=== PATIENT | female | born 1970 | race Two or more races ===

== ENCOUNTER 2021-07-17 11:33 | Emergency (ER) | payer OTHER, SELFPAY ==
--- NOTE | ~2021-07-17 | CT_ITS ---
EXAMINATION: CT ANGIOGRAM OF THE CHEST WITH AND WITHOUT CONTRAST (CT PULMONARY ANGIOGRAM FOR PE) CLINICAL INFORMATION: Reason for Exam cp, sob, r/o pe COMPARISON: Chest x-ray 04/16/2021 TECHNIQUE: Prior to contrast administration, noncontrast localization images were obtained. Subsequently, multidetector volumetric imaging was performed from the thoracic inlet to below the diaphragms following the administration of 80 mL Omnipaque 350 intravenous contrast. No contrast reaction reported Sagittal, coronal, and MIP oblique sagittal reformatted images were obtained on the CT workstation, uploaded to PACS, and reviewed. This CT examination was performed using dose optimization techniques as appropriate, variously including the following: *Automated exposure control *Adjustment of mA and/or kV according to patient size (this includes techniques or standardized protocols for targeted exams where dose is matched to indication/reason for exam; i.e. extremities or head) *Use of iterative reconstruction technique Total exam dose-length product 505 mGy-cm FINDINGS: QUALITY OF STUDY/CONTRAST BOLUS: Satisfactory. PULMONARY ARTERIES: No no evidence of filling defects to suggest central or segmental pulmonary emboli. THORACIC AORTA: No aneurysm or dissection. LUNG: Mild patchy airspace and groundglass opacities in the posterior aspect of bilateral lower lungs, slightly more prominent in the superior aspect of the left lower lobe, could represent atelectasis or inflammatory/infectious process. No dense consolidation. No lobar consolidation. No suspicious nodules seen. PLEURA: No pleural effusion or pneumothorax. MEDIASTINUM: Normal heart size. No pericardial effusion. No hilar or mediastinal lymphadenopathy. No evidence of septal bowing or right heart strain. CHEST WALL/AXILLA: No axillary or internal mammary lymphadenopathy. OSSEOUS STRUCTURES: No acute or suspicious osseous abnormality. UPPER ABDOMEN: Unremarkable. No reflux of contrast into the hepatic veins to suggest elevated right heart pressures. CT/CT angio chest PE protocol IMPRESSION: 1. No evidence of filling defects to suggest central or segmental pulmonary emboli. 2. Mild patchy airspace and ground glass opacities in the posterior aspect of bilateral lower lungs, could represent atelectasis or inflammatory/infectious process. No dense consolidation. VTE: negative
--- NOTE | ~2021-07-17 | US_ITS ---
EXAMINATION: US VENOUS ULTRASOUND WITH DOPPLER LOWER EXTREMITY, LEFT CLINICAL INFORMATION: Left lower extremity swelling. Assess for occult DVT. COMPARISON: None. TECHNIQUE: Ultrasound of the deep veins is performed from the hip to the calf with compression sonography and color and pulse Doppler assessment. Spectral analysis with color-flow imaging is performed. FINDINGS: There is normal venous compression and respiratory variation and augmented flow. The visualized common femoral vein, superficial femoral vein, profunda femoral vein, popliteal vein, and the trifurcation region shows no evidence of deep venous thrombosis. No popliteal fossa cyst. US/US venous duplex LE LT IMPRESSION: No DVT demonstrated in the left lower extremity.
--- NOTE | ~2021-07-17 | XR_ITS ---
EXAMINATION: XR CHEST CLINICAL INFORMATION: Chest pain COMPARISON: None TECHNIQUE: 2 views of the chest were obtained. FINDINGS: There is no pneumothorax, pleural reaction, airspace opacity, or effusion. The costophrenic sulci are clear. The heart is normal in size. The hilar and mediastinal contours are normal. The bony structures show mild dextrocurvature lower thoracic spine. XR/XR chest 2V IMPRESSION: Unremarkable examination.
[2021-07-17 11:46] VITALS: BP 107/70; PULSE 90; PULSE 95; RESP 13; TEMP 36.6; O2SAT 96; O2SAT 97; BMI 43.1
--- NOTE | 2021-07-17 11:53 | ECG_ITS ---
Test Reason : CHEST PAIN Blood Pressure : / mmHG Vent. Rate : 090 BPM Atrial Rate : 090 BPM P-R Int : 138 ms QRS Dur : 072 ms QT Int : 394 ms P-R-T Axes : 013 004 024 degrees QTc Int : 481 ms Normal sinus rhythm Prolonged QT Abnormal ECG No previous ECGs available Referred By: Brittaney Raman Electronically Signed By:AYLIN CRUZ
--- NOTE | 2021-07-17 12:05 | PC.NURSE ---
pt reports feeling very depressed. reported she has been inpatient for therapy two times in her life. Currently she denies wanting to meet with Crisis. 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
--- NOTE | 2021-07-17 12:06 | ED.CHESTPAIN ---
HPI - Chest Pain General Chief Complaint: Chest Pain Stated Complaint: chest pain Time Seen by Provider: 07/17/21 11:49 Source: patient Mode of arrival: ambulatory Limitations: no limitations History of Present Illness HPI narrative: 51-year-old female with a past medical history of asthma, prior DVT (unknown cause-not currently on anticoagulation) hypertension, diabetes, here with complaints of left-sided chest pain which patient noticed with waking at 06:30. Pain is worsened with touching, breathing, movement of the arm. Pain does radiate from the left-sided chest down the left arm. She tells me she has also had some left-sided calf pain and swelling for the last few weeks to about a month. No injury or trauma. No fevers or chills. She does occasionally have cough but denies any shortness of breath, nausea, vomiting, dizziness or abdominal pain. Related Data Previous Rx's Medication Instructions Recorded doxycycline monohydrate 100 mg 100 mg PO BID #20 cap 07/17/21 capsule oxycodone 5 mg tablet 5 mg PO Q8H PRN #8 tab 07/17/21 Allergies Allergy/AdvReac Type Severity Reaction Status Date / Time ibuprofen [From Motrin] Allergy Hives Verified 07/17/21 13:08 lisinopril Allergy Swelling Verified 07/17/21 13:08 peanut Allergy Swelling Verified 07/17/21 13:08 Penicillins Allergy Hives Verified 07/17/21 13:08 Review of Systems Review of Systems: Yes all other systems are reviewed and are negative Constitutional: Constitutional: Reports no additional constitutional complaints, Denies body ache(s), Denies chills, Denies fever(s), Denies headache(s) and Denies weakness Eyes: Eyes: Reports no additional eye complaints and Denies change in vision ENT: Reports system reviewed and no additional complaints, except as documented, Denies dizziness, Denies headache(s), Denies nasal congestion, Denies nasal discharge and Denies neck pain Cardiovascular: Cardiovascular: Reports no additional cardiovascular complaints, Reports chest pain, Reports leg edema and Denies dyspnea Respiratory: Respiratory: Reports no additional respiratory complaints, Denies cough and Denies dyspnea Gastrointestinal: Gastrointestinal: Reports no additional gastrointestinal complaints, Denies abdominal pain, Denies diarrhea, Denies nausea and Denies vomiting Genitourinary: Genitourinary: Reports no additional female genitourinary complaints and Denies urinary incontinence Musculoskeletal: Musculoskeletal: Reports no additional musculoskeletal complaints, Denies back pain, Denies arthralgias, Denies joint swelling, Denies neck pain, Denies numbness and Denies tingling Integumentary/Breasts: Skin/Breast: Reports system reviewed and no additional complaints, except as docu and Denies rash Neurologic: Reports system reviewed and no additional complaints, except as documented, Denies Abnormal speech present, Denies dizziness, Denies headache(s), Denies numbness, Denies tingling and Denies weakness FORMERLY [facility], 1928–1983 Past Medical History Attestation statement: The following information was validated with the patient. Source: old records reviewed and nursing notes reviewed Social History Social History Alcohol intake: never Patient Tobacco Use Status: Never used Tobacco Use of substances other than those prescribed or required for medical reasons: No Advance Directives: No Advance Directives Information Provided: No Physical Exam Vital Signs: Vital Signs: Last Vital Signs Temp 97.9 F 07/17/21 11:46 Pulse 88 07/17/21 12:09 Resp 18 07/17/21 12:09 BP 105/60 07/17/21 12:09 Pulse Ox 98 07/17/21 12:09 Body Mass Index 43.1 Const: General: cooperative, healthy appearing, comfortable and no acute distress Orientation/consciousness: patient oriented x3 Limitations: no limitations HENMT: Head: Yes normal to inspection Ears: hearing grossly normal bilaterally General nose exam: Normal external nose present Face and sinus: Yes normal facial exam Mouth: Normal oral and palatal mucosa present Throat: Yes posterior oropharynx normal Eyes: General: appearance normal, both eyes and all related structures Pupils: Equal, round and reactive pupils present Neck: Neck: Yes normal visual inspection Chest: Other: Left chest tender to palpate. Worsened with deep breathing, movement of left arm. Chest palpation & inspection: normal inspection of the chest Resp: Effort & Inspection: normal respiratory effort Auscultation: clear to auscultation bilaterally Cardio: Rate: regular rate Rhythm: regular rhythm Peripheral pulses: Peripheral pulses 2+ throughout GI: Inspection: Yes normal to inspection Palpation (GI): Soft to palpation and nontender Auscultation: normal bowel sounds Back/Spine/Pelvis: Thoracic/Lumbar Spine: thoracic and lumbar spine normal to inspection Skin: General skin exam: no rashes or lesions noted Neuro: General: patient oriented x3, no focal motor deficits and normal sensation to monofilament Cranial nerves: Yes Equal, round and reactive pupils present Cognition (Neuro): normal cognition Speech: No Abnormal speech present Gait exam (Neuro): Normal gait present Motor exam (neuro): 5/5 motor strength present throughout Extrem: Other: Tenderness to left calf. Scant edema noted around the left ankle. No redness or warmth. Distal pulses palpated General: Yes normal to inspection Course Course Course Narrative: 51-year-old female here with complaints of left-sided chest discomfort which is pleuritic in nature since waking with reports of left lower extremity swelling and pain to the calf for several weeks to 1 month. Will need labs, chest x-ray, EKG, venous ultrasound the left lower extremity to rule out DVT. 1545-reviewed labs all unremarkable. Ultrasound is negative. The D-dimer is mildly elevated with a history of blood clots and pleuritic chest pain will check CTA to rule out PE. 1730-CT shows no PE. There does appear to be patchy airspace and ground-glass opacities in the bilateral lower lungs. The patient denies any shortness of breath but does report a cough which he has had for several days. No fevers or chills. No hypoxia, tachypnea, or fever. No leukocytosis. Can be discharged home with course of antibiotics. Reviewed worrisome signs and symptoms with the patient including worsening shortness of breath, chest pain, fever which is not respond to Motrin Tylenol when to return to the emergency department. Comfortable discharge home. MDM - Chest Pain MDM Narrative Medical decision making narrative: PE, DVT, ACS Medical Records Data Attestation: I reviewed the patient's medical records. Lab Data Attestation: I reviewed the patient's lab results. Result diagrams: 07/17/21 12:23 07/17/21 13:15 Labs: Lab Results 07/17/21 07/17/21 07/17/21 Range/Units 12:23 12:23 12:23 WBC 10.4 (4.8-10.8) X10*3/uL RBC 4.82 (4.20-5.50) X10*6/uL Hgb 11.6 L (12.0-16.0) g/dl Hct 37.1 (37-47) % MCV 77.0 L (80-98) fL MCH 24.1 L (27.0-33.0) pg MCHC 31.3 (31.0-35.0) g/dl RDW 19.5 H (11.0-16.0) % Plt Count 288 (160-400) X10*3/uL MPV 9.9 (9.4-12.3) fL Immature Gran % (Auto) 0.5 H (0.0-0.4) % Neut % (Auto) 49.9 (45-73) % Lymph % (Auto) 37.8 (20-40) % [place] % (Auto) 7.2 (2-11) % Eos % (Auto) 4.1 H (0-4) % Baso % (Auto) 0.5 (0-2) % Lymph # (Auto) 4.0 (1.2-4.9) X10*3/uL [place] # (Auto) 0.8 (0.1-1.2) X10*3/uL Eos # (Auto) 0.4 (0.0-0.4) X10*3/uL Baso # (Auto) 0.1 (0.0-0.2) X10*3/uL Abs Immat Gran (auto) 0.05 H (0.00-0.03) X10*3/uL Absolute Neuts (auto) 5.2 (2.0-8.3) X10*3/uL Absolute Nucleated RBC 0.000 (0.0-0.012) X10*3/uL Nucleated RBC % (auto) 0.0 (0.0-0.2) /100WBC PT (9.9-13.0) SEC INR (0.9-1.1) D-Dimer Cancelled Sodium (135-145) mmol/L Potassium (3.3-5.1) mmol/L Chloride (96-108) mmol/L Carbon Dioxide (22-29) mmol/L Anion Gap (12-20) BUN (9-16) mg/dL Creatinine (0.5-1.4) mg/dL Estim Creat Clear Calc Estimated GFR POC Glucose (60-115) mg/dL Random Glucose (60-115) mg/dL Calcium (8.4-10.2) mg/dL Magnesium (1.6-2.6) mg/dL Total Bilirubin (0.0-1.0) mg/dL Direct Bilirubin (0.0-0.5) mg/dL AST (5-31) U/L ALT (0-31) U/L Alkaline Phosphatase (39-117) U/L Troponin I High Sens < 3.5 (<3.5-17.0) ng/L Total Protein (6.5-8.0) g/dL Albumin (3.5-5.0) g/dL COVID-19 (RAO) (Negative) COVID-19 Clin Com 07/17/21 07/17/21 07/17/21 Range/Units 12:23 13:04 13:15 WBC (4.8-10.8) X10*3/uL RBC (4.20-5.50) X10*6/uL Hgb (12.0-16.0) g/dl Hct (37-47) % MCV (80-98) fL MCH (27.0-33.0) pg MCHC (31.0-35.0) g/dl RDW (11.0-16.0) % Plt Count (160-400) X10*3/uL MPV (9.4-12.3) fL Immature Gran % (Auto) (0.0-0.4) % Neut % (Auto) (45-73) % Lymph % (Auto) (20-40) % [place] % (Auto) (2-11) % Eos % (Auto) (0-4) % Baso % (Auto) (0-2) % Lymph # (Auto) (1.2-4.9) X10*3/uL [place] # (Auto) (0.1-1.2) X10*3/uL Eos # (Auto) (0.0-0.4) X10*3/uL Baso # (Auto) (0.0-0.2) X10*3/uL Abs Immat Gran (auto) (0.00-0.03) X10*3/uL Absolute Neuts (auto) (2.0-8.3) X10*3/uL Absolute Nucleated RBC (0.0-0.012) X10*3/uL Nucleated RBC % (auto) (0.0-0.2) /100WBC PT 11.6 (9.9-13.0) SEC INR 1.0 (0.9-1.1) D-Dimer 271 Sodium 137 (135-145) mmol/L Potassium 4.6 (3.3-5.1) mmol/L Chloride 109 H (96-108) mmol/L Carbon Dioxide 18 L (22-29) mmol/L Anion Gap 15 (12-20) BUN 9 (9-16) mg/dL Creatinine 0.77 (0.5-1.4) mg/dL Estim Creat Clear Calc 100.6 Estimated GFR > 60 POC Glucose (60-115) mg/dL Random Glucose 110 (60-115) mg/dL Calcium 8.8 (8.4-10.2) mg/dL Magnesium 2.0 (1.6-2.6) mg/dL Total Bilirubin 0.4 (0.0-1.0) mg/dL Direct Bilirubin 0.2 (0.0-0.5) mg/dL AST 32 H (5-31) U/L ALT 33 H (0-31) U/L Alkaline Phosphatase 78 (39-117) U/L Troponin I High Sens (<3.5-17.0) ng/L Total Protein 6.5 (6.5-8.0) g/dL Albumin 3.5 (3.5-5.0) g/dL COVID-19 (RAO) Negative (Negative) COVID-19 Clin Com See Note 07/17/21 07/17/21 Range/Units 13:56 16:52 WBC (4.8-10.8) X10*3/uL RBC (4.20-5.50) X10*6/uL Hgb (12.0-16.0) g/dl Hct (37-47) % MCV (80-98) fL MCH (27.0-33.0) pg MCHC (31.0-35.0) g/dl RDW (11.0-16.0) % Plt Count (160-400) X10*3/uL MPV (9.4-12.3) fL Immature Gran % (Auto) (0.0-0.4) % Neut % (Auto) (45-73) % Lymph % (Auto) (20-40) % [place] % (Auto) (2-11) % Eos % (Auto) (0-4) % Baso % (Auto) (0-2) % Lymph # (Auto) (1.2-4.9) X10*3/uL [place] # (Auto) (0.1-1.2) X10*3/uL Eos # (Auto) (0.0-0.4) X10*3/uL Baso # (Auto) (0.0-0.2) X10*3/uL Abs Immat Gran (auto) (0.00-0.03) X10*3/uL Absolute Neuts (auto) (2.0-8.3) X10*3/uL Absolute Nucleated RBC (0.0-0.012) X10*3/uL Nucleated RBC % (auto) (0.0-0.2) /100WBC PT (9.9-13.0) SEC INR (0.9-1.1) D-Dimer Sodium (135-145) mmol/L Potassium (3.3-5.1) mmol/L Chloride (96-108) mmol/L Carbon Dioxide (22-29) mmol/L Anion Gap (12-20) BUN (9-16) mg/dL Creatinine (0.5-1.4) mg/dL Estim Creat Clear Calc Estimated GFR POC Glucose 100 112 (60-115) mg/dL Random Glucose (60-115) mg/dL Calcium (8.4-10.2) mg/dL Magnesium (1.6-2.6) mg/dL Total Bilirubin (0.0-1.0) mg/dL Direct Bilirubin (0.0-0.5) mg/dL AST (5-31) U/L ALT (0-31) U/L Alkaline Phosphatase (39-117) U/L Troponin I High Sens (<3.5-17.0) ng/L Total Protein (6.5-8.0) g/dL Albumin (3.5-5.0) g/dL COVID-19 (RAO) (Negative) COVID-19 Clin Com Imaging Data Chest x-ray: Attestation: I personally reviewed and interpreted this imaging study as follows: Radiologist's impression: EXAMINATION: XR CHEST CLINICAL INFORMATION: Chest pain COMPARISON: None TECHNIQUE: 2 views of the chest were obtained. FINDINGS: There is no pneumothorax, pleural reaction, airspace opacity, or effusion. The costophrenic sulci are clear. The heart is normal in size. The hilar and mediastinal contours are normal. The bony structures show mild dextrocurvature lower thoracic spine. XR/XR chest 2V IMPRESSION: Unremarkable examination. Venous US: Attestation: I personally reviewed and interpreted this imaging study as follows: Radiologist's impression: [address] [address] Ultrasound Report Signed Patient: Marylin Cheek MR#: [id number] : 1970 Acct:[id number] Age/Sex: 51 / F ADM Date: 07/17/21 Loc: HO.ED Attending Dr: Ordering Physician: Brittaney Raman NP Date of Service: 07/17/21 Procedure(s): US venous duplex LE LT Accession Number(s): [id number] cc: Brittaney Raman NP~ EXAMINATION:? US VENOUS ULTRASOUND WITH DOPPLER LOWER EXTREMITY, LEFT CLINICAL INFORMATION:? Left lower extremity swelling. Assess for occult DVT. COMPARISON:? None. TECHNIQUE: Ultrasound of the deep veins is performed from the hip to the calf with compression sonography and color and pulse Doppler assessment. Spectral analysis with color-flow imaging is performed. FINDINGS: There is normal venous compression and respiratory variation and augmented flow. The visualized common femoral vein, superficial femoral vein, profunda femoral vein, popliteal vein, and the trifurcation region shows no evidence of deep venous thrombosis. ? No popliteal fossa cyst. US/US venous duplex LE LT IMPRESSION: No DVT demonstrated in the left lower extremity. CT scan - chest: Attestation: I personally reviewed and interpreted this imaging study as follows: Radiologist's impression: [address] [address] [address] Scan Report Signed Patient: Marylin Cheek MR#: [id number] : 1970 Acct:[id number] Age/Sex: 51 / F ADM Date: 07/17/21 Loc: HO.ED Attending Dr: Ordering Physician: Brittaney Raman NP Date of Service: 07/17/21 Procedure(s): CT angio chest PE protocol Accession Number(s): [id number] cc: Brittaney Raman NP~ EXAMINATION: CT ANGIOGRAM OF THE CHEST WITH AND WITHOUT CONTRAST (CT PULMONARY ANGIOGRAM FOR PE) CLINICAL INFORMATION: Reason for Exam cp, sob, r/o pe COMPARISON: Chest x-ray 04/16/2021? TECHNIQUE: Prior to contrast administration, noncontrast localization images were obtained. ? Subsequently, multidetector volumetric imaging was performed from the thoracic inlet to below the diaphragms following the administration of 80 mL Omnipaque 350 intravenous contrast. No contrast reaction reported Sagittal, coronal, and MIP oblique sagittal reformatted images were obtained on the CT workstation, uploaded to PACS, and reviewed. This CT examination was performed using dose optimization techniques as appropriate, variously including the following: *Automated exposure control *Adjustment of mA and/or kV according to patient size (this includes techniques or standardized protocols for targeted exams where dose is matched to indication/reason for exam; i.e. extremities or head) *Use of iterative reconstruction technique Total exam dose-length product 505 mGy-cm FINDINGS: QUALITY OF STUDY/CONTRAST BOLUS: Satisfactory. PULMONARY ARTERIES: No no evidence of filling defects to suggest central or segmental pulmonary emboli.? THORACIC AORTA: No aneurysm or dissection. LUNG: Mild patchy airspace and groundglass opacities in the posterior aspect of bilateral lower lungs, slightly more prominent in the superior aspect of the left lower lobe, could represent atelectasis or inflammatory/infectious process. No dense consolidation. No lobar consolidation. No suspicious nodules seen. PLEURA: No pleural effusion or pneumothorax. MEDIASTINUM: Normal heart size.? No pericardial effusion.? No hilar or mediastinal lymphadenopathy.? No evidence of septal bowing or right heart strain. CHEST WALL/AXILLA: No axillary or internal mammary lymphadenopathy. OSSEOUS STRUCTURES: No acute or suspicious osseous abnormality.? UPPER ABDOMEN: Unremarkable.? No reflux of contrast into the hepatic veins to suggest elevated right heart pressures. CT/CT angio chest PE protocol IMPRESSION: ? ? 1. No evidence of filling defects to suggest central or segmental pulmonary emboli. ? 2. Mild patchy airspace and ground glass opacities in the posterior aspect of bilateral lower lungs, could represent atelectasis or inflammatory/infectious process. No dense consolidation. ? VTE: negative ECG Data ECG #1: Attestation: I personally reviewed and interpreted this ECG as follows: ECG interpretation date: 07/17/21 ECG interpretation time: 11:52 Interpretation: Normal sinus rhythm with a rate of 90, normal OR, normal QRS, QTC 481 Discharge Plan Discharge Clinical Impression: Atypical chest pain, Pneumonia Patient Disposition: Home, Self-Care Instructions: Community Acquired Pneumonia (ED), Chest Wall Pain (ED) Additional Instructions: Your CT scan shows no evidence of a blood clot Your ultrasound shows no evidence of blood clot Your EKG and heart levels are normal Prescriptions: New doxycycline monohydrate 100 mg capsule 100 mg PO BID Qty: 20 RF: 0 oxycodone 5 mg tablet 5 mg PO Q8H PRN (Reason: pain) Qty: 8 RF: 0 Referrals: Physician,Unknown [Primary Care Provider] - 2 days Interventions: ED Discharge Assessment Last Done: 07/17/21 17:34 Discharge Date/Time: 07/17/21 17:34
[2021-07-17 12:09] VITALS: BP 105/60; PULSE 88; RESP 18; O2SAT 98
[2021-07-17] MEDS: Acetaminophen 325 MG TABLET 650 MG PO (12:12)
--- NOTE | 2021-07-17 12:25 | PC.NURSE ---
PT l LOWER EXTREMITY WARM, SLIGHTLY MORE RED IN CONTRAST TO THE r LEG.
[2021-07-17 12:29] LABS: MANUAL DIFF FLAG NO
[2021-07-17 12:33] LABS: Basophils Absolute Auto 0.1 X10*3/uL (0.0-0.2); Basophils Percent Auto 0.5 % (0-2); Eosinophils Absolute Auto 0.4 X10*3/uL (0.0-0.4); Eosinophils Percent Auto 4.1 % (0-4); Hematocrit 37.1 % (37-47); Hemoglobin 11.6 g/dl (12.0-16.0); Imm Gran Abs Auto 0.05 X10*3/uL (0.00-0.03); Imm Gran Pct Auto 0.5 % (0.0-0.4); Lymphocytes Percent Auto 37.8 % (20-40); Mean Corpuscular HGB Conc 31.3 g/dl (31.0-35.0); Mean Corpuscular Hemoglobin 24.1 pg (27.0-33.0); Mean Platelet Volume 9.9 fL (9.4-12.3); Monocytes Absolute Auto 0.8 X10*3/uL (0.1-1.2); Monocytes Percent Auto 7.2 % (2-11); Neutrophils Absolute Auto 5.2 X10*3/uL (2.0-8.3); Neutrophils Percent Auto 49.9 % (45-73); Platelet Count 288 X10*3/uL (160-400); Red Blood Count 4.82 X10*6/uL (4.20-5.50); Red Cell Distribution Width 19.5 % (11.0-16.0); White Blood Count 10.4 X10*3/uL (4.8-10.8)
--- NOTE | 2021-07-17 12:50 | PC.NURSE ---
pt medicated with oxycodone prior to going to /s
[2021-07-17 12:54] LABS: COVID-19 Test Negative (Negative); IDNOW Serial# 9DD0AD1C
[2021-07-17 12:58] LABS: Troponin-I High Sensitivity < 3.5 ng/L (<3.5-17.0)
[2021-07-17 13:18] LABS: Prothrombin Time 11.6 SEC (9.9-13.0)
[2021-07-17 13:21] LABS: D Dimer 271 NG/ML
[2021-07-17] MEDS: oxyCODONE HCl Immed Release 5 MG TABLET PO (13:26)
--- NOTE | 2021-07-17 13:30 | PC.NURSE ---
pt medicated with oxycodone prior to going to /.
[2021-07-17 13:44] LABS: Alanine Aminotransferase 33 U/L (0-31); Albumin Level 3.5 g/dL (3.5-5.0); Alkaline Phosphatase 78 U/L (39-117); Anion Gap 15 (12-20); Aspartate Amino Transferase 32 U/L (5-31); Bilirubin Direct 0.2 mg/dL (0.0-0.5); Bilirubin Total 0.4 mg/dL (0.0-1.0); Blood Urea Nitrogen 9 mg/dL (9-16); Calcium 8.8 mg/dL (8.4-10.2); Carbon Dioxide 18 mmol/L (22-29); Chloride 109 mmol/L (96-108); Creatinine Clr Calc Pharmacy 100.6; Estimated Glomerular Filt Rate > 60; Glucose Random 110 mg/dL (60-115); Potassium 4.6 mmol/L (3.3-5.1); Sodium 137 mmol/L (135-145); Total Protein 6.5 g/dL (6.5-8.0)
[2021-07-17 14:00] LABS: Glucose, Whole Blood 100 mg/dL (60-115)
[2021-07-17] MEDS: iohexoL 350 MG/ML 100 ML INFUS..BTL IV (16:32)
[2021-07-17 16:57] LABS: Glucose, Whole Blood 112 mg/dL (60-115)
== END 2021-07-17 17:34 | disposition home or self-care (01) ==
PROVIDERS: Nurse Practitioner Family; Emergency Provider Emergency Medicine
DX: J18.9 Pneumonia, unspecified organism (principal); R07.89 Other chest pain; R60.0 Localized edema; Z20.822 Contact with and (suspected) exposure to COVID-19; Z79.899 Other long term (current) drug therapy
CPT/HCPCS: 36415; 71046; 71275; 80048; 80076; 82947; 83735; 84484; 85025; 85379; 85610; 87635; 93005; 93971; 99284; 99285; Q9967

== ENCOUNTER 2021-08-01 10:46 | Emergency (ER) | payer OTHER, SELFPAY ==
--- NOTE | ~2021-08-01 | XR_ITS ---
EXAMINATION: LEFT ANKLE AND FOOT X-RAY CLINICAL INFORMATION: Injury. Pain. COMPARISON: None TECHNIQUE: 3 views of the left ankle and 3 views of the left foot FINDINGS: Left foot: Bone alignment is normal. No fracture or dislocation is seen. Joint spaces are normal. There are calcaneal spurs. Soft tissues are normal. Left ankle: Bone alignment is normal. No fracture or dislocation is seen at the ankle mortise is normal. Soft tissues are normal. XR/XR ankle LT min 3V IMPRESSION: Calcaneal spurs otherwise unremarkable exam.
--- NOTE | ~2021-08-01 | XR_ITS ---
EXAMINATION: LEFT ANKLE AND FOOT X-RAY CLINICAL INFORMATION: Injury. Pain. COMPARISON: None TECHNIQUE: 3 views of the left ankle and 3 views of the left foot FINDINGS: Left foot: Bone alignment is normal. No fracture or dislocation is seen. Joint spaces are normal. There are calcaneal spurs. Soft tissues are normal. Left ankle: Bone alignment is normal. No fracture or dislocation is seen at the ankle mortise is normal. Soft tissues are normal. XR/XR foot LT min 3V IMPRESSION: Calcaneal spurs otherwise unremarkable exam.
[2021-08-01 12:12] VITALS: BP 122/76; PULSE 87; RESP 16; TEMP 36.6; O2SAT 97; BMI 43.3
[2021-08-01] MEDS: oxyCODONE HCl Immed Release 5 MG TABLET PO (13:04)
--- NOTE | 2021-08-01 13:06 | ED.LOWEXIN ---
HPI - Extremity Injury (Lower) General Chief Complaint: Extremity Injury, Lower Stated Complaint: ft injury Time Seen by Provider: 08/01/21 12:28 Source: patient Mode of arrival: ambulatory Limitations: no limitations History of Present Illness HPI Narrative: 51-year-old female presenting to the ED with complaints of left foot/ankle pain and swelling after she was bringing her mom up the steps with her wheelchair while assisting her brother and her mother's wheelchair landed on her left foot/ankle and since then she has been having pain/swelling and mild redness. Denies any other symptoms complaints or concerns or injuries. MD complaint: ankle injury and foot injury Onset (ago): day(s) (Two days ago) Type of Injury: blunt Place: home Severity: severe Severity scale (1-10): >10 Relieving factors: nothing Exacerbating factors: weight bearing, movement and palpation Context: direct blow Associated symptoms: swelling and able to partially bear weight Other symptoms: none Treatments prior to arrival: other ([id number] treatment no symptomatic) Related Data Previous Rx's Medication Instructions Recorded doxycycline monohydrate 100 mg 100 mg PO BID #20 cap 07/17/21 capsule oxycodone 5 mg tablet 5 mg PO Q8H PRN #8 tab 07/17/21 acetaminophen 500 mg tablet 1,000 mg PO QID PRN #14 tab 08/01/21 (Tylenol Extra Strength) cephalexin 500 mg capsule 500 mg PO Q6H 7 Days #28 cap 08/01/21 doxycycline monohydrate 100 mg 100 mg PO BID 7 Days #14 cap 08/01/21 capsule oxycodone 5 mg tablet 5 mg PO Q6H PRN #14 tab 08/01/21 Allergies Allergy/AdvReac Type Severity Reaction Status Date / Time ibuprofen [From Motrin] Allergy Hives Verified 07/17/21 13:08 lisinopril Allergy Swelling Verified 07/17/21 13:08 peanut Allergy Swelling Verified 07/17/21 13:08 Penicillins Allergy Hives Verified 07/17/21 13:08 raspberry Allergy Hives Verified 08/01/21 12:12 Review of Systems Review of Systems: Constitutional : No changes in activity, No lethargy, No recent prior head injury, No agitation, No increased fussiness ENT/Mouth : No Ear Pain, No Nasal discharge/drainage Eyes: No Eye Pain, No Swelling, No Redness, No Foreign Body, No Vision Changes Cardiovascular : No Chest Pain, No SOB Respiratory : No Cough Gastrointestinal : No Nausea, No Vomiting, No abdominal Pain Genitourinary : No Dysuria, No Urinary Frequency, No Urinary Incontinence, No Urgency, No Flank Pain Musculoskeletal : + joint pain, No neck stiffness, No back pain/injury Skin : No lacerations Neuro : No unsteady gait, No Paresthesias, No Loss of Consciousness, No altered mental status, No Headache Yes all other systems are reviewed and are negative [facility] Past Medical History Attestation statement: The following information was validated with the patient. Social History Social History Alcohol intake: never Patient Tobacco Use Status: Never used Tobacco Advance Directives: No Advance Directives Information Provided: No Physical Exam Vital Signs: Vital Signs: Last Vital Signs Temp 97.8 F 08/01/21 12:12 Pulse 87 08/01/21 12:12 Resp 16 08/01/21 12:12 BP 122/76 08/01/21 12:12 Pulse Ox 97 08/01/21 12:12 Body Mass Index 43.3 vital signs have been reviewed as normal and appeared to be correct. Blood pressure normal. Heart rate normal. Respiration rate normal. Temperature normal. Oxygen saturation normal. Appearance: Alert. Oriented X3. No acute distress. Head: Normal external exam. Normocephalic. Atraumatic. Eyes: PERRLA. EOMI. Conjunctiva and sclera normal. Eyelids normal. ENT: Pharynx normal. Uvula midline. Moist mucous membranes. Neck: Normal inspection. Neck supple. FROM. CVS: Normal heart rate and rhythm. Respiratory: No respiratory distress. Back: Full range of motion noted. No rashes/lesion/induration/fluctuance or signs of infection noted. Skin: Skin warm and dry. Normal skin color. Normal skin turgor. No rashes/lesions/lacerations noted. Extremities: Patient moderate tenderness palpation to left ankle although no obvious ligamentous injury noted. Patient has full range of motion of the left ankle. Patient with tenderness palpation to the proximal and mid aspect of the dorsal aspect of the left foot with soft tissue swelling and erythema noted. No foreign bodies noted. Otherwise all other extremities exhibit normal range of motion and nontender. Neuro: Oriented X 3. No motor deficit. No sensory deficit. Reflexes normal. Normal steady gait. No focal neuro deficits noted. Vascular: + 2 distal pedal pulses/+2 dorsalis pedis b/l. Normal cap refill. No cyanosis noted to upper extremity nails and lower extremity toes nails. Course Course Course Narrative: 51-year-old female presenting to the ED with complaints of left foot/ankle pain after she had blunt injury where her mother's wheelchair fell on top of her foot and since then she has been having pain to the left foot/ankle. On exam patient has soft tissue swelling and tenderness all patient and erythema to the left foot no ligamentous injury or obvious deformities noted. X-rays obtained and negative for any acute processes. Therefore will DC home with an Bandar wrap and symptomatic treatment instructions return if any new or worsening symptoms to follow up with primary care provider. Patient understands agrees with this plan. MDM - Extremity Injury (Lower) Medical Records Attestation: I reviewed the patient's medical records. Imaging Data X-ray of left foot/ankle: Attestation: I personally reviewed and interpreted this imaging study as follows: Radiologist's impression: FINDINGS: Left foot: Bone alignment is normal. No fracture or dislocation is seen. Joint spaces are normal. There are calcaneal spurs. Soft tissues are normal. Left ankle: Bone alignment is normal. No fracture or dislocation is seen at the ankle mortise is normal. Soft tissues are normal.? XR/XR ankle LT min 3V IMPRESSION: Calcaneal spurs otherwise unremarkable exam.? Discharge Plan Discharge Clinical Impression: Ankle sprain and strain, Foot sprain, Cellulitis Patient Disposition: Home, Self-Care Instructions: Ankle Sprain (ED), Cellulitis (ED), Foot Sprain (ED) Prescriptions: New acetaminophen [Tylenol Extra Strength] 500 mg tablet 1,000 mg PO QID PRN (Reason: fever or pain) Qty: 14 RF: 0 doxycycline monohydrate 100 mg capsule 100 mg PO BID 7 Days Qty: 14 RF: 0 cephalexin 500 mg capsule 500 mg PO Q6H 7 Days Qty: 28 RF: 0 oxycodone 5 mg tablet 5 mg PO Q6H PRN (Reason: pain) Qty: 14 RF: 0 No Action doxycycline monohydrate 100 mg capsule 100 mg PO BID Qty: 20 RF: 0 oxycodone 5 mg tablet 5 mg PO Q8H PRN (Reason: pain) Qty: 8 RF: 0 Referrals: Physician,Unknown [Primary Care Provider] - 2 days (your pcp) Print Language: Luxembourgish
== END 2021-08-01 13:41 | disposition home or self-care (01) ==
PROVIDERS: Emergency Provider Internal Medicine
DX: S93.402A Sprain of unspecified ligament of left ankle, initial encounter (principal); S93.602A Unspecified sprain of left foot, initial encounter; L03.116 Cellulitis of left lower limb; Y99.9 Unspecified external cause status; X50.1XXA Overexertion from prolonged static or awkward postures, initial encounter; Y93.9 Activity, unspecified; Y92.9 Unspecified place or not applicable
CPT/HCPCS: 73610; 73630; 99283

== ENCOUNTER 2022-04-12 07:40 | Outpatient (REF) | payer OTHER, SELFPAY ==
--- NOTE | ~2022-04-12 | XR_ITS ---
EXAMINATION: XR KNEE, LEFT CLINICAL INFORMATION: Primary osteoarthritis. COMPARISON: None TECHNIQUE: Three views of the left knee. FINDINGS: There is loss of tricompartment joint space, severe medial compartment. There is moderate periarticular spurring medial and patellofemoral compartments. There is mild superior joint effusion. No loose body seen. XR/XR knee LT 3V IMPRESSION: Moderate degenerative changes in the tricompartments without loose bodies, acute fracture or dislocation. The soft tissues are normal.
[2022-04-12 08:36] LABS: MANUAL DIFF FLAG NO
[2022-04-12 08:47] LABS: Basophils Absolute Auto 0.1 X10*3/uL (0.0-0.2); Basophils Percent Auto 0.7 % (0-2); Eosinophils Absolute Auto 0.3 X10*3/uL (0.0-0.4); Eosinophils Percent Auto 4.3 % (0-4); Hematocrit 39.4 % (37.0-47.0); Hemoglobin 12.3 g/dl (12.0-16.0); Imm Gran Abs Auto 0.02 X10*3/uL (0.00-0.03); Imm Gran Pct Auto 0.3 % (0.0-0.4); Lymphocytes Absolute Auto 2.8 X10*3/uL (1.2-4.9); Lymphocytes Percent Auto 37.6 % (20-40); Mean Corpuscular HGB Conc 31.2 g/dl (31.0-35.0); Mean Corpuscular Volume 76.8 fL (80.0-98.0); Mean Platelet Volume 9.4 fL (9.4-12.3); Monocytes Absolute Auto 0.5 X10*3/uL (0.1-1.2); Monocytes Percent Auto 6.8 % (2-11); Neutrophils Absolute Auto 3.7 x10*3/uL (2.0-8.3); Neutrophils Percent Auto 50.3 % (45-73); Platelet Count 303 X10*3/uL (160-400); Red Blood Count 5.13 X10*6/uL (4.20-5.50); Red Cell Distribution Width 20.5 % (11.0-16.0); White Blood Count 7.4 X10*3/uL (4.8-10.8)
[2022-04-12 09:04] LABS: Estimated Average Glucose 203 mg/dL; Hemoglobin A1c % 8.7 %
[2022-04-12 09:12] LABS: Alanine Aminotransferase 34 U/L (0-31); Albumin Level 4.1 g/dL (3.5-5.0); Alkaline Phosphatase 90 U/L (39-117); Anion Gap 13 (12-20); Aspartate Amino Transferase 26 U/L (5-31); Bilirubin Total 0.3 mg/dL (0.0-1.0); Blood Urea Nitrogen 13 mg/dL (9-16); Calcium 9.6 mg/dL (8.4-10.2); Carbon Dioxide 22 mmol/L (22-29); Chloride 105 mmol/L (96-108); Cholesterol 149 mg/dL; Estimated Glomerular Filt Rate > 60; Glucose Random 216 mg/dL (60-115); HDL Cholesterol 59 mg/dL; LDL Cholesterol Calculated 73 mg/dl; Potassium 4.5 mmol/L (3.3-5.1); Sodium 135 mmol/L (135-145); Total Protein 7.4 g/dL (6.5-8.0); Triglycerides 87 mg/dL
[2022-04-12 09:38] LABS: TSH reflex Free T4 2.97 uIU/mL (0.32-4.0); Vitamin D 25-OH Total 8.2 ng/mL (>30)
[2022-04-12 09:39] LABS: Folate 14.4 ng/mL (> or = 4.0); Vitamin B12 173 pg/mL (200-900)
== END 2022-04-12 07:41 | disposition home or self-care (01) ==
LOC: HO.LAB 07:40
PROVIDERS: PCP Nurse Practitioner Family; Visit Provider Nurse Practitioner Family
DX: Z13.29 Encounter for screening for other suspected endocrine disorder (principal); M17.12 Unilateral primary osteoarthritis, left knee; E66.9 Obesity, unspecified; E11.69 Type 2 diabetes mellitus with other specified complication; E78.5 Hyperlipidemia, unspecified; Z76.89 Persons encountering health services in other specified circumstances
CPT/HCPCS: 36415; 73562; 80053; 80061; 82306; 82607; 82746; 83036; 84443; 85025

== ENCOUNTER 2022-04-13 11:14 | Outpatient (REF) | payer OTHER, SELFPAY ==
[2022-04-13 13:00] LABS: Creatinine Urine 93.73 mg/dL; Microalbum/Creatinine Ratio Ur 8.5 ug/mg cr
== END 2022-04-13 11:15 | disposition home or self-care (01) ==
LOC: HO.LNP 11:14
PROVIDERS: Visit Provider Nurse Practitioner Family
DX: E11.69 Type 2 diabetes mellitus with other specified complication (principal); E66.9 Obesity, unspecified
CPT/HCPCS: 82043

== ENCOUNTER 2022-05-01 08:47 | Outpatient (REF) | payer OTHER, SELFPAY ==
[2022-05-01 10:27] LABS: Hematocrit 39.2 % (37.0-47.0); Immature Retic Fraction 27.1 % (3.0-15.9); Mean Corpuscular HGB Conc 30.6 g/dl (31.0-35.0); Mean Corpuscular Hemoglobin 23.7 pg (27.0-33.0); Mean Corpuscular Volume 77.3 fL (80.0-98.0); Mean Platelet Volume 9.6 fL (9.4-12.3); Platelet Count 337 X10*3/uL (160-400); Red Blood Count 5.07 X10*6/uL (4.20-5.50); Red Cell Distribution Width 18.8 % (11.0-16.0); Retic HGB Equivalent 25.5 pg (30.0-35.0); Reticulocyte Percent 1.7 % (0.5-1.8); Reticulocytes Absolute 0.085 X10*6/uL (0.026-0.095)
[2022-05-01 10:58] LABS: Iron 47 mcg/dL (30-160); Percent Iron Saturation 11 % (15-50); Total Iron Binding Capacity 423 mcg/dL (228-428); Unsaturated Iron Binding 376 ug/dL
[2022-05-01 11:20] LABS: Ferritin 10 ng/mL (10-250)
== END 2022-05-01 08:48 | disposition home or self-care (01) ==
LOC: HO.LAB 08:47
PROVIDERS: PCP Nurse Practitioner Family; Visit Provider Nurse Practitioner Family
DX: D64.9 Anemia, unspecified (principal)
CPT/HCPCS: 36415; 82728; 83540; 85027; 85045

== ENCOUNTER 2022-05-02 09:02 | Emergency (ER) | payer OTHER, SELFPAY ==
--- NOTE | ~2022-05-02 | XR_ITS ---
EXAMINATION: XR KNEE, LEFT CLINICAL INFORMATION: Left knee pain status post fall. COMPARISON: None TECHNIQUE: Four views of the left knee. FINDINGS: Moderate to severe tricompartmental degenerative joint changes are seen most pronounced in the medial femoral-tibial compartment. There is no acute fracture or dislocation. There is no joint effusion. The soft tissues are unremarkable. XR/XR knee LT 3V IMPRESSION: Moderate to severe tricompartmental degenerative joint changes most consistent with osteoarthritis. No acute abnormality.
--- NOTE | ~2022-05-02 | XR_ITS ---
EXAMINATION: XR ELBOW, LEFT CLINICAL INFORMATION: Left elbow pain status post fall. COMPARISON: None TECHNIQUE: AP, lateral, and oblique views of the left elbow. FINDINGS: The bones and soft tissues are normal. No fracture or joint effusion. Alignment is anatomic. Joint spaces are maintained. XR/XR elbow LT 2V IMPRESSION: Unremarkable left elbow.
--- NOTE | ~2022-05-02 | XR_ITS ---
EXAMINATION: XR SHOULDER, LEFT CLINICAL INFORMATION: Left shoulder pain status post fall. COMPARISON: None TECHNIQUE: Three views of the left shoulder. FINDINGS: The bones and soft tissues are normal. No fracture. Glenohumeral and acromioclavicular alignment is anatomic with normal joint space. No abnormal soft tissue calcifications. XR/XR shoulder LT min 2V IMPRESSION: Unremarkable left shoulder.
--- NOTE | ~2022-05-02 | XR_ITS ---
EXAMINATION: XR WRIST, LEFT CLINICAL INFORMATION: Left wrist pain status post fall. COMPARISON: None TECHNIQUE: PA, lateral, and oblique views of the left wrist. FINDINGS: Mild first carpal metacarpal degenerative joint changes are seen. There is no acute fracture or dislocation. The carpal bones are normally aligned. The distal radius and ulna are intact with the soft tissues are unremarkable. XR/XR wrist LT 2V IMPRESSION: Mild first carpal metacarpal degenerative joint changes most consistent with osteoarthritis. No acute abnormality.
[2022-05-02 09:32] VITALS: BP 133/82; PULSE 85; RESP 19; TEMP 36.1; O2SAT 98; BMI 44.9
--- NOTE | 2022-05-02 10:44 | ED_ITS ---
HPI - Fall General Chief Complaint: Fall Stated Complaint: fall l arm and leg inj at home Time Seen by Provider: 05/02/22 10:37 Source: patient Mode of arrival: wheelchair Limitations: no limitations History of Present Illness HPI Narrative: Patient presents emergency department for evaluation after a fall. She states yesterday afternoon she was walking with her walker went to sit down into the wheelchair, wheelchair moved back and she subsequently fell onto her left side. Denies head strike or loss of consciousness. She states last night she had difficulty sleeping due to pain in her left shoulder that radiated down her arm and pain in her left knee. She is concerned that she may have broken something. Used Tylenol yesterday with some relief. Denies head or neck pain. Denies numbness or tingling of the extremities. Denies weakness of the extremities. Denies bladder bowel dysfunction. Related Data Home Medications Medication Instructions Recorded Confirmed albuterol sulfate 90 mcg/actuation 0 mcg inhalation 04/10/22 04/10/22 aerosol inhaler alcohol swabs (Easy Touch Alcohol 1 pad topical TID 04/10/22 04/10/22 Prep Pads) blood sugar diagnostic (FreeStyle #10 ea 04/10/22 04/10/22 Lite Strips) carboxymethylcellulose sodium 0.5 0 drp ophthalmic (eye) 04/10/22 04/10/22 % eye drops clonidine HCl 0.1 mg tablet 0.1 mg PO TID 04/10/22 04/10/22 doxepin 50 mg capsule 50 mg PO BEDTIME 04/10/22 04/10/22 dulaglutide 1.5 mg/0.5 mL mg subcut 04/10/22 04/10/22 subcutaneous pen injector (Trulicity) duloxetine 20 mg capsule,delayed 20 mg PO BID 04/10/22 04/10/22 release empagliflozin 10 mg tablet 10 mg PO DAILY 04/10/22 04/10/22 (Jardiance) hydroxyzine pamoate 25 mg capsule 0 mg PO Q8H PRN 04/10/22 04/10/22 insulin degludec 200 unit/mL (3 unit subcut 04/10/22 04/10/22 mL) subcutaneous pen (Tresiba FlexTouch U-200 insulin) loratadine 10 mg tablet 10 mg PO DAILY 04/10/22 04/10/22 meloxicam 15 mg tablet 15 mg PO DAILY 04/10/22 04/10/22 metformin 1,000 mg tablet 1,000 mg PO BID 04/10/22 04/10/22 omeprazole 40 mg capsule,delayed 40 mg PO DAILY 04/10/22 04/10/22 release pen needle, diabetic 31 gauge x #1,200 ea 04/10/22 04/10/22/16 (Unifine Pentips) pravastatin 80 mg tablet 80 mg PO DAILY PRN 04/10/22 04/10/22 prazosin 5 mg capsule 0 mg PO 04/10/22 04/10/22 quetiapine 100 mg tablet 0 mg PO 04/10/22 04/10/22 sertraline 100 mg tablet 0 mg PO 04/10/22 04/10/22 topiramate 100 mg tablet 100 mg PO BID 04/10/22 04/10/22 ziprasidone HCl 80 mg capsule 0 mg PO DAILY PRN 04/10/22 04/10/22 Previous Rx's Medication Instructions Recorded acetaminophen 500 mg tablet 1,000 mg PO QID PRN fever or pain 08/01/21 (Tylenol Extra Strength) #14 tabs cholecalciferol (vitamin D3) 1,250 1,250 mcg PO QWEEK #12 caps 04/24/22 mcg (50,000 unit) capsule cyanocobalamin (vitamin B-12) 1,000 mcg PO DAILY #90 caps 04/24/22 1,000 mcg capsule Allergies Allergy/AdvReac Type Severity Reaction Status Date / Time insulin lispro Allergy Severe tongue Verified 04/10/22 09:09 swelling simvastatin Allergy Severe Difficulty Verified 04/10/22 09:09 Swallowing acetaminophen [From Fioricet] Allergy Intermediate lip, Verified 04/10/22 09:09 tongue, mouth swelling amlodipine Allergy Intermediate lip Verified 04/10/22 09:09 swelling butalbital Allergy Intermediate lip, Verified 04/10/22 09:09 tongue, mouth swelling caffeine [From Fioricet] Allergy Intermediate lip, Verified 04/10/22 09:09 tongue, mouth swelling clindamycin Allergy Intermediate Angioedema Verified 04/10/22 09:09 gabapentin Allergy Intermediate aggressive Verified 04/10/22 09:09 behavior losartan Allergy Intermediate Angioedema Verified 04/10/22 09:09 oxycodone [From Percocet] Allergy Mild Hives Verified 04/10/22 09:09 ibuprofen [From Motrin] Allergy Hives Verified 04/10/22 09:09 lisinopril Allergy Swelling Verified 04/10/22 09:09 peanut Allergy Swelling Verified 04/10/22 09:09 Penicillins Allergy Hives Verified 04/10/22 09:09 raspberry Allergy Hives Verified 04/10/22 09:09 Review of Systems Review of Systems: Constitutional: No weight loss, fever, chills, weakness or fatigue. Skin: No rash or itching. Cardiovascular: No chest pain, chest pressure or chest discomfort. No palpitations Respiratory: No shortness of breath, cough or sputum production. Gastrointestinal: No anorexia, nausea, vomiting or diarrhea. No abdominal pain. No bowel incontinence Genitourinary: No burning micturition. No urinary frequency or incontinence. Musculoskeletal: Positive arm pain. Positive knee pain. Psychiatric: No depression or anxiety. Yes all other systems are reviewed and are negative PMF[facility] Past Medical History Attestation statement: The following information was validated with the patient. Source: old records reviewed Medical History History of alcohol abuse History of kidney stones Surgical History History of hysterectomy History of tonsillectomy Family History Family History Father Hypertension Diabetes Mother Asthma Family/Other Substance use disorder Mental health disorder Social History Social History Housing: House Alcohol intake: former Patient Tobacco Use Status: Never used Tobacco e-Cigarette/Vaping Use: Never Used Second Hand Smoke Exposure: No Advance Directives: No Advance Directives Information Provided: No service: No Current occupational status: disabled Cognitive needs: Yes Hearing needs: No Vision needs: Yes Physical Exam Vital Signs: Vital Signs: Last Vital Signs Temp 97 F 05/02/22 09:32 Pulse 85 05/02/22 09:32 Resp 19 05/02/22 09:32 BP 133/82 05/02/22 09:32 Pulse Ox 98 05/02/22 09:32 O2 Del Method 05/02/22 09:32 BMI result Body Mass Index 44.9 Vital signs have been reviewed as normal and appeared to be correct. Blood pressure normal.? Heart rate normal.? Respiration rate normal. Temperature normal.? Oxygen saturation normal. Appearance: Alert.?Oriented to person, place and time. No acute d istress.?Normal affect. Head: Atraumatic normocephalic Eyes: Pupils equal, round and reactive to light.? ENT: Pharynx normal.? No hemotympanum? Neck: Normal inspection.? Neck supple.??No midline cervical spine tenderness, step-offs, deformities CVS: Heart sounds normal. Normal heart rate and rhythm.? Pulses normal.?? Respiratory: No respiratory distress.? Lung sounds clear to auscultation bilaterally?? Abdomen: Soft and non-tender. Skin: Skin warm and dry.? Normal skin color.? Extremities: No lower extremity edema.? Full AROM to left shoulder, elbow, wrist and left knee. Mild tenderness to palpation of the left trapezius muscle. Neuro: Moves all extremities spontaneously. Sensation intact bilaterally. No motor deficits Ambulates with slow steady gait and use of walker Course Course Course Narrative: Patient is a 51-year-old female with a past medical history of hyperlipidemia, osteoarthritis, CECILIA, diabetes with long-term insulin use, hypertension, bipolar disorder, fibromyalgia, diffuse myofascial pain syndrome, chronic back pain, anxiety, anemia. She presents emergency department after mechanical fall. X- rays obtained of the left shoulder, elbow, wrist, and knee are all unremarkable for any acute fracture dislocation. On physical exam there is no obvious defo rmities, tenderness to palpation, extremities are neurovascularly intact distally. Not consistent with cord compression. No head injury your or focal neurological deficits. Advised rest, ice, elevation the extremities, Tylenol as needed for pain. Advised following up with primary care provider as needed for pain. Discussed reasons to return back to emergency department. Patient was discharged home stable condition. MDM - Fall Medical Records Attestation: I reviewed the patient's medical records. Imaging Data XR elbow: Radiologist's impression: FINDINGS: The bones and soft tissues are normal. No fracture or joint effusion. Alignment is anatomic. Joint spaces are maintained.? XR/XR elbow LT 2V IMPRESSION: Unremarkable left elbow. XR knee: Radiologist's impression: FINDINGS: Moderate to severe tricompartmental degenerative joint changes are seen most pronounced in the medial femoral-tibial compartment. There is no acute fracture or dislocation. There is no joint effusion. The soft tissues are unremarkable.? XR/XR knee LT 3V IMPRESSION: Moderate to severe tricompartmental degenerative joint changes most consistent with osteoarthritis. No acute abnormality. XR shoulder: Radiologist's impression: FINDINGS: The bones and soft tissues are normal. No fracture. Glenohumeral and acromioclavicular alignment is anatomic with normal joint space. No abnormal soft tissue calcifications.? XR/XR shoulder LT min 2V IMPRESSION: Unremarkable left shoulder. XR Wrist: Radiologist's impression: FINDINGS: Mild first carpal metacarpal degenerative joint changes are seen. There is no acute fracture or dislocation. The carpal bones are normally aligned. The distal radius and ulna are intact with the soft tissues are unremarkable.? XR/XR wrist LT 2V IMPRESSION: Mild first carpal metacarpal degenerative joint changes most consistent with osteoarthritis. No acute abnormality. ? Discharge Plan Discharge Clinical Impression: Fall Patient Disposition: Home, Self-Care Instructions: R.I.C.E. Treatment (ED), Fall Prevention (ED) Additional Instructions: As we discussed the x-ray of your left shoulder, elbow, wrist, and knee did not show any fracture or dislocation. Be sure to rest, apply ice to these areas, elevate your arm and leg when possible. Tylenol may be used as needed for pain. Please contact your primary care provider to schedule follow-up visit as needed. You may return to the emergency department with any new or worsening symptoms or concerns. Prescriptions: No Action cholecalciferol (vitamin D3) 1,250 mcg (50,000 unit) capsule 1,250 mcg PO QWEEK Qty: 12 0RF cyanocobalamin (vitamin B-12) 1,000 mcg capsule 1,000 mcg PO DAILY Qty: 90 0RF acetaminophen [Tylenol Extra Strength] 500 mg tablet 1,000 mg PO QID PRN (Reason: fever or pain) Qty: 14 0RF duloxetine 20 mg capsule,delayed release(DR/EC) 20 mg PO BID hydroxyzine pamoate 25 mg capsule 0 mg PO Q8H PRN Jardiance 10 mg tablet 10 mg PO DAILY loratadine 10 mg tablet 10 mg PO DAILY metformin 1,000 mg tablet 1,000 mg PO BID pravastatin 80 mg tablet 80 mg PO DAILY PRN omeprazole 40 mg capsule,delayed release(DR/EC) 40 mg PO DAILY quetiapine 100 mg tablet 0 mg PO sertraline 100 mg tablet 0 mg PO topiramate 100 mg tablet 100 mg PO BID ziprasidone HCl 80 mg capsule 0 mg PO DAILY PRN doxepin 50 mg capsule 50 mg PO BEDTIME meloxicam 15 mg tablet 15 mg PO DAILY Trulicity 1.5 mg/0.5 mL pen injector subcut albuterol sulfate 90 mcg/actuation HFA aerosol inhaler 0 mcg inhalation alcohol swabs [Easy Touch Alcohol Prep Pads] Pads, Medicated 1 pad topical TID (DME) FreeStyle Lite Strips Strip See Rx Instructions Not Applicable BID Qty: 10 Rx Instructions: As directed clonidine HCl 0.1 mg tablet 0.1 mg PO TID prazosin 5 mg capsule 0 mg PO carboxymethylcellulose sodium 0.5 % drops 0 drp ophthalmic (eye) Tresiba FlexTouch U-200 200 unit/mL (3 mL) insulin pen subcut (DME) pen needle, diabetic [Unifine Pentips] 31 gauge x 5/16 needle See Rx Instructions .ROUTE .MEDSUPPLY Qty: 1200 Rx Instructions: As directed Interventions: ED Discharge Assessment Last Done: 05/02/22 11:01 Discharge Date/Time: 05/02/22 11:03
== END 2022-05-02 11:03 | disposition home or self-care (01) ==
PROVIDERS: Emergency Provider Emergency Medicine; PCP Nurse Practitioner Family
DX: Z04.3 Encounter for examination and observation following other accident (principal); M25.512 Pain in left shoulder; M79.602 Pain in left arm; M25.562 Pain in left knee; I10 Essential (primary) hypertension; E11.9 Type 2 diabetes mellitus without complications; Z79.4 Long term (current) use of insulin; Z91.81 History of falling
CPT/HCPCS: 73030; 73070; 73100; 73562; 99283

== ENCOUNTER 2022-05-03 06:24 | Outpatient (REF) | payer OTHER, SELFPAY ==
--- NOTE | ~2022-05-03 | XR_ITS ---
EXAMINATION: XR KNEE STANDING, BILATERAL XR KNEE, LEFT CLINICAL INFORMATION: Bilateral knee pain. COMPARISON: Left knee 05/02/2022. TECHNIQUE: AP bilateral knees standing. Left knee two views. FINDINGS: AP BILATERAL KNEES: There is severe loss of the medial compartment and moderate loss of the lateral compartment joint spaces of both knees. There is mild periarticular spurring of the medial and lateral compartments. No bony erosive changes. No visible acute fracture, dislocation or lytic process is seen. LEFT KNEE: There is moderate loss of the patellofemoral compartment with moderate periarticular superior spurring. No abnormal joint effusion is seen. No lytic process is seen. The soft tissues are normal. XR/XR knee LT 2V IMPRESSION: Tricompartment degenerative arthritic changes, severe in the medial compartment. There is moderate periarticular spurring without any loose bodies, acute fracture or lytic process. No major change from 05/02/2022. Moderate degenerative arthritic changes of the right knee on the AP view.
--- NOTE | ~2022-05-03 | XR_ITS ---
EXAMINATION: XR KNEE STANDING, BILATERAL XR KNEE, LEFT CLINICAL INFORMATION: Bilateral knee pain. COMPARISON: Left knee 05/02/2022. TECHNIQUE: AP bilateral knees standing. Left knee two views. FINDINGS: AP BILATERAL KNEES: There is severe loss of the medial compartment and moderate loss of the lateral compartment joint spaces of both knees. There is mild periarticular spurring of the medial and lateral compartments. No bony erosive changes. No visible acute fracture, dislocation or lytic process is seen. LEFT KNEE: There is moderate loss of the patellofemoral compartment with moderate periarticular superior spurring. No abnormal joint effusion is seen. No lytic process is seen. The soft tissues are normal. XR/XR knee standing BI IMPRESSION: Tricompartment degenerative arthritic changes, severe in the medial compartment. There is moderate periarticular spurring without any loose bodies, acute fracture or lytic process. No major change from 05/02/2022. Moderate degenerative arthritic changes of the right knee on the AP view.
== END 2022-05-03 06:25 | disposition home or self-care (01) ==
LOC: HO.HOSX 06:24
PROVIDERS: Visit Provider Orthopaedic Surgery
DX: M17.0 Bilateral primary osteoarthritis of knee (principal); E11.69 Type 2 diabetes mellitus with other specified complication; E66.9 Obesity, unspecified
CPT/HCPCS: 20610; 73560; 73565; 99202; J1100

== ENCOUNTER → 2022-05-08 09:04 | Outpatient (BNVA) | payer OTHER, SELFPAY | PROVIDERS: PCP Nurse Practitioner Family; Visit Provider Nurse Practitioner Family | DX: M47.816 Spondylosis without myelopathy or radiculopathy, lumbar region (principal); G89.29 Other chronic pain; M25.562 Pain in left knee; M53.3 Sacrococcygeal disorders, not elsewhere classified; M79.7 Fibromyalgia; E11.40 Type 2 diabetes mellitus with diabetic neuropathy, unspecified | CPT/HCPCS: 99202 ==

== ENCOUNTER → 2022-05-22 08:37 | Outpatient (BNVA) | payer OTHER, SELFPAY | PROVIDERS: PCP Nurse Practitioner Family; Visit Provider Physician Assistant Surgical | DX: E66.01 Morbid (severe) obesity due to excess calories (principal); Z68.41 Body mass index [BMI] 40.0-44.9, adult | CPT/HCPCS: 99202 ==

== ENCOUNTER 2022-05-24 07:26 | Outpatient (REF) | payer OTHER, SELFPAY ==
--- NOTE | ~2022-05-24 | XR_ITS ---
EXAMINATION: CHEST AND LUMBAR SPINE. CLINICAL INFORMATION: Moderate to severe obesity due to excess calories COMPARISON: None TECHNIQUE: 3 views lumbar spine 2 views chest. FINDINGS: CHEST: The lungs are well-expanded and clear of acute process. Heart size and pulmonary vascularity is normal. No gross bony abnormality seen. LUMBAR SPINE: There is normal lumbar lordosis. The vertebral heights and alignment is normal. There is moderate L3-4 and L4-L5 facet joint arthropathy. No lytic process seen. SI joints are symmetrical and normal. XR/XR chest 2V IMPRESSION: Unremarkable chest exam.. Degenerative disc changes L4-L5 disc level. Moderate left L4-L5 and L3-L4 facet joint arthropathy. No visible acute fracture or dislocation seen..
--- NOTE | ~2022-05-24 | XR_ITS ---
EXAMINATION: CHEST AND LUMBAR SPINE. CLINICAL INFORMATION: Moderate to severe obesity due to excess calories COMPARISON: None TECHNIQUE: 3 views lumbar spine 2 views chest. FINDINGS: CHEST: The lungs are well-expanded and clear of acute process. Heart size and pulmonary vascularity is normal. No gross bony abnormality seen. LUMBAR SPINE: There is normal lumbar lordosis. The vertebral heights and alignment is normal. There is moderate L3-4 and L4-L5 facet joint arthropathy. No lytic process seen. SI joints are symmetrical and normal. XR/XR lumbar spine 2-3V IMPRESSION: Unremarkable chest exam.. Degenerative disc changes L4-L5 disc level. Moderate left L4-L5 and L3-L4 facet joint arthropathy. No visible acute fracture or dislocation seen..
--- NOTE | 2022-05-24 07:40 | ECG_ITS ---
Test Reason : E66.1 MORBID OBESITY Blood Pressure : / mmHG Vent. Rate : 090 BPM Atrial Rate : 090 BPM P-R Int : 156 ms QRS Dur : 076 ms QT Int : 396 ms P-R-T Axes : 032 007 022 degrees QTc Int : 484 ms Normal sinus rhythm Prolonged QT Abnormal ECG When compared with ECG of 17-JUL-2021 11:52, No significant change was found Referred By: Horace Gaviria Electronically Signed By:Wade Mullins
[2022-05-24 09:33] LABS: Vitamin D 25-OH Total 25.4 ng/mL (>30)
[2022-05-24 09:34] LABS: Insulin 82 uU/mL (2-29)
[2022-05-24 09:54] LABS: Folate 9.1 ng/mL (> or = 4.0); Vitamin B12 183 pg/mL (200-900)
[2022-05-26 11:34] LABS: H Pylori Breath Test Negative (Negative)
[2022-05-28 22:25] LABS: Zinc 77 mcg/dL (60-130)
[2022-05-29 16:57] LABS: Vitamin B1 <6 nmol/L (8-30)
[2022-05-29 20:11] LABS: Vitamin A 53 mcg/dL (38-98)
== END 2022-05-24 07:27 | disposition home or self-care (01) ==
LOC: HO.XRAY 07:26
PROVIDERS: PCP Nurse Practitioner Family; Visit Provider Physician Assistant Surgical
DX: M47.816 Spondylosis without myelopathy or radiculopathy, lumbar region (principal); E66.01 Morbid (severe) obesity due to excess calories; R79.89 Other specified abnormal findings of blood chemistry; E53.8 Deficiency of other specified B group vitamins
CPT/HCPCS: 36415; 71046; 72100; 82306; 82607; 82746; 83013; 83525; 84425; 84590; 84630; 93005; 99211

== ENCOUNTER → 2022-06-06 08:40 | Outpatient (BNVA) | payer OTHER, SELFPAY | PROVIDERS: PCP Nurse Practitioner Family; Visit Provider Nurse Practitioner Family | DX: G89.29 Other chronic pain (principal); M25.562 Pain in left knee; M47.816 Spondylosis without myelopathy or radiculopathy, lumbar region; M53.3 Sacrococcygeal disorders, not elsewhere classified; M79.7 Fibromyalgia; E11.40 Type 2 diabetes mellitus with diabetic neuropathy, unspecified; M51.37 Other intervertebral disc degeneration, lumbosacral region | CPT/HCPCS: 99212 ==

== ENCOUNTER → 2022-06-11 09:18 | Outpatient (BNVA) | payer OTHER, SELFPAY | PROVIDERS: PCP Nurse Practitioner Family; Visit Provider Physician Assistant Surgical | DX: E66.01 Morbid (severe) obesity due to excess calories (principal); Z68.41 Body mass index [BMI] 40.0-44.9, adult | CPT/HCPCS: 99212 ==

== ENCOUNTER 2022-06-13 06:07 | Outpatient (REF) | payer OTHER, SELFPAY | END 2022-06-13 06:08 | disposition home or self-care (01) | LOC: HO.RADIR 06:07 | PROVIDERS: Visit Provider Internal Medicine | DX: M25.562 Pain in left knee (principal); G89.29 Other chronic pain; M17.12 Unilateral primary osteoarthritis, left knee | CPT/HCPCS: 64450; J2795 ==

== ENCOUNTER → 2022-06-18 14:14 | Outpatient (BNVA) | payer OTHER, SELFPAY | PROVIDERS: PCP Nurse Practitioner Family; Visit Provider Internal Medicine | DX: G89.29 Other chronic pain (principal); M25.562 Pain in left knee | CPT/HCPCS: Q3014 ==

== ENCOUNTER → 2022-06-20 10:25 | Outpatient (BNVA) | payer OTHER, SELFPAY | PROVIDERS: PCP Nurse Practitioner Family; Referring Provider Physician Assistant Surgical; Visit Provider Dietitian, Registered | DX: E66.01 Morbid (severe) obesity due to excess calories (principal) | CPT/HCPCS: 97802 ==

== ENCOUNTER → 2022-07-10 09:00 | Outpatient (BNVA) | payer OTHER, SELFPAY | PROVIDERS: PCP Nurse Practitioner Family; Referring Provider Physician Assistant Surgical; Visit Provider Counselor Mental Health | DX: F33.1 Major depressive disorder, recurrent, moderate (principal); F43.10 Post-traumatic stress disorder, unspecified; E66.01 Morbid (severe) obesity due to excess calories | CPT/HCPCS: 90791 ==

== ENCOUNTER 2022-07-11 08:20 | Outpatient (REF) | payer OTHER, SELFPAY ==
--- NOTE | ~2022-07-11 | US_ITS ---
EXAMINATION: US COMPLETE ABDOMEN WITH LIVER ELASTOGRAPHY CLINICAL INFORMATION: Morbid to severe obesity due to excess calories. COMPARISON: None. TECHNIQUE: Real-time imaging of the abdominal viscera. Noninvasive ultrasound liver fibrosis assessment is performed using Luiz ElastPQ point quantification shear wave elastography (2D-SWE) with a C5-2 MHz transducer. Multiple elastography samples are obtained. FINDINGS: PANCREAS: The visualized pancreatic head are normal in appearance. The body and tail of the pancreas are obscured from visualization by the overlying bowel gas. ABDOMINAL AORTA: The proximal, middle, and distal aortic segments are normal in caliber. INFERIOR VENA CAVA: Visualized portions are normal. LIVER: The liver demonstrates normal size, contour and increased echogenicity. No focal lesion or intrahepatic biliary duct dilatation. The right lobe measures 18.1 cm in length. The left lobe measures 12.0 cm in length. Portal flow is hepatopedal. Shear wave liver elastography median stiffness is 1.42 m/s (reference: normal median stiffness is 1.3 m/s or less). IQR/median stiffness to assess sampling precision is 0.13 (reference: good quality data set is IQR/median stiffness of 0.15 or less). GALLBLADDER: Normal. The gallbladder is physiologically distended without evidence of stones, sludge, polyps, wall thickening or pericholecystic fluid. COMMON BILE DUCT: Normal in caliber measuring 0.2 cm in diameter. RIGHT KIDNEY: Normal. No hydronephrosis. No renal calculi or focal parenchymal lesions. The kidney measures 10.7 cm in maximum dimension. LEFT KIDNEY: There is an anechoic cyst in the upper pole measuring 3.8 x 3.9 x 3.1 cm. No hydronephrosis. No renal calculi or focal parenchymal lesions. The kidney measures 11.7 cm in maximum dimension. SPLEEN: Normal. The spleen measures 10.9 cm in maximum dimension. FREE FLUID: None. US/US abdomen comp w elastography IMPRESSION: 1. Diffuse echogenic liver without focal lesion. 2. Upper pole left renal cyst. No echogenic renal calculi or hydronephrosis. The head of the pancreas unremarkable. The body and the tail of the pancreas are not seen well. 3. Liver elastography: Median liver stiffness 1.42 m/s. It corresponds to cACLD ( ruled out). REFERENCE: Society of Radiologists in Ultrasound Liver Stiffness Thresholds (2020): LIVER STIFFNESS THRESHOLDS: *Liver Stiffness equal or less than 1.3 m/s: High probability of being normal. *Liver Stiffness less than 1.7 m/s: In the absence of other known clinical signs, rules out compensated advanced chronic liver disease. *Liver Stiffness 1.7-2.1 m/s: Suggestive of compensated advanced chronic liver disease but need further test for confirmation. *Liver Stiffness over 2.1 m/s: Rules in compensated advanced chronic liver disease. *Liver Stiffness over 2.4 m/s: Suggestive of clinically significant portal hypertension. QUALITY OF DATA SET: *IQR/Median value equal or less than 0.15 implies a quality data set. *IQR/Median value over 0.15 implies a poor quality data set. SIGNIFICANT CHANGE FROM PRIOR EXAM: Significant change if liver stiffness measurement is 10% or greater from prior exam. OTHER CONSIDERATIONS: The stage of liver fibrosis may be overestimated in the setting of acute hepatitis, liver inflammation, elevated liver function tests, hepatic vascular congestion, obstructive cholestasis, non-fasting state, and infiltrative diseases such as amyloidosis and lymphoma. In some patients with NAFLD, the liver stiffness thresholds for compensated advanced chronic liver disease may be lower. In causes other than viral hepatitis and NAFLD, liver stiffness thresholds are not well established.
== END 2022-07-11 08:21 | disposition home or self-care (01) ==
LOC: HO.US 08:20
PROVIDERS: Visit Provider Physician Assistant Surgical
DX: Z01.818 Encounter for other preprocedural examination (principal); E66.01 Morbid (severe) obesity due to excess calories; K21.9 Gastro-esophageal reflux disease without esophagitis
CPT/HCPCS: 76705; 76981

== ENCOUNTER 2022-07-24 10:05 | Outpatient (REF) | payer OTHER, SELFPAY ==
--- NOTE | ~2022-07-24 | FL_ITS ---
EXAMINATION: XR FLUOROSCOPY UPPER GI WITH AIR CLINICAL INFORMATION: Morbid to severe obesity due to excess calories. COMPARISON: None TECHNIQUE: Routine upper GI air-contrast study was performed. FINDINGS: Following oral administration of thick barium and effervescent granules there is normal propagation of bolus from the oral cavity through the pharynx, esophagus into stomach without any evidence of obstruction, narrowing or stricture. The course, caliber and peristalsis of the stomach and the duodenum are normal. There is large amount of retained ball of food material seen in the stomach. Patient is fasting since 3:00PM the previous day. The mucosal pattern of the stomach and the duodenum is normal. There is mild gastroesophageal reflux without hiatal hernia. FLUOROSCOPY TIME: 2.9 minutes. DOSE AREA PRODUCT: 61.125 uGy-m2 (microgray-meter squared) FL/FL upper GI w air IMPRESSION: Large amount of retained food material in the stomach in spite of patient fasting since 3:00PM previous day. Findings suspicious for bezoar or gastroparesis. Recommend endoscopy. Mild gastroesophageal reflux.
== END 2022-07-24 10:06 | disposition home or self-care (01) ==
LOC: HO.XRAY 10:05
PROVIDERS: Visit Provider Physician Assistant Surgical
DX: E66.01 Morbid (severe) obesity due to excess calories (principal)
CPT/HCPCS: 74246

== ENCOUNTER → 2022-07-25 10:47 | Outpatient (BNVA) | payer OTHER, SELFPAY | PROVIDERS: PCP Nurse Practitioner Family; Visit Provider Physician Assistant Surgical | DX: E66.01 Morbid (severe) obesity due to excess calories (principal); Z68.41 Body mass index [BMI] 40.0-44.9, adult | CPT/HCPCS: 99212 ==

== ENCOUNTER → 2022-08-06 13:40 | Outpatient (BNVA) | payer OTHER, SELFPAY | PROVIDERS: PCP Nurse Practitioner Family; Referring Provider Physician Assistant Surgical; Visit Provider Dietitian, Registered | DX: E66.01 Morbid (severe) obesity due to excess calories (principal); Z68.39 Body mass index [BMI] 39.0-39.9, adult; E11.9 Type 2 diabetes mellitus without complications; Z71.3 Dietary counseling and surveillance | CPT/HCPCS: 97803 ==

== ENCOUNTER → 2022-08-08 11:55 | Day surgery (SDC) | payer OTHER, SELFPAY ==
[2022-08-03 09:57] VITALS: BMI 40.4
--- NOTE | 2022-08-04 00:05 | MHC.SHP ---
Pre-Procedural Eval Section A Date of Service: 08/04/22 The patient is an INPATIENT: No The History & Physical has been completed within 30 days and I have reviewed it.: Yes Section B Chief Complaint: gastroparesis Relevant Family History (Specify if Yes): No Relevant Social History: None Present Medications: None Medical History: No relevant PMH History of Previous Operations: No relevant previous surgery Allergies: Allergies Allergy/AdvReac Type Severity Reaction Status Date / Time insulin lispro Allergy Severe tongue Verified 07/25/22 11:00 swelling simvastatin Allergy Severe Difficulty Verified 07/25/22 11:00 Swallowing amlodipine Allergy Intermediate lip Verified 07/25/22 11:00 swelling butalbital Allergy Intermediate lip, Verified 07/25/22 11:00 tongue, mouth swelling clindamycin Allergy Intermediate Angioedema Verified 07/25/22 11:00 gabapentin Allergy Intermediate aggressive Verified 07/25/22 11:00 behavior losartan Allergy Intermediate Angioedema Verified 07/25/22 11:00 oxycodone [From Percocet] Allergy Mild Hives Verified 07/25/22 11:00 ibuprofen [From Motrin] Allergy Hives Verified 07/25/22 11:00 lisinopril Allergy Swelling Verified 07/25/22 11:00 Penicillins Allergy Hives Verified 07/25/22 11:00 raspberry Allergy Hives Verified 07/25/22 11:00 Review of Systems Sugical H&P ROS: Negative: Constitution, Cardiovascular, Respiratory, Neurological, Psychiatric, Hem-Onc, Allergic/Immunologic, Gastrointestinal, Genitourinary, Musculoskeletal, Integumentary, Endocrine and Eyes/Ears/Nose/Throat Exam Surgical H&P Exam: Normal: HEENT, Normal: Heart, Normal: Lungs, Normal: Extremities, Normal: Abdomen, Normal: Skin and Normal: Neurological Plan Diagnosis/Plan: Unchanged (EGD to assess for gastroparesis) I have reviewed the history and physical and performed a pertinent physical examination on my patient. No changes have occurred unless specified.
[2022-08-07 12:57] LABS: COVID-19 Test Negative (Negative); IDNOW Serial# 9DD0AD1C
--- NOTE | 2022-08-08 13:11 | PC.NURSE ---
per Dr. Gore patient to be rescheduled. RANJEET Mckenna spoke to patient in waiting room. pt verbally understood. pt states she is diabetic and POC was 69 this morning. RANJEET Mckenna brought patient protein shake while she waits for ride home.
== END ==
PROVIDERS: Physician Assistant Surgical; PCP Nurse Practitioner Family; Visit Provider Surgery
DX: K31.84 Gastroparesis (principal); Z53.09 Procedure and treatment not carried out because of other contraindication; E11.9 Type 2 diabetes mellitus without complications; Z20.822 Contact with and (suspected) exposure to COVID-19
CPT/HCPCS: 87635

== ENCOUNTER 2022-08-15 09:44 | Day surgery (SDC) | payer OTHER, SELFPAY ==
[2022-08-15 08:12] VITALS: BMI 40.4
[2022-08-15 10:09] VITALS: BP 143/92; PULSE 83; RESP 18; TEMP 36.1; O2SAT 97
[2022-08-15 12:10] VITALS: BP 132/85; PULSE 92; RESP 16; TEMP 36.1; O2SAT 96
--- NOTE | 2022-08-15 16:16 | MHC.SHP ---
Pre-Procedural Eval Section A Date of Service: 08/15/22 The patient is an INPATIENT: No Changes since office visit: Yes Patient answered all questions The History & Physical has been completed within 30 days and I have reviewed it.: No Section B Chief Complaint: chronic knee pain Relevant Family History (Specify if Yes): No Relevant Social History: None Present Medications: see Short Stay Collaborative assessment Medical History: No relevant PMH History of Previous Operations: No relevant previous surgery Allergies: Allergies Allergy/AdvReac Type Severity Reaction Status Date / Time insulin lispro Allergy Severe tongue Verified 07/25/22 11:00 swelling simvastatin Allergy Severe Difficulty Verified 07/25/22 11:00 Swallowing amlodipine Allergy Intermediate lip Verified 07/25/22 11:00 swelling butalbital Allergy Intermediate lip, Verified 07/25/22 11:00 tongue, mouth swelling clindamycin Allergy Intermediate Angioedema Verified 07/25/22 11:00 gabapentin Allergy Intermediate aggressive Verified 07/25/22 11:00 behavior losartan Allergy Intermediate Angioedema Verified 07/25/22 11:00 oxycodone [From Percocet] Allergy Mild Hives Verified 07/25/22 11:00 ibuprofen [From Motrin] Allergy Hives Verified 07/25/22 11:00 lisinopril Allergy Swelling Verified 07/25/22 11:00 Penicillins Allergy Hives Verified 07/25/22 11:00 raspberry Allergy Hives Verified 07/25/22 11:00 Review of Systems Sugical H&P ROS: Negative: Constitution, Cardiovascular and Respiratory Exam Surgical H&P Exam: Normal: HEENT, Normal: Heart and Normal: Lungs Plan Diagnosis/Plan: Unchanged I have reviewed the history and physical and performed a pertinent physical examination on my patient. No changes have occurred unless specified.
--- NOTE | 2022-08-15 16:17 | PM.OP ---
Brief Operative Note Date of Service: 08/15/22 Pre-op diagnosis: Chronic knee pain, left Post-op diagnosis: same Procedure: Left saphenous nerve temporary peripheral nerve stimulator placement Implants: Sprint temporary PNS system Surgeon: Avelino Rahman MD Anesthesia: local Was an Director Of Land used for this Procedure?: No Estimated blood loss (mL): 1 Pathology: none sent Condition: stable Disposition: same day
--- NOTE | 2022-08-15 16:18 | P.OP_ITS ---
Operative Note Operative Note Date of Service: 08/15/22 Narrative: Peripheral Nerve Stimulation Temporary Lead Placement, Ultrasound-Guided, Saphenous Nerve, Left ? After the risks, benefits and alternatives were discussed with the patient and informed consentwas obtained, patient was placed in the supine position and padded to foster comfort. Appropriate skin and bony landmarks were identified, and pertinent vascular structures were located. The skin overlying the needle entry site was prepped and draped in sterile fashion. Ultrasound was used to identify the femoral artery, the femoral vein and the saphenous nerve. After identifying and marking the intended target along the course of the Saphenous nerve, the skin around the planned entry point and the subcutaneous tissues were injected with local anesthetic. An introducer needle and stimulating probe were assembled, inserted and advanced along the intended course of the saphenous nerve, taking care to maintain the proper depth of insertion as the introducer was advanced under ultrasound guidance. The introducer needle was delivered to a location in proximity to the nerve taking care not to puncture the femoral artery or the vein. Multiple stimulation parameters were used to deliver stimulation to the saphenous nerve in concert with stimulating at multiple positions around the nerve. Nerve target acquisition was confirmed noting generation of sensory and mild motor effects (paresthesia, muscle tension, etc) in the medial knee, leg and ankle; corresponding to the distribution of the saphenous nerve. Various electrical parameter combinations were tested, and the lead location was adjusted (physical ly relocated under ultrasound guidance) until the patient indicated medial knee paresthesia and tension overlapping the distribution of the patient?s typical region of pain. The stimulating probe was removed from the introducer and a percutaneous lead was guided through the needle and delivered to a location in similar proximity to the nerve. Final location was verified with electrical stimulation and documented. The introducer needle was removed, and the exposed end of the percutaneous lead was attached to an external stimulator unit. Various electrical parameter combinations were again tested until the patient indicated paresthesia and muscle tension overlapping the distribution of the patient?s typical region of pain. After confirming that lead impedance was in the normal range, the external unit was detached, the needle was removed, and the lead was anchored at the skin. The lead was threaded into the connector block and electrical continuity and desired patient response was confirmed. The connector block was attached to the external stimulator unit. The site was covered with a sterile occlusive dressing. A final ultrasound image was taken to document final placement. The patient was observed for stability of vital signs and comfort.
== END 2022-08-15 12:15 | disposition home or self-care (01) ==
PROVIDERS: PCP Nurse Practitioner Family; Visit Provider Internal Medicine
PROC: (CPT 64555; principal; 2022-08-15 11:00)
DX: M25.562 Pain in left knee (principal); G89.29 Other chronic pain; G47.33 Obstructive sleep apnea (adult) (pediatric); Z88.0 Allergy status to penicillin; Z88.8 Allergy status to other drugs, medicaments and biological substances
CPT/HCPCS: 64555; C1778

== ENCOUNTER 2022-08-21 07:36 | Day surgery (SDC) | payer OTHER, SELFPAY ==
--- NOTE | 2022-08-18 17:15 | P.HPSUR_ITS ---
Pre-Procedural Eval Section A Date of Service: 08/18/22 The patient is an INPATIENT: No The History & Physical has been completed within 30 days and I have reviewed it.: Yes Section B Chief Complaint: Gastroparesis Relevant Family History (Specify if Yes): No Relevant Social History: None Present Medications: None Medical History: Significant History (Insulin dependent diabetes) History of Previous Operations: No relevant previous surgery Allergies: Allergies Allergy/AdvReac Type Severity Reaction Status Date / Time insulin lispro Allergy Severe tongue Verified 07/25/22 11:00 swelling simvastatin Allergy Severe Difficulty Verified 07/25/22 11:00 Swallowing amlodipine Allergy Intermediate lip Verified 07/25/22 11:00 swelling butalbital Allergy Intermediate lip, Verified 07/25/22 11:00 tongue, mouth swelling clindamycin Allergy Intermediate Angioedema Verified 07/25/22 11:00 gabapentin Allergy Intermediate aggressive Verified 07/25/22 11:00 behavior losartan Allergy Intermediate Angioedema Verified 07/25/22 11:00 oxycodone [From Percocet] Allergy Mild Hives Verified 07/25/22 11:00 ibuprofen [From Motrin] Allergy Hives Verified 07/25/22 11:00 lisinopril Allergy Swelling Verified 07/25/22 11:00 Penicillins Allergy Hives Verified 07/25/22 11:00 raspberry Allergy Hives Verified 07/25/22 11:00 Review of Systems Sugical H&P ROS: Negative: Constitution, Cardiovascular, Respiratory, Neurological, Psychiatric, Hem-Onc, Allergic/Immunologic, Gastrointestinal, Genitourinary, Musculoskeletal, Integumentary, Endocrine and Eyes/Ears/No se/Throat Exam Surgical H&P Exam: Normal: HEENT, Normal: Heart, Normal: Lungs, Normal: Extremities, Normal: Abdomen, Normal: Skin and Normal: Neurological Plan Diagnosis/Plan: Unchanged I have reviewed the history and physical and performed a pertinent physical examination on my patient. No changes have occurred unless specified.
[2022-08-21 07:32] VITALS: BP 140/90; PULSE 104; RESP 16; TEMP 35.8; O2SAT 95; BMI 38.7
--- NOTE | 2022-08-21 07:39 | HO.ANESPROP2 ---
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) CECILIA (obstructive sleep apnea) (Acute)- does not use CPAP machine Osteoarthritis of both knees (Acute) Osteoarthritis of left knee (Acute) Severe recurrent major depression without psychotic features (Acute) Hyperlipidemia (Acute) Screening for hypothyroidism (Acute) Low vitamin D level (Acute) Low vitamin B12 level (Acute) Osteoarthritis of right knee (Acute) Spondylosis of lumbar region without myelopathy or radiculopathy (Acute) Chronic pain of left knee (Acute) Sacroiliac joint pain (Acute) Diabetic neuropathy (Acute) Morbid obesity (Acute) Rash (Acute) Rhinitis (Acute) Disc disease, degenerative, lumbar or lumbosacral (Acute) Major depressive disorder, recurrent, moderate (Acute) Post traumatic stress disorder (Acute) Past Medical History Medical History (Updated 08/21/22 @ 08:30 by Linda Borja MD) Arthritis Diabetes Elevated cholesterol Encounter to establish care History of alcohol abuse History of kidney stones HTN (hypertension) PTSD (post-traumatic stress disorder) Sleep apnea Family History Family History Father Hypertension Diabetes Mother Asthma Family/Other Substance use disorder Mental health disorder Family history of problems with anesthesia: No Surgical History Surgical History History of hysterectomy History of tonsillectomy History of Problems with Anesthesia: No Social History Social History Housing: House Alcohol intake: former Patient Tobacco Use Status: Never used Tobacco e-Cigarette/Vaping Use: Never Used Second Hand Smoke Exposure: No Use of substances other than those prescribed or required for medical reasons: No Are you DNR?: No Advance Directives: No Advance Directives Information Provided: Yes service: No Current occupational status: disabled Cognitive needs: Yes Hearing needs: No Vision needs: Yes Meds Allergies Allergy/AdvReac Type Severity Reaction Status Date / Time insulin lispro Allergy Severe tongue Verified 07/25/22 11:00 swelling simvastatin Allergy Severe Difficulty Verified 07/25/22 11:00 Swallowing amlodipine Allergy Intermediate lip Verified 07/25/22 11:00 swelling butalbital Allergy Intermediate lip, Verified 07/25/22 11:00 tongue, mouth swelling clindamycin Allergy Intermediate Angioedema Verified 07/25/22 11:00 gabapentin Allergy Intermediate aggressive Verified 07/25/22 11:00 behavior losartan Allergy Intermediate Angioedema Verified 07/25/22 11:00 oxycodone [From Percocet] Allergy Mild Hives Verified 07/25/22 11:00 ibuprofen [From Motrin] Allergy Hives Verified 07/25/22 11:00 lisinopril Allergy Swelling Verified 07/25/22 11:00 Penicillins Allergy Hives Verified 07/25/22 11:00 raspberry Allergy Hives Verified 07/25/22 11:00 Active Medications: Current Medications Lactated Ringer's (Lr) 1,000 mls @ 80 mls/hr IVCONT .[id number] KRISTIE Home Medications Medication Instructions Recorded Confirmed Last Taken Type blood sugar diagnostic (FreeStyle #10 ea 04/10/22 07/25/22 Unknown History Lite Strips) doxepin 50 mg capsule 50 mg PO BEDTIME 04/10/22 07/25/22 Unknown History duloxetine 20 mg capsule,delayed 20 mg PO BID 04/10/22 07/25/22 08/15/22 History release empagliflozin 10 mg tablet 10 mg PO DAILY 04/10/22 07/25/22 08/15/22 History (Jardiance) insulin degludec 200 unit/mL (3 20 unit subcut 04/10/22 07/25/22 08/15/22 History mL) subcutaneous pen (Tresiba FlexTouch U-200 insulin) loratadine 10 mg tablet 10 mg PO DAILY 04/10/22 07/25/22 08/15/22 History topiramate 100 mg tablet 100 mg PO BID 04/10/22 07/25/22 08/15/22 History dulaglutide 1.5 mg/0.5 mL 3 mg subcut 06/05/22 07/25/22 Unknown History subcutaneous pen injector (Trulicity) albuterol sulfate 90 mcg/actuation 2 inh inhalation Q6-8H PRN Weight 06/06/22 07/25/22 08/15/22 History aerosol inhaler Gain carboxymethylcellulose sodium 0.5 1 drp ophthalmic (eye) BID-QID PRN 06/06/22 07/25/22 08/15/22 History % eye drops Dry Eyes hydroxyzine pamoate 25 mg capsule 25 mg PO Q8H PRN Anxiety 06/06/22 07/25/22 08/15/22 History quetiapine 100 mg tablet 100 mg PO BEDTIME 06/06/22 07/25/22 Unknown History sertraline 100 mg tablet 50 mg PO DAILY 06/06/22 07/25/22 Unknown History prazosin 5 mg capsule 20 mg PO BEDTIME 07/13/22 07/25/22 Unknown History Exam Exam Date and Time: August 21, 2022 0739 Height,Weight and Vital Signs: Height 5 ft 2 in Weight 96.162 kg Last Vital Signs Temp 96.5 F L 08/21/22 07:32 Pulse 104 H 08/21/22 07:32 Resp 16 08/21/22 07:32 BP 140/90 H 08/21/22 07:32 Pulse Ox 95 08/21/22 07:32 O2 Del Method 08/21/22 07:32 Pertinent Lab Results Pertinent Lab Results: Lab Results 08/21/22 Range/Units 07:40 POC Glucose 150 H (60-115) mg/dL Airway Mallampati Class: II TM Dist: >3cm Neck ROM: Full Loose/Missing/Broken Teeth: Yes (Some extractions) Heart: RRR Lungs: CTAB Assessment and Plan Assessment Anesthesia Assessment: Anesthesia Plan Discussed and Chart Reviewed Final Anesthetic Review Family History of Problems with Anesthesia: No History of Problems with Anesthesia: No NPO: Yes ASA Class: III Final Preanesthetic Review: No Changes in Pt Med Stat, Meds/Allgs Chart Reviewed, Consent Obtained/Reviewed and Anes Risks/Benef Reviewed Patient Risk: Intermediate Procedure Risk: Low Assessment/Block/Sedation in SS: Assess/Block/Sedation-SS Anesthetic Plan Anesthetic Plan: MAC: Disposition: Standard PACU
[2022-08-21 07:44] LABS: Glucose, Whole Blood 150 mg/dL (60-115)
[2022-08-21] MEDS: Lactated Ringers 1,000 ML 80 ML IVCONT (07:50)
--- NOTE | 2022-08-21 07:55 | P.BOP_ITS ---
Brief Operative Note Date of Service: 08/21/22 Pre-op diagnosis: Gastroparesis Post-op diagnosis: same Procedure: PROCEDURE DATE: 08/21/2022 PREOPERATIVE DIAGNOSIS: Gastroparesis POSTOPERATIVE DIAGNOSIS: ?Same as above. 1) small hiatal hernia, 2) distal gastritis PROCEDURE: [id number]-[id number] with biopsies Surgeon: ?Kip Horner M.D.. Ph.D. Medical Record Administrator: None ? Anesthesia: IV sedation Estimated blood loss: ?Minimal FINDINGS AND PROCEDURE: ? OPERATIVE INDICATIONS: ?The patient is a 52 year old female known to me who is interested in bariatric surgery. Preoperative UGI was suggestive of ga stroparesis.. Based on this information I recommended an upper endoscopy to evaluate the patient's symptoms. Risks and complications of the surgery were discussed with the patient in advance particularly the possibility of perforation or bleeding that may require surgical intervention. The patient understood the risks and was in agreement with the plan. ? PROCEDURE: After informed consent was obtained by the patient, the patient was ?transferred to the Operating Room and was placed in the supine position.? After successful induction of IV sedation, a mouth block was inserted and the patient was placed in the left lateral decubitus position. An upper endoscopy was performed next, the oropharynx and esophagus appeared within the normal limits. There was a small hiatal hernia. The z-line was smooth. Two biopsies were obtained from the distal esohagus 2-3 cm proximal to the GE junction and two additional biopsies from the GE junction. The stomach was entered and it appeared to be of normal size. There was mild gastritis at distal antrum. There was no stricture or ulcer. Biopsies were obtained from the proximal sleeve as well as the distal antrum. No significant bleeding was noted from any of the biopsy sites. The scope was then advanced into the duodenum which appeared to be normal as well. At that point the duodenum ?and the sleeve were decompressed and the scope was withdrawn from the patient's mouth. The patient extubated and was transferred in stable condition to the Recovery Room for further care. I was present and performed all steps of the procedure. There were no residents to assist with this case. Kip Horner M.D., Ph.D. Surgeon: Omar Horner MD Anesthesia: MAC Was an Medical Record Administrator used for this Procedure?: No Estimated blood loss (mL): 0 IV fluids (mL): 400 Urine output (mL): 0 (No [place] to record) Pathology: other (1) GE junction x2, 2) distal esophagus x2, 3) proximal stomach x1, 4) antrum x1) Condition: stable Disposition: PACU
[2022-08-21 08:24] VITALS: BP 116/82; PULSE 95; RESP 16; TEMP 36.6; O2SAT 98
[2022-08-21 08:39] VITALS: BP 136/90; PULSE 90; RESP 16; TEMP 36.6; O2SAT 98
== END 2022-08-21 09:05 | disposition home or self-care (01) ==
PROVIDERS: PCP Nurse Practitioner Family; Visit Provider Surgery
PROC: 0DJ08ZZ Inspection of Upper Intestinal Tract, Via Natural or Artificial Opening Endoscopic (ICD-10-PCS; CPT 43235; principal; 2022-08-21 07:30)
DX: K31.84 Gastroparesis (principal); K29.60 Other gastritis without bleeding; K44.9 Diaphragmatic hernia without obstruction or gangrene; I10 Essential (primary) hypertension; E11.9 Type 2 diabetes mellitus without complications; Z79.4 Long term (current) use of insulin; E66.01 Morbid (severe) obesity due to excess calories; G47.33 Obstructive sleep apnea (adult) (pediatric); J45.909 Unspecified asthma, uncomplicated; Z79.899 Other long term (current) drug therapy; Z88.0 Allergy status to penicillin; Z88.8 Allergy status to other drugs, medicaments and biological substances; Z87.442 Personal history of urinary calculi
CPT/HCPCS: 43239; 82947; 88305; 88342

== ENCOUNTER → 2022-08-23 11:45 | Outpatient (BNVA) | payer OTHER, SELFPAY | PROVIDERS: PCP Nurse Practitioner Family; Visit Provider Counselor Mental Health | DX: F33.1 Major depressive disorder, recurrent, moderate (principal); F43.10 Post-traumatic stress disorder, unspecified; E66.01 Morbid (severe) obesity due to excess calories | CPT/HCPCS: 90834 ==

== ENCOUNTER → 2022-08-24 09:48 | Outpatient (BNVA) | payer OTHER, SELFPAY | PROVIDERS: PCP Nurse Practitioner Family; Visit Provider Internal Medicine | DX: M25.562 Pain in left knee (principal); G89.29 Other chronic pain | CPT/HCPCS: 99212 ==

== ENCOUNTER → 2022-08-29 09:17 | Outpatient (BNVA) | payer OTHER, SELFPAY | PROVIDERS: PCP Nurse Practitioner Family; Visit Provider Physician Assistant Surgical | DX: E66.9 Obesity, unspecified (principal); Z68.39 Body mass index [BMI] 39.0-39.9, adult | CPT/HCPCS: 99212 ==

== ENCOUNTER → 2022-09-04 13:15 | Outpatient (BNVA) | payer OTHER, SELFPAY | PROVIDERS: PCP Nurse Practitioner Family; Visit Provider Counselor Mental Health | DX: F33.1 Major depressive disorder, recurrent, moderate (principal); F43.10 Post-traumatic stress disorder, unspecified; E66.01 Morbid (severe) obesity due to excess calories | CPT/HCPCS: 90834 ==

== ENCOUNTER → 2022-09-05 11:21 | Outpatient (BNVA) | payer OTHER, SELFPAY | PROVIDERS: Visit Provider Counselor Mental Health | DX: F33.1 Major depressive disorder, recurrent, moderate (principal); F43.10 Post-traumatic stress disorder, unspecified; E66.01 Morbid (severe) obesity due to excess calories | CPT/HCPCS: H0046 ==

== ENCOUNTER → 2022-09-19 08:18 | Outpatient (BNVA) | payer OTHER, SELFPAY | PROVIDERS: PCP Nurse Practitioner Family; Visit Provider Physician Assistant Surgical | DX: E66.9 Obesity, unspecified (principal); Z68.38 Body mass index [BMI] 38.0-38.9, adult | CPT/HCPCS: 99212 ==

== ENCOUNTER → 2022-09-20 15:00 | Outpatient (BNVA) | payer OTHER, SELFPAY | PROVIDERS: PCP Nurse Practitioner Family; Visit Provider Counselor Mental Health | DX: F33.1 Major depressive disorder, recurrent, moderate (principal); F43.10 Post-traumatic stress disorder, unspecified; E66.01 Morbid (severe) obesity due to excess calories | CPT/HCPCS: 90834 ==

== ENCOUNTER → 2022-10-01 09:00 | Outpatient (BNVA) | payer OTHER, SELFPAY | PROVIDERS: PCP Nurse Practitioner Family; Visit Provider Counselor Mental Health | DX: F33.1 Major depressive disorder, recurrent, moderate (principal); F43.10 Post-traumatic stress disorder, unspecified; E66.01 Morbid (severe) obesity due to excess calories | CPT/HCPCS: 90832 ==

== ENCOUNTER → 2022-10-08 08:30 | Outpatient (BNVA) | payer OTHER, SELFPAY | PROVIDERS: PCP Nurse Practitioner Family; Visit Provider Counselor Mental Health | DX: F33.1 Major depressive disorder, recurrent, moderate (principal); F43.10 Post-traumatic stress disorder, unspecified; E66.01 Morbid (severe) obesity due to excess calories | CPT/HCPCS: 90834 ==

== ENCOUNTER → 2022-10-15 08:18 | Outpatient (BNVA) | payer OTHER, SELFPAY | PROVIDERS: PCP Nurse Practitioner Family; Visit Provider Nurse Practitioner Family | DX: Z45.49 Encounter for adjustment and management of other implanted nervous system device (principal); M17.12 Unilateral primary osteoarthritis, left knee; G89.29 Other chronic pain | CPT/HCPCS: 99212 ==

== ENCOUNTER → 2022-10-30 14:00 | Outpatient (BNVA) | payer OTHER, SELFPAY | PROVIDERS: PCP Nurse Practitioner Family; Visit Provider Counselor Mental Health | DX: F33.1 Major depressive disorder, recurrent, moderate (principal); F43.10 Post-traumatic stress disorder, unspecified; E66.01 Morbid (severe) obesity due to excess calories | CPT/HCPCS: 90834 ==

== ENCOUNTER → 2022-11-05 09:27 | Outpatient (BNVA) | payer OTHER, SELFPAY | PROVIDERS: PCP Nurse Practitioner Family; Visit Provider Orthopaedic Surgery | DX: M17.11 Unilateral primary osteoarthritis, right knee (principal); M17.12 Unilateral primary osteoarthritis, left knee; M79.7 Fibromyalgia; E11.69 Type 2 diabetes mellitus with other specified complication; E66.9 Obesity, unspecified; Z68.39 Body mass index [BMI] 39.0-39.9, adult | CPT/HCPCS: 20610; 99212; J1100 ==

== ENCOUNTER → 2022-11-22 14:30 | Outpatient (BNVA) | payer OTHER, SELFPAY | PROVIDERS: PCP Nurse Practitioner Family; Visit Provider Counselor Mental Health | DX: F33.1 Major depressive disorder, recurrent, moderate (principal); F43.10 Post-traumatic stress disorder, unspecified; E66.01 Morbid (severe) obesity due to excess calories | CPT/HCPCS: 90834 ==

== ENCOUNTER → 2022-12-13 10:45 | Outpatient (BNVA) | payer OTHER, SELFPAY | PROVIDERS: PCP Nurse Practitioner Family; Visit Provider Counselor Mental Health | DX: F33.1 Major depressive disorder, recurrent, moderate (principal); F43.10 Post-traumatic stress disorder, unspecified; E66.01 Morbid (severe) obesity due to excess calories | CPT/HCPCS: 90834 ==

== ENCOUNTER 2022-12-15 07:31 | Outpatient (REF) | payer OTHER, SELFPAY ==
[2022-12-15 07:42] LABS: MANUAL DIFF FLAG NO
[2022-12-15 08:08] LABS: Basophils Absolute Auto 0.1 X10*3/uL (0.0-0.2); Basophils Percent Auto 0.5 % (0-2); Eosinophils Absolute Auto 0.2 X10*3/uL (0.0-0.4); Hemoglobin 13.4 g/dl (12.0-16.0); Imm Gran Abs Auto 0.04 X10*3/uL (0.00-0.03); Imm Gran Pct Auto 0.3 % (0.0-0.4); Lymphocytes Absolute Auto 4.2 X10*3/uL (1.2-4.9); Lymphocytes Percent Auto 35.7 % (20-40); Mean Corpuscular HGB Conc 32.7 g/dl (31.0-35.0); Mean Corpuscular Hemoglobin 26.3 pg (27.0-33.0); Mean Corpuscular Volume 80.6 fL (80.0-98.0); Monocytes Absolute Auto 0.9 X10*3/uL (0.1-1.2); Neutrophils Absolute Auto 6.2 x10*3/uL (2.0-8.3); Neutrophils Percent Auto 53.5 % (45-73); Platelet Count 353 X10*3/uL (160-400); Red Blood Count 5.09 X10*6/uL (4.20-5.50); Red Cell Distribution Width 17.2 % (11.0-16.0); White Blood Count 11.7 X10*3/uL (4.8-10.8)
[2022-12-15 08:49] LABS: Estimated Average Glucose 183 mg/dL
[2022-12-15 09:03] LABS: Alanine Aminotransferase 14 U/L (0-31); Albumin Level 4.1 g/dL (3.5-5.0); Alkaline Phosphatase 124 U/L (39-117); Anion Gap 15 (12-20); Aspartate Amino Transferase 18 U/L (5-31); Bilirubin Total 0.2 mg/dL (0.0-1.0); Blood Urea Nitrogen 12 mg/dL (9-16); Calcium 8.9 mg/dL (8.4-10.2); Carbon Dioxide 20 mmol/L (22-29); Chloride 109 mmol/L (96-108); Cholesterol 182 mg/dL; Estimated Glomerular Filt Rate > 60; Glucose Random 189 mg/dL (60-115); HDL Cholesterol 50 mg/dL; LDL Cholesterol Calculated 95 mg/dl; Potassium 4.1 mmol/L (3.3-5.1); Sodium 140 mmol/L (135-145); Total Protein 7.3 g/dL (6.5-8.0); Triglycerides 189 mg/dL
[2022-12-15 09:19] LABS: Vitamin D 25-OH Total 20.3 ng/mL (>30)
[2022-12-15 09:31] LABS: Folate 19.7 ng/mL (> or = 4.0); Vitamin B12 811 pg/mL (200-900)
== END 2022-12-15 07:32 | disposition home or self-care (01) ==
LOC: HO.LAB 07:31
PROVIDERS: PCP Nurse Practitioner Family; Visit Provider Nurse Practitioner Family
DX: R79.89 Other specified abnormal findings of blood chemistry (principal); E53.8 Deficiency of other specified B group vitamins; E66.9 Obesity, unspecified; E78.5 Hyperlipidemia, unspecified; E11.69 Type 2 diabetes mellitus with other specified complication
CPT/HCPCS: 36415; 80053; 80061; 82306; 82607; 82746; 83036; 85025; 85027

== ENCOUNTER → 2023-01-17 08:10 | Outpatient (BNVA) | payer OTHER, SELFPAY | PROVIDERS: PCP Nurse Practitioner Family; Visit Provider Nurse Practitioner Family | DX: G89.29 Other chronic pain (principal); M25.531 Pain in right wrist; M25.532 Pain in left wrist; M51.37 Other intervertebral disc degeneration, lumbosacral region; M47.816 Spondylosis without myelopathy or radiculopathy, lumbar region; M54.16 Radiculopathy, lumbar region; N62 Hypertrophy of breast; E66.01 Morbid (severe) obesity due to excess calories; Z68.41 Body mass index [BMI] 40.0-44.9, adult | CPT/HCPCS: 99212 ==

== ENCOUNTER → 2023-01-24 09:09 | Outpatient (BNVA) | payer OTHER, SELFPAY | PROVIDERS: PCP Nurse Practitioner Family; Visit Provider Student in an Organized Health Care Education/Training Program | DX: M79.7 Fibromyalgia (principal) | CPT/HCPCS: 99202 ==

== ENCOUNTER 2023-02-14 07:19 | Outpatient (REF) | payer OTHER, SELFPAY ==
--- NOTE | ~2023-02-14 | MR_ITS ---
MR LUMBAR SPINE WITHOUT CONTRAST CLINICAL INFORMATION: Spondylosis/radiculopathy. COMPARISON: Lumbar spine radiographs 05/24/2022. TECHNIQUE: MRI of the lumbar spine was obtained using routine sequences without contrast. 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 There are 5 nonrib-bearing lumbar-type vertebral bodies. There is grade 1 degenerative anterolisthesis of L4 on L5. Lumbar alignment is otherwise maintained. There is no bone marrow edema. There are no acute fractures. There is moderate to severe disc volume loss at L4-L5. Remaining disc volumes are preserved. There is disc desiccation at L5-S1. Conus terminates at the L1 level. Dependent subcutaneous edema. Simple left renal cysts for which no further imaging follow-up is warranted. L1-L2: Slight annular disc bulge. Mild bilateral facet arthropathy and ligamentum flavum thickening. No central canal stenosis and no foraminal stenosis. L2-L3: Small annular disc bulge and moderate bilateral facet arthropathy and ligamentum flavum thickening. No central canal stenosis and no foraminal stenosis. L3-L4: Diffuse annular disc bulge and moderate bilateral facet arthropathy and ligamentum flavum thickening. Findings in concert result in mild narrowing of the central canal. No foraminal stenosis. L4-L5: Grade 1 degenerative anterolisthesis. A right paracentral disc osteophyte protrusion compresses the traversing right L5 nerve root within the right subarticular zone. Mild central canal stenosis. Far left lateral disc osteophyte protrusion results in mild left-sided foraminal encroachment without contacting the exiting left L4 nerve root. L5-S1: A far left lateral disc osteophyte protrusion likely mildly contacts the extraforaminal left L5 nerve root. There is no central canal stenosis. Severe left and moderate right facet arthropathy. MR/MR lumbar spine wo con IMPRESSION: * At L4-L5, there is grade 1 degenerative anterolisthesis in the setting of advanced bilateral facet arthropathy. A right paracentral disc osteophyte protrusion at L4-L5 compresses the traversing right L5 nerve root within the right subarticular zone. Far left lateral disc osteophyte protrusion at L4-L5 results in mild left-sided foraminal encroachment without contacting the exiting left L4 nerve root. * At L5-S1, a far left lateral disc osteophyte protrusion likely mildly contacts the extraforaminal left L5 nerve root. Severe left and moderate right facet arthropathy at this level.
== END 2023-02-14 07:20 | disposition home or self-care (01) ==
LOC: HO.MRI 07:19
PROVIDERS: PCP Nurse Practitioner Family; Visit Provider Nurse Practitioner Family
DX: M47.816 Spondylosis without myelopathy or radiculopathy, lumbar region (principal); M51.37 Other intervertebral disc degeneration, lumbosacral region; M54.16 Radiculopathy, lumbar region; E66.01 Morbid (severe) obesity due to excess calories; Z68.41 Body mass index [BMI] 40.0-44.9, adult
CPT/HCPCS: 72148

== ENCOUNTER → 2023-02-19 09:48 | Outpatient (BNVA) | payer OTHER, SELFPAY | PROVIDERS: PCP Nurse Practitioner Family; Visit Provider Orthopaedic Surgery | DX: R20.0 Anesthesia of skin (principal); R20.2 Paresthesia of skin; M54.16 Radiculopathy, lumbar region; M79.7 Fibromyalgia; E11.69 Type 2 diabetes mellitus with other specified complication; E66.9 Obesity, unspecified; G47.33 Obstructive sleep apnea (adult) (pediatric); Z68.41 Body mass index [BMI] 40.0-44.9, adult | CPT/HCPCS: 99202 ==

== ENCOUNTER → 2023-02-26 09:04 | Outpatient (BNVA) | payer OTHER, SELFPAY | PROVIDERS: PCP Nurse Practitioner Family; Visit Provider Nurse Practitioner Family | DX: M51.37 Other intervertebral disc degeneration, lumbosacral region (principal); M47.816 Spondylosis without myelopathy or radiculopathy, lumbar region; M54.16 Radiculopathy, lumbar region; L28.2 Other prurigo; E66.01 Morbid (severe) obesity due to excess calories; Z68.41 Body mass index [BMI] 40.0-44.9, adult | CPT/HCPCS: 99212 ==

== ENCOUNTER 2023-03-04 09:58 | Emergency (ER) | payer OTHER, SELFPAY ==
[2023-03-04] VITALS (7 sets, daily range): BP systolic 164–197; BP diastolic 93–122; PULSE 82–103; RESP 14–20; TEMP 36.7–36.9; O2SAT 97–98; BMI 42.4
--- NOTE | ~2023-03-04 | XR_ITS ---
EXAMINATION: XR CHEST CLINICAL INFORMATION: Left chest wall pain COMPARISON: None available. TECHNIQUE: 2 views of the chest were obtained. FINDINGS: The lungs are well-expanded and clear. The heart size and pulmonary vascularity is normal. No gross bony abnormality seen. XR/XR chest 2V IMPRESSION: Unremarkable chest exam.
--- NOTE | ~2023-03-04 | CT_ITS ---
EXAMINATION: CT HEAD WITHOUT CONTRAST CLINICAL INFORMATION: Dizziness. Left-sided pain and numbness. COMPARISON: None. TECHNIQUE: Contiguous axial imaging was performed from the skullbase to vertex without intravenous administration of contrast. This CT examination was performed using dose optimization techniques as appropriate, variously including the following: *Automated exposure control *Adjustment of mA and/or kV according to patient size (this includes techniques or standardized protocols for targeted exams where dose is matched to indication/reason for exam; i.e. extremities or head) *Use of iterative reconstruction technique DLP: 568 mGy-cm. FINDINGS: There is no evidence of acute intracranial hemorrhage or territorial infarction. No abnormal mass effect or midline shift is seen. Weir to white matter differentiation is well preserved. No extra-axial fluid collections are identified. The ventricles are normal in size. There is no abnormal attenuation within the brain parenchyma. The osseous structures and soft tissues are normal. The mastoid air cells and visualized portions of the paranasal sinuses are well aerated. CT/CT head/brain wo IV con IMPRESSION: No acute intracranial pathology.
--- NOTE | 2023-03-04 14:33 | ED_ITS ---
HPI - General Adult General Chief complaint: Ear Problems <RANJEET Hurtado Last Filed: 03/04/23 16:40> Stated complaint: L ear pain/jaw pain/neck pain <RANJEET Hurtado Last Filed: 03/04/23 16:40> Time Seen by Provider: 03/04/23 14:27 <RANJEET Hurtado Last Filed: 03/04/23 16:40> Source: patient <RANJEET Hurtado Last Filed: 03/04/23 16:40> Mode of arrival: ambulatory <RANJEET Hurtado Last Filed: 03/04/23 16:40> Limitations: no limitations <RANJEET Hurtado Last Filed: 03/04/23 16:40> History of Present Illness HPI narrative: 52-year-old female with a PMHx of lumbar radiculopathy, type 2 diabetes, asthma, fibromyalgia, bipolar disorder, CECILIA, and HTN presents to the ED with left-sided ear/jaw pain radiating to left neck/arm with assoc numbness and tingling to her fingers. Also reports left-sided chest/back skin burning sensation that's worsening x 3 days, and room spinning dizziness and lightheadedness with position changes, resolved at rest. Reports her symptoms started as intermittent left-sided ear pain approximately 2 weeks prior, has not notice any correlation with food, and that a cold shower makes her skin feel better. Reports that she had chickenpox as a kid it had already received her Shingles vaccine. Denies recent URI, ear infection, dental procedure, trauma or laceration to the area, fever, chills, nausea, vomiting, chest pain, SOB, change in urinary/bowel habits. <RANJEET Hurtado Last Filed: 03/04/23 16:40> Onset (ago): day(s) <RANJEET Hurtado Last Filed: 03/04/23 16:40> Location: face <RANJEET Hurtado Last Filed: 03/04/23 16:40> Radiation: back and neck <RANJEET Hurtado Last Filed: 03/04/23 16:40> Quality: burning <RANJEET Hurtado Last Filed: 03/04/23 16:40> Pain Consistency: constant <RANJEET Hurtado - Last Filed: 03/04/23 16:40> Associated symptoms: denies other symptoms <RANJEET Hurtado - Last Filed: 03/04/23 16:40> Related Data Home medications: Home Medications Medication Instructions Recorded Confirmed blood sugar diagnostic (Skip #10 ea 04/10/22 12/20/22 Lite Strips) topiramate 100 mg tablet 100 mg PO BID 04/10/22 02/26/23 albuterol sulfate 90 mcg/actuation 2 inh inhalation Q6-8H PRN Weight 06/06/22 02/26/23 aerosol inhaler Gain carboxymethylcellulose sodium 0.5 1 drp ophthalmic (eye) BID-QID PRN 06/06/22 02/26/23 % eye drops Dry Eyes levomefolate calcium 15 mg tablet 15 mg PO DAILY 09/05/22 02/26/23 (L-Methylfolate) chlorhexidine gluconate 4 % topical BID 10/15/22 02/26/23 topical liquid (Antiseptic Skin Cleanser (chlorhexidine)) desvenlafaxine succinate 100 mg 100 mg PO DAILY PRN 10/15/22 02/26/23 tablet,extended release 24 hr duloxetine 20 mg capsule,delayed 20 mg PO BID 10/15/22 02/26/23 release quetiapine 150 mg tablet,extended 150 mg PO BEDTIME 01/17/23 02/26/23 release 24 hr dulaglutide 3 mg/0.5 mL mg subcut 01/24/23 02/26/23 subcutaneous pen injector (Trulicity) lancets 28 gauge (Skip #100 ea 01/24/23 Lancets) clotrimazole-betamethasone 1 appl topical 02/19/23 02/26/23 %-0.05 % topical cream quetiapine 50 mg tablet,extended 50 mg PO BEDTIME 02/19/23 02/26/23 release 24 hr prazosin 5 mg capsule 5 mg PO BEDTIME 03/01/23 Previous Rx's Medication Instructions Recorded acetaminophen 500 mg tablet 1,000 mg PO QID PRN fever or pain 08/01/21 (Tylenol Extra Strength) #14 tabs nystatin 100,000 unit/gram topical 1 appl topical BID PRN rash #15 12/27/22 cream grams pen needle, diabetic 31 gauge x #100 ea 11/27/22 5/16 (Unifine Pentips) thiamine HCl (vitamin B1) 100 mg 100 mg PO DAILY #90 tabs 11/29/22 tablet insulin degludec 200 unit/mL (3 14 unit (0.07 mL) subcut DAILY #9 12/20/22 mL) subcutaneous pen (Tresiba mL FlexTouch U-200 insulin) omeprazole 40 mg capsule,delayed 40 mg PO DAILY #90 caps 01/17/23 release fluticasone propionate 50 1 spray intranasal DAILY #48 mL 01/29/23 mcg/actuation nasal spray,suspension meloxicam 15 mg tablet 15 mg PO DAILY #30 tabs 01/30/23 baclofen 10 mg tablet 10 mg PO BEDTIME PRN for muscle 02/11/23 spasm #90 tabs alcohol swabs (Easy Touch Alcohol 1 pad topical TID #200 ea 02/19/23 Prep Pads) cholecalciferol (vitamin D3) 25 25 mcg PO DAILY #90 tabs 02/19/23 mcg (1,000 unit) tablet pravastatin 80 mg tablet 80 mg PO DAILY #90 tabs 02/19/23 hydroxyzine HCl 10 mg tablet 10 mg PO TID PRN itching 30 days 02/26/23 #90 tabs desvenlafaxine succinate 25 mg 25 mg PO DAILY #1 tab 03/01/23 tablet,extended release 24 hr zolpidem 5 mg tablet 5 mg PO BEDTIME PRN sleep #1 tab 03/01/23 <RANJEET Hurtado - Last Filed: 03/04/23 16:40> Allergies/adverse reactions: Allergies Allergy/AdvReac Type Severity Reaction Status Date / Time insulin lispro Allergy Severe tongue Verified 02/26/23 09:11 swelling simvastatin Allergy Severe Difficulty Verified 02/26/23 09:11 Swallowing amlodipine Allergy Intermediate lip Verified 02/26/23 09:11 swelling butalbital Allergy Intermediate lip, Verified 02/26/23 09:11 tongue, mouth swelling clindamycin Allergy Intermediate Angioedema Verified 02/26/23 09:11 gabapentin Allergy Intermediate aggressive Verified 02/26/23 09:11 behavior losartan Allergy Intermediate Angioedema Verified 02/26/23 09:11 oxycodone [From Percocet] Allergy Mild Hives Verified 02/26/23 09:11 ibuprofen [From Motrin] Allergy Hives Verified 02/26/23 09:11 lisinopril Allergy Swelling Verified 02/26/23 09:11 Penicillins Allergy Hives Verified 02/26/23 09:11 raspberry Allergy Hives Verified 02/26/23 09:11 <RANJEET Hurtado - Last Filed: 03/04/23 16:40> Review of Systems Review of Systems: Constitutional: No Fever, No Chills, No Night Sweats, No Fatigue, No Malaise ENT/Mouth: No Hearing loss, + Ear Pain, No Nasal Congestion, No Sinus Pain, No Hoarseness, No sore throat, No Rhinorrhea, No Swallowing Difficulty Eyes: No Eye Pain, No Swelling, No Redness, No Foreign Body, No Discharge, No Vision Changes Cardiovascular: + Chest Wall Pain, No SOB, No Dyspnea on Exertion, No Orthopnea, No Edema, No Palpitations Respiratory: No Cough, No Sputum, No Wheezing, No Dyspnea Gastrointestinal: No Nausea, No Vomiting, No Diarrhea, No Constipation, No Abdominal pain, No Hematochezia, No Melena Musculoskeletal: + joint pain, No Myalgias, No Joint Swelling Skin: No Skin Lesions, No rash Neuro: No Weakness, + Numbness, + Paresthesias, No Loss of Consciousness, No Dizziness, No Headache <RANJEET Hurtado Last Filed: 03/04/23 16:40> Yes all other systems are reviewed and are negative <RANJEET Hurtado Last Filed: 03/04/23 16:40> Constitutional: Constitutional: Reports as per HPI <RANJEET Hurtado Last Filed: 03/04/23 16:40> Neurologic: Denies Abnormal speech present and Denies Sensory deficit (Neuro) <RANJEET Hurtado Last Filed: 03/04/23 16:40> [facility] Past Medical History Attestation statement: The following information was validated with the patient. <RANJEET Hrutado Last Filed: 03/04/23 16:40> Medical History: Medical History Arthritis Diabetes Elevated cholesterol Encounter to establish care History of alcohol abuse History of kidney stones HTN (hypertension) PTSD (post-traumatic stress disorder) Sleep apnea <RANJEET Hurtado - Last Filed: 03/04/23 16:40> Surgical History: Surgical History History of hysterectomy History of tonsillectomy <RANJEET Hurtado - Last Filed: 03/04/23 16:40> Family History Family History: Family History Father Hypertension Diabetes Mother Asthma Family/Other Substance use disorder Mental health disorder Other Family history of osteoarthritis <RANJEET Hurtado - Last Filed: 03/04/23 16:40> Social History Social History: Social History Household Members: Family Housing: House Alcohol intake: never Patient Tobacco Use Status: Never used Tobacco Smoked in Last 30 Days: No e-Cigarette/Vaping Use: Never Used Second Hand Smoke Exposure: No Use of substances other than those prescribed or required for medical reasons: No Advance Directives: No Advance Directives Information Provided: Yes service: No Current occupational status: disabled 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 Cognitive needs: Yes (cane ) Hearing needs: No Vision needs: Yes (glasses ) <RANJEET Hurtado - Last Filed: 03/04/23 16:40> Physical Exam ED Vital Signs: Vital Signs - 24 hr 03/04/23 10:13 03/04/23 14:04 03/04/23 16:17 Temperature 98.1 F 98.4 F Pulse Rate 84 83 82 Respiratory Rate 14 20 19 Blood Pressure 197/107 H 174/103 H 168/97 H Pulse Oximetry 97 98 97 Oxygen Delivery Method Room Air Room Air Room Air 03/04/23 19:03 Temperature 98.1 F Pulse Rate 86 Respiratory Rate 18 Blood Pressure 177/93 H Pulse Oximetry 97 Oxygen Delivery Method Room Air BMI result Body Mass Index 42.4 <RANJEET Hurtado - Last Filed: 03/04/23 16:40> Vital Signs - 24 hr 03/04/23 10:13 03/04/23 14:04 03/04/23 16:17 Temperature 98.1 F 98.4 F Pulse Rate 84 83 82 Respiratory Rate 14 20 19 Blood Pressure 197/107 H 174/103 H 168/97 H Pulse Oximetry 97 98 97 Oxygen Delivery Method Room Air Room Air Room Air 03/04/23 19:03 Temperature 98.1 F Pulse Rate 86 Respiratory Rate 18 Blood Pressure 177/93 H Pulse Oximetry 97 Oxygen Delivery Method Room Air BMI result Body Mass Index 42.4 <Rolando Hernandez - Last Filed: 03/04/23 19:11> Const General: cooperative, healthy appearing and no acute distress <RANJEET Hurtado - Last Filed: 03/04/23 16:40> Nutritional Appearance: well nourished <RANJEET Hurtado - Last Filed: 03/04/23 16:40> Orientation/consciousness: patient oriented x3 <RANJEET Hurtado - Last Filed: 03/04/23 16:40> Limitations: no limitations <RANJEET Hurtado - Last Filed: 03/04/23 16:40> HENMT Other: + left-sided paraspinal cervical tenderness to palpation without def ormity/swelling underlying erythema/ecchymosis/induration/fluctuance/crepitus. No mastoid tenderness. <RANJEET Hurtado - Last Filed: 03/04/23 16:40> Head: Yes normal to inspection and Yes atraumatic <RANJEET Hurtado - Last Filed: 03/04/23 16:40> Ears: hearing grossly normal bilaterally, external ears normal, TM's normal bilaterally and mastoids normal <RANJEET Hurtado - Last Filed: 03/04/23 16:40> General nose exam: Normal external nose present <RAJNEET Hurtado - Last Filed: 03/04/23 16:40> Face and sinus: Yes normal facial exam, Yes sinuses nontender and Yes face symmetric <RANJEET Hurtado - Last Filed: 03/04/23 16:40> Mouth: Normal oral and palatal mucosa present <RANJEET Hurtado - Last Filed: 03/04/23 16:40> Throat: Yes posterior oropharynx normal, Yes uvula midline, No peritonsillar mass and Yes tonsils absent <RANJEET Hurtado - Last Filed: 03/04/23 16:40> Eyes General: appearance normal, both eyes and all related structures <Jeannie Lewis [facility] Last Filed: 03/04/23 16:40> Pupils: Equal, round and reactive pupils present <Jeannie Lewis [facility] Last Filed: 03/04/23 16:40> EOM: EOMs intact bilaterally <Jeannie Lewis [facility] Last Filed: 03/04/23 16:40> Neck Neck: Yes normal visual inspection, Yes full ROM, Yes no meningeal signs, Yes kinsey pple, No anterior neck swelling and No torticollis <Jeannie Lewis [facility] Last Filed: 03/04/23 16:40> Chest Other: Left anterior and posterior upper chest wall tender to palpation without underlying erythema/ecchymosis/induration/fluctuance <Jeannie Lewis [facility] Last Filed: 03/04/23 16:40> Chest palpation & inspection: normal inspection of the chest, no crepitus, no masses and tenderness <Jeannie Lewis [facility] Last Filed: 03/04/23 16:40> Resp Effort & Inspection: normal respiratory effort, able to speak in complete sentences and no respiratory distress <Jeannie Lewis [facility] Last Filed: 03/04/23 16:40> Auscultation: clear to auscultation bilaterally and no wheezes <Jeannie Lewis [facility] Last Filed: 03/04/23 16:40> Cardio Rate: regular rate <Jeannie Lewis [facility] Last Filed: 03/04/23 16:40> Rhythm: regular rhythm <Jeannie Lewis [facility] Last Filed: 03/04/23 16:40> Heart sounds: S1 normal heart sound present and S2 normal heart sound present <Jeannie Lewis [facility] Last Filed: 03/04/23 16:40> GI Inspection: Yes normal to inspection <Jeannie Lewis [facility] Last Filed: 03/04/23 16:40> Palpation (GI): Soft to palpation, nontender, no guarding and not rigid <Jeannie Lewis [facility] Last Filed: 03/04/23 16:40> Back/Spine/Pelvis Other: No midline cervical/thoracic/lumbar spinous tenderness/step-off or deformit <Jeannie Lewis PA - Last Filed: 03/04/23 16:40> Cervical Spine: normal cervical lordosis <Jeannie Lewis PA - Last Filed: 03/04/23 16:40> Thoracic/Lumbar Spine: thoracic and lumbar spine normal to inspection <Jeannie Lewis PA - Last Filed: 03/04/23 16:40> Skin General skin exam: no rashes or lesions noted <Jeannie Lewis PA - Last Filed: 03/04/23 16:40> Rashes: no rashes <Jeannie Lewis PA - Last Filed: 03/04/23 16:40> Wounds: no wounds <Jeannie Lewis PA - Last Filed: 03/04/23 16:40> Neuro General: patient oriented x3, gait normal, tone normal, moves all extremities, no meningeal signs, no focal motor deficits and CN's II-XI intact bilaterally <Jeannie Lewis PA - Last Filed: 03/04/23 16:40> Cranial nerves: Yes CN's II-XII intact bilaterally and Yes Equal, round and reactive pupils present <Jeannie Lewis PA - Last Filed: 03/04/23 16:40> Cognition (Neuro): normal cognition <Jeannie Lewis PA - Last Filed: 03/04/23 16:40> Speech: No Abnormal speech present <Jeannie Lewis PA - Last Filed: 03/04/23 16:40> Gait exam (Neuro): Normal gait present <Jeannie Lewis PA - Last Filed: 03/04/23 16:40> Motor exam (neuro): 5/5 motor strength present throughout <Jeannie Lewis PA - Last Filed: 03/04/23 16:40> Sensory Exam: No Sensory deficit (Neuro) <Jeannie Lewis PA - Last Filed: 03/04/23 16:40> Extrem General: Yes normal to inspection, Yes full ROM and Yes capillary refill normal <Jeannie Lewis PA - Last Filed: 03/04/23 16:40> Course Course Course Narrative: -1623--BP improved without intervention. Mild leukocytosis of 11.9. Labs otherwise reassuring -troponin negative CT head/brain wo IV con IMPRESSION: No acute intracranial pathology. -1630--ED care transferred to RANJEET Cha pending ESR/CRP, CXR, orthostatics and re- evaluation <RANJEET Hurtado - Last Filed: 03/04/23 16:40> Reevaluation(s) Reevaluation #1: Patient requesting discharge, chest x-ray does not show any significant abnormality. <Rolando Hernandez - Last Filed: 03/04/23 19:11> Time: 19:10 <Rolando Hernandez - Last Filed: 03/04/23 19:11> Medications Administered Discontinued Medications Generic Name Dose Route Start Last Admin Trade Name Freq PRN Reason Stop Dose Admin Cyclobenzaprine HCl 10 mg 03/04/23 15:12 03/04/23 15:36 Cyclobenzaprine Hcl 10 Mg Tablet PO 03/04/23 15:13 10 mg ONCE ONE Administration <RANJEET Hurtado - Last Filed: 03/04/23 16:40> Medications Administered Discontinued Medications Generic Name Dose Route Start Last Admin Trade Name Freq PRN Reason Stop Dose Admin Cyclobenzaprine HCl 10 mg 03/04/23 15:12 03/04/23 15:36 Cyclobenzaprine Hcl 10 Mg Tablet PO 03/04/23 15:13 10 mg ONCE ONE Administration <Rolando Hernandez - Last Filed: 03/04/23 19:11> Medical Decision Making Medical Decision Making MDM Narrative: 52-year-old female with a PMHx of lumbar radiculopathy, type 2 diabetes, asthma, fibromyalgia, bipolar disorder, CECILIA, and HTN presents to the ED with left-sided ear/jaw pain radiating to left neck/arm with assoc numbness and tingling to her fingers. Also reports left-sided chest/back skin burning sensation that's worsening x 3 days, and room spinning dizziness and lightheadedness with position changes. On physical exam, HTNsive likely from pain, bilateral TMs/mastoids WNL, face without reproducible tenderness, no torticollis or trismus. Left-sided paraspinal cervical and left trapezius muscle tenderness to palpation. Tenderness to light skin touch to left anterior and posterior chest wall without rash, crepitus, or flail chest. No focal neuro deficits. Concern for early shingles vs ?trigeminal neuralgia vs giant cell arteritis vs polymyalgia vs fibromyalgia flare. Low suspicion for mastoiditis, parotitis, intraoral infection, ACS, PE, intra-abdominal etiology. Low suspicion for CVA Plan: EKG, labs, head CT, CXR, PO cyclobenzaprine, re-evaluate Please refer to course for remaining clinical decision making, interpretation of labs/imaging results, and discussions with consultants and/or family members. <RANJEET Hurtado - Last Filed: 03/04/23 16:40> Differential Diagnosis Differential Diagnoses: The differential diagnosis associated with the presentation includes <RANJEET Hurtado - Last Filed: 03/04/23 16:40> As above <RANJEET Hurtado - Last Filed: 03/04/23 16:40> Admission/Observation Consideration of admission/observation: Escalation of care including admission/observation considered <RANJEET Hurtado - Last Filed: 03/04/23 16:40> Lab Data MDM Lab Attestation statement: I reviewed the patient's lab results. <RANJEET Hurtado - Last Filed: 03/04/23 16:40> Result Diagrams: 03/04/23 15:57 03/04/23 15:57 <RANJEET Hurtado - Last Filed: 03/04/23 16:40> Labs: Lab Results 03/04/23 03/04/23 03/04/23 Range/Units 15:57 15:57 15:57 WBC 11.9 H (4.8-10.8) X10*3/uL RBC 5.04 (4.20-5.50) X10*6/uL Hgb 13.7 (12.0-16.0) g/dl Hct 42.4 (37.0-47.0) % MCV 84.1 (80.0-98.0) fL MCH 27.2 (27.0-33.0) pg MCHC 32.3 (31.0-35.0) g/dl RDW 17.4 H (11.0-16.0) % Plt Count 302 (160-400) X10*3/uL MPV 9.8 (9.4-12.3) fL Immature Gran % (Auto) 0.3 (0.0-0.4) % Neut % (Auto) 59.9 (45-73) % Lymph % (Auto) 32.5 (20-40) % [place] % (Auto) 5.8 (2-11) % Eos % (Auto) 1.1 (0-4) % Baso % (Auto) 0.4 (0-2) % Lymph # (Auto) 3.9 (1.2-4.9) X10*3/uL [place] # (Auto) 0.7 (0.1-1.2) X10*3/uL Eos # (Auto) 0.1 (0.0-0.4) X10*3/uL Baso # (Auto) 0.1 (0.0-0.2) X10*3/uL Abs Immat Gran (auto) 0.04 H (0.00-0.03) X10*3/uL Absolute Neuts (auto) 7.1 (2.0-8.3) x10*3/uL Absolute Nucleated RBC 0.000 (0.0-0.012) X10*3/uL Nucleated RBC % (auto) 0.0 (0.0-0.2) /100WBC ESR 7 (0-20) MM/HR Sodium 139 (135-145) mmol/L Potassium 4.1 (3.3-5.1) mmol/L Chloride 112 H (96-108) mmol/L Carbon Dioxide 21 L (22-29) mmol/L Anion Gap 10 L (12-20) BUN 13 (9-16) mg/dL Creatinine 0.77 (0.5-1.4) mg/dL Estim Creat Clear Calc 98.4 Estimated GFR > 60 Random Glucose 108 (60-115) mg/dL Calcium 9.1 (8.4-10.2) mg/dL Magnesium 2.0 (1.6-2.6) mg/dL Total Bilirubin 0.4 (0.0-1.0) mg/dL Direct Bilirubin 0.1 (0.0-0.5) mg/dL AST 12 (5-31) U/L ALT 16 (0-31) U/L Alkaline Phosphatase 90 (39-117) U/L Troponin I High Sens (<3.5-17.0) ng/L C-Reactive Protein 0.29 (< or = 0.50) mg/dL Total Protein 7.1 (6.5-8.0) g/dL Albumin 4.1 (3.5-5.0) g/dL 03/04/23 Range/Units 15:57 WBC (4.8-10.8) X10*3/uL RBC (4.20-5.50) X10*6/uL Hgb (12.0-16.0) g/dl Hct (37.0-47.0) % MCV (80.0-98.0) fL MCH (27.0-33.0) pg MCHC (31.0-35.0) g/dl RDW (11.0-16.0) % Plt Count (160-400) X10*3/uL MPV (9.4-12.3) fL Immature Gran % (Auto) (0.0-0.4) % Neut % (Auto) (45-73) % Lymph % (Auto) (20-40) % [place] % (Auto) (2-11) % Eos % (Auto) (0-4) % Baso % (Auto) (0-2) % Lymph # (Auto) (1.2-4.9) X10*3/uL [place] # (Auto) (0.1-1.2) X10*3/uL Eos # (Auto) (0.0-0.4) X10*3/uL Baso # (Auto) (0.0-0.2) X10*3/uL Abs Immat Gran (auto) (0.00-0.03) X10*3/uL Absolute Neuts (auto) (2.0-8.3) x10*3/uL Absolute Nucleated RBC (0.0-0.012) X10*3/uL Nucleated RBC % (auto) (0.0-0.2) /100WBC ESR (0-20) MM/HR Sodium (135-145) mmol/L Potassium (3.3-5.1) mmol/L Chloride (96-108) mmol/L Carbon Dioxide (22-29) mmol/L Anion Gap (12-20) BUN (9-16) mg/dL Creatinine (0.5-1.4) mg/dL Estim Creat Clear Calc Estimated GFR Random Glucose (60-115) mg/dL Calcium (8.4-10.2) mg/dL Magnesium (1.6-2.6) mg/dL Total Bilirubin (0.0-1.0) mg/dL Direct Bilirubin (0.0-0.5) mg/dL AST (5-31) U/L ALT (0-31) U/L Alkaline Phosphatase (39-117) U/L Troponin I High Sens 3.0 (<3.5-17.0) ng/L C-Reactive Protein (< or = 0.50) mg/dL Total Protein (6.5-8.0) g/dL Albumin (3.5-5.0) g/dL <RANJEET Hurtado - Last Filed: 03/04/23 16:40> Lab Results 03/04/23 03/04/23 03/04/23 Range/Units 15:57 15:57 15:57 WBC 11.9 H (4.8-10.8) X10*3/uL RBC 5.04 (4.20-5.50) X10*6/uL Hgb 13.7 (12.0-16.0) g/dl Hct 42.4 (37.0-47.0) % MCV 84.1 (80.0-98.0) fL MCH 27.2 (27.0-33.0) pg MCHC 32.3 (31.0-35.0) g/dl RDW 17.4 H (11.0-16.0) % Plt Count 302 (160-400) X10*3/uL MPV 9.8 (9.4-12.3) fL Immature Gran % (Auto) 0.3 (0.0-0.4) % Neut % (Auto) 59.9 (45-73) % Lymph % (Auto) 32.5 (20-40) % [place] % (Auto) 5.8 (2-11) % Eos % (Auto) 1.1 (0-4) % Baso % (Auto) 0.4 (0-2) % Lymph # (Auto) 3.9 (1.2-4.9) X10*3/uL [place] # (Auto) 0.7 (0.1-1.2) X10*3/uL Eos # (Auto) 0.1 (0.0-0.4) X10*3/uL Baso # (Auto) 0.1 (0.0-0.2) X10*3/uL Abs Immat Gran (auto) 0.04 H (0.00-0.03) X10*3/uL Absolute Neuts (auto) 7.1 (2.0-8.3) x10*3/uL Absolute Nucleated RBC 0.000 (0.0-0.012) X10*3/uL Nucleated RBC % (auto) 0.0 (0.0-0.2) /100WBC ESR 7 (0-20) MM/HR Sodium 139 (135-145) mmol/L Potassium 4.1 (3.3-5.1) mmol/L Chloride 112 H (96-108) mmol/L Carbon Dioxide 21 L (22-29) mmol/L Anion Gap 10 L (12-20) BUN 13 (9-16) mg/dL Creatinine 0.77 (0.5-1.4) mg/dL Estim Creat Clear Calc 98.4 Estimated GFR > 60 Random Glucose 108 (60-115) mg/dL Calcium 9.1 (8.4-10.2) mg/dL Magnesium 2.0 (1.6-2.6) mg/dL Total Bilirubin 0.4 (0.0-1.0) mg/dL Direct Bilirubin 0.1 (0.0-0.5) mg/dL AST 12 (5-31) U/L ALT 16 (0-31) U/L Alkaline Phosphatase 90 (39-117) U/L Troponin I High Sens (<3.5-17.0) ng/L C-Reactive Protein 0.29 (< or = 0.50) mg/dL Total Protein 7.1 (6.5-8.0) g/dL Albumin 4.1 (3.5-5.0) g/dL 03/04/23 Range/Units 15:57 WBC (4.8-10.8) X10*3/uL RBC (4.20-5.50) X10*6/uL Hgb (12.0-16.0) g/dl Hct (37.0-47.0) % MCV (80.0-98.0) fL MCH (27.0-33.0) pg MCHC (31.0-35.0) g/dl RDW (11.0-16.0) % Plt Count (160-400) X10*3/uL MPV (9.4-12.3) fL Immature Gran % (Auto) (0.0-0.4) % Neut % (Auto) (45-73) % Lymph % (Auto) (20-40) % [place] % (Auto) (2-11) % Eos % (Auto) (0-4) % Baso % (Auto) (0-2) % Lymph # (Auto) (1.2-4.9) X10*3/uL [place] # (Auto) (0.1-1.2) X10*3/uL Eos # (Auto) (0.0-0.4) X10*3/uL Baso # (Auto) (0.0-0.2) X10*3/uL Abs Immat Gran (auto) (0.00-0.03) X10*3/uL Absolute Neuts (auto) (2.0-8.3) x10*3/uL Absolute Nucleated RBC (0.0-0.012) X10*3/uL Nucleated RBC % (auto) (0.0-0.2) /100WBC ESR (0-20) MM/HR Sodium (135-145) mmol/L Potassium (3.3-5.1) mmol/L Chloride (96-108) mmol/L Carbon Dioxide (22-29) mmol/L Anion Gap (12-20) BUN (9-16) mg/dL Creatinine (0.5-1.4) mg/dL Estim Creat Clear Calc Estimated GFR Random Glucose (60-115) mg/dL Calcium (8.4-10.2) mg/dL Magnesium (1.6-2.6) mg/dL Total Bilirubin (0.0-1.0) mg/dL Direct Bilirubin (0.0-0.5) mg/dL AST (5-31) U/L ALT (0-31) U/L Alkaline Phosphatase (39-117) U/L Troponin I High Sens 3.0 (<3.5-17.0) ng/L C-Reactive Protein (< or = 0.50) mg/dL Total Protein (6.5-8.0) g/dL Albumin (3.5-5.0) g/dL <Rolando Hernandez - Last Filed: 03/04/23 19:11> Radiology Impression Discussion of test interpretation with radiology: I have reviewed the radiologist's reading. <RANJEET Hurtado - Last Filed: 03/04/23 16:40> External Record Review External record reviewed: Inpatient record, Office record, Outpatient record, Prior outpatient labs, Prior outpatient radiology, Primary care record and Outside ED record <RANJEET Hurtado - Last Filed: 03/04/23 16:40> Discharge Plan Discharge Clinical Impression: Skin pain, Chest wall pain, Ear pain <RANJEET Hurtado - Last Filed: 03/04/23 16:40> Patient Disposition: Home, Self-Care <RANJEET Hurtado - Last Filed: 03/04/23 16:40> Instructions: Chest Wall Pain (ED) <RANJEET Hurtado - Last Filed: 03/04/23 16:40> Additional Instructions: Your blood work and imaging studies are reassuring You need to have close follow-up with her doctor. Consider following up Neurology If symptoms persist or worsen return to the ED <RANJEET Hurtado - Last Filed: 03/04/23 16:40> Prescriptions: No Action nystatin 100,000 unit/gram cream 1 appl topical BID PRN (Reason: rash) Qty: 15 0RF (DME) pen needle, diabetic [Unifine Pentips] 31 gauge x 5/16 needle See Rx Instructions .ROUTE .COMPLEX Qty: 100 2RF Dose Instruction: USE TO INJECT TWICE A DAY Rx Instructions: USE TO INJECT TWICE A DAY thiamine HCl (vitamin B1) 100 mg tablet 100 mg PO DAILY Qty: 90 0RF omeprazole 40 mg capsule,delayed release(DR/EC) 40 mg PO DAILY Qty: 90 0RF fluticasone propionate 50 mcg/actuation spray,suspension 1 spray intranasal DAILY Qty: 48 0RF meloxicam 15 mg tablet 15 mg PO DAILY Qty: 30 1RF baclofen 10 mg tablet 10 mg PO BEDTIME PRN (Reason: for muscle spasm) Qty: 90 1RF alcohol swabs [Easy Touch Alcohol Prep Pads] Pads, Medicated 1 pad topical TID Qty: 200 3RF cholecalciferol (vitamin D3) 25 mcg (1,000 unit) tablet 25 mcg PO DAILY Qty: 90 0RF pravastatin 80 mg tablet 80 mg PO DAILY Qty: 90 1RF prazosin 5 mg capsule 5 mg PO BEDTIME desvenlafaxine succinate 25 mg tablet extended release 24 hr 25 mg PO DAILY Qty: 1 0RF zolpidem 5 mg tablet 5 mg PO BEDTIME PRN (Reason: sleep) Qty: 1 0RF acetaminophen [Tylenol Extra Strength] 500 mg tablet 1,000 mg PO QID PRN (Reason: fever or pain) Qty: 14 0RF topiramate 100 mg tablet 100 mg PO BID (DME) FreeStyle Lite Strips Strip See Rx Instructions Not Applicable BID Qty: 10 Rx Instructions: As directed albuterol sulfate 90 mcg/actuation HFA aerosol inhaler 2 inh inhalation Q6-8H PRN (Reason: Weight Gain) carboxymethylcellulose sodium 0.5 % drops 1 drp ophthalmic (eye) BID-QID PRN (Reason: Dry Eyes) levomefolate calcium [L-Methylfolate] 15 mg tablet 15 mg PO DAILY insulin degludec [Tresiba FlexTouch U-200] 200 unit/mL (3 mL) insulin pen 14 unit subcut DAILY Qty: 9 1RF chlorhexidine gluconate [Antiseptic Skin Clnsr(chlorhe)] 4 % liquid topical BID desvenlafaxine succinate 100 mg tablet extended release 24 hr 100 mg PO DAILY PRN duloxetine 20 mg capsule,delayed release(DR/EC) 20 mg PO BID Trulicity 3 mg/0.5 mL pen injector subcut (DME) lancets [FreeStyle Lancets] 28 gauge misc See Rx Instructions .ROUTE BID Qty: 100 Rx Instructions: As directed quetiapine 150 mg tablet extended release 24 hr 150 mg PO BEDTIME quetiapine 50 mg tablet extended release 24 hr 50 mg PO BEDTIME clotrimazole-betamethasone 1-0.05 % cream topical hydroxyzine HCl 10 mg tablet 10 mg PO TID PRN (Reason: itching) 30 Days Qty: 90 0RF <RANJEET Hurtado - Last Filed: 03/04/23 16:40>
--- NOTE | 2023-03-04 14:58 | ECG_ITS ---
Test Reason : LEFT SIDED PAIN Blood Pressure : / mmHG Vent. Rate : 080 BPM Atrial Rate : 080 BPM P-R Int : 144 ms QRS Dur : 072 ms QT Int : 384 ms P-R-T Axes : 006 001 023 degrees QTc Int : 442 ms Normal sinus rhythm Normal ECG When compared with ECG of 24-MAY-2022 07:47, No significant change was found Referred By: Jeannie Lewis Electronically Signed By:LELAND CALDWELL
--- NOTE | 2023-03-04 15:28 | PC.NURSE ---
Patient presents with ear pain which radiates down her left side of body. Patient is alert and oriented and moves all extremities evenly and with purpose. Strength is equal bilaterally.
[2023-03-04] MEDS: Cyclobenzaprine HCl 10 MG TABLET PO (15:36)
[2023-03-04 16:02] LABS: MANUAL DIFF FLAG NO
[2023-03-04 16:03] LABS: Basophils Absolute Auto 0.1 X10*3/uL (0.0-0.2); Basophils Percent Auto 0.4 % (0-2); Eosinophils Absolute Auto 0.1 X10*3/uL (0.0-0.4); Eosinophils Percent Auto 1.1 % (0-4); Hematocrit 42.4 % (37.0-47.0); Hemoglobin 13.7 g/dl (12.0-16.0); Imm Gran Abs Auto 0.04 X10*3/uL (0.00-0.03); Imm Gran Pct Auto 0.3 % (0.0-0.4); Lymphocytes Absolute Auto 3.9 X10*3/uL (1.2-4.9); Lymphocytes Percent Auto 32.5 % (20-40); Mean Corpuscular HGB Conc 32.3 g/dl (31.0-35.0); Mean Corpuscular Hemoglobin 27.2 pg (27.0-33.0); Mean Corpuscular Volume 84.1 fL (80.0-98.0); Mean Platelet Volume 9.8 fL (9.4-12.3); Monocytes Absolute Auto 0.7 X10*3/uL (0.1-1.2); Monocytes Percent Auto 5.8 % (2-11); Neutrophils Absolute Auto 7.1 x10*3/uL (2.0-8.3); Neutrophils Percent Auto 59.9 % (45-73); Platelet Count 302 X10*3/uL (160-400); Red Blood Count 5.04 X10*6/uL (4.20-5.50); Red Cell Distribution Width 17.4 % (11.0-16.0); White Blood Count 11.9 X10*3/uL (4.8-10.8)
[2023-03-04 16:17] LABS: Alanine Aminotransferase 16 U/L (0-31); Albumin Level 4.1 g/dL (3.5-5.0); Alkaline Phosphatase 90 U/L (39-117); Anion Gap 10 (12-20); Aspartate Amino Transferase 12 U/L (5-31); Bilirubin Direct 0.1 mg/dL (0.0-0.5); Bilirubin Total 0.4 mg/dL (0.0-1.0); Blood Urea Nitrogen 13 mg/dL (9-16); C Reactive Protein 0.29 mg/dL (< or = 0.50); Calcium 9.1 mg/dL (8.4-10.2); Carbon Dioxide 21 mmol/L (22-29); Chloride 112 mmol/L (96-108); Creatinine Clr Calc Pharmacy 98.4; Estimated Glomerular Filt Rate > 60; Glucose Random 108 mg/dL (60-115); Potassium 4.1 mmol/L (3.3-5.1); Sodium 139 mmol/L (135-145); Total Protein 7.1 g/dL (6.5-8.0)
[2023-03-04 16:41] LABS: Erythrocyte Sedimentation Rate 7 MM/HR (0-20)
== END 2023-03-04 19:24 | disposition home or self-care (01) ==
PROVIDERS: Physician Assistant; Emergency Provider Emergency Medicine; PCP Nurse Practitioner Family
DX: R07.89 Other chest pain (principal); H92.02 Otalgia, left ear; R20.2 Paresthesia of skin; E11.9 Type 2 diabetes mellitus without complications; I10 Essential (primary) hypertension; E78.5 Hyperlipidemia, unspecified; M54.16 Radiculopathy, lumbar region; Z79.85 Long-term (current) use of injectable non-insulin antidiabetic drugs; Z79.899 Other long term (current) drug therapy
CPT/HCPCS: 36415; 70450; 71046; 80048; 80076; 83735; 84484; 85025; 85652; 86140; 93005; 99284

== ENCOUNTER → 2023-03-07 09:08 | Outpatient (BNVA) | payer OTHER, SELFPAY | PROVIDERS: PCP Nurse Practitioner Family; Visit Provider Physician Assistant | DX: M17.12 Unilateral primary osteoarthritis, left knee (principal); E11.69 Type 2 diabetes mellitus with other specified complication; E66.9 Obesity, unspecified | CPT/HCPCS: 20610; 99212; J1020 ==

== ENCOUNTER 2023-03-20 05:57 | Outpatient (REF) | payer OTHER, SELFPAY ==
--- NOTE | ~2023-03-20 | FL_ITS ---
EXAMINATION: XR FLUOROSCOPY WITH IMAGES CLINICAL INFORMATION: M47.816 - Spondylosis without myelopathy or radiculopathy, lumbar region COMPARISON: MR lumbar spine 02/14/2023 TECHNIQUE: Fluoroscopy Supervised By: Dr. Avelino Rahman. Fluoroscopy Time: 0.2 minutes. Cumulative Dose: 8.66 mGy. DAP: 1.12 Gycm2. Images: 3. FINDINGS: There are spinal needles overlying the bilateral outer L3, L4, and L5 neural foramen. There is contrast seen in the respective nerve sheaths. Some early transforaminal epidural extension is suggested. No visible vascular communication. There are degenerative disc changes again seen L4-L5 with disc narrowing. FL/FL guidance in treatment room IMPRESSION: Fluoroscopy for pain management procedures.
== END 2023-03-20 05:58 | disposition home or self-care (01) ==
LOC: CF 05:57
PROVIDERS: Visit Provider Internal Medicine
DX: M47.816 Spondylosis without myelopathy or radiculopathy, lumbar region (principal)
CPT/HCPCS: 64493; 64494

== ENCOUNTER 2023-03-20 06:08 | Outpatient (REF) | payer OTHER, SELFPAY ==
--- NOTE | 2023-03-20 06:49 | ECG_ITS ---
Test Reason : ck qtc Blood Pressure : / mmHG Vent. Rate : 103 BPM Atrial Rate : 103 BPM P-R Int : 144 ms QRS Dur : 080 ms QT Int : 362 ms P-R-T Axes : 037 007 067 degrees QTc Int : 474 ms Sinus tachycardia Otherwise normal ECG When compared with ECG of 04-MAR-2023 15:35, No significant change was found Referred By: Rubens Esposito Electronically Signed By:VAN MIKE MD
[2023-03-20 06:54] LABS: MANUAL DIFF FLAG NO
[2023-03-20 07:15] LABS: Basophils Percent Auto 0.4 % (0-2); Eosinophils Absolute Auto 0.1 X10*3/uL (0.0-0.4); Eosinophils Percent Auto 1.3 % (0-4); Hematocrit 42.3 % (37.0-47.0); Hemoglobin 13.6 g/dl (12.0-16.0); Imm Gran Abs Auto 0.03 X10*3/uL (0.00-0.03); Imm Gran Pct Auto 0.3 % (0.0-0.4); Lymphocytes Absolute Auto 3.4 X10*3/uL (1.2-4.9); Lymphocytes Percent Auto 33.4 % (20-40); Mean Corpuscular HGB Conc 32.2 g/dl (31.0-35.0); Mean Corpuscular Hemoglobin 26.6 pg (27.0-33.0); Mean Corpuscular Volume 82.8 fL (80.0-98.0); Mean Platelet Volume 9.7 fL (9.4-12.3); Monocytes Absolute Auto 0.7 X10*3/uL (0.1-1.2); Monocytes Percent Auto 7.3 % (2-11); Neutrophils Absolute Auto 5.8 x10*3/uL (2.0-8.3); Neutrophils Percent Auto 57.3 % (45-73); Platelet Count 307 X10*3/uL (160-400); Red Blood Count 5.11 X10*6/uL (4.20-5.50); Red Cell Distribution Width 17.2 % (11.0-16.0); White Blood Count 10.1 X10*3/uL (4.8-10.8)
[2023-03-20 07:40] LABS: Creatinine Urine 83.66 mg/dL; Microalbum/Creatinine Ratio Ur 11.9 ug/mg cr
[2023-03-20 07:46] LABS: Alanine Aminotransferase 19 U/L (0-31); Alkaline Phosphatase 97 U/L (39-117); Anion Gap 12 (12-20); Aspartate Amino Transferase 13 U/L (5-31); Bilirubin Total 0.4 mg/dL (0.0-1.0); Blood Urea Nitrogen 12 mg/dL (9-16); Calcium 9.2 mg/dL (8.4-10.2); Carbon Dioxide 21 mmol/L (22-29); Chloride 109 mmol/L (96-108); Cholesterol 175 mg/dL; Estimated Glomerular Filt Rate > 60; Glucose Random 200 mg/dL (60-115); HDL Cholesterol 44 mg/dL; LDL Cholesterol Calculated 102 mg/dl; Potassium 4.1 mmol/L (3.3-5.1); Sodium 138 mmol/L (135-145); Triglycerides 145 mg/dL
[2023-03-20 07:49] LABS: Estimated Average Glucose 192 mg/dL; Hemoglobin A1c % 8.3 %
[2023-03-20 07:57] LABS: Syphilis Screen Nonreactive (Nonreactive)
[2023-03-20 08:10] LABS: Free T4 (Free Thyroxine) 0.87 ng/dL (0.71-1.85); Thyroid Stimulating Hormone 1.79 uIU/mL (0.32-4.0); Vitamin B12 624 pg/mL (200-900); Vitamin D 25-OH Total 26.1 ng/mL (>30)
[2023-03-20 08:14] LABS: Folate 15.4 ng/mL (> or = 4.0); TSH reflex Free T4 1.78 uIU/mL (0.32-4.0); Vitamin B12 589 pg/mL (200-900)
[2023-03-20 08:20] LABS: Erythrocyte Sedimentation Rate 9 MM/HR (0-20)
[2023-03-22 02:04] LABS: Lyme Abs Screen <0.90 index
[2023-03-26 06:48] LABS: Vitamin B1 28 nmol/L (8-30)
[2023-03-27 10:28] LABS: Anti Nuclear Antibody Pattern Nuclear, Nucleolar; Anti Nuclear Antibody Screen POSITIVE (NEGATIVE)
== END 2023-03-20 06:09 | disposition home or self-care (01) ==
LOC: HO.LAB 06:08
PROVIDERS: Absent Provider Nurse Practitioner Family; PCP Nurse Practitioner Family; Visit Provider Psychiatry & Neurology Child & Adolescent Psychiatry
DX: R79.89 Other specified abnormal findings of blood chemistry (principal); E78.5 Hyperlipidemia, unspecified; E11.69 Type 2 diabetes mellitus with other specified complication; E66.9 Obesity, unspecified; E53.8 Deficiency of other specified B group vitamins; F33.1 Major depressive disorder, recurrent, moderate
CPT/HCPCS: 36415; 80053; 80061; 82043; 82306; 82607; 82746; 83036; 84425; 84439; 84443; 85025; 85652; 86038; 86039; 86617; 86618; 86780; 93005

== ENCOUNTER → 2023-03-22 11:30 | Outpatient (BNVA) | payer OTHER, SELFPAY | PROVIDERS: PCP Nurse Practitioner Family; Visit Provider Nurse Practitioner Family | DX: M79.7 Fibromyalgia (principal); M17.0 Bilateral primary osteoarthritis of knee; M51.37 Other intervertebral disc degeneration, lumbosacral region; M47.816 Spondylosis without myelopathy or radiculopathy, lumbar region; M54.50 Low back pain, unspecified; G89.29 Other chronic pain; E11.69 Type 2 diabetes mellitus with other specified complication; E66.01 Morbid (severe) obesity due to excess calories; Z68.41 Body mass index [BMI] 40.0-44.9, adult | CPT/HCPCS: Q3014 ==

== ENCOUNTER 2023-04-10 10:57 | Outpatient (REF) | payer OTHER, SELFPAY ==
--- NOTE | 2023-04-10 10:15 | EMG_ITS ---
Please see scanned EMG / Nerve Conduction Report. MTDD
== END 2023-04-10 10:58 | disposition home or self-care (01) ==
LOC: HO.NEURO 10:57
PROVIDERS: PCP Nurse Practitioner Family; Visit Provider Orthopaedic Surgery
DX: R20.0 Anesthesia of skin (principal); R20.2 Paresthesia of skin
CPT/HCPCS: 95885; 95913

== ENCOUNTER 2023-05-08 06:06 | Outpatient (REF) | payer OTHER, SELFPAY ==
--- NOTE | ~2023-05-08 | FL_ITS ---
EXAMINATION: XR FLUOROSCOPY WITH IMAGES CLINICAL INFORMATION: Other intervertebral disc degeneration, lumbosacral region. COMPARISON: None available. TECHNIQUE: Fluoroscopy Supervised By: Dr. Rahman. Fluoroscopy Time: 0.2 minutes. Cumulative Dose: 10.2 mGy. DAP: 1.52 Gycm2. Images: 3. FINDINGS: Images demonstrate needle placement and contrast injection adjacent to the bilateral lateral L3, L4 and L5 vertebrae FL/FL guidance in treatment room IMPRESSION: Fluoroscopy guidance for pain management.
== END 2023-05-08 06:07 | disposition home or self-care (01) ==
LOC: CF 06:06
PROVIDERS: Visit Provider Internal Medicine
DX: M51.37 Other intervertebral disc degeneration, lumbosacral region (principal); M47.816 Spondylosis without myelopathy or radiculopathy, lumbar region
CPT/HCPCS: 64493; 64494

== ENCOUNTER → 2023-05-10 08:46 | Outpatient (BNVA) | payer OTHER, SELFPAY | PROVIDERS: PCP Nurse Practitioner Family; Visit Provider Nurse Practitioner Family | DX: M51.37 Other intervertebral disc degeneration, lumbosacral region (principal); M47.816 Spondylosis without myelopathy or radiculopathy, lumbar region; G89.29 Other chronic pain; M54.50 Low back pain, unspecified; E66.01 Morbid (severe) obesity due to excess calories; Z68.41 Body mass index [BMI] 40.0-44.9, adult | CPT/HCPCS: Q3014 ==

== ENCOUNTER 2023-06-06 08:13 | Outpatient (AMB) | payer OTHER, SELFPAY ==
--- NOTE | 2023-06-06 08:18 | MHC.OFFVIS ---
Intake Vital Signs 06/06/23 08:19 Height 5 ft 2 in Weight 232 lb BMI 42.4 Intake Visit Reasons: OV- left knee pain, last inj 03/07/23 Intake Note: Marylin is a 52 year old female who presents today for a follow up of her left knee pain, Last injection done 03/07/23. Patient reports that this last injection was helpful and she would like to repeat. Patient has recently been seen with pain mgmt for ongoing back pain. Allergies insulin lispro Allergy (Severe, Verified 06/06/23 08:19) tongue swelling meloxicam Allergy (Severe, Verified 06/06/23 08:19) Anaphylaxis simvastatin Allergy (Severe, Verified 06/06/23 08:19) Difficulty Swallowing amlodipine Allergy (Intermediate, Verified 06/06/23 08:19) lip swelling butalbital Allergy (Intermediate, Verified 06/06/23 08:19) lip, tongue, mouth swelling clindamycin Allergy (Intermediate, Verified 06/06/23 08:19) Angioedema gabapentin Allergy (Intermediate, Verified 06/06/23 08:19) aggressive behavior losartan Allergy (Intermediate, Verified 06/06/23 08:19) Angioedema oxycodone [From Percocet] Allergy (Mild, Verified 06/06/23 08:19) Hives ibuprofen [From Motrin] Allergy (Verified 06/06/23 08:19) Hives lisinopril Allergy (Verified 06/06/23 08:19) Swelling Penicillins Allergy (Verified 06/06/23 08:19) Hives raspberry Allergy (Verified 06/06/23 08:19) Hives HPI OV- left knee pain, last inj 03/07/23 HPI Details Marylin is a 52 year old Diabetic woman with bilateral knee OA, presenting with complaints of left knee pain. She is S/P left knee injection on 03/07/23. She says this most recent injection was helpful an she would like a repeat today. She has a hx of multiple steroid injections, and says these usually give her ~6 weeks of relief. She is following with Pain Management for LBP. She continues to have knee pain with activity. She says she has tried gel injections several [facility], but cannot remember how effective this was. She reports a new allergy to Motrin, saying she developed hives when she was taking it. [facility] Medical History Arthritis Diabetes Elevated cholesterol Encounter to establish care History of alcohol abuse History of kidney stones HTN (hypertension) PTSD (post-traumatic stress disorder) Sleep apnea Surgical History History of hysterectomy History of tonsillectomy Family History Father Hypertension Diabetes Mother Asthma Family/Other Substance use disorder Mental health disorder Other Family history of osteoarthritis Social History Household Members: Family Housing: House Alcohol intake: never Patient Tobacco Use Status: Never used Tobacco e-Cigarette/Vaping Use: Never Used Second Hand Smoke Exposure: No service: No Current occupational status: disabled 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 Cognitive needs: Yes (cane ) Hearing needs: No Vision needs: Yes (glasses ) Review of Systems Const All systems reviewed & are unremarkable except as noted in HPI and below Physical Exam Vital Signs: BMI result Body Mass Index 42.4 Const General: no acute distress, alert and awake Orientation/consciousness: patient oriented x3 HEENT Head: Yes normocephalic and Yes atraumatic Eyes EOM: EOMs intact bilaterally Resp Effort & Inspection: normal respiratory effort and able to speak in complete sentences Cardio Jugular venous distension: no JVD Skin General skin exam: turgor normal Rashes: no rashes Neuro General: patient oriented x3 Extrem Other: Left Knee: TTP medial compartment Psych Appearance: grossly normal Affect: normal affect Attitude: cooperative Office Procedures Joint Injection/Drain Joint Injection/Drain Details: Injected 1 mL of Decadron and 3 mL 1% lidocaine and 3 mL of 0.25% Marcaine. Site was prepped using aseptic technique. Patient tolerated the procedure well. Primary Site: left knee Approach Used: anterolateral Coding 44081 - Large joint Procedure code (CPT) selection complete Results Reviewed Results Reviewed: 06/06/23 08:19 BUPivacaine MPF 0.25 % [Sensorcaine-MPF 0.25% 10 ML] 10 ml .ROUTE .STK-MED ONE Lidocaine HCl 2 % MPF [Xylocaine 2 % MPF] 5 ml .ROUTE .STK-MED ONE dexAMETHasone sod phosphate [Decadron] 4 mg .ROUTE .STK-MED ONE I personally reviewed relevant radiographs. Tricompartment degenerative arthritic changes of the left knee, severe in the medial compartment. ? Moderate degenerative arthritic changes of the right knee on the AP view. Assessment & Plan Assessment & Plan (1) Osteoarthritis of left knee: Code(s): M17.12 - Unilateral primary osteoarthritis, left knee Plan: This is a 52 year old woman with left knee OA. She has pain with daily activity, with a hx of relief from steroid injections. Her most recent was on 03/07/23, and she says typically gives her ~4-6 weeks of relief. I injected her left knee today, which she tolerated well. She can follow up prn. We may consider viscosupplementation in the future. (2) Diabetes mellitus type 2 in obese: Code(s): E11.69 - Type 2 diabetes mellitus with other specified complication; E66.9 - Obesity, unspecified Plan: I discussed the hyperglycemic effects of steroid injections. Plan Scribed for Darrel Schmitt MD by Saul Corbett, medical parasitologist, on 06/06/23 at 8:50 AM, EST. Coding Level of Care Code Est Pt Level 4 (35653) Diagnoses Osteoarthritis of left knee M17.12 Diabetes mellitus type 2 in obese E11.69; E66.9 CPT Codes Coding - 23325 Large joint: 16157 - Large joint ([id number])
[2023-06-06 08:19] VITALS: BMI 42.4
== END 2023-06-06 08:55 | disposition home or self-care (01) ==
PROVIDERS: Visit Provider Orthopaedic Surgery
DX: M17.12 Unilateral primary osteoarthritis, left knee (principal); E11.69 Type 2 diabetes mellitus with other specified complication; E66.9 Obesity, unspecified
CPT/HCPCS: 20610; 99214

== ENCOUNTER → 2023-06-06 08:13 | Outpatient (BNVA) | payer OTHER, SELFPAY | PROVIDERS: Visit Provider Orthopaedic Surgery | DX: M17.12 Unilateral primary osteoarthritis, left knee (principal); E11.69 Type 2 diabetes mellitus with other specified complication; E66.9 Obesity, unspecified; Z68.41 Body mass index [BMI] 40.0-44.9, adult | CPT/HCPCS: 20610; 99212; J1100 ==

== ENCOUNTER 2023-06-18 08:25 | Outpatient (AMB) | payer OTHER, SELFPAY ==
[2023-06-18 08:29] VITALS: BP 138/82; PULSE 89; O2SAT 97; BMI 41.7
--- NOTE | 2023-06-18 08:29 | A.OFFPC_ITS ---
Vital Signs 06/18/23 08:29 Height 5 ft 2 in Weight 228 lb BMI 41.7 BP 138/82 Blood Pressure Location Lt brachial Position Sitting Pulse 89 Pulse Source Pulse Oximeter Temp Source Skin Pulse Oximetry (%) 97 Oxygen Delivery Method Room Air Intake Visit Reasons: Annual Exam Intake Note: Patient is here today for a physical. Service Girl Required: No Allergies insulin lispro Allergy (Severe, Verified 06/18/23 08:42) tongue swelling meloxicam Allergy (Severe, Verified 06/18/23 08:42) Anaphylaxis simvastatin Allergy (Severe, Verified 06/18/23 08:42) Difficulty Swallowing amlodipine Allergy (Intermediate, Verified 06/18/23 08:42) lip swelling butalbital Allergy (Intermediate, Verified 06/18/23 08:42) lip, tongue, mouth swelling clindamycin Allergy (Intermediate, Verified 06/18/23 08:42) Angioedema gabapentin Allergy (Intermediate, Verified 06/18/23 08:42) aggressive behavior losartan Allergy (Intermediate, Verified 06/18/23 08:42) Angioedema oxycodone [From Percocet] Allergy (Mild, Verified 06/18/23 08:42) Hives ibuprofen [From Motrin] Allergy (Verified 06/18/23 08:42) Hives lisinopril Allergy (Verified 06/18/23 08:42) Swelling Penicillins Allergy (Verified 06/18/23 08:42) Hives raspberry Allergy (Verified 06/18/23 08:42) Hives Medication List - Last Reconciled 06/18/23 by OSCAR Forde acetaminophen (Tylenol Extra Strength) 1,000 mg (2 x 500 mg) PO QID PRN albuterol sulfate 90 mcg/actuation 2 inhalations inhalation Q6-8H PRN alcohol swabs (Easy Touch Alcohol Prep Pads) 1 pad topical TID baclofen 10 mg PO BEDTIME PRN blood sugar diagnostic (FreeStyle Lite Strips) As directed carboxymethylcellulose sodium 0.5% 1 drp ophthalmic (eye) BID-QID PRN chlorhexidine gluconate 4% (Antiseptic Skin Cleanser (chlorhexidine)) topical BID cholecalciferol (vitamin D3) 25 mcg PO DAILY clotrimazole 1% appl topical clotrimazole-betamethasone 1-0.05 % appl topical desvenlafaxine succinate ER 25 mg PO DAILY desvenlafaxine succinate ER 100 mg PO DAILY PRN dulaglutide (Trulicity) mg subcut empagliflozin (Jardiance) 25 mg PO DAILY epinephrine (EpiPen 2-Kosta) 0.3 mg (0.3 mL) IM Q4H PRN flash glucose scanning reader ([employer] Griffin 14 Day [place]) As directed flash glucose sensor (FreeStyle Griffin 14 Day Sensor kit) As directed fluticasone propionate 50 mcg/actuation 1 spray intranasal DAILY hydroxyzine HCl 10 mg PO TID PRN 30 days insulin degludec (Tresiba FlexTouch U-200 insulin) 14 units (0.07 mL) subcut DAILY lancets ([employer] Lancets) As directed levomefolate calcium (L-Methylfolate) 15 mg PO DAILY loratadine 10 mg PO DAILY metformin ER 500 mg PO BID miscellaneous medical supply 1 ea miscellaneous BEDTIME nystatin 1 appl topical BID PRN omeprazole 40 mg PO DAILY pen needle, diabetic (Unifine Pentips) USE TO INJECT TWICE A DAY pravastatin 80 mg PO DAILY prazosin 5 mg PO BEDTIME prednisone 10 mg PO DAILY thiamine HCl (vitamin B1) 100 mg PO DAILY topiramate 100 mg PO BID zolpidem 5 mg PO BEDTIME PRN Tobacco use date assessed: 06/18/23 Dental Screening Dental Screen Date: 06/18/23 Did you have a dental visit in the last 12 months?: Yes Did you have a dental problem in the last 6 months where you did not have access to dental care?: No HPI Annual Exam HPI Details Patient is a 52-year-old female who presents today for physical exam. Medical history significant for hyperlipidemia, severe recurrent major depression without psychotic features, osteoarthritis of both knees - followed by [facility], CECILIA - cannot tolerate CPAP, hypertension, hyperlipidemia, bipolar disorder, fibromyalgia, diffuse myofascial pain syndrome, chronic low back pain - followed by [facility], anxiety, asthma, headaches, diabetes type 2, and glaucoma - eye exam 04/2023. Mental health conditions are followed by Psychiatry and therapist at [facility]. Patient denies shortness of breath or chest pain. Patient reports intermittent rash on body which is stable with loratadine daily and hydroxyzine p.r.n., patient has referral for an paper machine back tender. Patient reports history of total hysterectomy, she only has her ovaries, does not receives Pap smears anymore per patient. Patient reports history of normal colonoscopy in 2019 at [facility] and repeat in 10 years, will request records. Today we discussed patient's need for mammogram and tetanus vaccine. Patient reports history of pneumonia vaccine. ? [facility] Medical History Arthritis Diabetes Elevated cholesterol Encounter to establish care History of alcohol abuse History of kidney stones HTN (hypertension) PTSD (post-traumatic stress disorder) Sleep apnea Surgical History History of hysterectomy History of tonsillectomy Family History Father Hypertension Diabetes Mother Asthma Family/Other Substance use disorder Mental health disorder Other Family history of osteoarthritis Social History Household Members: Family Housing: House Alcohol intake: never Patient Tobacco Use Status: Never used Tobacco e-Cigarette/Vaping Use: Never Used Second Hand Smoke Exposure: No service: No Current occupational status: disabled 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 1. Little interest or pleasure in doing things: nearly every day 2. Feeling down, depressed, or hopeless: nearly every day 3. Trouble falling or staying asleep, or sleeping too much: nearly every day 4. Feeling tired or having little energy: nearly every day 5. Poor appetite or overeating: nearly every day 6. Feeling bad about yourself - or that you are a failure or have let yourself or your family down: nearly every day 7. Trouble concentrating on things, such as reading the newspaper or watching television: nearly every day 8. Moving or speaking so slowly that other people could have noticed. Or the opposite - being so fidgety or restless that you have been moving around a lot more than usual: nearly every day 9. Thoughts that you would be better off or of hurting yourself in some way: several days Total score: 25 Depression Screening Interpretation: Positive Depression Screening Follow-up: In treatment 95764 - PHQ-9 Billing: Yes Source: Developed by Drs. Jeff Soria, Montana Williamson and colleagues, with an educational marysol from [employer]. Thrive Questionnaire Date Thrive assessed: 12/20/22 AUDIT C Alcohol Use Questionnaire (AUDIT-C) 1. How often do you have a drink containing alcohol?: Never 2. How many drinks containing alcohol do you have on a typical day when you are drinking?: 1 or 2 (0) 3. How often do you have six or more drinks on one occasion?: Never Total Score: 0 Score Reviewed/Action Taken: No DARIEL-7 AMB Questionnaire DARIEL-7 Date DARIEL - 7 assessed: 12/20/22 Feeling nervous, anxious, or on edge: 3 = Nearly every day Not being able to stop or control worryin = Nearly every day Worrying too much about different things: 3 = Nearly every day Trouble relaxin = Nearly every day Being so restless that it is hard to sit still: 3 = Nearly every day Becoming easily annoyed or irritable: 3 = Nearly every day Feeling afraid as if something awful might happen: 3 = Nearly every day Total DARIEL-7 score (0-4 normal; 5-9 mild; 10-14 moderate; 15-21 severe): 21 Source: Developed by Drs. Jeff Soira, Montana Williamson and colleagues, with an educational marysol from [employer]. DARIEL-7 Assessment Billing DARIEL-7 Assessment Tool: DARIEL-7 Assessment 22419 Review of Systems Const Denies body aches, Denies chills, Denies fever(s) and Denies headache(s) Eyes Denies blurry vision and Denies change in vision ENT Denies dizziness, Denies otalgia, Denies headache(s), Denies nasal discharge, Denies sinus pain and Denies sore throat Card Denies chest pain, Denies edema, Denies lightheadedness and Denies dyspnea Resp Denies chest congestion, Denies cough and Denies dyspnea GI Denies abdominal pain, Denies constipation, Denies diarrhea, Denies nausea and Denies vomiting Denies dysuria Musc Reports back pain, Denies myalgias, Reports arthralgias and Denies joint swelling Skin/Breast Reports as per HPI, Denies lesions and Denies rash Neuro Denies dizziness and Denies headache(s) Physical exam (Primary Care) Vital Signs: Last Vital Signs Pulse 89 06/18/23 08:29 BP 138/82 06/18/23 08:29 Pulse Ox 97 06/18/23 08:29 Oxygen Delivery Method Room Air 06/18/23 08:29 BMI result Body Mass Index 41.7 Tobacco/Smoking Status: Tobacco use Status Tobacco use date assessed 06/18/23 06/18/23 08:39 Patient Tobacco Use Status Never used Tobacco 06/18/23 08:30 e-Cigarette/Vaping Use Never Used 06/18/23 08:30 PHQ-9: PHQ-9 Score PHQ-9: Total score 25 06/18/23 08:45 Depression Screening Interpretation: Positive Depression Screening Follow-up: In treatment Thrive Assessment: Date of Thrive Assessment Date Thrive assessed 12/20/22 06/18/23 08:30 Const Other: Patient ambulates with a cane General: cooperative and no acute distress Orientation/consciousness: patient oriented x3 HENMT Head: Yes normocephalic and Yes atraumatic Ears: TM's normal bilaterally Face and sinus: Yes sinuses nontender Mouth: oropharynx normal and moist mucous membranes Throat: Yes posterior oropharynx normal Eyes General: appearance normal, both eyes and all related structures Pupils: Equal, round and reactive pupils present EOM: EOMs intact bilaterally Neck Neck: Yes normal visual inspection, Yes full ROM and Yes no lymphadenopathy Thyroid: Thyroid normal Resp Effort & Inspection: normal respiratory effort and able to speak in complete sentences Auscultation: clear to auscultation bilaterally, no crackles, no rales, no rhonchi and no wheezes Cardio Rate: regular rate Rhythm: regular rhythm Heart sounds: S1 normal heart sound present, S2 normal heart sound present and no murmurs GI Palpation (GI): Soft to palpation, not firm, nontender, no guarding, not rigid and no hepatosplenomegaly Auscultation: normal bowel sounds Skin General skin exam: no rashes or lesions noted Neuro General: patient oriented x3 Cranial nerves: Yes Equal, round and reactive pupils present Gait exam (Neuro): Normal gait present Extrem General: Yes full ROM and No edema Results AMB Hemoglobin A1c AMB Hemoglobin A1c 6.9 % Last Edit by Azra Paulino, RMA on 06/18/23 08:42 Immunizations Boostrix Tdap Performing Provider: OSCAR Forde Administered by: MARGARITO Hurley on 06/18/23 08:56 Dose Route Admin Location Lot Number Expiration Date NDC Front Counter Clerk 0.5 mL IM Left Deltoid [id number] 08/28/25 05114-758-07 [employer] VIS Given Date VIS Provided VIS Publication Date 06/18/23 Single Vaccine 21 Eligibility Eligibility Date Funding Source Not VFC Eligible 06/18/23 Private Results Reviewed Results Reviewed: Laboratory Last Values Hgb A1c (Clinic) 6.9 % (4.0-6.0) H 06/18/23 08:40 Assessment and Plan Assessment & Plan (1) Morbid obesity: Code(s): E66.01 - Morbid (severe) obesity due to excess calories Plan: Healthy food choices and exercise as tolerated (2) Severe recurrent major depression without psychotic features: Code(s): F33.2 - Major depressive disorder, recurrent severe without psychotic features Plan: Continue to follow-up with psychiatry and therapist at [facility] Continue current treatment as prescribed by Psychiatry (3) CECILIA (obstructive sleep apnea): Code(s): G47.33 - Obstructive sleep apnea (adult) (pediatric) Plan: Patient cannot tolerate CPAP, she returned the machine (4) Hypertension: Code(s): I10 - Essential (primary) hypertension Plan: Goal BP equal or less than 140/90 Low-sodium diet Patient is not on medication for hypertension (5) Hyperlipidemia LDL goal <100: Code(s): E78.5 - Hyperlipidemia, unspecified Plan: Pravastatin 80 mg daily Low-cholesterol diet (6) Bipolar disorder: Code(s): F31.9 - Bipolar disorder, unspecified Plan: Continue to follow-up with psychiatry and therapist at [facility] Continue current treatment-prescribed by Psychiatry (7) Fibromyalgia syndrome: Code(s): M79.7 - Fibromyalgia Plan: On desvenlafaxine - prescribed by Psychiatry (8) Chronic low back pain: Code(s): M54.50 - Low back pain, unspecified; G89.29 - Other chronic pain Plan: Continue to follow-up with [facility] Continue Tylenol 1000 mg 4 times a day as needed (9) Anxiety: Code(s): F41.9 - Anxiety disorder, unspecified Plan: Continue to follow-up with therapist and Psychiatry Continue current treatment (10) Asthma: Code(s): J45.909 - Unspecified asthma, uncomplicated Plan: Stable Continue albuterol inhaler as needed (11) Diabetes mellitus type 2 in obese: Code(s): E11.69 - Type 2 diabetes mellitus with other specified complication; E66.9 - Obesity, unspecified Plan: A1c 6.9 today Continue to follow-up with [facility] endocrinology Low-carbohydrate diet Continue TrArtemio cormiersiba to 14 units daily, metformin, Jardiance Diabetic eye exam 04/2023 per patient (12) Adult general medical exam: Code(s): Z00.00 - Encounter for general adult medical examination without abnormal findings (13) Screening for breast cancer: Code(s): Z12.39 - Encounter for other screening for malignant neoplasm of breast Plan Follow-up in 3 months or sooner as needed Orders: Orders Comprehensive Jarrell. Panel Fast Today E11.69 - Type 2 diabetes mellitus with other specified complication, E66.9 - Obesity, unspecified Hemoglobin A1c Today E11.69 - Type 2 diabetes mellitus with other specified complication, E66.9 - Obesity, unspecified Lipid Panel Today E78.5 - Hyperlipidemia, unspecified MM tomosynthesis screening BI Today Z12.31 - Encounter for screening mammogram for malignant neoplasm of breast TDaP Immunization Today Z23 - Encounter for immunization AMB Hemoglobin A1c Today E11.69 - Type 2 diabetes mellitus with other specified complication, E66.9 - Obesity, unspecified Medications: Discontinued prednisone Take 2 tablets 3 days then, Take 1 tablet 3 days and stop Discontinued Reason: Patient no longer taking 10 mg PO DAILY 9 tabs 0RF L28.2 - Other prurigo Coding Level of Care Code Est Pt Prev Care 40-64y(51189) Diagnoses Morbid obesity E66.01 Severe recurrent major depression without psychotic features F33.2 CECILIA (obstructive sleep apnea) G47.33 Hypertension I10 Hyperlipidemia LDL goal <100 E78.5 Bipolar disorder F31.9 Fibromyalgia syndrome M79.7 Chronic low back pain M54.50; G89.29 Anxiety F41.9 Asthma J45.909 Diabetes mellitus type 2 in obese E11.69; E66.9 Adult general medical exam Z00.00 Screening for breast cancer Z12.39 Additional Codes DARIEL-7 Assessment Billing - DARIEL-7 Assessment Tool: DARIEL-7 Assessment 65116 ([id number])
== END 2023-06-18 09:08 | disposition home or self-care (01) ==
PROVIDERS: PCP Nurse Practitioner Family; Visit Provider Nurse Practitioner Family
DX: E11.69 Type 2 diabetes mellitus with other specified complication (principal); E66.9 Obesity, unspecified; Z23 Encounter for immunization; Z68.41 Body mass index [BMI] 40.0-44.9, adult
CPT/HCPCS: 83036; 90471; 90715; 99396

== ENCOUNTER 2023-07-09 15:50 | Outpatient (REF) | payer OTHER, SELFPAY ==
[2023-07-10 12:08] LABS: Appearance Urine Clear; Color Urine Yellow; Glucose Urine UA >=1000 mg/dL (Negative); Leukocyte Esterase Urine Negative (Negative); Nitrite Urine Negative (Negative); PH 5.5 (5.0-9.0); Specific Gravity - Urine >= 1.030 (1.005-1.025); UMIC TRIGGER UACC YES; Urine Blood Negative (Negative); Urine Ketones Negative (Negative); Urine Protein Negative (Neg-Trace)
[2023-07-10 12:24] LABS: Bacteria Urine None Seen (None Seen); Hyaline Casts Urine 0-2 /LPF (0-2); RBC Urine 0-2 /HPF (0-2); UACC Culture Trigger YES
== END 2023-07-09 15:51 | disposition home or self-care (01) ==
LOC: HO.LNP 15:50
PROVIDERS: Visit Provider Nurse Practitioner Family
DX: R39.9 Unspecified symptoms and signs involving the genitourinary system (principal)
CPT/HCPCS: 81001; 87086

== ENCOUNTER 2023-07-12 13:11 | Emergency (ER) | payer OTHER, SELFPAY ==
[2023-07-12 13:54] VITALS: BP 188/97; PULSE 85; RESP 16; TEMP 35.8; O2SAT 100; BMI 42.1
--- NOTE | 2023-07-12 14:01 | ED.GENADULT ---
HPI - General Adult General Chief complaint: General Medical Stated complaint: ? Shingles Time Seen by Provider: 07/12/23 18:39 Source: patient Mode of arrival: ambulatory Limitations: no limitations History of Present Illness HPI narrative: 52 yo female with hx of DM, HTN here with c/o left low back and groin pain without trauma and no numbness weakness anesthesia or incontinence - she has body aches and malaise just feels run down. she then noted eruption of red raised bump without known insect bites or exposure that are starting to come up in the area and her skin is very sensitive and hyperesthetic. MD complaint: back pain and rash Onset (ago): week(s) (1) Location: back Radiation: other (back to groin) Severity: moderate Quality: burning and dull Pain Consistency: constant Relieving factors: none Exacerbating factors: movement and other (touching area) Associated symptoms: other (feels run down) Treatments prior to arrival: other (tylenol) Related Data Home Medications Medication Instructions Recorded Confirmed blood sugar diagnostic (Skip #10 ea 04/10/22 06/18/23 Lite Strips) topiramate 100 mg tablet 100 mg PO BID 04/10/22 06/18/23 albuterol sulfate 90 mcg/actuation 2 inh inhalation Q6-8H PRN Weight 06/06/22 06/18/23 aerosol inhaler Gain carboxymethylcellulose sodium 0.5 1 drp ophthalmic (eye) BID-QID PRN 06/06/22 06/18/23 % eye drops Dry Eyes levomefolate calcium 15 mg tablet 15 mg PO DAILY 09/05/22 06/18/23 (L-Methylfolate) chlorhexidine gluconate 4 % topical BID 10/15/22 06/18/23 topical liquid (Antiseptic Skin Cleanser (chlorhexidine)) desvenlafaxine succinate 100 mg 100 mg PO DAILY PRN 10/15/22 06/18/23 tablet,extended release 24 hr lancets 28 gauge (Skip #100 ea 01/24/23 06/18/23 Lancets) clotrimazole-betamethasone 1 appl topical 02/19/23 06/18/23 %-0.05 % topical cream prazosin 5 mg capsule 5 mg PO BEDTIME 03/01/23 06/18/23 clotrimazole 1 % topical cream appl topical 03/22/23 06/18/23 dulaglutide 4.5 mg/0.5 mL mg subcut 03/22/23 06/18/23 subcutaneous pen injector (Trulicity) empagliflozin 25 mg tablet 25 mg PO DAILY 03/22/23 06/18/23 (Jardiance) loratadine 10 mg tablet 10 mg PO DAILY 05/10/23 06/18/23 metformin 500 mg tablet,extended 500 mg PO BID 05/10/23 06/18/23 release 24 hr Previous Rx's Medication Instructions Recorded acetaminophen 500 mg tablet 1,000 mg PO QID PRN fever or pain 08/01/21 (Tylenol Extra Strength) #14 tabs nystatin 100,000 unit/gram topical 1 appl topical BID PRN rash #15 11/13/22 cream grams thiamine HCl (vitamin B1) 100 mg 100 mg PO DAILY #90 tabs 11/29/22 tablet insulin degludec 200 unit/mL (3 14 unit (0.07 mL) subcut DAILY #9 12/20/22 mL) subcutaneous pen (Tresiba mL FlexTouch U-200 insulin) alcohol swabs (Easy Touch Alcohol 1 pad topical TID #200 ea 02/19/23 Prep Pads) pravastatin 80 mg tablet 80 mg PO DAILY #90 tabs 02/19/23 desvenlafaxine succinate 25 mg 25 mg PO DAILY #1 tab 03/01/23 tablet,extended release 24 hr zolpidem 5 mg tablet 5 mg PO BEDTIME PRN sleep #1 tab 03/01/23 flash glucose scanning reader #1 ea 04/11/23 (FreeStyle Griffin 14 Day Papillion) flash glucose sensor (FreeStyle #1 ea 04/11/23 Griffin 14 Day Sensor kit) pen needle, diabetic 31 gauge x #100 ea 04/13/23 5/16 (Unifine Pentips) fluticasone propionate 50 1 spray intranasal DAILY #48 mL 04/29/23 mcg/actuation nasal spray,suspension epinephrine 0.3 mg/0.3 mL 0.3 mg (0.3 mL) IM Q4H PRN 05/08/23 injection, auto-injector (EpiPen anaphylaxis #2 ea 2-Kosta) cholecalciferol (vitamin D3) 25 25 mcg PO DAILY #90 tabs 05/10/23 mcg (1,000 unit) tablet hydroxyzine HCl 10 mg tablet 10 mg PO TID PRN itching 30 days 05/24/23 #90 tabs miscellaneous medical supply 1 ea miscellaneous BEDTIME #100 ea 05/29/23 baclofen 10 mg tablet 10 mg PO BEDTIME PRN for muscle 05/31/23 spasm #90 tabs omeprazole 40 mg capsule,delayed 40 mg PO DAILY #90 caps 07/06/23 release benzonatate 100 mg capsule 100 mg PO BID PRN cough #14 caps 07/09/23 hydrocodone 5 mg-acetaminophen 325 1 tab PO Q6H PRN pain #10 tabs 07/12/23 mg tablet valacyclovir 1 gram tablet 1,000 mg PO TID #20 tabs 07/12/23 (Valtrex) Allergies Allergy/AdvReac Type Severity Reaction Status Date / Time insulin lispro Allergy Severe tongue Verified 06/18/23 08:42 swelling meloxicam Allergy Severe Anaphylaxis Verified 06/18/23 08:42 simvastatin Allergy Severe Difficulty Verified 06/18/23 08:42 Swallowing amlodipine Allergy Intermediate lip Verified 06/18/23 08:42 swelling butalbital Allergy Intermediate lip, Verified 06/18/23 08:42 tongue, mouth swelling clindamycin Allergy Intermediate Angioedema Verified 06/18/23 08:42 gabapentin Allergy Intermediate aggressive Verified 06/18/23 08:42 behavior losartan Allergy Intermediate Angioedema Verified 06/18/23 08:42 oxycodone [From Percocet] Allergy Mild Hives Verified 06/18/23 08:42 ibuprofen [From Motrin] Allergy Hives Verified 06/18/23 08:42 lisinopril Allergy Swelling Verified 06/18/23 08:42 Penicillins Allergy Hives Verified 06/18/23 08:42 raspberry Allergy Hives Verified 06/18/23 08:42 Review of Systems Review of Systems: Constitutional : No Weight loss, No Fever, No Chills, ENT/Mouth : No Hearing loss, No Ear Pain, No Nasal Congestion, No Sinus Pain, No Hoarseness, No sore throat, No Rhinorrhea, No Swallowing Difficulty Cardiovascular : No Chest Pain, No SOB Respiratory : No Cough, No Dyspnea Gastrointestinal : No Nausea, No Vomiting, No Diarrhea, No abdominal Pain, No Hematochezia, No Melena Genitourinary : No Dysuria, No Urinary Frequency, No Hematuria, No Urinary Incontinence, Musculoskeletal : positive back pain Skin : No Skin Lesions, pos rash Neuro : No Weakness, No Numbness, No Paresthesias, no loss of bowel or bladder incontinence, no saddle anesthesia PMFSH Past Medical History Attestation statement: The following information was validated with the patient. Medical History Arthritis Diabetes Elevated cholesterol Encounter to establish care History of alcohol abuse History of kidney stones HTN (hypertension) PTSD (post-traumatic stress disorder) Sleep apnea Surgical History History of hysterectomy History of tonsillectomy Family History Family History Father Hypertension Diabetes Mother Asthma Family/Other Substance use disorder Mental health disorder Other Family history of osteoarthritis Social History Social History Household Members: Family Housing: House Alcohol intake: never Patient Tobacco Use Status: Never used Tobacco e-Cigarette/Vaping Use: Never Used Second Hand Smoke Exposure: No Advance Directives: No Advance Directives Information Provided: No service: No Current occupational status: disabled 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 Oriented X3. No acute distress. Eyes: Pupils equal, round and reactive to light. ENT: Pharynx normal. Neck: Normal inspection. Neck supple. CVS: Normal heart rate and rhythm. Pulses normal. Respiratory: No respiratory distress. Breath sounds normal. Abdomen: Soft and nontender. Back: no rash seen skin is sensitive on lower back near SI area R side, R groin no mass seen no rash seen but skin is hyperesthetic has some flat red sensitive areas on upper thigh. no blisters seen at this time no cellulitis or mass felt in R groin. skin is very sensitive. Skin: Skin warm and dry. Normal skin color. Normal skin turgor. Extremities: No lower extremity edema. No calf ttp Neuro: Oriented X 3. No motor deficit. No sensory deficit. Course Course Course Narrative: This is a rapid medical exam: Additional HPI, ROS, PE not included below will be deferred to primary provider. Patient is a 52-year-old female with history of DM, arthritis, elevated cholesterol, HTN, PTSD, sleep apnea presenting to the emergency department with complaint of left-sided body pain extending from head to toe states is worst in area of lower back radiating down left leg. Reports that several days after her symptoms began she developed a rash and is unsure if she has shingles. Denies fevers. Patient has scattered erythematous macules which do not appear consistent with zoster. Plan: basic labs Medical Decision Making Medical Decision Making [facility] Narrative: 52 yo female with hx of DM, HTN here with c/o left low back and groin pain without trauma here with c/o back pain, rash and hypereshetic skin at this time will obtain basic labs but suspect possible MSK pain or shingles. this is not cellulitis, petechia or vasculitis. she is not toxic, no CE symptoms. given symptoms will start on valtrex and pain medications. Differential Diagnosis Differential Diagnoses: The differential diagnosis associated with the presentation includes back pain, nonspecific rash, shingles Admission/Observation Consideration of admission/observation: Escalation of care including admission/observation considered not toxic, no signs of cellulitis, not toxic, NV intact, no CE symptoms - stable for outpatient management Lab Data [facility] Lab Attestation statement: I reviewed the patient's lab results. 07/12/23 15:57 07/12/23 15:57 Labs: Lab Results 07/12/23 07/12/23 Range/Units 15:57 15:57 WBC 10.3 (4.8-10.8) X10*3/uL RBC 5.50 (4.20-5.50) X10*6/uL Hgb 15.4 (12.0-16.0) g/dl Hct 46.3 (37.0-47.0) % MCV 84.2 (80.0-98.0) fL MCH 28.0 (27.0-33.0) pg MCHC 33.3 (31.0-35.0) g/dl RDW 16.4 H (11.0-16.0) % Plt Count 328 (160-400) X10*3/uL MPV 9.7 (9.4-12.3) fL Immature Gran % (Auto) 0.3 (0.0-0.4) % Neut % (Auto) 51.4 (45-73) % Lymph % (Auto) 39.3 (20-40) % Meriwether % (Auto) 7.5 (2-11) % Eos % (Auto) 1.0 (0-4) % Baso % (Auto) 0.5 (0-2) % Lymph # (Auto) 4.1 (1.2-4.9) X10*3/uL Meriwether # (Auto) 0.8 (0.1-1.2) X10*3/uL Eos # (Auto) 0.1 (0.0-0.4) X10*3/uL Baso # (Auto) 0.1 (0.0-0.2) X10*3/uL Abs Immat Gran (auto) 0.03 (0.00-0.03) X10*3/uL Absolute Neuts (auto) 5.3 (2.0-8.3) x10*3/uL Absolute Nucleated RBC 0.000 (0.0-0.012) X10*3/uL Nucleated RBC % (auto) 0.0 (0.0-0.2) /100WBC Sodium 140 (135-145) mmol/L Potassium 4.2 (3.3-5.1) mmol/L Chloride 111 H (96-108) mmol/L Carbon Dioxide 20 L (22-29) mmol/L Anion Gap 13 (12-20) BUN 12 (9-16) mg/dL Creatinine 0.77 (0.5-1.4) mg/dL Estim Creat Clear Calc 97.9 Estimated GFR > 60 Random Glucose 105 (60-115) mg/dL Calcium 9.9 D (8.4-10.2) mg/dL Total Bilirubin 0.3 (0.0-1.0) mg/dL AST 21 (5-31) U/L ALT 23 (0-31) U/L Alkaline Phosphatase 97 (39-117) U/L Total Protein 8.3 H (6.5-8.0) g/dL Albumin 4.5 (3.5-5.0) g/dL External Record Review External record reviewed: Inpatient record Tests considered The following testing was considered but not selected: xray of back but no trauma doubt fracture Prescription Management I considered prescription management with: Pain Medication and Antiviral Discharge Plan Discharge Clinical Impression: Rash Patient Disposition: Home, Self-Care Instructions: Acute Rash (ED) Additional Instructions: your labs are normal. your pain and eruption of rash is very nonspecific but it is concerning that you are showing early signs of the shingles virus. at this time we will start you on valtrex and pain medications. return for worsening pain, fevers, no signs or concerns. Prescriptions: New valacyclovir [Valtrex] 1 gram tablet 1,000 mg PO TID Qty: 20 0RF hydrocodone-acetaminophen 5-325 mg tablet 1 tab PO Q6H PRN (Reason: pain) Qty: 10 0RF Rx Instructions: partial fill okay; Partial Fill upon patient request. No Action nystatin 100,000 unit/gram cream 1 appl topical BID PRN (Reason: rash) Qty: 15 0RF thiamine HCl (vitamin B1) 100 mg tablet 100 mg PO DAILY Qty: 90 0RF alcohol swabs [Easy Touch Alcohol Prep Pads] Pads, Medicated 1 pad topical TID Qty: 200 3RF pravastatin 80 mg tablet 80 mg PO DAILY Qty: 90 1RF prazosin 5 mg capsule 5 mg PO BEDTIME desvenlafaxine succinate 25 mg tablet extended release 24 hr 25 mg PO DAILY Qty: 1 0RF zolpidem 5 mg tablet 5 mg PO BEDTIME PRN (Reason: sleep) Qty: 1 0RF (DME) FreeStyle Griffin 14 Day Papillion Misc See Rx Instructions .Route Qty: 1 0RF Rx Instructions: As directed (DME) FreeStyle Griffin 14 Day Sensor Kit See Rx Instructions .Route Qty: 1 5RF Rx Instructions: As directed (DME) pen needle, diabetic [Unifine Pentips] 31 gauge x 5/16 needle See Rx Instructions .ROUTE .COMPLEX Qty: 100 2RF Dose Instruction: USE TO INJECT TWICE A DAY Rx Instructions: USE TO INJECT TWICE A DAY fluticasone propionate 50 mcg/actuation spray,suspension 1 spray intranasal DAILY Qty: 48 0RF epinephrine [EpiPen 2-Kosta] 0.3 mg/0.3 mL auto-injector 0.3 mg IM Q4H PRN (Reason: anaphylaxis) Qty: 2 0RF cholecalciferol (vitamin D3) 25 mcg (1,000 unit) tablet 25 mcg PO DAILY Qty: 90 0RF hydroxyzine HCl 10 mg tablet 10 mg PO TID PRN (Reason: itching) 30 Days Qty: 90 3RF miscellaneous medical supply Misc 1 ea miscellaneous BEDTIME Qty: 100 3RF Rx Instructions: adult pull-ups 3XL baclofen 10 mg tablet 10 mg PO BEDTIME PRN (Reason: for muscle spasm) Qty: 90 1RF omeprazole 40 mg capsule,delayed release(DR/EC) 40 mg PO DAILY Qty: 90 0RF benzonatate 100 mg capsule 100 mg PO BID PRN (Reason: cough) Qty: 14 0RF acetaminophen [Tylenol Extra Strength] 500 mg tablet 1,000 mg PO QID PRN (Reason: fever or pain) Qty: 14 0RF topiramate 100 mg tablet 100 mg PO BID (DME) FreeStyle Lite Strips Strip See Rx Instructions Not Applicable BID Qty: 10 Rx Instructions: As directed albuterol sulfate 90 mcg/actuation HFA aerosol inhaler 2 inh inhalation Q6-8H PRN (Reason: Weight Gain) carboxymethylcellulose sodium 0.5 % drops 1 drp ophthalmic (eye) BID-QID PRN (Reason: Dry Eyes) levomefolate calcium [L-Methylfolate] 15 mg tablet 15 mg PO DAILY insulin degludec [Tresiba FlexTouch U-200] 200 unit/mL (3 mL) insulin pen 14 unit subcut DAILY Qty: 9 1RF chlorhexidine gluconate [Antiseptic Skin Clnsr(chlorhe)] 4 % liquid topical BID desvenlafaxine succinate 100 mg tablet extended release 24 hr 100 mg PO DAILY PRN (DME) lancets [FreeStyle Lancets] 28 gauge misc See Rx Instructions .ROUTE BID Qty: 100 Rx Instructions: As directed Trulicity 4.5 mg/0.5 mL pen injector subcut Jardiance 25 mg tablet 25 mg PO DAILY clotrimazole 1 % cream topical clotrimazole-betamethasone 1-0.05 % cream topical loratadine 10 mg tablet 10 mg PO DAILY metformin 500 mg tablet extended release 24 hr 500 mg PO BID
[2023-07-12 16:00] LABS: MANUAL DIFF FLAG NO
[2023-07-12 16:04] LABS: Basophils Absolute Auto 0.1 X10*3/uL (0.0-0.2); Basophils Percent Auto 0.5 % (0-2); Eosinophils Absolute Auto 0.1 X10*3/uL (0.0-0.4); Hematocrit 46.3 % (37.0-47.0); Hemoglobin 15.4 g/dl (12.0-16.0); Imm Gran Abs Auto 0.03 X10*3/uL (0.00-0.03); Imm Gran Pct Auto 0.3 % (0.0-0.4); Lymphocytes Absolute Auto 4.1 X10*3/uL (1.2-4.9); Lymphocytes Percent Auto 39.3 % (20-40); Mean Corpuscular HGB Conc 33.3 g/dl (31.0-35.0); Mean Corpuscular Volume 84.2 fL (80.0-98.0); Mean Platelet Volume 9.7 fL (9.4-12.3); Monocytes Absolute Auto 0.8 X10*3/uL (0.1-1.2); Monocytes Percent Auto 7.5 % (2-11); Neutrophils Absolute Auto 5.3 x10*3/uL (2.0-8.3); Neutrophils Percent Auto 51.4 % (45-73); Platelet Count 328 X10*3/uL (160-400); Red Cell Distribution Width 16.4 % (11.0-16.0); White Blood Count 10.3 X10*3/uL (4.8-10.8)
[2023-07-12 16:19] LABS: Alanine Aminotransferase 23 U/L (0-31); Albumin Level 4.5 g/dL (3.5-5.0); Alkaline Phosphatase 97 U/L (39-117); Anion Gap 13 (12-20); Aspartate Amino Transferase 21 U/L (5-31); Bilirubin Total 0.3 mg/dL (0.0-1.0); Blood Urea Nitrogen 12 mg/dL (9-16); Calcium 9.9 mg/dL (8.4-10.2); Carbon Dioxide 20 mmol/L (22-29); Chloride 111 mmol/L (96-108); Creatinine Clr Calc Pharmacy 97.9; Estimated Glomerular Filt Rate > 60; Glucose Random 105 mg/dL (60-115); Potassium 4.2 mmol/L (3.3-5.1); Sodium 140 mmol/L (135-145); Total Protein 8.3 g/dL (6.5-8.0)
[2023-07-12 19:22] VITALS: BP 156/105; PULSE 84; RESP 17; TEMP 36.8; O2SAT 96
[2023-07-12] MEDS: valACYclovir HCL 1,000 MG TABLET 1000 MG PO (19:36)
== END 2023-07-12 19:38 | disposition home or self-care (01) ==
PROVIDERS: Registered Nurse Emergency; Emergency Provider Emergency Medicine; PCP Nurse Practitioner Family
DX: R21 Rash and other nonspecific skin eruption (principal); M54.50 Low back pain, unspecified; M79.10 Myalgia, unspecified site; I10 Essential (primary) hypertension; R10.30 Lower abdominal pain, unspecified; Z79.899 Other long term (current) drug therapy
CPT/HCPCS: 36415; 80053; 85025; 99283

== ENCOUNTER 2023-07-16 09:32 | Outpatient (AMB) | payer OTHER, SELFPAY ==
[2023-07-16 09:37] VITALS: BP 136/70; PULSE 95; TEMP 36.3; O2SAT 97; BMI 41.9
--- NOTE | 2023-07-16 09:37 | MHC.OFFVIS ---
Intake Vital Signs 07/16/23 09:37 Height 5 ft 2 in Weight 229 lb 4.492 oz BMI 41.9 BP 136/70 Blood Pressure Location Rt brachial Position Sitting Pulse 95 Pulse Source Pulse Oximeter Temp 97.4 F Temp Source Skin Pulse Oximetry (%) 97 Intake Visit Reasons: Myalgia Intake Note: Pt seen today for follow up. 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 Accompanied by: Self / Same As Patient Allergies insulin lispro Allergy (Severe, Verified 07/16/23 09:40) tongue swelling meloxicam Allergy (Severe, Verified 07/16/23 09:40) Anaphylaxis simvastatin Allergy (Severe, Verified 07/16/23 09:40) Difficulty Swallowing amlodipine Allergy (Intermediate, Verified 07/16/23 09:40) lip swelling butalbital Allergy (Intermediate, Verified 07/16/23 09:40) lip, tongue, mouth swelling clindamycin Allergy (Intermediate, Verified 07/16/23 09:40) Angioedema gabapentin Allergy (Intermediate, Verified 07/16/23 09:40) aggressive behavior losartan Allergy (Intermediate, Verified 07/16/23 09:40) Angioedema oxycodone [From Percocet] Allergy (Mild, Verified 07/16/23 09:40) Hives ibuprofen [From Motrin] Allergy (Verified 07/16/23 09:40) Hives lisinopril Allergy (Verified 07/16/23 09:40) Swelling Penicillins Allergy (Verified 07/16/23 09:40) Hives raspberry Allergy (Verified 07/16/23 09:40) Hives Medication List - Last Reconciled 07/16/23 by Ishaan Pa MD acetaminophen (Tylenol Extra Strength) 1,000 mg (2 x 500 mg) PO QID PRN albuterol sulfate 90 mcg/actuation 2 inhalations inhalation Q6-8H PRN alcohol swabs (Easy Touch Alcohol Prep Pads) 1 pad topical TID baclofen 10 mg PO BEDTIME PRN benzonatate 100 mg PO BID PRN blood sugar diagnostic (FreeStyle Lite Strips) As directed carboxymethylcellulose sodium 0.5% 1 drp ophthalmic (eye) BID-QID PRN chlorhexidine gluconate 4% (Antiseptic Skin Cleanser (chlorhexidine)) topical BID cholecalciferol (vitamin D3) 25 mcg PO DAILY clotrimazole 1% appl topical clotrimazole-betamethasone 1-0.05 % appl topical desvenlafaxine succinate ER 25 mg PO DAILY desvenlafaxine succinate ER 100 mg PO DAILY PRN dulaglutide (Trulicity) mg subcut empagliflozin (Jardiance) 25 mg PO DAILY epinephrine (EpiPen 2-Kosta) 0.3 mg (0.3 mL) IM Q4H PRN flash glucose scanning reader (FreeStyle Griffin 14 Day [place]) As directed flash glucose sensor (FreeStyle Griffin 14 Day Sensor kit) As directed fluticasone propionate 50 mcg/actuation 1 spray intranasal DAILY hydrocodone-acetaminophen 5-325 mg 1 tab PO Q6H PRN hydroxyzine HCl 10 mg PO TID PRN 30 days insulin degludec (Tresiba FlexTouch U-200 insulin) 14 units (0.07 mL) subcut DAILY lancets (FreeStyle Lancets) As directed levomefolate calcium (L-Methylfolate) 15 mg PO DAILY loratadine 10 mg PO DAILY metformin ER 500 mg PO BID miscellaneous medical supply 1 ea miscellaneous BEDTIME nystatin 1 appl topical BID PRN omeprazole 40 mg PO DAILY pen needle, diabetic (Unifine Pentips) USE TO INJECT TWICE A DAY pravastatin 80 mg PO DAILY prazosin 5 mg PO BEDTIME thiamine HCl (vitamin B1) 100 mg PO DAILY topiramate 100 mg PO BID valacyclovir (Valtrex) 1,000 mg PO TID zolpidem 5 mg PO BEDTIME PRN HPI HPI Comments History of Present Illness Details 53-year-old female with fibromyalgia returns for follow-up. Recent labs ordered by PCP showed a positive NIGEL and patient is here to discuss it. Patient states that she has been exercising for about half an hour every other day, for 30 minutes each, she exercises by watching [employer] videos. Exercises include light exercises and lifting light weights. She continues to feel the same. Her pain has not improved. She states that she has been getting rashes on her legs and arms. She does not have any pictures. The seem to have resolved. Mentions that since her 20s her fingers become very cold, she has to wear gloves. They turn color to pale but not to blue or purple. Initial history: This is a 52-year-old morbidly obese female with a past medical history of anxiety, depression, PTSD, severe OA of the knee, degenerative disc disease of the spine who presents for evaluation of diffuse pain. Patient was told she has fibromyalgia for many years. She was on gabapentin before, prescribed for back pain which did not help much, she was also on Lyrica which also did not provide significant relief. Patient is following up with Pain Management and per patient they are planning to do a spinal cord stimulator. She was also evaluated by Orthopedics for knee replacement and her patient Dr. Schmitt wants to postpone surgery given patient's young age. Patient also follows up with bariatric surgery and she had lost a significant amount of weight. She has history of sleep apnea but she could not tolerate multiple CPAP machines. She has difficulty falling and staying asleep. She sees a psycho therapist weekly [facility] Medical History Arthritis Diabetes Elevated cholesterol Encounter to establish care History of alcohol abuse History of kidney stones HTN (hypertension) PTSD (post-traumatic stress disorder) Sleep apnea Surgical History History of hysterectomy History of tonsillectomy Family History Father Hypertension Diabetes Mother Asthma Family/Other Substance use disorder Mental health disorder Other Family history of osteoarthritis Social History Household Members: Family Housing: House Alcohol intake: never Patient Tobacco Use Status: Never used Tobacco e-Cigarette/Vaping Use: Never Used Second Hand Smoke Exposure: No service: No Current occupational status: disabled 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 Cognitive needs: Yes (cane ) Hearing needs: No Vision needs: Yes (glasses ) Female Reproductive History Menstrual Total pregnancies: 3 Full term: 1 Ab spontaneous: 2 Review of Systems Const Reports fatigue and Reports weakness ENT Reports dry mouth and Reports epistaxis Resp Reports wheezing GI Reports heartburn Reports nocturia Musc Reports back pain, Reports arthralgias and Reports stiffness Skin/Breast Reports pruritus, Reports rash and Reports unusual bruising Neuro Reports weakness Endo Reports fatigue and Reports polydipsia Aller/Immun Reports wheezing Physical Exam Vital Signs: Last Vital Signs Temp 97.4 F 07/16/23 09:37 Pulse 95 07/16/23 09:37 BP 136/70 07/16/23 09:37 Pulse Ox 97 07/16/23 09:37 BMI result Body Mass Index 41.9 Const General: cooperative and healthy appearing Nutritional Appearance: obese morbidly obese Orientation/consciousness: patient oriented x3 Limitations: ambulation with cane HEENT Head: Yes normocephalic and Yes atraumatic Resp Effort & Inspection: normal respiratory effort and able to speak in complete sentences Auscultation: clear to auscultation bilaterally Cardio Rate: regular rate Rhythm: regular rhythm GI Inspection: No distended Palpation (GI): Soft to palpation and nontender Skin General skin exam: no rashes or lesions noted Neuro General: patient oriented x3 Extrem Other: Diffuse fibromyalgia tender points Normal nailfold capillaroscopy Assessment & Plan Assessment & Plan (1) NIGEL positive: Code(s): R76.8 - Other specified abnormal immunological findings in serum Plan: Recent labs showed a positive NIGEL 1-80 nucleolar. Patient mentions that she has an aunt with SLE. States that since her 20s her hands are very cold in the colder winter months. Do not change to blue or purple. Symptoms not classic for Raynaud's. Today I do not see any signs suggestive of an autoimmune rheumatic disease. Will re-evaluate patient in 6 months (2) Fibromyalgia syndrome: Code(s): M79.7 - Fibromyalgia Plan: We had discussed measures to manage fibromyalgia last visit. Patient has been exercising for 30 minutes every other day. Continues to have diffuse pain. Advised patient to seek referral to a altitude chamber technician lasts sleep doctor to evaluate her CECILIA Plan I spent 27 minutes reviewing patient's chart, evaluating patient counseling patient and documenting in the chart Coding Level of Care Code Est Pt Level 4 (68233) Diagnoses NIGEL positive R76.8 Fibromyalgia syndrome M79.7
== END 2023-07-16 10:13 | disposition home or self-care (01) ==
PROVIDERS: PCP Nurse Practitioner Family; Visit Provider Student in an Organized Health Care Education/Training Program
DX: R76.8 Other specified abnormal immunological findings in serum (principal); M79.7 Fibromyalgia
CPT/HCPCS: 99214

== ENCOUNTER → 2023-07-16 09:32 | Outpatient (BNVA) | payer OTHER, SELFPAY | PROVIDERS: PCP Nurse Practitioner Family; Visit Provider Student in an Organized Health Care Education/Training Program | DX: R76.8 Other specified abnormal immunological findings in serum (principal); M79.7 Fibromyalgia | CPT/HCPCS: 99212 ==

== ENCOUNTER 2023-07-17 08:36 | Outpatient (REF) | payer OTHER, SELFPAY | END 2023-07-17 08:37 | disposition home or self-care (01) | LOC: HO.LAB 08:36 | PROVIDERS: PCP Nurse Practitioner Family; Visit Provider Urology | DX: N39.0 Urinary tract infection, site not specified (principal); N39.41 Urge incontinence; N32.81 Overactive bladder; E66.01 Morbid (severe) obesity due to excess calories; Z68.41 Body mass index [BMI] 40.0-44.9, adult | CPT/HCPCS: 51798; 81003; 87086; 99202 ==

== ENCOUNTER 2023-07-17 08:36 | Outpatient (AMB) | payer OTHER, SELFPAY ==
--- NOTE | 2023-07-17 04:47 | A.OFFVIS_ITS ---
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 Accompanied by: Self / Same As Patient Allergies insulin lispro Allergy (Severe, Verified 07/16/23 09:40) tongue swelling meloxicam Allergy (Severe, Verified 07/16/23 09:40) Anaphylaxis simvastatin Allergy (Severe, Verified 07/16/23 09:40) Difficulty Swallowing amlodipine Allergy (Intermediate, Verified 07/16/23 09:40) lip swelling butalbital Allergy (Intermediate, Verified 07/16/23 09:40) lip, tongue, mouth swelling clindamycin Allergy (Intermediate, Verified 07/16/23 09:40) Angioedema gabapentin Allergy (Intermediate, Verified 07/16/23 09:40) aggressive behavior losartan Allergy (Intermediate, Verified 07/16/23 09:40) Angioedema oxycodone [From Percocet] Allergy (Mild, Verified 07/16/23 09:40) Hives ibuprofen [From Motrin] Allergy (Verified 07/16/23 09:40) Hives lisinopril Allergy (Verified 07/16/23 09:40) Swelling Penicillins Allergy (Verified 07/16/23 09:40) Hives raspberry Allergy (Verified 07/16/23 09:40) Hives HPI HPI Comments History of Present Illness Details Marylin is a 53-year-old female who presents today to the office to establish as a new patient for an evaluation of urge incontinence. 07/17/2023? Marylin presents today for an evaluation of urge incontinence. She has a CoMorbidity diabetes, Obesity. She complains of urinary frequency with urge incontinence which has been ongoing in day and the night time. She denies any recent urinary tract infections at this time. I reviewed the urine culture results from 07/10/2023 revealed 50,000 to 100,000 cfu/ml mixed bacterial prudence characteristic of urogenital contamination. In review of the lab results revealed HbA1c is 6.1. Discussed avoid dietary bladder irritants Evaluation today--UA-- Leukocytes: negative; blood: negative. Bladder scan PVR 0 mL. Plan: Renal US was ordered, and discussed follow-up with urodynamics. [facility] Medical History Arthritis Diabetes Elevated cholesterol Encounter to establish care History of alcohol abuse History of kidney stones HTN (hypertension) PTSD (post-traumatic stress disorder) Sleep apnea Surgical History History of hysterectomy History of tonsillectomy Family History Father Hypertension Diabetes Mother Asthma Family/Other Substance use disorder Mental health disorder Other Family history of osteoarthritis Social History Household Members: Family Housing: House Alcohol intake: never Patient Tobacco Use Status: Never used Tobacco e-Cigarette/Vaping Use: Never Used Second Hand Smoke Exposure: No service: No Current occupational status: disabled 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 Cognitive needs: Yes (cane ) Hearing needs: No Vision needs: Yes (glasses ) Review of Systems Const All systems reviewed & are unremarkable except as noted in HPI and below Reports no additional complaints Eyes Reports no additional complaints ENT Reports no additional complaints Card Denies dyspnea Resp Denies cough and Denies dyspnea GI Reports no additional complaints Reports no additional complaints Musc Reports no additional complaints Skin/Breast Denies rash and Denies unusual bruising Neuro Reports no additional complaints Psych Reports no additional complaints Endo Reports no additional complaints Prateek/Lymph Reports no additional complaints Aller/Immun Reports no additional complaints Physical Exam Const General: cooperative, healthy appearing and no acute distress Nutritional Appearance: overweight Orientation/consciousness: patient oriented x3 HEENT Head: Yes normal to inspection, Yes normocephalic and Yes atraumatic Eyes Conjunctivae: conjunctivae normal Neck Neck: Yes normal visual inspection and Yes trachea midline Chest Chest palpation & inspection: normal inspection of the chest Resp Effort & Inspection: normal respiratory effort Cardio Rate: regular rate GI Inspection: Yes normal to inspection Skin General skin exam: no rashes or lesions noted Neuro General: patient oriented x3 Extrem General: No edema Psych Appearance: grossly normal Office Procedures Post Void Residual Post Residual Void Post Void Residual (PVR): 0 82008-[id number] Void Residual by ultrasound Results AMB Urinalysis, Automated UA Leukoctes 0 Elise/uL Last Edit by MARGARITO Perez on 07/17/23 09:05 UA Nitrite Negative Last Edit by Ced Gaston Corina on 07/17/23 09:05 UA Urobilinogen 0.2 mg/dL Last Edit by Ced Gaston [facility] on 07/17/23 09:0 5 UA Protein 0 mg/dL Last Edit by Ced Gaston [facility] on 07/17/23 09:05 UA pH 6.5 Last Edit by Ced Gaston [facility] on 07/17/23 09:05 UA Blood 0 Adair/uL Last Edit by Ced Gaston Corina on 07/17/23 09:05 UA Specific Swengel 1.015 Last Edit by Ced Gaston [facility] on 07/17/23 09: 05 UA Ketone Negative Last Edit by Ced Gaston [facility] on 07/17/23 09:05 UA Bilirubin 0 mg/dL Last Edit by Ced Gaston [facility] on 07/17/23 09:05 UA Glucose 1000 mg/dL Last Edit by Ced Gaston [facility] on 07/17/23 09:05 3+ Ced Gaston 07/17/23 09:05 Results Reviewed Results Reviewed: Laboratory Last Values Urine pH (Auto) 6.5 07/17/23 09:04 Specific Swengel (Auto) 1.015 07/17/23 09:04 Urine Protein (Auto) 0 mg/dL 07/17/23 09:04 Glucose (UA)(Auto) 1000 mg/dL 07/17/23 09:04 Urine Ketones (Auto) Negative 07/17/23 09:04 Urine Blood (Auto) 0 Adair/uL 07/17/23 09:04 Urine Nitrite (Auto) Negative 07/17/23 09:04 Urine Bilirubin (Auto) 0 mg/dL 07/17/23 09:04 Urine Urobilinogen (Auto) 0.2 mg/dL 07/17/23 09:04 Leukocyte Esterase (Auto) 0 Elise/uL 07/17/23 09:04 Ordered:? Urine Culture? Procedure?Result?Verified?Site ? Urine Culture? Final?07/11/23-1235 ? Report Result?50,000 to 100,000 cfu/ml ? Mixed bacterial prudence characteristic of ? urogenital contamination Assessment & Plan Assessment & Plan (1) Urge incontinence: Code(s): N39.41 - Urge incontinence (2) OAB (overactive bladder): Code(s): N32.81 - Overactive bladder (3) Morbid obesity with BMI of 40.0-44.9, adult: Code(s): E66.01 - Morbid (severe) obesity due to excess calories; Z68.41 - Body mass index [BMI] 40.0-44.9, adult Plan Renal US was ordered, and discussed follow-up with urodynamics. Orders: Orders US retroperitoneal comp Today N39.41 - Urge incontinence, R35.0 - Frequency of micturition Urine Culture Today N39.0 - Urinary tract infection, site not specified AMB Urinalysis Automated Today Z13.9 - Encounter for screening, unspecified AMB Post Void Residual by ultrasound Today N39.8 - Other specified disorders of urinary system Patient Instructions: The patient had an opportunity to ask questions regarding treatment plan. All questions were answered. Imaging, Laboratory studies and physical exam results were discussed and reviewed in detail. No major barriers to understanding were identified. The patient expressed understanding and agreement with the above treatment plan.? ? ? The patient is aware they should contact our office by phone for worsening of their current condition or the appearance of new symptoms. Compliance is encouraged with any medications and followup testing that is ordered.? ? ? It is a privilege to be allowed the opportunity to participate in the urologic care of your patient. If you have any questions or concerns regarding treatment for the above conditions please do not hesitate to contact me. The office telephone contact is [phone].? ? ? This note is constructed in part using voice recognition software. While every effort has been made to ensure accuracy field administrative assistant errors may have been included.? ? ? Yours sincerely,? ? ? Brice Wagner MD? Coding Level of Care Code New Pt Level 4 (35885) Diagnoses Urge incontinence N39.41 OAB (overactive bladder) N32.81 Morbid obesity with BMI of 40.0-44.9, adult E66.01; Z68.41 CPT Codes Post Residual Void - PVR CPT Code: 99793-Pfjw Void Residual by ultrasound ([id number])
== END 2023-07-17 09:43 | disposition home or self-care (01) ==
PROVIDERS: PCP Nurse Practitioner Family; Visit Provider Urology
DX: N39.41 Urge incontinence (principal); N32.81 Overactive bladder; E66.01 Morbid (severe) obesity due to excess calories; Z68.41 Body mass index [BMI] 40.0-44.9, adult; Z13.9 Encounter for screening, unspecified
CPT/HCPCS: 99204

== ENCOUNTER 2023-07-29 07:07 | Outpatient (REF) | payer OTHER, SELFPAY ==
[2023-07-29 07:23] LABS: MANUAL DIFF FLAG NO
[2023-07-29 08:05] LABS: Basophils Absolute Auto 0.1 X10*3/uL (0.0-0.2); Basophils Percent Auto 0.5 % (0-2); Eosinophils Absolute Auto 0.1 X10*3/uL (0.0-0.4); Eosinophils Percent Auto 0.8 % (0-4); Hematocrit 43.3 % (37.0-47.0); Hemoglobin 14.3 g/dl (12.0-16.0); Imm Gran Abs Auto 0.03 X10*3/uL (0.00-0.03); Imm Gran Pct Auto 0.3 % (0.0-0.4); Lymphocytes Absolute Auto 4.1 X10*3/uL (1.2-4.9); Lymphocytes Percent Auto 36.8 % (20-40); Mean Corpuscular Hemoglobin 27.5 pg (27.0-33.0); Mean Corpuscular Volume 83.3 fL (80.0-98.0); Mean Platelet Volume 10.4 fL (9.4-12.3); Monocytes Absolute Auto 0.6 X10*3/uL (0.1-1.2); Monocytes Percent Auto 5.7 % (2-11); Neutrophils Absolute Auto 6.2 x10*3/uL (2.0-8.3); Neutrophils Percent Auto 55.9 % (45-73); Platelet Count 344 X10*3/uL (160-400); Red Cell Distribution Width 15.9 % (11.0-16.0)
[2023-07-29 08:46] LABS: Alanine Aminotransferase 12 U/L (0-31); Albumin Level 4.3 g/dL (3.5-5.0); Alkaline Phosphatase 91 U/L (39-117); Anion Gap 14 (12-20); Aspartate Amino Transferase 10 U/L (5-31); Bilirubin Total 0.3 mg/dL (0.0-1.0); Blood Urea Nitrogen 15 mg/dL (9-16); Calcium 9.3 mg/dL (8.4-10.2); Carbon Dioxide 19 mmol/L (22-29); Chloride 110 mmol/L (96-108); Estimated Glomerular Filt Rate > 60; Glucose Random 143 mg/dL (60-115); Potassium 3.6 mmol/L (3.3-5.1); Sodium 139 mmol/L (135-145); Total Protein 7.7 g/dL (6.5-8.0)
[2023-07-29 09:05] LABS: Free T4 (Free Thyroxine) 0.83 ng/dL (0.71-1.85); Thyroid Stimulating Hormone 2.89 uIU/mL (0.32-4.0)
== END 2023-07-29 07:08 | disposition home or self-care (01) ==
LOC: HO.LAB 07:07
PROVIDERS: PCP Nurse Practitioner Family; Visit Provider Psychiatry & Neurology Child & Adolescent Psychiatry
DX: F33.1 Major depressive disorder, recurrent, moderate (principal)
CPT/HCPCS: 36415; 80053; 84439; 84443; 85025

== ENCOUNTER 2023-07-30 10:37 | Outpatient (REF) | payer OTHER, SELFPAY | END 2023-07-30 10:38 | disposition home or self-care (01) | LOC: HO.MAMMO 10:37 | PROVIDERS: PCP Nurse Practitioner Family; Visit Provider Nurse Practitioner Family | DX: Z12.31 Encounter for screening mammogram for malignant neoplasm of breast (principal) | CPT/HCPCS: 77063; 77067 ==

== ENCOUNTER → 2023-07-30 10:45 | Outpatient (BNV) | payer OTHER, SELFPAY | PROVIDERS: PCP Nurse Practitioner Family; Visit Provider Radiology Diagnostic Radiology | DX: Z12.31 Encounter for screening mammogram for malignant neoplasm of breast (principal) | CPT/HCPCS: 77063; 77067 ==

== ENCOUNTER 2023-07-31 08:58 | Day surgery (SDC) | payer OTHER, SELFPAY ==
--- NOTE | 2023-07-30 09:13 | P.CONAN_ITS ---
HPI - Anesthesia Eval Consult details Narrative: 53yo F for L3-L4-DR L5 Medial Branch Radiofrequency AB s/p EGD 08/2022 with MAC *Multiple Med Allergies* PMFSH Active Problems Active Problems: All Active Problems (Updated 07/17/23 @ 16:12 by Brice Wagner MD) OAB (overactive bladder) (Acute) Urinary frequency (Acute) NIGEL positive (Acute) Cough (Acute) Screening for breast cancer (Acute) Adult general medical exam (Acute) Urge incontinence (Acute) Anaphylaxis (Acute) Bilateral hand numbness (Acute) Macromastia (Acute) Lumbar radiculopathy (Acute) Lumbar spondylosis (Acute) Morbid obesity with BMI of 40.0-44.9, adult (Acute) Chronic pain of both wrists (Acute) Carpal tunnel syndrome on both sides (Acute) Pruritic rash (Acute) Skin lesion (Acute) Obesity (BMI 30-39.9) (Acute) Glaucoma (Acute) Diabetes mellitus type 2 in obese (Acute) Headache (Acute) Asthma (Acute) Anemia (Acute) Anxiety (Acute) Chronic low back pain (Acute) Diffuse myofascial pain syndrome (Acute) Fibromyalgia syndrome (Acute) Bipolar disorder (Acute) Hyperlipidemia LDL goal <100 (Acute) 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) CECILIA (obstructive sleep apnea) (Acute) Osteoarthritis of both knees (Acute) Osteoarthritis of left knee (Acute) Severe recurrent major depression without psychotic features (Acute) Hyperlipidemia (Acute) Screening for hypothyroidism (Acute) Low vitamin D level (Acute) Low vitamin B12 level (Acute) Osteoarthritis of right knee (Acute) Spondylosis of lumbar region without myelopathy or radiculopathy (Acute) Chronic pain of left knee (Acute) Sacroiliac joint pain (Acute) Diabetic neuropathy (Acute) Morbid obesity (Acute) Rash (Acute) Rhinitis (Acute) Disc disease, degenerative, lumbar or lumbosacral (Acute) Major depressive disorder, recurrent, moderate (Acute) Post traumatic stress disorder (Acute) Past Medical History Medical History (Updated 07/31/23 @ 09:35 by Deisy Pepe RN) Migraine GERD (gastroesophageal reflux disease) Fibromyalgia Bipolar disorder PTSD (post-traumatic stress disorder) Arthritis Elevated cholesterol Diabetes Sleep apnea HTN (hypertension) Encounter to establish care History of kidney stones History of alcohol abuse Family History Family History Father Hypertension Diabetes Mother Asthma Family/Other Substance use disorder Mental health disorder Other Family history of osteoarthritis Family history of problems with anesthesia: No Surgical History Surgical History History of tonsillectomy History of hysterectomy History of Problems with Anesthesia: No Social History Social History Household Members: Family Housing: House Alcohol intake: never Patient Tobacco Use Status: Never used Tobacco e-Cigarette/Vaping Use: Never Used Second Hand Smoke Exposure: No Use of substances other than those prescribed or required for medical reasons: No Are you DNR?: No Advance Directives: No Advance Directives Information Provided: Yes service: No Current occupational status: disabled 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 Cognitive needs: Yes (cane ) Hearing needs: No Vision needs: Yes (glasses ) Meds Allergies Allergy/AdvReac Type Severity Reaction Status Date / Time insulin lispro Allergy Severe tongue Verified 07/31/23 09:35 swelling meloxicam Allergy Severe Anaphylaxis Verified 07/31/23 09:35 simvastatin Allergy Severe Difficulty Verified 07/31/23 09:35 Swallowing amlodipine Allergy Intermediate lip Verified 07/31/23 09:35 swelling butalbital Allergy Intermediate lip, Verified 07/31/23 09:35 tongue, mouth swelling clindamycin Allergy Intermediate Angioedema Verified 07/31/23 09:35 gabapentin Allergy Intermediate aggressive Verified 07/31/23 09:35 behavior losartan Allergy Intermediate Angioedema Verified 07/31/23 09:35 oxycodone [From Percocet] Allergy Mild Hives Verified 07/31/23 09:35 ibuprofen [From Motrin] Allergy Hives Verified 07/31/23 09:35 lisinopril Allergy Swelling Verified 07/31/23 09:35 Penicillins Allergy Hives Verified 07/31/23 09:35 raspberry Allergy Hives Verified 07/31/23 09:35 Home Medications Medication Instructions Recorded Confirmed Last Taken Type albuterol sulfate 90 mcg/actuation 2 inh inhalation Q6-8H PRN Weight 06/06/22 07/16/23 08/15/22 History aerosol inhaler Gain carboxymethylcellulose sodium 0.5 1 drp ophthalmic (eye) BID-QID PRN 07/20/22 08/29/23 09/28/22 History % eye drops Dry Eyes levomefolate calcium 15 mg tablet 15 mg PO DAILY 09/05/22 07/16/23 Unknown History (L-Methylfolate) desvenlafaxine succinate 100 mg 100 mg PO DAILY 10/15/22 07/16/23 Unknown History tablet,extended release 24 hr (Pristiq) lancets 28 gauge (FreeStyle #100 ea 01/24/23 07/16/23 Unknown History Lancets) clotrimazole-betamethasone 1 appl topical 02/19/23 07/16/23 Unknown History %-0.05 % topical cream clotrimazole 1 % topical cream appl topical 03/22/23 07/16/23 Unknown History dulaglutide 4.5 mg/0.5 mL mg subcut 03/22/23 07/16/23 Unknown History subcutaneous pen injector (Trulicity) empagliflozin 25 mg tablet 25 mg PO DAILY 03/22/23 07/16/23 Unknown History (Jardiance) loratadine 10 mg tablet 10 mg PO DAILY 05/10/23 07/16/23 Unknown History metformin 500 mg tablet,extended 500 mg PO BID 05/10/23 07/16/23 Unknown History release 24 hr insulin degludec 100 unit/mL (3 14 unit subcut DAILY 07/31/23 Unknown History mL) subcutaneous pen (Tresiba FlexTouch U-100 insulin) Exam Exam Date and Time: July 30, 2023 0913 Pertinent Lab Results Pertinent Lab Results: Laboratory Tests 07/29/23 07:19 WBC 11.0 H Hgb 14.3 Hct 43.3 Plt Count 344 Sodium 139 Potassium 3.6 Chloride 110 H Carbon Dioxide 19 L BUN 15 Creatinine 0.73 Narrative Narrative: EKG 03/2023 Vent. Rate : 103 BPM Atrial Rate : 103 BPM P-R Int : 144 ms QRS Dur : 080 ms QT Int : 362 ms P-R-T Axes : 037 007 067 degrees QTc Int : 474 ms Sinus tachycardia Otherwise normal ECG When compared with ECG of 04-MAR-2023 15:35, No significant change was found Assessment and Plan Assessment Anesthesia Assessment: Chart Reviewed Final Anesthetic Review Family History of Problems with Anesthesia: No History of Problems with Anesthesia: No
[2023-07-31] VITALS (7 sets, daily range): BP systolic 134–151; BP diastolic 86–101; PULSE 70–93; RESP 16–20; TEMP 36.4; O2SAT 94–98; BMI 42.1
--- NOTE | ~2023-07-31 | FL_ITS ---
EXAMINATION: XR FLUOROSCOPY WITH IMAGES CLINICAL INFORMATION: MBB COMPARISON: None available. TECHNIQUE: Fluoroscopy Supervised By: Dr. Avelino Rahman. Fluoroscopy Time: 0.8 minutes. Cumulative Dose: 23.2 mGy. DAP: 2.79 Gycm2. Images: 6. FINDINGS: Images demonstrate needle placement adjacent to the bilateral lateral L3, L4 and L5 vertebrae. FL/FL guidance in OR IMPRESSION: Fluoroscopic guidance for pain management procedure.
--- NOTE | 2023-07-31 09:59 | P.CONAN_ITS ---
[facility] Active Problems Active Problems: All Active Problems (Updated 07/31/23 @ 09:35 by Deisy Pepe RN) OAB (overactive bladder) (Acute) Urinary frequency (Acute) NIGEL positive (Acute) Cough (Acute) Screening for breast cancer (Acute) Adult general medical exam (Acute) Urge incontinence (Acute) Anaphylaxis (Acute) Bilateral hand numbness (Acute) Macromastia (Acute) Lumbar radiculopathy (Acute) Lumbar spondylosis (Acute) Morbid obesity with BMI of 40.0-44.9, adult (Acute) Chronic pain of both wrists (Acute) Carpal tunnel syndrome on both sides (Acute) Pruritic rash (Acute) Skin lesion (Acute) Obesity (BMI 30-39.9) (Acute) Post traumatic stress disorder (Acute) Major depressive disorder, recurrent, moderate (Acute) Disc disease, degenerative, lumbar or lumbosacral (Acute) Rhinitis (Acute) Rash (Acute) Morbid obesity (Acute) Diabetic neuropathy (Acute) Sacroiliac joint pain (Acute) Chronic pain of left knee (Acute) Spondylosis of lumbar region without myelopathy or radiculopathy (Acute) Osteoarthritis of right knee (Acute) Low vitamin B12 level (Acute) Low vitamin D level (Acute) Screening for hypothyroidism (Acute) Hyperlipidemia (Acute) Severe recurrent major depression without psychotic features (Acute) Osteoarthritis of left knee (Acute) Osteoarthritis of both knees (Acute) CECILIA (obstructive sleep apnea) (Acute) 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) Hypertension (Acute) Hyperlipidemia LDL goal <100 (Acute) Bipolar disorder (Acute) Fibromyalgia syndrome (Acute) Diffuse myofascial pain syndrome (Acute) Chronic low back pain (Acute) Anxiety (Acute) Anemia (Acute) Asthma (Acute) Headache (Acute) Diabetes mellitus type 2 in obese (Acute) Glaucoma (Acute) Past Medical History Medical History (Updated 07/31/23 @ 09:35 by Deisy Pepe RN) Migraine GERD (gastroesophageal reflux disease) Fibromyalgia Bipolar disorder PTSD (post-traumatic stress disorder) Arthritis Elevated cholesterol Diabetes Sleep apnea HTN (hypertension) Encounter to establish care History of kidney stones History of alcohol abuse Family History Family History Father Hypertension Diabetes Mother Asthma Family/Other Substance use disorder Mental health disorder Other Family history of osteoarthritis Family history of problems with anesthesia: No Surgical History Surgical History History of tonsillectomy History of hysterectomy History of Problems with Anesthesia: No Social History Social History Household Members: Family Housing: House Alcohol intake: never Patient Tobacco Use Status: Never used Tobacco e-Cigarette/Vaping Use: Never Used Second Hand Smoke Exposure: No Use of substances other than those prescribed or required for medical reasons: No Are you DNR?: No Advance Directives: No Advance Directives Information Provided: Yes service: No Current occupational status: disabled 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 Cognitive needs: Yes (cane ) Hearing needs: No Vision needs: Yes (glasses ) Meds Allergies Allergy/AdvReac Type Severity Reaction Status Date / Time insulin lispro Allergy Severe tongue Verified 07/31/23 09:35 swelling meloxicam Allergy Severe Anaphylaxis Verified 07/31/23 09:35 simvastatin Allergy Severe Difficulty Verified 07/31/23 09:35 Swallowing amlodipine Allergy Intermediate lip Verified 07/31/23 09:35 swelling butalbital Allergy Intermediate lip, Verified 07/31/23 09:35 tongue, mouth swelling clindamycin Allergy Intermediate Angioedema Verified 07/31/23 09:35 gabapentin Allergy Intermediate aggressive Verified 07/31/23 09:35 behavior losartan Allergy Intermediate Angioedema Verified 07/31/23 09:35 oxycodone [From Percocet] Allergy Mild Hives Verified 07/31/23 09:35 ibuprofen [From Motrin] Allergy Hives Verified 07/31/23 09:35 lisinopril Allergy Swelling Verified 07/31/23 09:35 Penicillins Allergy Hives Verified 07/31/23 09:35 raspberry Allergy Hives Verified 07/31/23 09:35 Active Medications: Current Medications Albuterol Sulfate (Albuterol Sulfate (0.083%) 2.5 Mg/3 Ml Vial.Neb) 2.5 mg INHALE ONCE PRN PRN Reason: Shortness of Breath/Wheezing Fentanyl (Fentanyl Citrate/Pf 100 Mcg/2 Ml Vial) 50 mcg IVPUSH Q5M PRN; Protocol PRN Reason: Pain, Severe (Pain Scale 7-10) Lactated Ringer's (Lr) 1,000 mls @ 100 mls/hr IVCONT .Q10H KRISTIE Promethazine HCl 12.5 mg/ (Sodium Chloride) 50.5 mls @ 202 mls/hr IV ONCE PRN PRN Reason: Nausea and Vomiting Home Medications Medication Instructions Recorded Confirmed Last Taken Type albuterol sulfate 90 mcg/actuation 2 inh inhalation Q6-8H PRN Weight 06/06/22 07/16/23 08/15/22 History aerosol inhaler Gain carboxymethylcellulose sodium 0.5 1 drp ophthalmic (eye) BID-QID PRN 06/06/22 07/16/23 08/15/22 History % eye drops Dry Eyes levomefolate calcium 15 mg tablet 15 mg PO DAILY 09/05/22 07/16/23 Unknown History (L-Methylfolate) desvenlafaxine succinate 100 mg 100 mg PO DAILY 10/15/22 07/16/23 Unknown History tablet,extended release 24 hr (Pristiq) lancets 28 gauge (FreeStyle #100 ea 01/24/23 07/16/23 Unknown History Lancets) clotrimazole-betamethasone 1 appl topical 02/19/23 07/16/23 Unknown History %-0.05 % topical cream clotrimazole 1 % topical cream appl topical 03/22/23 07/16/23 Unknown History dulaglutide 4.5 mg/0.5 mL mg subcut 03/22/23 07/16/23 Unknown History subcutaneous pen injector (Trulicity) empagliflozin 25 mg tablet 25 mg PO DAILY 03/22/23 07/16/23 Unknown History (Jardiance) loratadine 10 mg tablet 10 mg PO DAILY 05/10/23 07/16/23 Unknown History metformin 500 mg tablet,extended 500 mg PO BID 05/10/23 07/16/23 Unknown History release 24 hr insulin degludec 100 unit/mL (3 14 unit subcut DAILY 07/31/23 Unknown History mL) subcutaneous pen (Tresiba FlexTouch U-100 insulin) Exam Exam Date and Time: July 31, 2023 0959 Height,Weight and Vital Signs: Height 5 ft 2 in Weight 104.326 kg Airway Mallampati Class: II TM Dist: >3cm Neck ROM: Full Heart: rrr Lungs: cta Assessment and Plan Assessment Anesthesia Assessment: Anesthesia Plan Discussed and Chart Reviewed Final Anesthetic Review Family History of Problems with Anesthesia: No History of Problems with Anesthesia: No NPO: Yes ASA Class: III Final Preanesthetic Review: No Changes in Pt Med Stat, Meds/Allgs Chart Reviewed and Consent Obtained/Reviewed Patient Risk: Intermediate Procedure Risk: Intermediate Anesthetic Plan Anesthetic Plan: MAC: Disposition: Standard PACU
[2023-07-31 10:01] LABS: Glucose, Whole Blood 110 mg/dL (60-115)
[2023-07-31] MEDS: Lactated Ringers 1,000 ML 100 ML IVCONT (10:15)
--- NOTE | 2023-07-31 10:57 | MHC.SHP ---
Pre-Procedural Eval Section A Date of Service: 07/31/23 The patient is an INPATIENT: No Changes since office visit: Yes Patient answered all questions The History & Physical has been completed within 30 days and I have reviewed it.: No Section B Chief Complaint: Spondylosis without myelopathy or radiculopathy, l Relevant Family History (Specify if Yes): No Relevant Social History: Other (specify) Present Medications: see Short Stay Collaborative assessment Medical History: No relevant PMH History of Previous Operations: No relevant previous surgery Allergies: Allergies Allergy/AdvReac Type Severity Reaction Status Date / Time insulin lispro Allergy Severe tongue Verified 07/31/23 09:35 swelling meloxicam Allergy Severe Anaphylaxis Verified 07/31/23 09:35 simvastatin Allergy Severe Difficulty Verified 07/31/23 09:35 Swallowing amlodipine Allergy Intermediate lip Verified 07/31/23 09:35 swelling butalbital Allergy Intermediate lip, Verified 07/31/23 09:35 tongue, mouth swelling clindamycin Allergy Intermediate Angioedema Verified 07/31/23 09:35 gabapentin Allergy Intermediate aggressive Verified 07/31/23 09:35 behavior losartan Allergy Intermediate Angioedema Verified 07/31/23 09:35 oxycodone [From Percocet] Allergy Mild Hives Verified 07/31/23 09:35 ibuprofen [From Motrin] Allergy Hives Verified 07/31/23 09:35 lisinopril Allergy Swelling Verified 07/31/23 09:35 Penicillins Allergy Hives Verified 07/31/23 09:35 raspberry Allergy Hives Verified 07/31/23 09:35 Review of Systems Sugical H&P ROS: Negative: Constitution, Cardiovascular and Respiratory Exam Surgical H&P Exam: Normal: HEENT, Normal: Heart and Normal: Lungs Plan Diagnosis/Plan: Unchanged I have reviewed the history and physical and performed a pertinent physical examination on my patient. No changes have occurred unless specified. Proceed with BILATERAL lumbar medial branch RFA, L3, L4, L5 DRMilo Patient in agreement. Time Spent With Patient Time: Total time managing care of this patient today ____ minutes.
[2023-07-31] MEDS: fentaNYL citrate/PF 100 MCG/2 ML VIAL 50 MCG IVPUSH ×2 (12:11→12:27)
[2023-07-31] MEDS: oxyCODONE HCl Immed Release 5 MG TABLET 10 MG PO (12:18)
--- NOTE | 2023-08-07 07:42 | PM.OP ---
Brief Operative Note Date of Service: 07/31/23 Pre-op diagnosis: Lumbar spondylosis Post-op diagnosis: same Procedure: Radiofrequency lesioning medial branch nerves, Bilateral L3, L4 medial branches and L5 dorsal ramus (L4/5 and L5/S1) (2 levels, 3 nerves) Implants: None Surgeon: Avelino Rahman MD Anesthesia: MAC Was an Ornamenter Hand used for this Procedure?: No Estimated blood loss (mL): 1 Pathology: none sent Condition: stable Disposition: PACU
--- NOTE | 2023-08-07 07:43 | P.OP_ITS ---
Operative Note Operative Note Date of Service: 07/31/23 Narrative: Radiofrequency lesioning medial branch nerves, Bilateral L3, L4 medial branches and L5 dorsal ramus (L4/5 and L5/S1) (2 levels, 3 nerves) After obtaining written consent, pre-procedure blood pressure and heart rate were stable and recorded in the nursing record. Standard monitors were applied. The patient was placed in the prone position and sedated by the track machine operator repairer. The lumbar area was prepped with chloraprep and draped in sterile fashion. The skin over the target for each medial branch nerve was anesthetized with 0.5% lidocaine. An 18 gauge radiofrequency cannula was advanced to each target site u nder fluoroscopic guidance. No paresthesias were elicited with needle placement and aspiration was negative for heme and CSF. Impedences were verified under 600 ohms. Motor testing (2 Hz) confirmed needle placement at each site within the appropriate voltage thresholds. Each site was injected with 0.5 ml 2% preservative-free lidocaine. Radiofrequency lesioning was performed for 90 seconds at 80 deg Celcius. The needle was removed, skin cleansed and a sterile bandage was applied. The patient tolerated the procedure well and no complications were encountered. Following the procedure the patient's vital signs were stable. The patient was discharged home in good condition with post- procedural instructions. Time Out: Immediately prior to the procedure, the following was verbally confirmed that there is a signed consent form and that the correct patient, planned procedure, site and side are consistent with documentation and that necessary equipment and/or blood products are available prior to the start of the case. Complications: none EBL: <5 cc
== END 2023-07-31 13:06 | disposition home or self-care (01) ==
PROVIDERS: PCP Nurse Practitioner Family; Visit Provider Internal Medicine
PROC: (CPT 64635; principal; 2023-07-31 10:50)
DX: M47.816 Spondylosis without myelopathy or radiculopathy, lumbar region (principal); M51.37 Other intervertebral disc degeneration, lumbosacral region; M54.50 Low back pain, unspecified; G89.29 Other chronic pain; M79.7 Fibromyalgia; M17.10 Unilateral primary osteoarthritis, unspecified knee; G47.33 Obstructive sleep apnea (adult) (pediatric); F43.10 Post-traumatic stress disorder, unspecified; F31.9 Bipolar disorder, unspecified; I10 Essential (primary) hypertension; E78.00 Pure hypercholesterolemia, unspecified; E11.9 Type 2 diabetes mellitus without complications; E66.01 Morbid (severe) obesity due to excess calories; Z68.41 Body mass index [BMI] 40.0-44.9, adult; Z88.0 Allergy status to penicillin; Z88.1 Allergy status to other antibiotic agents; Z88.8 Allergy status to other drugs, medicaments and biological substances
CPT/HCPCS: 64635; 64636; 82947; J2250; J2405; J2795; J3010

== ENCOUNTER → 2023-07-31 08:58 | Outpatient (BNV) | payer OTHER, SELFPAY | PROVIDERS: PCP Nurse Practitioner Family; Visit Provider Internal Medicine | DX: M47.816 Spondylosis without myelopathy or radiculopathy, lumbar region (principal) | CPT/HCPCS: 64493; 64494 ==

== ENCOUNTER 2023-08-13 10:10 | Outpatient (REF) | payer OTHER, SELFPAY ==
--- NOTE | ~2023-08-13 | US_ITS ---
EXAMINATION: US RETROPERITONEAL COMPLETE (RENAL) CLINICAL INFORMATION: Frequency of micturition. COMPARISON: US abdomen complete with liver elastography 07/11/2022. TECHNIQUE: Real-time imaging of the kidneys and bladder. FINDINGS: RIGHT KIDNEY: 10.6 x 3.8 x 4.8 cm (SAG x AP x TRV). The kidney is normal in size, contour, and echogenicity. Renal cortical thickness is normal. No calculi or focal parenchymal lesions. No hydronephrosis. LEFT KIDNEY: 11.8 x 5.1 x 6.0 cm (SAG x AP x TRV). The kidney is normal in size, contour, and echogenicity. Renal cortical thickness is normal. No renal calculi or hydronephrosis. 4.1 cm simple cyst in the upper pole. 2.1 cm simple cyst in the upper pole. No follow-up imaging is recommended. BLADDER: Partially distended. Right ureteral jet is demonstrated; left is not. Prevoid bladder volume is 107.9 mL. Postvoid bladder volume was not obtained. US/US retroperitoneal comp IMPRESSION: Unremarkable examination.
== END 2023-08-13 10:11 | disposition home or self-care (01) ==
LOC: HO.US 10:10
PROVIDERS: Visit Provider Urology
DX: R35.0 Frequency of micturition (principal); N39.41 Urge incontinence
CPT/HCPCS: 76770

== ENCOUNTER 2023-09-02 08:21 | Outpatient (AMB) | payer OTHER, SELFPAY ==
--- NOTE | 2023-09-02 08:27 | MHC.OFFVIS ---
Intake Intake Visit Reasons: OV - Left Knee OA - Last Injection 06/06/23 Intake Note: Marylin is a 53 year old female who presents today for a follow up of her left knee OA. Last Injected on 06/06/23. Patient reports that this injection only helped for a short period of time. She would like to discuss viscosupplementation. She has concerns of a deformity of the medial aspect of the knee. She feels like her bone is popping out. Allergies insulin lispro Allergy (Severe, Verified 09/02/23 08:33) tongue swelling meloxicam Allergy (Severe, Verified 09/02/23 08:33) Anaphylaxis simvastatin Allergy (Severe, Verified 09/02/23 08:33) Difficulty Swallowing amlodipine Allergy (Intermediate, Verified 09/02/23 08:33) lip swelling butalbital Allergy (Intermediate, Verified 09/02/23 08:33) lip, tongue, mouth swelling clindamycin Allergy (Intermediate, Verified 09/02/23 08:33) Angioedema gabapentin Allergy (Intermediate, Verified 09/02/23 08:33) aggressive behavior losartan Allergy (Intermediate, Verified 09/02/23 08:33) Angioedema oxycodone [From Percocet] Allergy (Mild, Verified 09/02/23 08:33) Hives ibuprofen [From Motrin] Allergy (Verified 09/02/23 08:33) Hives lisinopril Allergy (Verified 09/02/23 08:33) Swelling Penicillins Allergy (Verified 09/02/23 08:33) Hives raspberry Allergy (Verified 09/02/23 08:33) Hives HPI OV - Left Knee OA - Last Injection 06/06/23 HPI Details Marylin is a 53 year old Diabetic woman with bilateral knee OA, presenting with complaints of left knee pain. She is S/P left knee injection on 06/06/23, with no relief this time. She has a hx of short-term relief from steroid injections, typically lasting ~4-6 weeks. She continues to have pain with daily activity and she says her knee feels faulty . She says her pain has been present for several years, accompanied by swelling. She would like to discuss alternative treatments. She says she is only able to walk long distances over the last two years, and is limited in her shopping capabilities. She says she has tried gel injections several years ago at the arthritis center, but cannot remember how effective this was. She reports a new allergy to Motrin, saying she developed hives when she was taking it. She follows with Pain Management for LBP, and underwent a radiofrequency lesioning on 08/07/23. She recently had all toenails on her left foot removed as they were causing her pain. She says this is related to her Diabetes. She denies any symptoms of infection. [facility] [place] Medical History (Updated 07/31/23 @ 09:35 by Deisy Pepe RN) Migraine GERD (gastroesophageal reflux disease) Fibromyalgia Bipolar disorder PTSD (post-traumatic stress disorder) Arthritis Elevated cholesterol Diabetes Sleep apnea HTN (hypertension) Encounter to establish care History of kidney stones History of alcohol abuse Surgical History History of tonsillectomy History of hysterectomy Family History Father Hypertension Diabetes Mother Asthma Family/Other Substance use disorder Mental health disorder Other Family history of osteoarthritis Social History Household Members: Family Housing: House Alcohol intake: never Patient Tobacco Use Status: Never used Tobacco e-Cigarette/Vaping Use: Never Used Second Hand Smoke Exposure: No service: No Current occupational status: disabled 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 Cognitive needs: Yes (cane ) Hearing needs: No Vision needs: Yes (glasses ) Review of Systems Const All systems reviewed & are unremarkable except as noted in HPI and below Physical Exam Const General: no acute distress, alert and awake Orientation/consciousness: patient oriented x3 HEENT Head: Yes normocephalic and Yes atraumatic Eyes EOM: EOMs intact bilaterally Resp Effort & Inspection: normal respiratory effort and able to speak in complete sentences Cardio Jugular venous distension: no JVD Skin General skin exam: turgor normal Rashes: no rashes Neuro General: patient oriented x3 Extrem Other: Left Knee: TTP medial compartment MILD EFFUSION + GAIT ANTALGIA 5-125 DEG MOTION Psych Appearance: grossly normal Affect: normal affect Attitude: cooperative Office Procedures Joint Injection/Drain Joint Injection/Drain Details: Injected 1 mL of Decadron and 3 mL 1% lidocaine and 3 mL of 0.25% Marcaine. Site was prepped using aseptic technique. Patient tolerated the procedure well. Primary Site: left knee Approach Used: anterolateral Coding - Large joint Procedure code (CPT) selection complete Results Reviewed Results Reviewed: 09/02/23 08:26 BUPivacaine MPF 0.25 % [Sensorcaine-MPF 0.25% 10 ML] 10 ml .ROUTE .STK-MED ONE Lidocaine HCl 2 % MPF [Xylocaine 2 % MPF] 5 ml .ROUTE .STK-MED ONE dexAMETHasone sod phosphate [Decadron] 4 mg .ROUTE .STK-MED ONE I personally reviewed relevant radiographs. Tricompartment degenerative arthritic changes of the left knee, severe in the medial compartment. ? Moderate degenerative arthritic changes of the right knee on the AP view. Assessment & Plan Assessment & Plan (1) Osteoarthritis of left knee: Code(s): M17.12 - Unilateral primary osteoarthritis, left knee Plan: This is a 53 year old woman with left knee OA. She has pain with daily activity, along with intermittent effusion, with a hx of short-term relief from steroid injections. Her most recent was on 06/06/23, which was not effective, and she feels frustrated by several years of pain limiting her ADLs. I discussed alternative treatment options, including viscosupplementation and surgery. I am hesitant to recommend surgery given her age and other comorbidities, and recommend weight management and we continue with injections. I injected her left knee today, which she tolerated well, and recommend she remain active as tolerated. She will contact the clinic for viscosupplementation if this is not effective. (2) Diabetes mellitus type 2 in obese: Code(s): E11.69 - Type 2 diabetes mellitus with other specified complication; E66.9 - Obesity, unspecified Plan: Well-controlled, most recent HgA1C was 6.9% on 06/18/23. I discussed the hyperglycemic effects of steroid injections. Plan Scribed for Darrel Schmitt MD by Saul Corbett, medical insurance claims processor, on 09/02/23 at 8:50 AM, EST. Coding Level of Care Code Est Pt Level 4 (95561) Diagnoses Osteoarthritis of left knee M17.12 Diabetes mellitus type 2 in obese E11.69; E66.9 CPT Codes Coding - Large joint: 81291 - Large joint ([id number])
== END 2023-09-02 08:52 | disposition home or self-care (01) ==
PROVIDERS: PCP Nurse Practitioner Family; Visit Provider Orthopaedic Surgery
DX: M17.12 Unilateral primary osteoarthritis, left knee (principal); E11.69 Type 2 diabetes mellitus with other specified complication
CPT/HCPCS: 20610; 99214

== ENCOUNTER → 2023-09-02 08:21 | Outpatient (BNVA) | payer OTHER, SELFPAY | PROVIDERS: PCP Nurse Practitioner Family; Visit Provider Orthopaedic Surgery | DX: M17.12 Unilateral primary osteoarthritis, left knee (principal); E11.69 Type 2 diabetes mellitus with other specified complication; E66.9 Obesity, unspecified | CPT/HCPCS: 20610; 99212; J1100 ==

== ENCOUNTER 2023-09-10 09:03 | Outpatient (AMB) | payer OTHER, SELFPAY ==
--- NOTE | 2023-09-10 09:12 | A.OFFVIS_ITS ---
Intake Vital Signs 09/10/23 09:15 Height 5 ft 2 in Weight 230 lb BMI 42.1 BP 143/87 H Blood Pressure Location Rt brachial Position Sitting Pulse 91 Pulse Source Pulse Oximeter Pulse Oximetry (%) 97 Oxygen Delivery Method Room Air Intake Visit Reasons: s/p R & L L3-L4-L5 MB RFA 07/31 & 08/07 Intake Note: Pain today 02/25 Central Office Repairer Supervisor Required: No Accompanied by: Self / Same As Patient Allergies insulin lispro Allergy (Severe, Verified 09/10/23 09:16) tongue swelling meloxicam Allergy (Severe, Verified 09/10/23 09:16) Anaphylaxis simvastatin Allergy (Severe, Verified 09/10/23 09:16) Difficulty Swallowing amlodipine Allergy (Intermediate, Verified 09/10/23 09:16) lip swelling butalbital Allergy (Intermediate, Verified 09/10/23 09:16) lip, tongue, mouth swelling clindamycin Allergy (Intermediate, Verified 09/10/23 09:16) Angioedema gabapentin Allergy (Intermediate, Verified 09/10/23 09:16) aggressive behavior losartan Allergy (Intermediate, Verified 09/10/23 09:16) Angioedema oxycodone [From Percocet] Allergy (Mild, Verified 09/10/23 09:16) Hives ibuprofen [From Motrin] Allergy (Verified 09/10/23 09:16) Hives lisinopril Allergy (Verified 09/10/23 09:16) Swelling Penicillins Allergy (Verified 09/10/23 09:16) Hives raspberry Allergy (Verified 09/10/23 09:16) Hives HPI HPI Comments History of Present Illness Details Patient presents today to assess response Bilateral L3-L4-L5 Medial Branch RFA on 08/07/[address] Rahman. Patient reports 75 % ongoing pain relief since procedure with improved functio naila, sleep, range of motion and mobility. Patient reports ongoing left knee pain. She recently had follow up with Dr. Schmitt on 09/02/23 and had left knee cortisone injection with moderate relief. We discussed repeating Sprint PNS vs Curonix PNS permanent implant vs Genicular RFA for her chronic left knee pain. These procedures were discussed in greater detail with patient today and informational brochures were provided. Patient reports left knee pain limits her walking capacity and ADLs. Denies any fever, shortness of breaths, cough, bladder or bowel incontinence or saddle anesthesia. Past Procedures: 08/07/23: Bilateral L3-L4-L5 Medial Bran ch RFA -75% ongoing pain relief 05/08/23: Repeat Diagnostic Bilateral L3 -L4 DR L5 MBB-98% pain relief for 2 days 03/20/23: Diagnostic Bilateral L3-L4 DR L5 MBB-75% pain relief for 2 says 08/15/22: Left saphenous nerve Sprint PN S ? 95% relief for 6 months PRIOR: Patient presents today for follow up low back pain and discuss recent lumbar spine MRI results. Patient reports her back pain has been worsening with radiation to her left leg posteriorly and laterally. She continues to have significant bilateral knee pain and has been trying to loose weight and get better control of her diabetes. Her last A1C was 8.0 in 11/2022. Lumbar spine MRI is noted below and showed grade 1 degenerative anterolisthesis in the setting of advanced bilateral facet arthropathy at L4-L5. A right paracentral disc osteophyte protrusion at L4-L5 compresses the traversing right L5 nerve root within the right subarticular zone. Far left lateral disc osteophyte protrusion at L4-L5 results in mild left-sided foraminal encroachment without contacting the exiting left L4 nerve root. At L5-S1, a far left lateral disc osteophyte protrusion likely mildly contacts the extraforaminal left L5 nerve root. Severe left and moderate right facet arthropathy at this level. Patient is interested to undergo diagnostic lumbar medial branch blocks for potential peripheral nerve stimulation with SPRINT device. She is due to recheck A1C level at her PCP office and will notify our office prior to scheduling therapeutic injections for her left radicular pain. Patient reports she has been under significant stress which exacerbates her fibromyalgia and causes mood changes due to skin rash breakouts all over her body. She has pending dermatology appointment to see if her skin rash is related to allergies. She was seen by rheumatology who suggested CBT therapy for fibromyalgia and has pending EMG studies for her hand pain per Hand Specialist. Patient reports reqular follow up with her mental therapist and psychiatrist for recent and ongoing nightmares at night due to allergy and skin rash issues. PRIOR: This is a 52-year-old morbidly obese female with a past medical history of anxiety, depression, PTSD, severe OA of the knee, degenerative disc disease of the spine who presents for evaluation of diffuse pain. Patient was told she has fibromyalgia for many years. She was on gabapentin before, prescribed for back pain which did not help much, she was also on Lyrica which also did not provide significant relief. Patient is following up with Pain Management and per patient they are planning to do a spinal cord stimulator. She was also evaluated by Orthopedics for knee replacement and her patient Dr. Schmitt wants to postpone surgery given patient's young age. Patient also follows up with bariatric surgery and she had lost a significant amount of weight. She has history of sleep apnea but she could not tolerate multiple CPAP machines. She has difficulty falling and staying asleep. She sees a psycho therapist weekly [facility] Medical History (Updated 07/31/23 @ 09:35 by Deisy Pepe RN) Migraine GERD (gastroesophageal reflux disease) Fibromyalgia Bipolar disorder PTSD (post-traumatic stress disorder) Arthritis Elevated cholesterol Diabetes Sleep apnea HTN (hypertension) Encounter to establish care History of kidney stones History of alcohol abuse Surgical History History of tonsillectomy History of hysterectomy Family History Father Hypertension Diabetes Mother Asthma Family/Other Substance use disorder Mental health disorder Other Family history of osteoarthritis Social History Household Members: Family Housing: House Alcohol intake: never Patient Tobacco Use Status: Never used Tobacco e-Cigarette/Vaping Use: Never Used Second Hand Smoke Exposure: No service: No Current occupational status: disabled 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 Alert and oriented. Mood and affect appropriate. Follows and participates in conversation appropriately. Respiratory effort is unlabored. Able to transition from sit to stand unassisted. Ambulates with bilaterally normal heel strike and toe off. Results Reviewed Results Reviewed: MR LUMBAR SPINE WITHOUT CONTRAST 02/14/23 FINDINGS: Hypoplastic ribs at the lowermost thoracic type segment. There are 5 nonrib-bearing lumbar-type vertebral bodies. There is grade 1 degenerative anterolisthesis of L4 on L5. Lumbar alignment is otherwise maintained. There is no bone marrow edema. There are no acute fractures. There is moderate to severe disc volume loss at L4-L5. Remaining disc volumes are preserved. There is disc desiccation at L5-S1. Conus terminates at the L1 level. Dependent subcutaneous edema. Simple left renal cysts for which no further imaging follow-up is warranted. L1-L2: Slight annular disc bulge. Mild bilateral facet arthropathy and ligamentum flavum thickening. No central canal stenosis and no foraminal stenosis. L2-L3: Small annular disc bulge and moderate bilateral facet arthropathy and ligamentum flavum thickening. No central canal stenosis and no foraminal stenosis. L3-L4: Diffuse annular disc bulge and moderate bilateral facet arthropathy and ligamentum flavum thickening. Findings in concert result in mild narrowing of the central canal. No foraminal stenosis. L4-L5: Grade 1 degenerative anterolisthesis. A right paracentral disc osteophyte protrusion compresses the traversing right L5 nerve root within the right subarticular zone. Mild central canal stenosis. Far left lateral disc osteophyte protrusion results in mild left-sided foraminal encroachment without contacting the exiting left L4 nerve root. L5-S1: A far left lateral disc osteophyte protrusion likely mildly contacts the extraforaminal left L5 nerve root. There is no central canal stenosis. Severe left and moderate right facet arthropathy. IMPRESSION: * At L4-L5, there is grade 1 degenerative anterolisthesis in the setting of advanced bilateral facet arthropathy. A right paracentral disc osteophyte protrusion at L4-L5 compresses the traversing right L5 nerve root within the right subarticular zone. Far left lateral disc osteophyte protrusion at L4-L5 results in mild left-sided foraminal encroachment without contacting the exiting left L4 nerve root. * At L5-S1, a far left lateral disc osteophyte protrusion likely mildly contacts the extraforaminal left L5 nerve root. Severe left and moderate right facet arthropathy at this level. Assessment & Plan Assessment & Plan (1) Lumbar spondylosis: Code(s): M47.816 - Spondylosis without myelopathy or radiculopathy, lumbar region (2) Chronic pain of left knee: Code(s): M25.562 - Pain in left knee; G89.29 - Other chronic pain (3) Osteoarthritis of left knee: Code(s): M17.12 - Unilateral primary osteoarthritis, left knee Plan Patient is status post Bilateral L3-L4-L5 Medial Branch RFA on 08/07/23 with good results and improved functioning, sleep, range of motion and mobility. For chronic left knee pain, with temporary results from Sprint PNS trial for 6 month moderate pain relief. She recently had follow up with Dr. Schmitt on 09/02/23 and had left knee cortisone injection with moderate relief. We discussed repeating Sprint PNS vs Curonix PNS permanent implant vs Genicular RFA for her chronic left knee pain. These procedures were discussed in greater detail with patient today and informational brochures were provided. All questions were answered and patient agreed with the plan. Follow up as needed. Coding Level of Care Code Est Pt Level 3 (22373) Diagnoses Lumbar spondylosis M47.816 Chronic pain of left knee M25.562; G89.29 Osteoarthritis of left knee M17.12
[2023-09-10 09:15] VITALS: BP 143/87; PULSE 91; O2SAT 97; BMI 42.1
== END 2023-09-10 09:26 | disposition home or self-care (01) ==
PROVIDERS: PCP Nurse Practitioner Family; Visit Provider Nurse Practitioner Family
DX: M47.816 Spondylosis without myelopathy or radiculopathy, lumbar region (principal); M25.562 Pain in left knee; G89.29 Other chronic pain; M17.12 Unilateral primary osteoarthritis, left knee
CPT/HCPCS: 99213

== ENCOUNTER → 2023-09-10 09:03 | Outpatient (BNVA) | payer OTHER, SELFPAY | PROVIDERS: PCP Nurse Practitioner Family; Visit Provider Nurse Practitioner Family | DX: M47.816 Spondylosis without myelopathy or radiculopathy, lumbar region (principal); M25.562 Pain in left knee; M17.12 Unilateral primary osteoarthritis, left knee; G89.29 Other chronic pain | CPT/HCPCS: 99212 ==

== ENCOUNTER 2023-11-19 07:52 | Outpatient (REF) | payer OTHER, SELFPAY ==
[2023-11-19 08:58] LABS: Appearance Urine Clear; Color Urine Yellow; Glucose Urine UA >=1000 mg/dL (Negative); Leukocyte Esterase Urine Negative (Negative); Nitrite Urine Negative (Negative); PH 6.5 (5.0-9.0); Specific Gravity - Urine >= 1.030 (1.005-1.025); UMIC TRIGGER UA YES; Urine Blood Negative (Negative); Urine Ketones Negative (Negative); Urine Protein Negative (Neg-Trace)
[2023-11-19 09:07] LABS: Bacteria Urine None Seen (None Seen); Hyaline Casts Urine 0-2 /LPF (0-2); RBC Urine 0-2 /HPF (0-2); WBC Urine 0-5 /HPF (0-5)
== END 2023-11-19 07:53 | disposition home or self-care (01) ==
LOC: HO.LAB 07:52
PROVIDERS: PCP Nurse Practitioner Family; Visit Provider Urology
DX: N32.81 Overactive bladder (principal)
CPT/HCPCS: 81001; 87086

== ENCOUNTER 2023-12-09 08:37 | Outpatient (AMB) | payer OTHER, SELFPAY ==
--- NOTE | 2023-12-09 08:44 | A.OFFVIS_ITS ---
Intake Intake Visit Reasons: Left Knee Durolane Intake Note: Marylin is a 53 year old female who presents today for a left knee durolane injection Allergies insulin lispro Allergy (Severe, Verified 09/10/23 09:16) tongue swelling meloxicam Allergy (Severe, Verified 09/10/23 09:16) Anaphylaxis simvastatin Allergy (Severe, Verified 09/10/23 09:16) Difficulty Swallowing amlodipine Allergy (Intermediate, Verified 09/10/23 09:16) lip swelling butalbital Allergy (Intermediate, Verified 09/10/23 09:16) lip, tongue, mouth swelling clindamycin Allergy (Intermediate, Verified 09/10/23 09:16) Angioedema gabapentin Allergy (Intermediate, Verified 09/10/23 09:16) aggressive behavior losartan Allergy (Intermediate, Verified 09/10/23 09:16) Angioedema oxycodone [From Percocet] Allergy (Mild, Verified 09/10/23 09:16) Hives ibuprofen [From Motrin] Allergy (Verified 09/10/23 09:16) Hives lisinopril Allergy (Verified 09/10/23 09:16) Swelling Penicillins Allergy (Verified 09/10/23 09:16) Hives raspberry Allergy (Verified 09/10/23 09:16) Hives HPI Left Knee Durolane HPI Details Marylin is a 53 year old Diabetic woman with bilateral knee OA, presenting for a left knee Durolane injection. She is S/P left knee injection on 06/06/23, with no relief this time. She has a hx of short-term relief from steroid injections, typically lasting ~4- 6 weeks. She denies any changes in her symptoms or medical history. [facility] Medical History (Updated 07/31/23 @ 09:35 by Deisy Pepe RN) Migraine GERD (gastroesophageal reflux disease) Fibromyalgia Bipolar disorder PTSD (post-traumatic stress disorder) Arthritis Elevated cholesterol Diabetes Sleep apnea HTN (hypertension) Encounter to establish care History of kidney stones History of alcohol abuse Surgical History History of tonsillectomy History of hysterectomy Family History Father Hypertension Diabetes Mother Asthma Family/Other Substance use disorder Mental health disorder Other Family history of osteoarthritis Social History Household Members: Family Housing: House Alcohol intake: never Patient Tobacco Use Status: Never used Tobacco e-Cigarette/Vaping Use: Never Used Second Hand Smoke Exposure: No service: No Current occupational status: disabled 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 Cognitive needs: Yes (cane ) Hearing needs: No Vision needs: Yes (glasses ) Review of Systems Const All systems reviewed & are unremarkable except as noted in HPI and below Physical Exam Const General: no acute distress, alert and awake Orientation/consciousness: patient oriented x3 HEENT Head: Yes normocephalic and Yes atraumatic Eyes EOM: EOMs intact bilaterally Resp Effort & Inspection: normal respiratory effort and able to speak in complete sentences Cardio Jugular venous distension: no JVD Skin General skin exam: turgor normal Rashes: no rashes Neuro General: patient oriented x3 Extrem Other: skin c/d/i Psych Appearance: grossly normal Affect: normal affect Attitude: cooperative Office Procedures Joint Injection/Drain Joint Injection/Drain Details: Injected Durolane. Site was prepped using aseptic technique. Patient tolerated the procedure well. Primary Site: left knee Approach Used: anterolateral Coding - Large joint Procedure code (CPT) selection complete Assessment & Plan Assessment & Plan (1) Osteoarthritis of left knee: Code(s): M17.12 - Unilateral primary osteoarthritis, left knee Plan: Left knee Durolane injection. Plan Prepared for Darrel Schmitt MD by Saul Corbett, medical collections representative, on 12/09/23 at 8:46 AM, EST. Coding Level of Care Code Est Pt Level 2 (03785) Diagnoses Osteoarthritis of left knee M17.12 CPT Codes Coding - Large joint: 53820 - Large joint ([id number])
== END 2023-12-09 09:35 | disposition home or self-care (01) ==
PROVIDERS: PCP Nurse Practitioner Family; Visit Provider Orthopaedic Surgery
DX: M17.12 Unilateral primary osteoarthritis, left knee (principal)
CPT/HCPCS: 20610

== ENCOUNTER → 2023-12-09 08:37 | Outpatient (BNVA) | payer OTHER, SELFPAY | PROVIDERS: PCP Nurse Practitioner Family; Visit Provider Orthopaedic Surgery | DX: M17.12 Unilateral primary osteoarthritis, left knee (principal) | CPT/HCPCS: 20610; J7318 ==

== ENCOUNTER 2024-01-28 08:13 | Outpatient (AMB) | payer OTHER, SELFPAY ==
--- NOTE | 2024-01-28 08:50 | A.OFFPC_ITS ---
Vital Signs 01/28/24 08:52 Height 5 ft 2 in Weight 230 lb 6 oz BMI 42.1 BP 132/80 Blood Pressure Location Lt brachial Position Sitting Pulse 88 Pulse Source Pulse Oximeter Pulse Oximetry (%) 96 Oxygen Delivery Method Room Air Intake Visit Reasons: CONNOR/Med review Intake Note: Patient is here to follow up on medication review and CONNOR. Requesting for sleep study Shaping Machine Tender Required: No Phonograph Needle Tip Maker: Not Required per policy Accompanied by: Self / Same As Patient Allergies insulin lispro Allergy (Severe, Verified 01/28/24 13:13) tongue swelling meloxicam Allergy (Severe, Verified 01/28/24 13:13) Anaphylaxis simvastatin Allergy (Severe, Verified 01/28/24 13:13) Difficulty Swallowing amlodipine Allergy (Intermediate, Verified 01/28/24 13:13) lip swelling butalbital Allergy (Intermediate, Verified 01/28/24 13:13) lip, tongue, mouth swelling clindamycin Allergy (Intermediate, Verified 01/28/24 13:13) Angioedema gabapentin Allergy (Intermediate, Verified 01/28/24 13:13) aggressive behavior losartan Allergy (Intermediate, Verified 01/28/24 13:13) Angioedema oxycodone [From Percocet] Allergy (Mild, Verified 01/28/24 13:13) Hives ibuprofen [From Motrin] Allergy (Verified 01/28/24 13:13) Hives lisinopril Allergy (Verified 01/28/24 13:13) Swelling Penicillins Allergy (Verified 01/28/24 13:13) Hives raspberry Allergy (Verified 01/28/24 13:13) Hives Tobacco use date assessed: 01/28/24 Dental Screening Dental Screen Date: 01/28/24 Did you have a dental visit in the last 12 months?: No Did you have a dental problem in the last 6 months where you did not have access to dental care?: No Was dental information given to patient?: Patient has dentist HPI CONNOR/Med review HPI Details 53-year-old female presents to the offic e to discuss her medical condition. I am assuming her care as her current primary care provider has left the practice. Patient has multiple medical problems. She has insulin-requiring diabetes. All care for this comes from [facility] endocrinology. She has active bipolar illness and it sees a psychiatrist and therapist. They are prescribing for her baclofen, zolpidem, Pristiq 125 mg a day and hydroxyzine. Symptoms are currently under reasonable control. Patient is able to do her activities of daily living. Patient has foot related illness for which she sees a cardiac cath technician who prescribes the clotrimazole. Recently she had met the psychiatrist with complaints of nightmares. Patient is had obstructive sleep apnea in the past and did not tolerate the CPAP. She would like to get a sleep study now. The last sleep study was done more than 3 years ago. [facility] Medical History (Updated 01/28/24 @ 13:20 by Clive Solorio MD) Migraine GERD (gastroesophageal reflux disease) Fibromyalgia Bipolar disorder PTSD (post-traumatic stress disorder) Arthritis Elevated cholesterol Diabetes Sleep apnea HTN (hypertension) Encounter to establish care History of kidney stones History of alcohol abuse Surgical History History of tonsillectomy History of hysterectomy Family History Father Hypertension Diabetes Mother Asthma Family/Other Substance use disorder Mental health disorder Other Family history of osteoarthritis Social History Household Members: Family Housing: House Alcohol intake: never Patient Tobacco Use Status: Never used Tobacco e-Cigarette/Vaping Use: Never Used Second Hand Smoke Exposure: No service: No Current occupational status: disabled 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 1. Little interest or pleasure in doing things: nearly every day 2. Feeling down, depressed, or hopeless: nearly every day (in treatment with psy) 3. Trouble falling or staying asleep, or sleeping too much: nearly every day 4. Feeling tired or having little energy: nearly every day 5. Poor appetite or overeating: nearly every day 6. Feeling bad about yourself - or that you are a failure or have let yourself or your family down: nearly every day 7. Trouble concentrating on things, such as reading the newspaper or watching television: nearly every day 8. Moving or speaking so slowly that other people could have noticed. Or the opposite - being so fidgety or restless that you have been moving around a lot more than usual: several days 9. Thoughts that you would be better off or of hurting yourself in some way: nearly every day (of hurting self not others) Total score: 25 Depression Screening Interpretation: Positive Depression Screening Follow-up: Existing condition and In treatment Depression Screening Done: Yes Source: Developed by Drs. Jeff Soria, Bindu Nielsen, [place] Farmer and colleagues, with an educational marysol from [employer]. Thrive Questionnaire Date Thrive assessed: 01/28/24 I am a: Patient What is your living situation today?: I have a steady place to live Within the past 12 months, did the food you bought not last and you didn't have the money to get more?: Never true Within the past 12 months, did you worry whether your food would run out before you got money to buy more?: Never true Do you have trouble paying for medicines?: No Do you have trouble getting transportation to medical appointments?: No Do you have trouble paying your heating and electricity bill?: No Do you have trouble taking care of your child, family member or friend?: No Do you have trouble with day-to-day activities such as bathing, preparing meals, shopping, managing finances, etc.?: No Are you currently unemployed and looking for a job?: No Are you interested in more education?: No Currently or been in a relationship where the following occur: no concerns reported THRIVE Score: 0 AUDIT C Alcohol Use Questionnaire (AUDIT-C) 1. How often do you have a drink containing alcohol?: Never Total Score: 0 DARIEL-7 AMB Questionnaire DARIEL-7 Date DARIEL - 7 assessed: 01/28/24 Feeling nervous, anxious, or on edge: 3 = Nearly every day Not being able to stop or control worryin = Nearly every day Worrying too much about different things: 3 = Nearly every day Trouble relaxin = Nearly every day Being so restless that it is hard to sit still: 1 = Several days Becoming easily annoyed or irritable: 3 = Nearly every day Feeling afraid as if something awful might happen: 3 = Nearly every day Total DARIEL-7 score (0-4 normal; 5-9 mild; 10-14 moderate; 15-21 severe): 19 Source: Developed by Drs. Jeff Soria, Bindu Nielsen, [place] Farmer and colleagues, with an educational marysol from [employer]. Physical exam (Primary Care) Vital Signs: Last Vital Signs Pulse 88 01/28/24 08:52 BP 132/80 01/28/24 08:52 Pulse Ox 96 01/28/24 08:52 Oxygen Delivery Method Room Air 01/28/24 08:52 BMI result Body Mass Index 42.1 BMI Assessment/Plan discussion: High (Patient was advised and counseled on diet and exercise.) BMI High, discussed plan: lifestyle, weight reduction, dietary and physical activity Tobacco/Smoking Status: Tobacco use Status Tobacco use date assessed 01/28/24 01/28/24 08:55 Patient Tobacco Use Status Never used Tobacco 01/28/24 08:55 e-Cigarette/Vaping Use Never Used 01/28/24 08:55 PHQ-9: PHQ-9 Score PHQ-9: Total score 25 01/28/24 09:03 Depression Screening Interpretation: Positive Depression Screening Follow-up: Existing condition and In treatment Thrive Assessment: Date of Thrive Assessment Date Thrive assessed 01/28/24 01/28/24 08:55 Currently or been in a relationship where the following occur: no concerns reported Const General: cooperative and healthy appearing Nutritional Appearance: well nourished Orientation/consciousness: patient oriented x3 Limitations: no limitations HENMT Head: Yes normal to inspection Eyes General: appearance normal, both eyes and all related structures Neck Neck: Yes normal visual inspection Chest Chest palpation & inspection: normal palpation of entire chest wall Resp Effort & Inspection: normal respiratory effort Neuro General: patient oriented x3 Results AMB Hemoglobin A1c AMB Hemoglobin A1c 7.2 % Last Edit by MARGARITO Aviles on 01/28/24 09:22 Results Reviewed Results Reviewed: Laboratory Last Values Hgb A1c (Clinic) 7.2 % (4.0-6.0) H 01/28/24 09:07 Assessment and Plan Assessment & Plan (1) Morbid obesity with BMI of 40.0-44.9, adult: Code(s): E66.01 - Morbid (severe) obesity due to excess calories; Z68.41 - Body mass index [BMI] 40.0-44.9, adult Plan: Counseling on the importance of diet and exercise done (2) CECILIA (obstructive sleep apnea): Code(s): G47.33 - Obstructive sleep apnea (adult) (pediatric) Plan: Sleep study ordered. (3) Major depressive disorder, recurrent, moderate: Code(s): F33.1 - Major depressive disorder, recurrent, moderate (4) Diabetic neuropathy: Code(s): E11.40 - Type 2 diabetes mellitus with diabetic neuropathy, unspecified Plan: Diabetic care is from [facility] endocrinology. Continue current medications and management. Orders: Orders AMB Hemoglobin A1c Today E11.69 - Type 2 diabetes mellitus with other specified complication, E66.9 - Obesity, unspecified Lipid Panel Today E11.40 - Type 2 diabetes mellitus with diabetic neuropathy, unspecified, E66.01 - Morbid (severe) obesity due to excess calories, Z68.41 - Body mass index [BMI] 40.0-44.9, adult Lipid Panel 06/18/23 E78.5 - Hyperlipidemia, unspecified Basic Metabolic Panel Today E11.40 - Type 2 diabetes mellitus with diabetic neuropathy, unspecified, E66.01 - Morbid (severe) obesity due to excess calories, Z68.41 - Body mass index [BMI] 40.0-44.9, adult Complete Blood Count no Diff Today E11.40 - Type 2 diabetes mellitus with diabetic neuropathy, unspecified, E66.01 - Morbid (severe) obesity due to excess calories, Z68.41 - Body mass index [BMI] 40.0-44.9, adult Liver Panel Today E11.40 - Type 2 diabetes mellitus with diabetic neuropathy, unspecified, E66.01 - Morbid (severe) obesity due to excess calories, Z68.41 - Body mass index [BMI] 40.0-44.9, adult Thyroid Stimulating Hormone Today E11.40 - Type 2 diabetes mellitus with diabetic neuropathy, unspecified, E66.01 - Morbid (severe) obesity due to excess calories, Z68.41 - Body mass index [BMI] 40.0-44.9, adult Referrals Sleep Medicine Referral G47.33 - Obstructive sleep apnea (adult) (pediatric) Medications: New albuterol sulfate 90 mcg/actuation 2 inhalations inhalation Q6-8H PRN 6.7 grams 1RF Weight Gain loratadine 10 mg PO DAILY 90 tabs 0RF Refilled fluticasone propionate 50 mcg/actuation 1 spray intranasal DAILY 48 mL 0RF J31.0 - Chronic rhinitis omeprazole 40 mg PO DAILY 90 caps 1RF hydroxyzine HCl 10 mg PO TID 30 days PRN 90 tabs 3RF itching F41.9 - Anxiety disorder, unspecified, L28.2 - Other prurigo Discontinued acetaminophen (Tylenol Extra Strength) Discontinued Reason: Doctor's Order 1,000 mg (2 x 500 mg) PO QID PRN 14 tabs 0RF fever or pain valacyclovir (Valtrex) Discontinued Reason: Doctor's Order 1,000 mg PO TID 20 tabs 0RF benzonatate Discontinued Reason: Doctor's Order 100 mg PO BID PRN 14 caps 0RF cough R05.9 - Cough, unspecified ondansetron Discontinued Reason: Doctor's Order 4 mg PO Q8H 20 tabs 0RF alcohol swabs (Alcohol Wipes) Discontinued Reason: Doctor's Order 3 pad topical BID 200 ea 1RF E11.69 - Type 2 diabetes mellitus with other specified complication, E66.9 - Obesity, unspecified Coding Level of Care Code Est Pt Level 4 (28594) Diagnoses Morbid obesity with BMI of 40.0-44.9, adult E66.01; Z68.41 CECILIA (obstructive sleep apnea) G47.33 Major depressive disorder, recurrent, moderate F33.1 Diabetic neuropathy E11.40
[2024-01-28 08:52] VITALS: BP 132/80; PULSE 88; O2SAT 96; BMI 42.1
== END 2024-01-28 09:51 | disposition home or self-care (01) ==
PROVIDERS: PCP Nurse Practitioner Family; Visit Provider Internal Medicine
DX: E11.40 Type 2 diabetes mellitus with diabetic neuropathy, unspecified (principal); E66.01 Morbid (severe) obesity due to excess calories; Z68.41 Body mass index [BMI] 40.0-44.9, adult; F33.1 Major depressive disorder, recurrent, moderate; E11.69 Type 2 diabetes mellitus with other specified complication; G47.33 Obstructive sleep apnea (adult) (pediatric); E66.9 Obesity, unspecified
CPT/HCPCS: 83036; 99214

== ENCOUNTER 2024-02-06 08:44 | Outpatient (AMB) | payer OTHER, SELFPAY ==
--- NOTE | 2024-02-06 08:53 | A.OFFVIS_ITS ---
Intake Vital Signs 3 02/06/24 09:00 Height 5 ft 2 in Weight 230 lb 8 oz BMI 42.2 BP 146/94 H Blood Pressure Location Lt brachial Position Sitting Pulse 72 Pulse Source Pulse Oximeter Pulse Oximetry (%) 96 Oxygen Delivery Method Room Air Intake Visit Reasons: Neck Pain Intake Note: Pain today 08/27 Procurement Intern Required: No Accompanied by: Self / Same As Patient Allergies insulin lispro Allergy (Severe, Verified 02/06/24 09:01) tongue swelling meloxicam Allergy (Severe, Verified 02/06/24 09:01) Anaphylaxis simvastatin Allergy (Severe, Verified 02/06/24 09:01) Difficulty Swallowing amlodipine Allergy (Intermediate, Verified 02/06/24 09:01) lip swelling butalbital Allergy (Intermediate, Verified 02/06/24 09:01) lip, tongue, mouth swelling clindamycin Allergy (Intermediate, Verified 02/06/24 09:01) Angioedema losartan Allergy (Intermediate, Verified 02/06/24 09:01) Angioedema oxycodone [From Percocet] Allergy (Mild, Verified 02/06/24 09:01) Hives ibuprofen [From Motrin] Allergy (Verified 02/06/24 09:01) Hives lisinopril Allergy (Verified 02/06/24 09:01) Swelling Penicillins Allergy (Verified 02/06/24 09:01) Hives raspberry Allergy (Verified 02/06/24 09:01) Hives HPI HPI Comments 2 History of Present Illness0 Details Patient presents today for follow and new problem: neck pain, bilateral elbow, wrist and finger joint pain. Denies any recent trauma, injury or falls. She reports chronic history of arthritis, fibromyalgia, and carpal tunnel syndrome. Patient reports she completed EMG reports per Hand Specialist last March 2023, but had no follow up for this. She reports her bilateral hand pain, especially left wrist, has been increasing with any activity. She is right hand dominant and works a lot doing [employer]. Patient reports neck pain with most movements, especially while she is working and looking down. Reports increased headaches with neck pain. Denies previous PT, OT or chiropractic therapy for neck and CTS symptoms. She was recently restarted on gabapentin and is tolerating this well without any adverse effects. Patient reports baclofen has been working partially. Patient tries to participate in regular home exercise program and doing gentle neck stretching exercises with continued symptoms. Denies any fever, shortness of breaths, cough, visual changes,dizziness, bladder or bowel incontinence or saddle anesthesia. Patient reports she continues to receive at least 75% ongoing pain relief for her low back. She ambulates with cane, carrying it in left hand. Oswestry Neck Pain Disability Score- 39 Pain Score-10 Past Procedures: 12/09/23: Left knee Durolane injection-Olive Schmitt-good relief 09/02/23: Left knee steroid injection-Dr Milo Schmitt, good short term relief, 4-6 weeks 08/07/23: Bilateral L3-L4-L5 Medial Bran ch RFA -75% ongoing pain relief 05/08/23: Repeat Diagnostic Bilateral L3 -L4 DR L5 MBB-98% pain relief for 2 days 03/20/23: Diagnostic Bilateral L3-L4 DR L5 MBB-75% pain relief for 2 says 06/06/23: Left knee steroid injection-Dr Milo Schmitt, short term relief 03/07/24: Left knee steroid injection-Dr Milo Schmitt, short term relief 08/15/22: Left saphenous nerve Sprint PN S ? 95% relief for 6 months PRIOR: Patient presents today for follow up low back pain and discuss recent lumbar spine MRI results. Patient reports her back pain has been worsening with radiation to her left leg posteriorly and laterally. She continues to have significant bilateral knee pain and has been trying to loose weight and get better control of her diabetes. Her last A1C was 8.0 in 11/2022. Lumbar spine MRI is noted below and showed grade 1 degenerative anterolisthesis in the setting of advanced bilateral facet arthropathy at L4-L5. A right paracentral disc osteophyte protrusion at L4-L5 compresses the traversing right L5 nerve root within the right subarticular zone. Far left lateral disc osteophyte protrusion at L4-L5 results in mild left-sided foraminal encroachment without contacting the exiting left L4 nerve root. At L5-S1, a far left lateral disc osteophyte protrusion likely mildly contacts the extraforaminal left L5 nerve root. Severe left and moderate right facet arthropathy at this level. Patient is interested to undergo diagnostic lumbar medial branch blocks for potential peripheral nerve stimulation with SPRINT device. She is due to recheck A1C level at her PCP office and will notify our office prior to scheduling therapeutic injections for her left radicular pain. Patient reports she has been under significant stress which exacerbates her fibromyalgia and causes mood changes due to skin rash breakouts all over her body. She has pending dermatology appointment to see if her skin rash is related to allergies. She was seen by rheumatology who suggested CBT therapy for fibromyalgia and has pending EMG studies for her hand pain per Hand Specialist. Patient reports reqular follow up with her mental therapist and psychiatrist for recent and ongoing nightmares at night due to allergy and skin rash issues. PRIOR: This is a 52-year-old morbidly obese female with a past medical history of anxiety, depression, PTSD, severe OA of the knee, degenerative disc disease of the spine who presents for evaluation of diffuse pain. Patient was told she has fibromyalgia for many years. She was on gabapentin before, prescribed for back pain which did not help much, she was also on Lyrica which also did not provide significant relief. Patient is following up with Pain Management and per patient they are planning to do a spinal cord stimulator. She was also evaluated by Orthopedics for knee replacement and her patient Dr. Schmitt wants to postpone surgery given patient's young age. Patient also follows up with bariatric surgery and she had lost a significant amount of weight. She has history of sleep apnea but she could not tolerate multiple CPAP machines. She has difficulty falling and staying asleep. She sees a psycho therapist weekly [facility] Medical History Migraine GERD (gastroesophageal reflux disease) Fibromyalgia Bipolar disorder PTSD (post-traumatic stress disorder) Arthritis Elevated cholesterol Diabetes Sleep apnea HTN (hypertension) Encounter to establish care History of kidney stones History of alcohol abuse Surgical History History of tonsillectomy History of hysterectomy Family History Father Hypertension Diabetes Mother Asthma Family/Other Substance use disorder Mental health disorder Other Family history of osteoarthritis Social History Household Members: Family Housing: House Alcohol intake: never Patient Tobacco Use Status: Never used Tobacco e-Cigarette/Vaping Use: Never Used Second Hand Smoke Exposure: No service: No Current occupational status: disabled 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 Alert and oriented. Mood and affect appropriate. Follows and participates in conversation appropriately. Respiratory effort is unlabored. Able to transition from sit to stand unassisted. Ambulates with bilaterally normal heel strike and toe off. Neck Neck: Yes no lymphadenopathy, Yes supple, No anterior neck swelling, No torticollis, Yes no JVD and Yes prominent dorsocervical fat pad Back/Spine/Pelvis Cervical Spine: loss of normal cervical lordosis, cervical muscular tenderness, pain with cervical ROM, No Cervical spine scars present, cervical spasm, No Cervical spine tenderness and No step off deformity Thoracic/Lumbar Spine: thoracic and lumbar spine normal to inspection, Lasegue's sign negative, straight leg raise negative bilaterally, pain with thoraco-lumbar ROM (mild), thoraco-lumbar ROM limited, No thoracic spinal tenderness and No lumbar spinal tenderness Extrem Other: Bilateral hand-tenderness dorsal aspects of right wrist, Tinels and Phalens test positive bilaterally, worse on the right. No swelling, no redness, no color changes, pain increases with wrist flexion bilaterally, R>L. General: Yes capillary refill normal, Yes no clubbing, cyanosis or edema and Yes no calf tenderness Results Reviewed Results Reviewed: Assessment & Plan Assessment & Plan (1) Cervical spondylosis: Code(s): M47.812 - Spondylosis without myelopathy or radiculopathy, cervical region (2) Bilateral hand numbness: Code(s): R20.0 - Anesthesia of skin (3) Chronic pain of both wrists: Code(s): M25.531 - Pain in right wrist; M25.532 - Pain in left wrist; G89.29 - Other chronic pain (4) Carpal tunnel syndrome on both sides: Code(s): G56.03 - Carpal tunnel syndrome, bilateral upper limbs (5) Muscle spasms of neck: Code(s): M62.838 - Other muscle spasm Plan Cervical spine imaging to assess degree of degenerative changes, any subluxation, listhesis, compression fractures or pars defects. Recommend formal Physical therapy for neck pain and bilateral hand pain with CTS symptoms. Script provided. Encouraged rest during Arts and Crafts work and activity modifications for neck and hand pain, good posture, adequate hydration and weight optimization. Continue gabapentin and baclofen. Patient reports good tolerance and no side effects with both medications. Follow up with Dr. Segura re: bilateral wrist pain, worse on the right for potential surgical treatments for right CTS with positive EMG study on 03/2023. All questions and concerns have been answered and patient agreed with the plan. Follow up after PT and sooner as needed. Orders: Orders 2 XR cervical spine 3V Today M47.812 - Spondylosis without myelopathy or radiculopathy, cervical region, M62.838 - Other muscle spasm, R20.0 - Anesthesia of skin PT Evaluation and Treatment Today G56.03 - Carpal tunnel syndrome, bilateral upper limbs, M47.812 - Spondylosis without myelopathy or radiculopathy, cervical region, M62.838 - Other muscle spasm Coding Level of Care Code Est Pt Level 4 (07177) Diagnoses Cervical spondylosis M47.812 Bilateral hand numbness R20.0 Chronic pain of both wrists M25.531; M25.532; G89.29 Carpal tunnel syndrome on both sides G56.03 Muscle spasms of neck M62.838
[2024-02-06 09:00] VITALS: BP 146/94; PULSE 72; O2SAT 96; BMI 42.2
== END 2024-02-06 09:26 | disposition home or self-care (01) ==
PROVIDERS: PCP Internal Medicine; Visit Provider Nurse Practitioner Family
DX: M47.812 Spondylosis without myelopathy or radiculopathy, cervical region (principal); R20.0 Anesthesia of skin; M25.531 Pain in right wrist; M25.532 Pain in left wrist; G89.29 Other chronic pain; G56.03 Carpal tunnel syndrome, bilateral upper limbs; M62.838 Other muscle spasm
CPT/HCPCS: 99214

== ENCOUNTER → 2024-02-06 08:44 | Outpatient (BNVA) | payer OTHER, SELFPAY | PROVIDERS: Visit Provider Nurse Practitioner Family | DX: M47.812 Spondylosis without myelopathy or radiculopathy, cervical region (principal); M25.531 Pain in right wrist; M25.532 Pain in left wrist; M62.838 Other muscle spasm; R20.0 Anesthesia of skin; G89.29 Other chronic pain; G56.03 Carpal tunnel syndrome, bilateral upper limbs | CPT/HCPCS: 99212 ==

== ENCOUNTER 2024-02-11 07:33 | Outpatient (REF) | payer OTHER, SELFPAY ==
--- NOTE | ~2024-02-11 | XR_ITS ---
EXAMINATION: XR CERVICAL SPINE CLINICAL INFORMATION: Spondylosis without myelopathy or radiculopathy. Chronic neck pain into both shoulders. COMPARISON: None available. TECHNIQUE: Three views of the cervical spine were obtained. FINDINGS: Slight reversal of the normal cervical lordosis. Advanced degenerative changes with loss of disc space height at C5-C6. Moderate degenerative changes and loss of disc height at C6-C7 and C4-C5. XR/XR cervical spine 3V IMPRESSION: Multilevel degenerative disc disease, most notable at C5-C6.
[2024-02-11 08:19] LABS: Hematocrit 42.7 % (37.0-47.0); Hemoglobin 13.7 g/dl (12.0-16.0); Mean Corpuscular HGB Conc 32.1 g/dl (31.0-35.0); Mean Corpuscular Hemoglobin 26.7 pg (27.0-33.0); Mean Corpuscular Volume 83.1 fL (80.0-98.0); Mean Platelet Volume 10.1 fL (9.4-12.3); Platelet Count 341 X10*3/uL (160-400); Red Blood Count 5.14 X10*6/uL (4.20-5.50); Red Cell Distribution Width 17.2 % (11.0-16.0); White Blood Count 11.8 X10*3/uL (4.8-10.8)
[2024-02-11 08:55] LABS: Alanine Aminotransferase 15 U/L (0-31); Albumin Level 4.2 g/dL (3.5-5.0); Alkaline Phosphatase 91 U/L (39-117); Anion Gap 12 (12-20); Aspartate Amino Transferase 13 U/L (5-31); Bilirubin Direct 0.1 mg/dL (0.0-0.5); Bilirubin Total 0.3 mg/dL (0.0-1.0); Blood Urea Nitrogen 18 mg/dL (9-16); Calcium 9.3 mg/dL (8.4-10.2); Carbon Dioxide 22 mmol/L (22-29); Chloride 109 mmol/L (96-108); Cholesterol 161 mg/dL (<200); Estimated Glomerular Filt Rate > 60; Glucose Random 110 mg/dL (60-115); HDL Cholesterol 48 mg/dL (>40); LDL Cholesterol Calculated 89 mg/dL (<100); Potassium 3.8 mmol/L (3.3-5.1); Sodium 139 mmol/L (135-145); Triglycerides 123 mg/dL (<150)
[2024-02-11 09:12] LABS: Thyroid Stimulating Hormone 1.65 uIU/mL (0.32-4.0)
== END 2024-02-11 07:34 | disposition home or self-care (01) ==
LOC: HO.XRAY 07:33
PROVIDERS: Absent Provider Nurse Practitioner Family; PCP Internal Medicine; Visit Provider Internal Medicine
DX: E66.01 Morbid (severe) obesity due to excess calories (principal); Z68.41 Body mass index [BMI] 40.0-44.9, adult; E11.40 Type 2 diabetes mellitus with diabetic neuropathy, unspecified; M47.812 Spondylosis without myelopathy or radiculopathy, cervical region; R20.0 Anesthesia of skin; M62.838 Other muscle spasm; E78.5 Hyperlipidemia, unspecified
CPT/HCPCS: 36415; 72040; 80048; 80061; 80076; 84443; 85027

== ENCOUNTER 2024-02-17 08:18 | Outpatient (AMB) | payer OTHER, SELFPAY ==
--- NOTE | 2024-02-17 08:31 | A.OFFVIS_ITS ---
Intake Vital Signs 02/17/24 08:32 Height 5 ft 2 in Weight 230 lb BMI 42.1 Intake Visit Reasons: EP, L knee PRP discussion Intake Note: Marylin is a 53 year old female who presents today for a follow up of her left knee OA. She last had a Durolane injection done on 12/09/23, this injection was not helpful. She would like to discuss possibility of PRP injection. Allergies insulin lispro Allergy (Severe, Verified 02/17/24 08:33) tongue swelling meloxicam Allergy (Severe, Verified 02/17/24 08:33) Anaphylaxis simvastatin Allergy (Severe, Verified 02/17/24 08:33) Difficulty Swallowing amlodipine Allergy (Intermediate, Verified 02/17/24 08:33) lip swelling butalbital Allergy (Intermediate, Verified 02/17/24 08:33) lip, tongue, mouth swelling clindamycin Allergy (Intermediate, Verified 02/17/24 08:33) Angioedema losartan Allergy (Intermediate, Verified 02/17/24 08:33) Angioedema oxycodone [From Percocet] Allergy (Mild, Verified 02/17/24 08:33) Hives ibuprofen [From Motrin] Allergy (Verified 02/17/24 08:33) Hives lisinopril Allergy (Verified 02/17/24 08:33) Swelling Penicillins Allergy (Verified 02/17/24 08:33) Hives raspberry Allergy (Verified 02/17/24 08:33) Hives HPI EP, L knee PRP discussion HPI Details This is a 53-year-old woman with left knee osteoarthritis. She has had steroid injections and viscosupplementation without benefit. She used a cane. She feels that she is really unable to ambulate comfortably and the quality of her life is diminished. She does not work due to disability for mental health reasons. She is considering PRP versus arthroplasty. [facility] Medical History Migraine GERD (gastroesophageal reflux disease) Fibromyalgia Bipolar disorder PTSD (post-traumatic stress disorder) Arthritis Elevated cholesterol Diabetes Sleep apnea HTN (hypertension) Encounter to establish care History of kidney stones History of alcohol abuse Surgical History History of tonsillectomy History of hysterectomy Family History Father Hypertension Diabetes Mother Asthma Family/Other Substance use disorder Mental health disorder Other Family history of osteoarthritis Social History Household Members: Family Housing: House Alcohol intake: never Patient Tobacco Use Status: Never used Tobacco e-Cigarette/Vaping Use: Never Used Second Hand Smoke Exposure: No service: No Current occupational status: disabled 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 She is relatively young but with significant comorbidities. We had a long discussion regarding arthroplasty versus PRP. I do think PRP is likely to help her but also was clear that it is not curative and that her arthritis is severe. If she were 61 I would be more inclined to encourage arthroplasty but she understands at her age the downside of surgical intervention. She will get back to me regarding PRP. Coding Level of Care Code Est Pt Level 4 (75963) Diagnoses Osteoarthritis of left knee M17.12
[2024-02-17 08:32] VITALS: BMI 42.1
== END 2024-02-17 09:09 | disposition home or self-care (01) ==
PROVIDERS: Visit Provider Orthopaedic Surgery
DX: M17.12 Unilateral primary osteoarthritis, left knee (principal)
CPT/HCPCS: 99214

== ENCOUNTER → 2024-02-17 08:18 | Outpatient (BNVA) | payer OTHER, SELFPAY | PROVIDERS: Visit Provider Orthopaedic Surgery | DX: M17.12 Unilateral primary osteoarthritis, left knee (principal) | CPT/HCPCS: 99212 ==

== ENCOUNTER 2024-02-25 07:48 | Outpatient (AMB) | payer OTHER, SELFPAY ==
--- NOTE | 2024-02-25 08:06 | A.OFFVIS_ITS ---
Intake Vital Signs 02/25/24 08:14 Height 5 ft 2 in Weight 234 lb 8 oz BMI 42.9 BP 130/80 Blood Pressure Location Lt brachial Position Sitting Pulse 88 Pulse Source Pulse Oximeter Pulse Oximetry (%) 98 Oxygen Delivery Method Room Air Intake Visit Reasons: [id number] Intake Note: Patient presents for CECILIA. Having trouble sleeping at night and snores. Wakes up gasping for air and having very bad nightmares Allergies insulin lispro Allergy (Severe, Verified 02/25/24 08:14) tongue swelling meloxicam Allergy (Severe, Verified 02/25/24 08:14) Anaphylaxis simvastatin Allergy (Severe, Verified 02/25/24 08:14) Difficulty Swallowing amlodipine Allergy (Intermediate, Verified 02/25/24 08:14) lip swelling butalbital Allergy (Intermediate, Verified 02/25/24 08:14) lip, tongue, mouth swelling clindamycin Allergy (Intermediate, Verified 02/25/24 08:14) Angioedema losartan Allergy (Intermediate, Verified 02/25/24 08:14) Angioedema oxycodone [From Percocet] Allergy (Mild, Verified 02/25/24 08:14) Hives ibuprofen [From Motrin] Allergy (Verified 02/25/24 08:14) Hives lisinopril Allergy (Verified 02/25/24 08:14) Swelling Penicillins Allergy (Verified 02/25/24 08:14) Hives raspberry Allergy (Verified 02/25/24 08:14) Hives Medication List - Last Reconciled 02/25/24 by OSCAR Cooper [Adult Protective Underwear As directed] albuterol sulfate 90 mcg/actuation 2 inhalations inhalation Q6-8H PRN baclofen 10 mg PO BEDTIME PRN 90 days carboxymethylcellulose sodium 0.5% 1 drp ophthalmic (eye) BID-QID PRN clotrimazole 1% appl topical clotrimazole-betamethasone 1-0.05 % appl topical desvenlafaxine succinate ER 25 mg PO DAILY desvenlafaxine succinate ER (Pristiq) 100 mg PO DAILY dulaglutide (Trulicity) mg subcut empagliflozin (Jardiance) 25 mg PO DAILY epinephrine (EpiPen 2-Kosta) 0.3 mg (0.3 mL) IM Q4H PRN flash glucose scanning reader (FreeStyle Griffin 14 Day [place]) As directed flash glucose sensor (FreeStyle Griffin 14 Day Sensor kit) As directed fluticasone propionate 50 mcg/actuation 1 spray intranasal DAILY FreeStyle Lite Strips (blood sugar diagnostic) USE TO CHECK BLOOD SUGAR TWICE A DAY NS gabapentin 100 mg PO TID hydroxyzine HCl 10 mg PO TID PRN 30 days insulin degludec (Tresiba FlexTouch U-100 insulin) 14 units subcut DAILY lancets (FreeStyle Lancets) As directed levomefolate calcium (L-Methylfolate) 15 mg PO DAILY loratadine 10 mg PO DAILY metformin ER 500 mg PO BID omeprazole 40 mg PO DAILY pen needle, diabetic (Unifine Pentips) USE TO INJECT TWICE A DAY pravastatin 80 mg PO DAILY zolpidem 5 mg PO BEDTIME PRN HPI HPI Comments History of Present Illness Details 53-yr-old female presents for new in-per son patient visit for sleep consultation. PMH significant for: Arthritis, depression, diabetes, GERD, hypertension, hyperlipidemia, sleep difficulties. Pt reports she has had sleep difficulties for many years. She has had sleep studies in the past, has sleep apnea. Has never tolerated in the past- states anything near her face makes her claustrophobic. However she was able to acclimate to be wearing a face mask during the pandemic. Pt endorses: Difficulty falling asleep, difficulty staying asleep, frequent arousals: 4-6 times per night, snoring, excessive daytime sleepiness, daytime naps will be GERD Vivid dreams, Sleep talking. Nightmares- wakes up feeling like she is still in a dream until she fully wakes up Restless leg s/s- BLE restlessness, cramping, and creepy crawling sensation. h/o anemia but no recent ferritin. If really angry will drop something. Morning headaches. She has a daily headache, becomes severe 3 times per week. Moderate to severe bilateral pressure from back to front, a/w photophobia, phonophobia, nausea, not right in space dizziness when she removes her glasses during a headache, cognitive difficulties, activity intolerance. Usually occurs during the day. Using Tylenol prn. Has tried topiramate for mood- tolerated but did not help headaches. Pertinent patient denied Will's include known witnessed apneas, sleep walking, acting out her dreams, sleep paralysis, drop attacks. Sleep hygiene questionnaire: What is your usual sleep routine? Takes her meds at 7pm, turns her cell phone and TV off, Usual bedtime is at 8pm; Usual wakeup time is after 1-2 hrs, then again in 1-2 hr cycles, until gets around 5-6am. Do you take naps? tries not to- but if odes sleeps 2 hrs Is your sleep environment cool, dark, and quiet? yes Do you exercise? none Do you take caffeine or other stimulants? coffee in am, coke- last time around 2pm- trying to reduce this Do you use electronics in bed? none What is your work schedule? none Hypersomnolence questionnaire: Do you easily fall asleep when inactive? yes right eye Have you ever had episodes of sudden weakness associated with strong emotions? If very angry [facility] Medical History (Updated 02/25/24 @ 22:09 by OSCAR Cooper) Migraine GERD (gastroesophageal reflux disease) Fibromyalgia Bipolar disorder PTSD (post-traumatic stress disorder) Arthritis Elevated cholesterol Diabetes Sleep apnea HTN (hypertension) Encounter to establish care History of kidney stones History of alcohol abuse Surgical History History of tonsillectomy History of hysterectomy Family History Father Hypertension Diabetes Mother Asthma Family/Other Substance use disorder Mental health disorder Other Family history of osteoarthritis Social History Household Members: Family Housing: House Alcohol intake: never Patient Tobacco Use Status: Never used Tobacco e-Cigarette/Vaping Use: Never Used Second Hand Smoke Exposure: No service: No Current occupational status: disabled 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 Cognitive needs: Yes (cane ) Hearing needs: No Vision needs: Yes (glasses ) Questionnaire [place] Sleepiness Scale Questions Sitting and reading: high chance of dozing Watching TV: high chance of dozing Sitting inactive in a theater, movie etc.: high chance of dozing As a passenger in a car for an hour without break: high chance of dozing Lying down in the afternoon when circumstances permit: high chance of dozing Sitting and talking to someone: moderate chance of dozing Sitting quietly after lunch without alcohol: high chance of dozing In a car, while stopped for a few minutes in the traffic: would never doze (Non applicable) ESS < 10: normal, ESS > 12: pathologic: 20 Review of Systems Const All systems reviewed & are unremarkable except as noted in HPI and below Physical Exam Vital Signs: Last Vital Signs Pulse 88 02/25/24 08:14 BP 130/80 02/25/24 08:14 Pulse Ox 98 02/25/24 08:14 Oxygen Delivery Method Room Air 02/25/24 08:14 BMI result Body Mass Index 42.9 Const General: no acute distress Orientation/consciousness: patient oriented x3 HEENT Other: Mallampati stage IV Resp Effort & Inspection: able to speak in complete sentences Neuro General: patient oriented x3 Psych Mental Status: mental status grossly normal Speech and movement: Clear speech present Attitude: cooperative Assessment & Plan Assessment & Plan (1) Sleep apnea: Code(s): G47.30 - Sleep apnea, unspecified (2) Excessive daytime sleepiness: Code(s): G47.19 - Other hypersomnia (3) Snoring: Code(s): R06.83 - Snoring (4) Migraine without aura: Code(s): G43.009 - Migraine without aura, not intractable, without status migrainosus Plan Patient is advised to undergo in-lab sleep study to assess status of sleep apnea. Patient is interested in treating her sleep apnea again. Will check labs for common etiologies of restless legs syndrome symptoms. Upon review of above, consider retraining Pap therapy, evaluate for inspire therapy. If patient does resume PAP therapy, she will need extended time to adjust to Pap therapy. Information shared on CBT I and sleep hygiene resources. For migraine without aura: Trial Nurtec 75 mg ODT q.d. p.r.n.. Start riboflavin 400 mg q.a.m. and magnesium 400 mg q.h.s. Patient will review previous medication trials with her psychiatrist. Acute migraine treatment contraindications: Triptans due to uncontrolled hypertension. Migraine prevention treatment contraindications: Beta-blockers due to insulin- dependent diabetes. Patient seen in collaboration with Dr. Lina Chambers. Orders: Orders Vitamin B12 and Folate Today D64.9 - Anemia, unspecified, E11.9 - Type 2 diabetes mellitus without complications, R53.83 - Other fatigue RT PSG in-lab sleep study Today G47.19 - Other hypersomnia, G47.30 - Sleep apnea, unspecified, R06.83 - Snoring, Z68.41 - Body mass index [BMI] 40.0-44.9, adult Erythrocyte Sedimentation Rate Today D64.9 - Anemia, unspecified, E11.9 - Type 2 diabetes mellitus without complications, R53.83 - Other fatigue TSH reflex Free T4 Today D64.9 - Anemia, unspecified, E11.9 - Type 2 diabetes mellitus without complications, R53.83 - Other fatigue IRON PROFILE Today D64.9 - Anemia, unspecified, E11.9 - Type 2 diabetes mellitus without complications, R53.83 - Other fatigue Ferritin Today D64.9 - Anemia, unspecified, E11.9 - Type 2 diabetes mellitus without complications, R53.83 - Other fatigue Methylmalonic Acid Today D64.9 - Anemia, unspecified, E11.9 - Type 2 diabetes mellitus without complications, R53.83 - Other fatigue Homocysteine Today D64.9 - Anemia, unspecified, E11.9 - Type 2 diabetes mellitus without complications, R53.83 - Other fatigue Medications: New rimegepant (Nurtec ODT) 75 mg PO ONCE 30 days PRN 16 tabs 3RF migraine headache MDD 1 tab Coding Level of Care Code New Pt Level 4 (03795) Diagnoses Sleep apnea G47.30 Excessive daytime sleepiness G47.19 Snoring R06.83 Migraine without aura G43.009
[2024-02-25 08:14] VITALS: BP 130/80; PULSE 88; O2SAT 98; BMI 42.9
== END 2024-02-25 09:13 | disposition home or self-care (01) ==
PROVIDERS: Visit Provider Nurse Practitioner Family
DX: G47.30 Sleep apnea, unspecified (principal); G47.19 Other hypersomnia; R06.83 Snoring; G43.009 Migraine without aura, not intractable, without status migrainosus
CPT/HCPCS: 99204

== ENCOUNTER → 2024-02-25 07:48 | Outpatient (BNVA) | payer OTHER, SELFPAY | PROVIDERS: Visit Provider Nurse Practitioner Family | DX: G47.30 Sleep apnea, unspecified (principal); G47.19 Other hypersomnia; G43.009 Migraine without aura, not intractable, without status migrainosus; R06.83 Snoring | CPT/HCPCS: 36415; 80061; 82607; 82728; 82746; 83540; 83921; 84443; 85652; 99202 ==

== ENCOUNTER 2024-02-25 09:20 | Outpatient (REF) | payer OTHER, SELFPAY ==
[2024-02-25 13:00] LABS: Cholesterol 171 mg/dL (<200); HDL Cholesterol 50 mg/dL (>40); Iron 44 mcg/dL (30-160); LDL Cholesterol Calculated 92 mg/dL (<100); Percent Iron Saturation 13 % (15-50); Total Iron Binding Capacity 334 mcg/dL (228-428); Triglycerides 147 mg/dL (<150); Unsaturated Iron Binding 290 ug/dL
[2024-02-25 13:26] LABS: Erythrocyte Sedimentation Rate 10 MM/HR (0-20)
[2024-02-25 13:32] LABS: Folate 16.1 ng/mL (> or = 4.0); Vitamin B12 305 pg/mL (200-900)
[2024-02-25 20:11] LABS: Ferritin 10 ng/mL (10-250); TSH reflex Free T4 1.44 uIU/mL (0.32-4.0)
[2024-02-29 05:53] LABS: Methylmalonic Acid 168 nmol/L (87-318)
== END 2024-02-25 09:21 | disposition home or self-care (01) ==
LOC: HO.HKASLDS 09:20
PROVIDERS: Internal Medicine; Visit Provider Nurse Practitioner Family
DX: Z13.89 Encounter for screening for other disorder (principal)
CPT/HCPCS: 36415; 80061; 82607; 82728; 82746; 83540; 83921; 84443; 85652

== ENCOUNTER 2024-03-10 08:46 | Outpatient (AMB) | payer OTHER, SELFPAY ==
[2024-03-10 08:54] VITALS: BMI 42.8
--- NOTE | 2024-03-10 08:54 | A.OFFVIS_ITS ---
Vital Signs 03/10/24 08:54 Height 5 ft 2 in Weight 234 lb BMI 42.8 Handedness Right Intake Visit Reasons: O/V-RT hand CTS-EMG done Intake Note: Marylin is a 53 year old right hand dominant female who presents today for an EMG follow up of bilateral hands. EMG done 04/10/23, shows mild to moderate CTS of the right hand and normal study of the left. Patient reports she has been experiencing pain in both elbows and tingling and numbness on her bilateral wrist which radiates to her finger since the EMG. She describes the right elbow being worse than the left. She expresses it is becoming harder to use her hands. Allergies insulin lispro Allergy (Severe, Verified 03/10/24 09:02) tongue swelling meloxicam Allergy (Severe, Verified 03/10/24 09:02) Anaphylaxis simvastatin Allergy (Severe, Verified 03/10/24 09:02) Difficulty Swallowing amlodipine Allergy (Intermediate, Verified 03/10/24 09:02) lip swelling butalbital Allergy (Intermediate, Verified 03/10/24 09:02) lip, tongue, mouth swelling clindamycin Allergy (Intermediate, Verified 03/10/24 09:02) Angioedema losartan Allergy (Intermediate, Verified 03/10/24 09:02) Angioedema oxycodone [From Percocet] Allergy (Mild, Verified 03/10/24 09:02) Hives ibuprofen [From Motrin] Allergy (Verified 03/10/24 09:02) Hives lisinopril Allergy (Verified 03/10/24 09:02) Swelling Penicillins Allergy (Verified 03/10/24 09:02) Hives raspberry Allergy (Verified 03/10/24 09:02) Hives HPI HPI O/V-RT hand CTS-EMG done: Details: Marylin is a 53 year old right hand dominant woman who presents for a NCS review of her bilateral hand numbness. She complains of numbness in her right index, middle, and ring fingers. Symptoms intermittent, but daily, worse at night. She says at night both her hands feel like they are burning and she is unable to apply pressure either to or with her hands without pain. This is worse in her right hand. She says her right hand numbness is worsening, particularly with activities. She says she is often dropping objects without realizing . She complains of pain in her bilateral elbows & forearms. She says she does a large amount of craft projects, including art and woodworking. She says this has been difficult for her as her numbness is worsening. She sees Pain Management for lumbar radiculopathy, and Rheumatology for Fibromyalgia. She has CECILIA and Diabetes, with her most recent Hemoglobin A1c being 7.2% on 01/28/24. She is unemployed and is on disability due to mental health concerns. She has PTSD, depression, Bipolar disorder, and anxiety. 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 [facility] Medical History Migraine GERD (gastroesophageal reflux disease) Fibromyalgia Bipolar disorder PTSD (post-traumatic stress disorder) Arthritis Elevated cholesterol Diabetes Sleep apnea HTN (hypertension) Encounter to establish care History of kidney stones History of alcohol abuse Surgical History History of tonsillectomy History of hysterectomy Family History Father Hypertension Diabetes Mother Asthma Family/Other Substance use disorder Mental health disorder Other Family history of osteoarthritis Social History Household Members: Family Housing: House Alcohol intake: never Patient Tobacco Use Status: Never used Tobacco e-Cigarette/Vaping Use: Never Used Second Hand Smoke Exposure: No service: No Current occupational status: disabled 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 Cognitive needs: Yes (cane ) Hearing needs: No Vision needs: Yes (glasses ) Review of Systems Const All systems reviewed & are unremarkable except as noted in HPI and below Physical Exam Vital Signs: BMI result Body Mass Index 42.8 Const General: no acute distress and alert Orientation/consciousness: patient oriented x3 Neuro General: patient oriented x3 Extrem Other: Evaluation of Bilateral Upper Extremity: The patient is alert, oriented, and in no acute distress Neuro: Normal sensation tot he tips of all digits bilaterally No thenar or intrinsic wasting Good APB muscle belly firing and good finger cross Vascular: Cap refill brisk ROM: She can make a fist and extend all her digits Mild tenderness over the basal joints bilaterally Nerve Conduction Study: Impression: Mild-moderate right carpal tunnel syndrome Normal left side Normal EMG of the right C5-T1 innervated muscles Dr. Yanez 04/10/23 Psych Appearance: grossly normal Affect: normal affect Attitude: cooperative Assessment & Plan Assessment & Plan (1) Carpal tunnel syndrome of right wrist: Code(s): G56.01 - Carpal tunnel syndrome, right upper limb Category: Medical (2) Diabetes mellitus type 2 in obese: Code(s): E11.69 - Type 2 diabetes mellitus with other specified complication; E66.9 - Obesity, unspecified Category: Medical (3) Fibromyalgia syndrome: Code(s): M79.7 - Fibromyalgia Category: Medical (4) Bilateral hand pain: Code(s): M79.641 - Pain in right hand; M79.642 - Pain in left hand Category: Medical Plan Assessment & Plan: 1. Right carpal tunnel syndrome, mild-moderate Symptoms intermittent, but daily, worse at night and with activity Normal sensation to the thumb I educated her about this condition I discussed operative and non-operative treatment options The patient would like to proceed with surgery The risks and benefits of operative treatment were discussed with the patient and the patient wishes to proceed with surgery. These risks include, but are not limited to risk of damage to blood vessels, nerves, tendons, infection, recurrence, incomplete relief of preoperative symptoms, persistent pain, possible need for further surgery and the risks associated with regional blocks and anesthesia. The plan is to take the patient to the operating room sometime in the next few weeks for the following procedures: 1. Right carpal tunnel release, under local All of the preoperative paperwork including the consent was reviewed today. All the patient's questions were answered. The patient understands that they will be contacted by our operating room scheduler soon to schedule this procedure She denies blood thinners, heart, lung, kidney issues She is a Diabetic, her most recent HgA1c was 7.2% on 01/28/24. She has Fibromyalgia Did explain that the carpal tunnel release will not help with the other pains that she is having. 2. Left hand numbness Normal on NCS from 04/10/23 Symptoms intermittent & occasional, worse with activitiy 3. Bilateral basal joint pain Symptoms worse with activity I discussed activity modification, she should limit any heavy or repetitive pinching or gripping activities, particularly with her arts & crafts activities 4. Vesicular rash on the right middle & small fingers Resolved Scribed for Bonnie Segura MD by Saul Corbett, medical advisor, on 03/10/24 at 9:25 AM, EST.
== END 2024-03-10 09:33 | disposition home or self-care (01) ==
PROVIDERS: Visit Provider Orthopaedic Surgery
DX: G56.01 Carpal tunnel syndrome, right upper limb (principal); E11.69 Type 2 diabetes mellitus with other specified complication; E66.9 Obesity, unspecified; M79.7 Fibromyalgia; M79.641 Pain in right hand; M79.642 Pain in left hand
CPT/HCPCS: 99214

== ENCOUNTER → 2024-03-10 08:46 | Outpatient (BNVA) | payer OTHER, SELFPAY | PROVIDERS: Visit Provider Orthopaedic Surgery | DX: G56.01 Carpal tunnel syndrome, right upper limb (principal); M79.7 Fibromyalgia; M79.641 Pain in right hand; E11.69 Type 2 diabetes mellitus with other specified complication | CPT/HCPCS: 99212 ==

== ENCOUNTER → 2024-03-15 20:30 | Outpatient (REF) | payer OTHER, SELFPAY | LOC: HO.SL 20:30 | PROVIDERS: PCP Internal Medicine; Visit Provider Nurse Practitioner Family | DX: G47.30 Sleep apnea, unspecified (principal); G47.19 Other hypersomnia; R06.83 Snoring | CPT/HCPCS: 95810 ==

== ENCOUNTER → 2024-03-15 21:31 | Outpatient (BNV) | payer OTHER, SELFPAY | PROVIDERS: PCP Internal Medicine; Visit Provider Psychiatry & Neurology Neurology | DX: G47.33 Obstructive sleep apnea (adult) (pediatric) (principal) | CPT/HCPCS: 95810 ==

== ENCOUNTER 2024-05-07 08:27 | Outpatient (AMB) | payer OTHER, SELFPAY ==
--- NOTE | 2024-05-07 08:43 | A.OFFPC_ITS ---
Vital Signs 05/07/24 08:45 Height 5 ft 2 in Weight 234 lb BMI 42.8 BP 132/68 Blood Pressure Location Lt brachial Position Sitting Pulse 95 Pulse Source Pulse Oximeter Pulse Oximetry (%) 99 Oxygen Delivery Method Room Air Intake Visit Reasons: 3mth f/u Intake Note: Patient is here to follow up on DM, HLD, HTN, Bipolar disorder. Computing Services Director Required: No Media Professional: Not Required per policy Accompanied by: Self / Same As Patient Allergies insulin lispro Allergy (Severe, Verified 05/07/24 08:45) tongue swelling meloxicam Allergy (Severe, Verified 05/07/24 08:45) Anaphylaxis simvastatin Allergy (Severe, Verified 05/07/24 08:45) Difficulty Swallowing amlodipine Allergy (Intermediate, Verified 05/07/24 08:45) lip swelling butalbital Allergy (Intermediate, Verified 05/07/24 08:45) lip, tongue, mouth swelling clindamycin Allergy (Intermediate, Verified 05/07/24 08:45) Angioedema losartan Allergy (Intermediate, Verified 05/07/24 08:45) Angioedema oxycodone [From Percocet] Allergy (Mild, Verified 05/07/24 08:45) Hives ibuprofen [From Motrin] Allergy (Verified 05/07/24 08:45) Hives lisinopril Allergy (Verified 05/07/24 08:45) Swelling Penicillins Allergy (Verified 05/07/24 08:45) Hives raspberry Allergy (Verified 05/07/24 08:45) Hives Tobacco use date assessed: 05/07/24 Dental Screening Dental Screen Date: 01/28/24 HPI 3mth f/u HPI Details 53-year-old female presents to the offic e to discuss her chronic medical conditions. Patient feels extremely tired. Symptoms present throughout the day. She tends to nap later in the afternoon. Blood sugars continue to be high in greater than 200. Recently saw the upholstery mechanic who has increased her Trulicity dosage. Metformin dosage was also increased. Patient reports bruising at the site of her insulin injections. She mostly takes the injection and her arm. Also reporting symptoms of congestion and persistent nasal discharge. Increased symptoms of sneezing recently. [facility] Medical History (Updated 05/07/24 @ 09:38 by Clive Solorio MD) Allergic rhinitis Migraine GERD (gastroesophageal reflux disease) Fibromyalgia Bipolar disorder PTSD (post-traumatic stress disorder) Arthritis Elevated cholesterol Diabetes Sleep apnea HTN (hypertension) Encounter to establish care History of kidney stones History of alcohol abuse Surgical History History of tonsillectomy History of hysterectomy Family History Father Hypertension Diabetes Mother Asthma Family/Other Substance use disorder Mental health disorder Other Family history of osteoarthritis Social History Household Members: Family Housing: House Alcohol intake: never Patient Tobacco Use Status: Never used Tobacco e-Cigarette/Vaping Use: Never Used Second Hand Smoke Exposure: No service: No Current occupational status: disabled 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 Jeff Soria, Bindu Nielsen, [place] Farmer and colleagues, with an educational marysol from [employer]. Physical exam (Primary Care) Vital Signs: Last Vital Signs Pulse 95 05/07/24 08:45 BP 132/68 05/07/24 08:45 Pulse Ox 99 05/07/24 08:45 Oxygen Delivery Method Room Air 05/07/24 08:45 Care Plan Goal for BP management: Blood pressures at range. BMI result Body Mass Index 42.8 BMI Assessment/Plan discussion: High (1 lb per week weight loss suggested.) BMI High, discussed plan: lifestyle, weight reduction and dietary Tobacco/Smoking Status: Tobacco use Status Tobacco use date assessed 05/07/24 05/07/24 08:54 Patient Tobacco Use Status Never used Tobacco 05/07/24 08:54 e-Cigarette/Vaping Use Never Used 05/07/24 08:54 Thrive Assessment: Date of Thrive Assessment Date Thrive assessed 01/28/24 05/07/24 08:54 Advance Care Planning discussion: Exists, not on file Date of discussion: 05/07/24 Who was present: Patient Forms completed: Health Care Proxy and MOLST Actual minutes spent: 5 Const General: cooperative and healthy appearing Nutritional Appearance: well nourished Orientation/consciousness: patient oriented x3 Limitations: no limitations HENMT Head: Yes normal to inspection Eyes General: appearance normal, both eyes and all related structures Neck Neck: Yes normal visual inspection Chest Chest palpation & inspection: normal palpation of entire chest wall Resp Effort & Inspection: normal respiratory effort Skin Other: No visible bruising. Neuro General: patient oriented x3 Results AMB Hemoglobin A1c AMB Hemoglobin A1c 7.8 % Last Edit by MARGARITO Aviles on 05/07/24 08:56 Results Reviewed Results Reviewed: Laboratory Last Values Hgb A1c (Clinic) 7.8 % (4.0-6.0) H 05/07/24 08:42 Assessment and Plan Assessment & Plan (1) BMI 40.0-44.9, adult: Code(s): Z68.41 - Body mass index [BMI] 40.0-44.9, adult Plan: Counseling on the importance of diet and exercise done. Patient was encouraged to exercise and walk every day. She was also encouraged to eat healthy. Patient wants her to start the diet she had from the bariatric surgery appointment. I encouraged her to do so. (2) Diabetes: Code(s): E11.9 - Type 2 diabetes mellitus without complications Plan: A lot of her weakness symptoms are due to elevated blood sugars. Patient was encouraged to keep her blood sugars under control. The bleeding after the injections is minimal. Patient was reassured. She is increased her Trulicity dosage. (3) Bipolar disorder: Code(s): F31.9 - Bipolar disorder, unspecified Plan: Condition is stable. (4) Allergic rhinitis: Code(s): J30.9 - Allergic rhinitis, unspecified Plan: Flonase has been added to the regimen. Orders: Orders AMB Hemoglobin A1c Today E11.9 - Type 2 diabetes mellitus without complications Medications: New fluticasone propionate 50 mcg/actuation (Flonase Allergy Relief) administer into each nostril 1 spray intranasal DAILY 9.9 mL 1RF Coding Level of Care Code Est Pt Level 4 (34443) Complex EM visit Add On G2211 Diagnoses BMI 40.0-44.9, adult Z68.41 Diabetes E11.9 Bipolar disorder F31.9 Allergic rhinitis J30.9 Additional Codes Vital Signs *Quality* - Advance Care Planning discussion: Exists, not on file ([id number])
[2024-05-07 08:45] VITALS: BP 132/68; PULSE 95; O2SAT 99; BMI 42.8
== END 2024-05-07 11:09 | disposition home or self-care (01) ==
PROVIDERS: PCP Nurse Practitioner Family; Visit Provider Internal Medicine
DX: E11.9 Type 2 diabetes mellitus without complications (principal); J30.9 Allergic rhinitis, unspecified; F31.9 Bipolar disorder, unspecified
CPT/HCPCS: 1123F; 83036; 99214; G2211

== ENCOUNTER 2024-05-11 10:40 | Day surgery (SDC) | payer OTHER, SELFPAY ==
[2024-05-11 12:26] VITALS: BMI 42.4
--- NOTE | 2024-05-11 13:08 | MHC.SHP ---
Pre-Procedural Eval Section A - 24 Hr Update-Section A only Date of Service: 05/11/24 The patient is an INPATIENT: No The patient has been examined within 24 hours of the surgical procedure. The History & Physical has been completed within 30 days and I have reviewed it.: Yes Section B - Complete if H&P > 30 days Chief Complaint: Carpal tunnel syndrome, right upper limb Allergies: Allergies Allergy/AdvReac Type Severity Reaction Status Date / Time insulin lispro Allergy Severe tongue Verified 05/07/24 08:45 swelling meloxicam Allergy Severe Anaphylaxis Verified 05/07/24 08:45 simvastatin Allergy Severe Difficulty Verified 05/07/24 08:45 Swallowing amlodipine Allergy Intermediate lip Verified 05/07/24 08:45 swelling butalbital Allergy Intermediate lip, Verified 05/07/24 08:45 tongue, mouth swelling clindamycin Allergy Intermediate Angioedema Verified 05/07/24 08:45 losartan Allergy Intermediate Angioedema Verified 05/07/24 08:45 oxycodone [From Percocet] Allergy Mild Hives Verified 05/07/24 08:45 ibuprofen [From Motrin] Allergy Hives Verified 05/07/24 08:45 lisinopril Allergy Swelling Verified 05/07/24 08:45 Penicillins Allergy Hives Verified 05/07/24 08:45 raspberry Allergy Hives Verified 05/07/24 08:45 Exam Exam Comment: Carpal tunnel syndrome Plan Diagnosis/Plan: Unchanged I have reviewed the history and physical and performed a pertinent physical examination on my patient. No changes have occurred unless specified. Time Spent With Patient Time: Total time managing care of this patient today ____ minutes.
--- NOTE | 2024-05-11 13:09 | W.PM.OPN ---
Operative Note Operative Note Date of Service: 05/11/24 Narrative: Preop diagnosis: 1. Right Carpal tunnel syndrome Postop diagnosis: same Procedure: 1. Right Carpal tunnel release Surgeon: Bonnie Segura MD Anesthesia: local block using 1% lidocaine with epinephrine Findings: Thickened transverse carpal ligament. EBL: Less than 5 mL Specimens: None Complications: None Disposition: Brought to recovery room in stable condition Plan: Follow-up for 10-14 days for wound check and suture removal Indications: The patient is 53 years old, with right carpal tunnel syndrome that has been unresponsive to nonoperative management. The risks and benefits of operative treatment including but not limited to risk of damage to blood vessels, nerves, tendons, infection, persistent pain, persistent symptoms, or possible need for additional surgery were discussed with the patient and the patient wishes to proceed with surgery. Procedure: Once consent was obtained a local block was performed using a combination of 1% lidocaine with epinephrine. The patient was then brought back to the operating suite and placed on the operative table in supine position. The right upper extremity was prepped and draped in a standard surgical fashion. Once assured that we had a good block, a 2.0 cm longitudinal incision was made centered over the carpal tunnel. The incision was made through the skin to the subcutaneous tissues using a #15 blade. Dissection was made down to the level of the transverse carpal ligament with care being taken to protect the palmar cutaneous nerve. Once the transverse carpal ligament was clearly visualized, a longitudinal incision was made in the transverse carpal ligament 1st using a #15 blade, then using tenotomy scissors under direct visualization. Care was taken to look for and protect the motor branch of the median nerve when seen in this area. Once satisfied with our carpal tunnel release the wound was copiously irrigated with normal saline and hemostasis was obtained with a brief period of local pressure. The skin edges were reapproximated with some 5.0 nylon suture material and a sterile dressing was applied. The patient appears to have tolerated the procedure well and with no complications. All digits were well vascularized at the conclusion of the case.
[2024-05-11 14:10] VITALS: BP 144/83; PULSE 88; RESP 16
== END 2024-05-11 14:47 | disposition home or self-care (01) ==
PROVIDERS: PCP Internal Medicine; Visit Provider Orthopaedic Surgery
PROC: (CPT 64721; principal; 2024-05-11 12:50)
DX: G56.01 Carpal tunnel syndrome, right upper limb (principal); M79.641 Pain in right hand; R20.0 Anesthesia of skin; R20.2 Paresthesia of skin; M79.7 Fibromyalgia; I10 Essential (primary) hypertension; E78.00 Pure hypercholesterolemia, unspecified; E11.9 Type 2 diabetes mellitus without complications; F31.9 Bipolar disorder, unspecified; F43.10 Post-traumatic stress disorder, unspecified; G47.33 Obstructive sleep apnea (adult) (pediatric); Z88.0 Allergy status to penicillin; Z88.1 Allergy status to other antibiotic agents; Z88.6 Allergy status to analgesic agent; Z88.8 Allergy status to other drugs, medicaments and biological substances; Z56.0 Unemployment, unspecified
CPT/HCPCS: 64721; J0171

== ENCOUNTER → 2024-05-11 10:40 | Outpatient (BNV) | payer OTHER, SELFPAY | PROVIDERS: PCP Internal Medicine; Visit Provider Orthopaedic Surgery | DX: G56.01 Carpal tunnel syndrome, right upper limb (principal) | CPT/HCPCS: 64721 ==

== ENCOUNTER 2024-05-27 08:33 | Outpatient (AMB) | payer OTHER, SELFPAY ==
--- NOTE | 2024-05-27 08:38 | A.OFFVIS_ITS ---
Vital Signs 05/27/24 08:43 Handedness Right Intake Visit Reasons: PO RT CTR 05/11/24 AR Intake Note: Marylin is a 53 year old right hand dominant female who presents today post operatively s/p Right Carpal Tunnel Release 05/11/24. Patient reports her symptoms have improved and no longer has numbness and tingling. She has discomfort and soreness around her incision site that comes on and off when she forgets about the site but no other concerns. Sutures have been removed and steri-strips applied. Allergies insulin lispro Allergy (Severe, Verified 05/27/24 08:42) tongue swelling meloxicam Allergy (Severe, Verified 05/27/24 08:42) Anaphylaxis simvastatin Allergy (Severe, Verified 05/27/24 08:42) Difficulty Swallowing amlodipine Allergy (Intermediate, Verified 05/27/24 08:42) lip swelling butalbital Allergy (Intermediate, Verified 05/27/24 08:42) lip, tongue, mouth swelling clindamycin Allergy (Intermediate, Verified 05/27/24 08:42) Angioedema losartan Allergy (Intermediate, Verified 05/27/24 08:42) Angioedema oxycodone [From Percocet] Allergy (Mild, Verified 05/27/24 08:42) Hives ibuprofen [From Motrin] Allergy (Verified 05/27/24 08:42) Hives lisinopril Allergy (Verified 05/27/24 08:42) Swelling Penicillins Allergy (Verified 05/27/24 08:42) Hives raspberry Allergy (Verified 05/27/24 08:42) Hives HPI HPI PO RT CTR 05/11/24 AR: Details: Marylin is a 53 year old right hand dominant woman who returns S/P right carpal tunnel release, DOS: 05/11/24. She says she is doing well and her sensation is now normal in her right hand, which she is happy about. She complains of pain in her bilateral elbows & forearms. She says she does a large amount of craft projects, including art and woodworking. She says this has been difficult for her as her numbness is worsening. She sees Pain Management for lumbar radiculopathy, and Rheumatology for Fibromyalgia. She has CECILIA and Diabetes, with her most recent Hemoglobin A1c being 7.2% on 01/28/24. She is unemployed and is on disability due to mental health concerns. She has PTSD, depression, Bipolar disorder, and anxiety. 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 Medical History Allergic rhinitis Migraine GERD (gastroesophageal reflux disease) Fibromyalgia Bipolar disorder PTSD (post-traumatic stress disorder) Arthritis Elevated cholesterol Diabetes Sleep apnea HTN (hypertension) Encounter to establish care History of kidney stones History of alcohol abuse Surgical History History of tonsillectomy History of hysterectomy Family History Father Hypertension Diabetes Mother Asthma Family/Other Substance use disorder Mental health disorder Other Family history of osteoarthritis Social History Household Members: Family Housing: House Alcohol intake: never Patient Tobacco Use Status: Never used Tobacco e-Cigarette/Vaping Use: Never Used Second Hand Smoke Exposure: No service: No Current occupational status: disabled 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 Sutures removed and Steri-Strips applied She can make a fist and extend all her digits Sensation is intact and now normal in the median nerve distribution. Cap refill is brisk Nerve Conduction Study: Impression: Mild-moderate right carpal tunnel syndrome Normal left side Normal EMG of the right C5-T1 innervated muscles Dr. Yanez 04/10/23 Psych Appearance: grossly normal Affect: normal affect Attitude: cooperative Assessment & Plan Assessment & Plan (1) Carpal tunnel syndrome of right wrist: Code(s): G56.01 - Carpal tunnel syndrome, right upper limb Category: Medical (2) Diabetes mellitus type 2 in obese: Code(s): E11.69 - Type 2 diabetes mellitus with other specified complication; E66.9 - Obesity, unspecified Category: Medical (3) Fibromyalgia syndrome: Code(s): M79.7 - Fibromyalgia Category: Medical (4) Bilateral hand pain: Code(s): M79.641 - Pain in right hand; M79.642 - Pain in left hand Category: Medical Plan Assessment & Plan: 1. Right carpal tunnel syndrome, S/P release DOS: 05/11/24 Pre-operative symptoms intermittent, but daily, worse at night and with activity Now with normal sensation and good resolution of her nighttime symptoms. The patient appears to be doing well post-operatively I educated her about the post-operative course I discussed activity modifications, she is to lift nothing heavier than a cellphone for the next two weeks She will perform gentle ROM exercises at home She should avoid any underwater activities for the next 5 days She should gently massage about the incision site to reduce the risk of hypersensitivity She can follow up prn 2. Left hand numbness Normal on NCS from 04/10/23 Symptoms intermittent & occasional, worse with activity & at night 3. Bilateral basal joint pain Symptoms worse with activity I discussed activity modification, she should limit any heavy or repetitive pinching or gripping activities, particularly with her arts & crafts activities 4. Vesicular rash on the right middle & small fingers Resolved Scribed for Bonnie Segura MD by Saul Corbett, medical donation professional, on 05/27/24 at 9:05 AM, EST. Coding Level of Care Code Global (90748) Diagnoses Carpal tunnel syndrome of right wrist G56.01 Diabetes mellitus type 2 in obese E11.69; E66.9 Fibromyalgia syndrome M79.7 Bilateral hand pain M79.641; M79.642
== END 2024-05-27 09:09 | disposition home or self-care (01) ==
PROVIDERS: PCP Internal Medicine; Visit Provider Orthopaedic Surgery
DX: G56.01 Carpal tunnel syndrome, right upper limb (principal); E11.69 Type 2 diabetes mellitus with other specified complication; E66.9 Obesity, unspecified; M79.7 Fibromyalgia; M79.641 Pain in right hand; M79.642 Pain in left hand
CPT/HCPCS: 99024

== ENCOUNTER → 2024-05-27 08:33 | Outpatient (BNVA) | payer OTHER, SELFPAY | PROVIDERS: PCP Internal Medicine; Visit Provider Orthopaedic Surgery | DX: Z09 Encounter for follow-up examination after completed treatment for conditions other than malignant neoplasm (principal); M79.641 Pain in right hand; M79.642 Pain in left hand; M79.7 Fibromyalgia; E11.69 Type 2 diabetes mellitus with other specified complication; E66.9 Obesity, unspecified; Z86.69 Personal history of other diseases of the nervous system and sense organs | CPT/HCPCS: 99212 ==

== ENCOUNTER 2024-06-03 07:42 | Outpatient (AMB) | payer OTHER, SELFPAY ==
--- NOTE | 2024-06-03 07:43 | MHC.OFFVIS ---
Vital Signs 06/03/24 07:44 Height 5 ft 2 in Intake Visit Reasons: 3 mo f/u-CONF Intake Note: patient following up. Allergies insulin lispro Allergy (Severe, Verified 06/03/24 07:44) tongue swelling meloxicam Allergy (Severe, Verified 06/03/24 07:44) Anaphylaxis simvastatin Allergy (Severe, Verified 06/03/24 07:44) Difficulty Swallowing amlodipine Allergy (Intermediate, Verified 06/03/24 07:44) lip swelling butalbital Allergy (Intermediate, Verified 06/03/24 07:44) lip, tongue, mouth swelling clindamycin Allergy (Intermediate, Verified 06/03/24 07:44) Angioedema losartan Allergy (Intermediate, Verified 06/03/24 07:44) Angioedema oxycodone [From Percocet] Allergy (Mild, Verified 06/03/24 07:44) Hives ibuprofen [From Motrin] Allergy (Verified 06/03/24 07:44) Hives lisinopril Allergy (Verified 06/03/24 07:44) Swelling Penicillins Allergy (Verified 06/03/24 07:44) Hives raspberry Allergy (Verified 06/03/24 07:44) Hives Medication List - Last Reconciled 06/03/24 by OSCAR Cooper [Adult Protective Underwear As directed] albuterol sulfate 90 mcg/actuation 2 inhalations inhalation Q6-8H PRN ascorbate calcium (vitamin C) 500 mg PO DAILY 30 days baclofen 10 mg PO BEDTIME PRN 90 days carboxymethylcellulose sodium 0.5% 1 drp ophthalmic (eye) BID-QID PRN clotrimazole 1% appl topical clotrimazole-betamethasone 1-0.05 % appl topical desvenlafaxine succinate ER 25 mg PO DAILY desvenlafaxine succinate ER (Pristiq) 100 mg PO DAILY docusate sodium (Colace) 100 - 200 mg (1 - 2 x 100 mg) PO DAILY PRN 30 days dulaglutide (Trulicity) mg subcut empagliflozin (Jardiance) 25 mg PO DAILY epinephrine (EpiPen 2-Kosta) 0.3 mg (0.3 mL) IM Q4H PRN ferrous gluconate 324 mg PO DAILY 30 days flash glucose scanning reader ([employer] Griffin 14 Day [place]) As directed flash glucose sensor (FreeStyle Griffin 14 Day Sensor kit) As directed fluticasone propionate 50 mcg/actuation 1 spray intranasal DAILY fluticasone propionate 50 mcg/actuation (Flonase Allergy Relief) 1 spray intranasal DAILY FreeStyle Lite Strips (blood sugar diagnostic) USE TO CHECK BLOOD SUGAR TWICE A DAY NS gabapentin 100 mg PO TID hydroxyzine HCl 10 mg PO TID PRN 30 days insulin degludec (Tresiba FlexTouch U-100 insulin) 14 units subcut DAILY lancets (FreeStyle Lancets) As directed levomefolate calcium (L-Methylfolate) 15 mg PO DAILY loratadine 10 mg PO DAILY metformin ER 1,000 mg PO BID omeprazole 40 mg PO DAILY pen needle, diabetic (Unifine Pentips) USE TO INJECT TWICE A DAY pravastatin 80 mg PO DAILY ubrogepant (Ubrelvy) 50 - 100 mg (0.5 - 1 x 100 mg) PO ONCE PRN 30 days zolpidem 5 mg PO BEDTIME PRN HPI Comments Details: 53-yr-old female presents for f/u televideo visit via [facility] Pt denies any significant interval medical changes. Pt continues to have a daily headache, becomes severe 3 times per week. Moderate to severe bilateral pressure from back to front, a/w photophobia, phonophobia, nausea, not right in space dizziness when she removes her glasses during a headache, cognitive difficulties, activity intolerance. Usually occurs during the day. Using Tylenol prn. Nurtec order was changed to Ubrlevy per insurnace forulary. Ubrelvy has been helpful for more severe attacks. Has tried topiramate for mood- tolerated but did not help headaches. Also tried Imitrex, Zomig- ineffective. Lab results were notable for- Ferritin was low at 10- she has started iron supplement. In-lab PSG Sleep study w/ split night PAP titration showed moderate sleep apnea, w/ severe sleep apnea in REM sleep- AHI 21/hr, REM AHI 50/hr, O2 stephany 83%, PLMS 42.8/hr w/ PLMS arousal index 10.4/hr. Sleep apnea and nocturanl hypoxemia responded best to CPAP 13 cmH2O. Started CPAP 13 cmH2O. States she is sleeping better since starting to use CPAP w/ use. 02/11/24 02/25/24 07:51 09:23 Hgb 13.7 Hct 42.7 ESR 10 Ferritin 10 Vitamin B12 305 Methylmalonic Acid 168 Folate 16.1 TSH 1.44 PFSH Medical History Allergic rhinitis Migraine GERD (gastroesophageal reflux disease) Fibromyalgia Bipolar disorder PTSD (post-traumatic stress disorder) Arthritis Elevated cholesterol Diabetes Sleep apnea HTN (hypertension) Encounter to establish care History of kidney stones History of alcohol abuse Surgical History History of tonsillectomy History of hysterectomy Family History Father Hypertension Diabetes Mother Asthma Family/Other Substance use disorder Mental health disorder Other Family history of osteoarthritis Social History Household Members: Family Housing: House Alcohol intake: never Patient Tobacco Use Status: Never used Tobacco e-Cigarette/Vaping Use: Never Used Second Hand Smoke Exposure: No service: No Current occupational status: disabled 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 Cognitive needs: Yes (cane ) Hearing needs: No Vision needs: Yes (glasses ) Physical Exam Const General: cooperative and no acute distress Orientation/consciousness: patient oriented x3 Resp Effort & Inspection: normal respiratory effort and able to speak in complete sentences Neuro General: patient oriented x3 Cognition (Neuro): normal cognition Psych Appearance: grossly normal Mental Status: mental status grossly normal Speech and movement: Normal speech and movement present Affect: normal affect Attitude: cooperative Telehealth Telehealth Telehealth Platform: [facility] Location of provider rendering services: practice address Location of patient: address on file Patient Identification confirmed using: Name, : Yes Telehealth method: video Patient verbally consented to treatment: Yes Patient verbally consented to billing insurance company: Yes Patient informed of any privacy concerns related to visit: Yes Minutes spent on Phone/Video with Pt.: 23 Assessment & Plan Assessment & Plan (1) Migraine without aura: Code(s): G43.009 - Migraine without aura, not intractable, without status migrainosus Category: Medical (2) Hypoferremia: Code(s): E61.1 - Iron deficiency Category: Medical (3) Moderate obstructive sleep apnea: Code(s): G47.33 - Obstructive sleep apnea (adult) (pediatric) Category: Medical (4) Periodic limb movements of sleep: Code(s): G47.61 - Periodic limb movement disorder Category: Medical Plan For CECILIA: Continue CPAP 13 cmH2O nightly > 4 hrs, as pt is experiencing good clinical effect from use. For RLS/PLMS: Continue ferrous gluconate. Will check f/u labs. ? For acute migraine without aura tx: Continue Ubrelvy 100mg prn. Sumatriptan and Zolmitriptan- ineffective. Previous tx trials- Acute migraine treatment contraindications: Triptans due to uncontrolled hypertension. [place] d/t losartan allergy. Verapamil d/t amlodipine allergy. For prevention of migraine tx: Continue riboflavin 400 mg q.a.m. and magnesium 400 mg q.h.s. Start Emgality 240mg sc x's 1, f/b 120mg sc q month. Continue desvenlafaxine- ordered for mood. Previous tx trials- Topiramate x's > 8 weeks- ineffective. Migraine prevention treatment contraindications: Beta-blockers due to insulin-dependent diabetes. Orders: Orders Methylmalonic Acid Today E11.9 - Type 2 diabetes mellitus without complications, E53.8 - Deficiency of other specified B group vitamins, E61.1 - Iron deficiency IRON PROFILE Today E11.9 - Type 2 diabetes mellitus without complications, E53.8 - Deficiency of other specified B group vitamins, E61.1 - Iron deficiency Complete Blood Count Auto Diff Today E11.9 - Type 2 diabetes mellitus without complications, E53.8 - Deficiency of other specified B group vitamins, E61.1 - Iron deficiency Comprehensive Met. Panel Today E11.9 - Type 2 diabetes mellitus without complications, E53.8 - Deficiency of other specified B group vitamins, E61.1 - Iron deficiency Vitamin B12 and Folate Today E11.9 - Type 2 diabetes mellitus without complications, E53.8 - Deficiency of other specified B group vitamins, E61.1 - Iron deficiency Homocysteine Today E11.9 - Type 2 diabetes mellitus without complications, E53.8 - Deficiency of other specified B group vitamins, E61.1 - Iron deficiency Ferritin Today E11.9 - Type 2 diabetes mellitus without complications, E53.8 - Deficiency of other specified B group vitamins, E61.1 - Iron deficiency Medications: New galcanezumab-gnlm (Emgality Pen) Loading dose: 120 mg subcu injection x2 in alternate sites (total 240 mg). To be followed by maintenance dose of 120 mg subcu q.month. 240 mg (2 mL) subcut ONCE 2 mL 0RF 30 days Coding Level of Care Code Tele Est Pt Level 4 (45024) Diagnoses Migraine without aura G43.009 Hypoferremia E61.1 Moderate obstructive sleep apnea G47.33 Periodic limb movements of sleep G47.61
== END 2024-06-03 08:18 | disposition home or self-care (01) ==
LOC: HO.HSMS 07:43
PROVIDERS: PCP Internal Medicine; Visit Provider Nurse Practitioner Family
DX: G43.009 Migraine without aura, not intractable, without status migrainosus (principal); E61.1 Iron deficiency; G47.33 Obstructive sleep apnea (adult) (pediatric); G47.61 Periodic limb movement disorder
CPT/HCPCS: 99214

== ENCOUNTER → 2024-06-03 07:42 | Outpatient (BNVA) | payer OTHER, SELFPAY | PROVIDERS: PCP Internal Medicine; Visit Provider Nurse Practitioner Family ==

== ENCOUNTER 2024-07-08 08:26 | Outpatient (AMB) | payer OTHER, SELFPAY ==
[2024-07-08 08:33] VITALS: BP 132/70; PULSE 76; O2SAT 97; BMI 43.7
--- NOTE | 2024-07-08 08:33 | A.OFFPC_ITS ---
Vital Signs 07/08/24 08:33 Height 5 ft 2 in Weight 239 lb BMI 43.7 BP 132/70 Blood Pressure Location Lt brachial Position Sitting Pulse 76 Pulse Source Pulse Oximeter Pulse Oximetry (%) 97 Oxygen Delivery Method Room Air Intake Visit Reasons: Annual Exam Allergies insulin lispro Allergy (Severe, Verified 07/08/24 09:25) tongue swelling meloxicam Allergy (Severe, Verified 07/08/24 09:25) Anaphylaxis simvastatin Allergy (Severe, Verified 07/08/24 09:25) Difficulty Swallowing amlodipine Allergy (Intermediate, Verified 07/08/24 09:25) lip swelling butalbital Allergy (Intermediate, Verified 07/08/24 09:25) lip, tongue, mouth swelling clindamycin Allergy (Intermediate, Verified 07/08/24 09:25) Angioedema losartan Allergy (Intermediate, Verified 07/08/24 09:25) Angioedema oxycodone [From Percocet] Allergy (Mild, Verified 07/08/24 09:25) Hives ibuprofen [From Motrin] Allergy (Verified 07/08/24 09:25) Hives lisinopril Allergy (Verified 07/08/24 09:25) Swelling Penicillins Allergy (Verified 07/08/24 09:25) Hives raspberry Allergy (Verified 07/08/24 09:25) Hives Medication List - Last Reconciled 07/08/24 by Clive Solorio MD [Adult Protective Underwear As directed] albuterol sulfate 90 mcg/actuation 2 inhalations inhalation Q6-8H PRN ascorbate calcium (vitamin C) 500 mg PO DAILY 30 days baclofen 10 mg PO BEDTIME PRN 90 days carboxymethylcellulose sodium 0.5% 1 drp ophthalmic (eye) BID-QID PRN clotrimazole 1% appl topical clotrimazole-betamethasone 1-0.05 % appl topical desvenlafaxine succinate ER 25 mg PO DAILY desvenlafaxine succinate ER (Pristiq) 100 mg PO DAILY docusate sodium (Colace) 100 - 200 mg (1 - 2 x 100 mg) PO DAILY PRN 30 days dulaglutide (Trulicity) mg subcut empagliflozin (Jardiance) 25 mg PO DAILY epinephrine (EpiPen 2-Kosta) 0.3 mg (0.3 mL) IM Q4H PRN ferrous gluconate 324 mg PO DAILY 30 days flash glucose scanning reader (FreeStyle Griffin 14 Day [place]) As directed flash glucose sensor (FreeStyle Griffin 14 Day Sensor kit) As directed fluticasone propionate 50 mcg/actuation (Flonase Allergy Relief) 1 spray intranasal DAILY fluticasone propionate 50 mcg/actuation 1 spray intranasal DAILY FreeStyle Lite Strips (blood sugar diagnostic) USE TO CHECK BLOOD SUGAR TWICE A DAY NS gabapentin 100 mg PO TID galcanezumab-gnlm (Emgality Pen) 240 mg (2 mL) subcut ONCE 30 days galcanezumab-gnlm (Emgality Pen) 120 mg subcut ONCE 30 days hydroxyzine HCl 10 mg PO TID PRN 30 days insulin degludec (Tresiba FlexTouch U-100 insulin) 14 units subcut DAILY lancets (FreeStyle Lancets) As directed levomefolate calcium (L-Methylfolate) 15 mg PO DAILY loratadine 10 mg PO DAILY omeprazole 40 mg PO DAILY pen needle, diabetic (Unifine Pentips) USE TO INJECT TWICE A DAY pravastatin 80 mg PO DAILY ubrogepant (Ubrelvy) 50 - 100 mg (0.5 - 1 x 100 mg) PO ONCE PRN 30 days zolpidem 5 mg PO BEDTIME PRN Tobacco use date assessed: 05/07/24 Dental Screening Dental Screen Date: 07/08/24 Did you have a dental visit in the last 12 months?: Yes Did you have a dental problem in the last 6 months where you did not have access to dental care?: No Was dental information given to patient?: Patient has dentist HPI Annual Exam HPI Details 53-year-old female presents to the offic e requesting an annual physical. In addition, patient is complaining of pain in the right ear. Symptoms started 2 weeks ago. Pain is mostly behind the right ear. Throbbing in nature. No fevers or chills. Blood sugars have not gone up. Also, patient is complaining of pain near the left arm and shoulder. No recent fall or injury. Pain is aggravated on lifting the arm over the shoulder level. Patient uses a cane to ambulate due to left knee arthritis. [facility] Medical History (Updated 07/08/24 @ 09:34 by Clive Solorio MD) Cluster headache syndrome, intractable Morbid obesity with BMI of 40.0-44.9, adult Allergic rhinitis Migraine GERD (gastroesophageal reflux disease) Fibromyalgia Bipolar disorder PTSD (post-traumatic stress disorder) Arthritis Elevated cholesterol Diabetes Sleep apnea HTN (hypertension) Encounter to establish care History of kidney stones History of alcohol abuse Surgical History History of tonsillectomy History of hysterectomy Family History Father Hypertension Diabetes Mother Asthma Family/Other Substance use disorder Mental health disorder Sister No problems noted. Brother No problems noted. Son No problems noted. 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 1. Little interest or pleasure in doing things: nearly every day 2. Feeling down, depressed, or hopeless: nearly every day (in treatment with psy) 3. Trouble falling or staying asleep, or sleeping too much: nearly every day 4. Feeling tired or having little energy: nearly every day 5. Poor appetite or overeating: nearly every day 6. Feeling bad about yourself - or that you are a failure or have let yourself or your family down: nearly every day 7. Trouble concentrating on things, such as reading the newspaper or watching television: nearly every day 8. Moving or speaking so slowly that other people could have noticed. Or the opposite - being so fidgety or restless that you have been moving around a lot more than usual: several days 9. Thoughts that you would be better off or of hurting yourself in some way: nearly every day (of hurting self not others) Total score: 25 Depression Screening Interpretation: Positive Depression Screening Follow-up: Existing condition and In treatment Depression Screening Done: Yes Source: Developed by Drs. Jeff Soria, Bindu Nielsen, [place] Farmer and colleagues, with an educational marysol from [employer]. Thrive Questionnaire Date Thrive assessed: 01/28/24 AUDIT C Alcohol Use Questionnaire (AUDIT-C) 1. How often do you have a drink containing alcohol?: Never 3. How often do you have six or more drinks on one occasion?: Never Total Score: 0 DARIEL-7 AMB Questionnaire DARIEL-7 Date DARIEL - 7 assessed: 07/08/24 Feeling nervous, anxious, or on edge: 2 = More than half the days Not being able to stop or control worryin = More than half the days Worrying too much about different things: 2 = More than half the days Trouble relaxin = More than half the days Being so restless that it is hard to sit still: 2 = More than half the days Becoming easily annoyed or irritable: 2 = More than half the days Feeling afraid as if something awful might happen: 2 = More than half the days Total DARIEL-7 score (0-4 normal; 5-9 mild; 10-14 moderate; 15-21 severe): 14 Source: Developed by Drs. Jeff Soria, Bindu Nielsen, [place] Farmer and colleagues, with an educational marysol from [employer]. Physical exam (Primary Care) Vital Signs: Last Vital Signs Pulse 76 07/08/24 08:33 BP 132/70 07/08/24 08:33 Pulse Ox 97 07/08/24 08:33 Oxygen Delivery Method Room Air 07/08/24 08:33 Care Plan Goal for BP management: Blood pressure is in range. BMI result Body Mass Index 43.7 BMI Assessment/Plan discussion: High (1 lb per week weight loss suggested.) BMI High, discussed plan: lifestyle, weight reduction and dietary Tobacco/Smoking Status: Tobacco use Status Tobacco use date assessed 05/07/24 07/08/24 08:42 Patient Tobacco Use Status Never used Tobacco 07/08/24 08:42 Tobacco use type Cigarette 07/08/24 08:42 e-Cigarette/Vaping Use Never Used 07/08/24 08:42 PHQ-9: PHQ-9 Score PHQ-9: Total score 25 07/08/24 08:42 Depression Screening Interpretation: Positive Depression Screening Follow-up: Existing condition and In treatment Thrive Assessment: Date of Thrive Assessment Date Thrive assessed 01/28/24 07/08/24 08:42 Const General: cooperative and healthy appearing Nutritional Appearance: well nourished Orientation/consciousness: patient oriented x3 Limitations: no limitations HENMT Other: Right ear: Ear canal congested. Mastoid tenderness present. Head: Yes normal to inspection Eyes General: appearance normal, both eyes and all related structures Neck Neck: Yes normal visual inspection Chest Chest palpation & inspection: normal palpation of entire chest wall Resp Effort & Inspection: normal respiratory effort Neuro General: patient oriented x3 Extrem Other: Left shoulder: No AC joint tenderness. Full range of motion at the arm. No evidence of infection or redness in the skin. Assessment and Plan Assessment & Plan (1) Major depressive disorder, recurrent, moderate: Code(s): F33.1 - Major depressive disorder, recurrent, moderate Plan: Patient has a markedly elevated PHQ-9. She has a psychiatrist and therapist on board. Patient sees psychiatrist at [facility]. Has several medications and I encouraged to keep a follow-up appointment with them. 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 Metformin has been discontinued. Her previous A1c was 7.8. Patient was advised to maintain tighter blood sugar control. (3) Cluster headache syndrome, intractable: Code(s): G44.001 - Cluster headache syndrome, unspecified, intractable Plan: Patient sees a neurologist and is on medications. (4) Annual physical exam: Code(s): Z00.00 - Encounter for general adult medical examination without abnormal findings Plan: Screening mammogram has been ordered. (5) Right otitis media: Code(s): H66.91 - Otitis media, unspecified, right ear Plan: Azithromycin called in. If symptoms do not improve to follow-up here. (6) Right shoulder pain: Code(s): M25.511 - Pain in right shoulder Plan: Reassurance. If symptoms do not improve to follow-up here. Orders: Orders MM screening mammo BI Today Z12.31 - Encounter for screening mammogram for malignant neoplasm of breast Coding Level of Care Code Est Pt Level 4 (76755) Est Pt Prev Care 40-64y(46799) Diagnoses Major depressive disorder, recurrent, moderate F33.1 Diabetic neuropathy E11.40 Cluster headache syndrome, intractable G44.001 Annual physical exam Z00.00 Right otitis media H66.91 Right shoulder pain M25.511
== END 2024-07-08 09:15 | disposition home or self-care (01) ==
PROVIDERS: PCP Internal Medicine; Visit Provider Internal Medicine
DX: Z00.00 Encounter for general adult medical examination without abnormal findings (principal); F33.1 Major depressive disorder, recurrent, moderate; E11.40 Type 2 diabetes mellitus with diabetic neuropathy, unspecified; G44.001 Cluster headache syndrome, unspecified, intractable; H66.91 Otitis media, unspecified, right ear; M25.511 Pain in right shoulder
CPT/HCPCS: 99214; 99396

== ENCOUNTER 2024-08-10 08:13 | Outpatient (REF) | payer OTHER, SELFPAY ==
--- NOTE | ~2024-08-10 | MM_ITS ---
EXAMINATION: MM SCREENING DIGITAL BREAST TOMOSYNTHESIS, BILATERAL CLINICAL INFORMATION: Screening. Asymptomatic. COMPARISON: Mammography: Comparison is made with available priors TECHNIQUE: Digital breast mammography with tomosynthesis is performed in both the craniocaudal and mediolateral oblique views along with computer-aided detection (CAD). FINDINGS: There are scattered areas of fibroglandular density (ACR BI-RADS breast composition Category b). There are no significant masses, abnormal calcifications, or other abnormalities. MM/MM tomosynthesis screening BI IMPRESSION: No mammographic evidence of malignancy. ASSESSMENT: BI-RADS BI-RADS 1 - Negative RECOMMENDATION: Routine annual mammography screening. 1 year F/U This examination should not preclude the clinical evaluation of a suspicious palpable abnormality. This patient's information was entered into a reminder system with a target due date for their next mammogram. Electronically signed by: Janay Marques DO 08/20/2024 01:39 PM EDT
== END 2024-08-10 08:14 | disposition home or self-care (01) ==
LOC: HO.MAMMO 08:13
PROVIDERS: PCP Internal Medicine; Visit Provider Internal Medicine
DX: Z12.31 Encounter for screening mammogram for malignant neoplasm of breast (principal)
CPT/HCPCS: 77063; 77067

== ENCOUNTER → 2024-08-10 08:30 | Outpatient (BNV) | payer OTHER, SELFPAY | PROVIDERS: PCP Internal Medicine; Visit Provider Internal Medicine | DX: Z12.31 Encounter for screening mammogram for malignant neoplasm of breast (principal) | CPT/HCPCS: 77063; 77067 ==

== ENCOUNTER 2024-09-03 13:35 | Emergency (ER) | payer OTHER, SELFPAY ==
[2024-09-03 14:25] VITALS: BP 190/98; PULSE 89; RESP 18; TEMP 36.3; O2SAT 94; BMI 51.7
--- NOTE | 2024-09-03 14:27 | ED.GENADULT ---
HPI - General Adult General Chief complaint: General Medical Stated complaint: high [id number] pain Time Seen by Provider: 09/03/24 18:22 Source: patient Mode of arrival: ambulatory Limitations: no limitations History of Present Illness ED Provider: brandyn HERNANDEZ narrative: Patient's history of anxiety depression used to have high blood pressure in the past not taking any medication for some time as physician told him not to take the has a blood pressure was improved comes here as nurse came to her house and check the blood pressure was 193/117 check 2 times no headache no nausea no vomiting patient has had mild headache Related Data Home Medications ?Medication ?Instructions ?Recorded ?Confirmed carboxymethylcellulose sodium 0.5 1 drp ophthalmic (eye) BID-QID PRN 06/06/22 06/03/24 % eye drops Dry Eyes levomefolate calcium 15 mg tablet 15 mg PO DAILY 09/05/22 06/03/24 (L-Methylfolate) desvenlafaxine succinate 100 mg 100 mg PO DAILY 10/15/22 06/03/24 tablet,extended release 24 hr (Pristiq) lancets 28 gauge (FreeStyle #100 ea 01/24/23 06/03/24 Lancets) clotrimazole-betamethasone 1 appl topical 02/19/23 06/03/24 %-0.05 % topical cream clotrimazole 1 % topical cream appl topical 03/22/23 06/03/24 dulaglutide 4.5 mg/0.5 mL mg subcut 03/22/23 06/03/24 subcutaneous pen injector (Trulicity) empagliflozin 25 mg tablet 25 mg PO DAILY 03/22/23 06/03/24 (Jardiance) insulin degludec 100 unit/mL (3 14 unit subcut DAILY 07/31/23 06/03/24 mL) subcutaneous pen (Tresiba FlexTouch U-100 insulin) Previous Rx's ?Medication ?Instructions ?Recorded desvenlafaxine succinate 25 mg 25 mg PO DAILY #1 tab 03/01/23 tablet,extended release 24 hr flash glucose scanning reader #1 ea 04/11/23 (FreeStyle Griffin 14 Day [place]) flash glucose sensor (AutoGnomicsStyle #1 ea 04/11/23 Griffin 14 Day Sensor kit) epinephrine 0.3 mg/0.3 mL 0.3 mg (0.3 mL) IM Q4H PRN 05/08/23 injection, auto-injector (EpiPen anaphylaxis #2 ea 2-Kosta) zolpidem 5 mg tablet 5 mg PO BEDTIME PRN sleep #1 tab 01/02/24 gabapentin 100 mg capsule 100 mg PO TID #120 caps 01/28/24 ubrogepant 100 mg tablet (Ubrelvy) 50 - 100 mg (0.5 - 1 x 100 mg) PO 03/13/24 ONCE PRN migraine headache 30 days #16 tabs loratadine 10 mg tablet 10 mg PO DAILY #90 tabs 03/14/24 Adult Protective Underwear #2 multiple units 03/27/24 fluticasone propionate 50 1 spray intranasal DAILY #9.9 mL 05/07/24 mcg/actuation nasal spray,suspension (Flonase Allergy Relief) ascorbate calcium (vitamin C) 500 500 mg PO DAILY 30 days #30 tabs 05/08/24 mg tablet docusate sodium 100 mg capsule 100 - 200 mg (1 - 2 x 100 mg) PO 05/08/24 (Colace) DAILY PRN constipation 30 days #60 caps ferrous gluconate 324 mg (37.5 mg 324 mg PO DAILY 30 days #30 tabs 05/08/24 iron) tablet pen needle, diabetic 31 gauge x #100 ea 05/08/24 5/ (Unifine Pentips) fluticasone propionate 50 1 spray intranasal DAILY #48 mL 06/03/24 mcg/actuation nasal spray,suspension galcanezumab-gnlm 120 mg/mL 120 mg subcut ONCE 30 days #1 mL 06/22/24 subcutaneous pen injector (Emgality Pen) galcanezumab-gnlm 120 mg/mL 240 mg (2 mL) subcut ONCE 30 days 06/22/24 subcutaneous pen injector #2 mL (Emgality Pen) baclofen 10 mg tablet 10 mg PO BEDTIME PRN for muscle 06/25/24 spasm 90 days #90 tabs hydroxyzine HCl 10 mg tablet 10 mg PO TID PRN itching 30 days 06/30/24 #90 tabs azithromycin 250 mg tablet See Rx Instructions PO .COMPLEX #6 07/08/24 tabs omeprazole 40 mg capsule,delayed 40 mg PO DAILY #90 caps 07/23/24 release pravastatin 80 mg tablet 80 mg PO DAILY #90 tabs 08/11/24 FreeStyle Lite Strips (blood sugar #100 strips 08/13/24 diagnostic) albuterol sulfate 90 mcg/actuation 2 inh inhalation Q6-8H PRN 08/18/24 aerosol inhaler shortness of breath or wheezing #6.7 grams valsartan 160 mg tablet (Diovan) 160 mg PO DAILY #30 tabs 09/03/24 Allergies Allergy/AdvReac Type Severity Reaction Status Date / Time insulin lispro Allergy Severe tongue Verified 09/03/24 14:29 swelling meloxicam Allergy Severe Anaphylaxis Verified 09/03/24 14:29 simvastatin Allergy Severe Difficulty Verified 09/03/24 14:29 Swallowing amlodipine Allergy Intermediate lip Verified 09/03/24 14:29 swelling butalbital Allergy Intermediate lip, Verified 09/03/24 14:29 tongue, mouth swelling clindamycin Allergy Intermediate Angioedema Verified 09/03/24 14:29 losartan Allergy Intermediate Angioedema Verified 09/03/24 14:29 oxycodone [From Percocet] Allergy Mild Hives Verified 09/03/24 14:29 ibuprofen [From Motrin] Allergy Hives Verified 09/03/24 14:29 lisinopril Allergy Swelling Verified 09/03/24 14:29 Penicillins Allergy Hives Verified 09/03/24 14:29 raspberry Allergy Hives Verified 09/03/24 14:29 Review of Systems Review of Systems: Yes all other systems are reviewed and are negative PMFSH Past Medical History Medical History Cluster headache syndrome, intractable Morbid obesity with BMI of 40.0-44.9, adult Allergic rhinitis Migraine GERD (gastroesophageal reflux disease) Fibromyalgia Bipolar disorder PTSD (post-traumatic stress disorder) Arthritis Elevated cholesterol Diabetes Sleep apnea HTN (hypertension) Encounter to establish care History of kidney stones History of alcohol abuse Surgical History History of tonsillectomy History of hysterectomy Family History Family History Father Hypertension Diabetes Mother Asthma Family/Other Substance use disorder Mental health disorder Sister No problems noted. Brother No problems noted. Son No problems noted. 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 Oriented X3. No acute distress. Eyes: PERRLA, No Nystagmus ENT: Pharynx normal. Oral Mucosa moist Neck: Normal inspection. Neck supple. CVS: Normal heart rate and rhythm. Pulses normal. Respiratory: No respiratory distress. Equal air entry bilateral, no wheezing/rales/rhonchi Abdomen: Soft and nontender. Bowel sounds are present, no mass palpable, no CVA tenderness Skin: Skin warm and dry. Normal skin color. Normal skin turgor. Extremities: No lower extremity edema. No calf tenderness Neuro: Oriented X 3. No motor deficit. No sensory deficit.No cerebellar signs , cranial nerves II-XII intact Course Course Course Narrative: This is a Rapid Medical Examination (RME) performed by Angel Zaragoza PA-C in triage. Full HPI, ROS, assessment and treatment plan per primary provider in the Main ED. 54 yo female with history of HTN, bipolar disorder, obesity, lumbar radiculopathy, CECILIA, who presents to the ER for evaluation of lightheadedness and headache assocaited with elevated BP at home with visiting nursing. BP 193/117. reports med compliance. PCP told her to come to the ER. No vision changes or chest pain. headache feels different than her usual migraines. reports chronic neck pain as well. not on anticoagulation. Plan: EKG, labs Medications Administered Discontinued Medications Generic Name Dose Route Start Last Admin Trade Name Damian PRN Reason Stop Dose Admin Valsartan 160 mg 09/03/24 18:47 09/03/24 19:25 Valsartan 160 Mg Tablet PO 09/03/24 18:48 160 mg ONCE ONE Administration Protocol Medical Decision Making Medical Decision Making [place] Narrative: Patient with essential hypertension with history of same came with elevated blood pressure allergic to losartan and amlodipine was given valsartan 160 mg patient felt better will discharge patient home advised to take that medicine daily repeat blood pressure was 150/90 Lab Data [place] Lab Attestation statement: I reviewed the patient's lab results. 09/03/24 14:46 09/03/24 14:46 Labs: Lab Results 09/03/24 09/03/24 Range/Units 14:46 14:54 WBC 10.6 (4.8-10.8) X10*3/uL RBC 4.90 (4.20-5.50) X10*6/uL Hgb 14.3 (12.0-16.0) g/dl Hct 42.0 (37.0-47.0) % MCV 85.7 (80.0-98.0) fL MCH 29.2 (27.0-33.0) pg MCHC 34.0 (31.0-35.0) g/dl RDW 15.9 (11.0-16.0) % Plt Count 242 D (160-400) X10*3/uL MPV 10.0 (9.4-12.3) fL Immature Gran % (Auto) 0.2 (0.0-0.4) % Neut % (Auto) 58.0 (45-73) % Lymph % (Auto) 33.9 (20-40) % [place] % (Auto) 6.1 (2-11) % Eos % (Auto) 1.4 (0-4) % Baso % (Auto) 0.4 (0-2) % Lymph # (Auto) 3.6 (1.2-4.9) X10*3/uL [place] # (Auto) 0.6 (0.1-1.2) X10*3/uL Eos # (Auto) 0.2 (0.0-0.4) X10*3/uL Baso # (Auto) 0.0 (0.0-0.2) X10*3/uL Abs Immat Gran (auto) 0.02 (0.00-0.03) X10*3/uL Absolute Neuts (auto) 6.1 (2.0-8.3) x10*3/uL Absolute Nucleated RBC 0.000 (0.0-0.012) X10*3/uL Nucleated RBC % (auto) 0.0 (0.0-0.2) /100WBC Sodium 140 (135-145) mmol/L Potassium 4.1 (3.3-5.1) mmol/L Chloride 111 H (96-108) mmol/L Carbon Dioxide 22 (22-29) mmol/L Anion Gap 11 L (12-20) BUN 10 (9-16) mg/dL Creatinine 0.76 (0.5-1.4) mg/dL Estim Creat Clear Calc 101.8 Estimated GFR > 60 Random Glucose 164 H (60-115) mg/dL Calcium 9.3 (8.4-10.2) mg/dL Magnesium 2.2 (1.6-2.6) mg/dL Total Bilirubin 0.3 (0.0-1.0) mg/dL Direct Bilirubin 0.1 (0.0-0.5) mg/dL AST 18 (5-31) U/L ALT 22 (0-31) U/L Alkaline Phosphatase 105 (39-117) U/L Troponin I High Sens < 2.7 (<3.5-17.0) ng/L Total Protein 7.6 (6.5-8.0) g/dL Albumin 4.2 (3.5-5.0) g/dL Urine Color Yellow Urine Appearance Clear Urine pH 8.0 (5.0-9.0) Ur Specific [place] >= 1.030 H (1.005-1.025) Urine Protein Negative (Neg-Trace) mg/dL Urine Glucose (UA) >=1000 H (Negative) mg/dL Urine Ketones Negative (Negative) mg/dL Urine Blood Negative (Negative) Urine Nitrite Negative (Negative) Ur Leukocyte Esterase Negative (Negative) Urine RBC 0-2 (0-2) /HPF Urine WBC 0-5 (0-5) /HPF Ur Squamous Epith Cells 0-2 (0-2) /HPF Urine Bacteria None Seen (None Seen) Hyaline Casts 0-2 (0-2) /LPF Discharge Plan Discharge Clinical Impression: Essential hypertension Patient Disposition: Home, Self-Care Instructions: Chronic Hypertension (ED) Additional Instructions: Start taking blood pressure medication at 19:00 daily as prescribed Check blood pressure twice a day should be less than 135/85 Follow with your PCP Prescriptions: New valsartan [Diovan] 160 mg tablet 160 mg PO DAILY Qty: 30 0RF No Action desvenlafaxine succinate 25 mg tablet extended release 24 hr 25 mg PO DAILY Qty: 1 0RF (DME) FreeStyle Griffin 14 Day [place] Misc See Rx Instructions .Route Qty: 1 0RF Rx Instructions: As directed ([facility]) FreeStyle Griffin 14 Day Sensor Kit See Rx Instructions .Route Qty: 1 5RF Rx Instructions: As directed epinephrine [EpiPen 2-Kosta] 0.3 mg/0.3 mL auto-injector 0.3 mg IM Q4H PRN (Reason: anaphylaxis) Qty: 2 0RF zolpidem 5 mg tablet 5 mg PO BEDTIME PRN (Reason: sleep) Qty: 1 0RF gabapentin 100 mg capsule 100 mg PO TID Qty: 120 0RF Rx Instructions: Take 1cap PO 3 times a day for a week, then 2caps PO 3 times a day Ubrelvy 100 mg tablet 50 - 100 mg PO ONCE PRN (Reason: migraine headache) 30 Days Qty: 16 3RF Rx Instructions: take at onset of migraine, may repeat in 2hrs (may take w/ Tylenol) loratadine 10 mg tablet 10 mg PO DAILY Qty: 90 2RF (DME) Adult Protective Underwear XXL 0 .Route .MEDSUPPLY Qty: 2 0RF Rx Instructions: As directed ([facility]) pen needle, diabetic [Unifine Pentips] 31 gauge x 5/16 needle See Rx Instructions .ROUTE .COMPLEX Qty: 100 2RF Dose Instruction: USE TO INJECT TWICE A DAY Rx Instructions: USE TO INJECT TWICE A DAY ferrous gluconate 324 mg (37.5 mg iron) tablet 324 mg PO DAILY 30 Days Qty: 30 4RF Rx Instructions: take w/ vitamin C tab ascorbate calcium (vitamin C) 500 mg tablet 500 mg PO DAILY 30 Days Qty: 30 4RF Rx Instructions: take w/ ferrous gluconate docusate sodium [Colace] 100 mg capsule 100 - 200 mg PO DAILY PRN (Reason: constipation) 30 Days Qty: 60 4RF fluticasone propionate 50 mcg/actuation spray,suspension 1 spray intranasal DAILY Qty: 48 2RF Emgality Pen 120 mg/mL pen injector 240 mg subcut ONCE 30 Days Qty: 2 0RF Rx Instructions: Loading dose: 120 mg subcu injection x2 in alternate sites (total 240 mg). To be followed by maintenance dose of 120 mg subcu q.month. Emgality Pen 120 mg/mL pen injector 120 mg subcut ONCE 30 Days Qty: 1 6RF Rx Instructions: Start 30 days after initial loading dose of 240mg. Do not fill before 07/19/2024. baclofen 10 mg tablet 10 mg PO BEDTIME PRN (Reason: for muscle spasm) 90 Days Qty: 90 1RF hydroxyzine HCl 10 mg tablet 10 mg PO TID PRN (Reason: itching) 30 Days Qty: 90 3RF omeprazole 40 mg capsule,delayed release(DR/EC) 40 mg PO DAILY Qty: 90 5RF pravastatin 80 mg tablet 80 mg PO DAILY Qty: 90 5RF (DME) FreeStyle Lite Strips Strip See Rx Instructions .ROUTE .COMPLEX Qty: 100 10RF Dose Instruction: USE TO CHECK BLOOD SUGAR TWICE A DAY Rx Instructions: USE TO CHECK BLOOD SUGAR TWICE A DAY albuterol sulfate 90 mcg/actuation HFA aerosol inhaler 2 inh inhalation Q6-8H PRN (Reason: shortness of breath or wheezing) Qty: 6.7 1RF insulin degludec [Tresiba FlexTouch U-100] 100 unit/mL (3 mL) insulin pen 14 unit subcut DAILY carboxymethylcellulose sodium 0.5 % drops 1 drp ophthalmic (eye) BID-QID PRN (Reason: Dry Eyes) levomefolate calcium [L-Methylfolate] 15 mg tablet 15 mg PO DAILY fluticasone propionate [Flonase Allergy Relief] 50 mcg/actuation spray,suspension 1 spray intranasal DAILY Qty: 9.9 1RF Rx Instructions: administer into each nostril azithromycin 250 mg tablet See Rx Instructions PO .COMPLEX Qty: 6 0RF Rx Instructions: take 500 mg today (day 1), then 250 mg for 4 days (days 2-5) PO desvenlafaxine succinate [Pristiq] 100 mg tablet extended release 24 hr 100 mg PO DAILY (DME) lancets [FreeStyle Lancets] 28 gauge misc See Rx Instructions .ROUTE BID Qty: 100 Rx Instructions: As directed Trulicity 4.5 mg/0.5 mL pen injector subcut Jardiance 25 mg tablet 25 mg PO DAILY clotrimazole 1 % cream topical clotrimazole-betamethasone 1-0.05 % cream topical Print Language: Luxembourgish
--- NOTE | 2024-09-03 14:30 | ECG_ITS ---
Test Reason : DIZZINESS Blood Pressure : / mmHG Vent. Rate : 081 BPM Atrial Rate : 081 BPM P-R Int : 138 ms QRS Dur : 078 ms QT Int : 380 ms P-R-T Axes : 011 003 044 degrees QTc Int : 441 ms Normal sinus rhythm Cannot rule out Anterior infarct , age undetermined Abnormal ECG When compared with ECG of 20-MAR-2023 06:51, No significant change was found Referred By: Yasmin Zaragoza Electronically Signed By:LELADN CALDWELL
[2024-09-03 14:51] LABS: MANUAL DIFF FLAG NO
[2024-09-03 14:52] LABS: Basophils Percent Auto 0.4 % (0-2); Eosinophils Absolute Auto 0.2 X10*3/uL (0.0-0.4); Eosinophils Percent Auto 1.4 % (0-4); Hemoglobin 14.3 g/dl (12.0-16.0); Imm Gran Abs Auto 0.02 X10*3/uL (0.00-0.03); Imm Gran Pct Auto 0.2 % (0.0-0.4); Lymphocytes Absolute Auto 3.6 X10*3/uL (1.2-4.9); Lymphocytes Percent Auto 33.9 % (20-40); Mean Corpuscular Hemoglobin 29.2 pg (27.0-33.0); Mean Corpuscular Volume 85.7 fL (80.0-98.0); Monocytes Absolute Auto 0.6 X10*3/uL (0.1-1.2); Monocytes Percent Auto 6.1 % (2-11); Neutrophils Absolute Auto 6.1 x10*3/uL (2.0-8.3); Platelet Count 242 X10*3/uL (160-400); Red Cell Distribution Width 15.9 % (11.0-16.0); White Blood Count 10.6 X10*3/uL (4.8-10.8)
[2024-09-03 15:03] LABS: Appearance Urine Clear; Color Urine Yellow; Glucose Urine UA >=1000 mg/dL (Negative); Leukocyte Esterase Urine Negative (Negative); Nitrite Urine Negative (Negative); Specific Gravity - Urine >= 1.030 (1.005-1.025); UMIC TRIGGER UACC YES; Urine Blood Negative (Negative); Urine Ketones Negative (Negative); Urine Protein Negative (Neg-Trace)
[2024-09-03 15:07] LABS: Bacteria Urine None Seen (None Seen); Hyaline Casts Urine 0-2 /LPF (0-2); RBC Urine 0-2 /HPF (0-2); Squamous Epithelial Cell Urine 0-2 /HPF (0-2); WBC Urine 0-5 /HPF (0-5)
[2024-09-03 15:15] LABS: Alanine Aminotransferase 22 U/L (0-31); Albumin Level 4.2 g/dL (3.5-5.0); Alkaline Phosphatase 105 U/L (39-117); Anion Gap 11 (12-20); Aspartate Amino Transferase 18 U/L (5-31); Bilirubin Direct 0.1 mg/dL (0.0-0.5); Bilirubin Total 0.3 mg/dL (0.0-1.0); Blood Urea Nitrogen 10 mg/dL (9-16); Calcium 9.3 mg/dL (8.4-10.2); Carbon Dioxide 22 mmol/L (22-29); Chloride 111 mmol/L (96-108); Creatinine Clr Calc Pharmacy 101.8; Estimated Glomerular Filt Rate > 60; Glucose Random 164 mg/dL (60-115); Magnesium 2.2 mg/dL (1.6-2.6); Potassium 4.1 mmol/L (3.3-5.1); Sodium 140 mmol/L (135-145); Total Protein 7.6 g/dL (6.5-8.0)
[2024-09-03 15:19] LABS: Troponin-I High Sensitivity < 2.7 ng/L (<3.5-17.0)
[2024-09-03 18:11] VITALS: BP 188/98; PULSE 85; RESP 18; O2SAT 97
[2024-09-03] MEDS: Valsartan 160 MG TABLET PO (19:25)
[2024-09-03 19:27] VITALS: BP 154/91; PULSE 84
[2024-09-03 19:37] VITALS: BP 154/91; PULSE 84; RESP 17; TEMP 36.7; O2SAT 97
== END 2024-09-03 19:38 | disposition home or self-care (01) ==
PROVIDERS: Physician Assistant; Emergency Provider Internal Medicine
DX: R51.9 Headache, unspecified (principal); I10 Essential (primary) hypertension; R94.31 Abnormal electrocardiogram [ECG] [EKG]; M54.2 Cervicalgia; R42 Dizziness and giddiness; Z79.899 Other long term (current) drug therapy
CPT/HCPCS: 36415; 80048; 80076; 81001; 81003; 83735; 84484; 85025; 93005; 99283; 99284

== ENCOUNTER → 2024-09-03 14:30 | Outpatient (BNV) | payer OTHER, SELFPAY | PROVIDERS: Visit Provider Internal Medicine | DX: R42 Dizziness and giddiness (principal); R94.31 Abnormal electrocardiogram [ECG] [EKG] | CPT/HCPCS: 93010 ==

== ENCOUNTER 2024-09-22 07:42 | Outpatient (AMB) | payer OTHER, SELFPAY ==
--- NOTE | 2024-09-22 08:07 | MHC.PC.OV ---
Vital Signs 09/22/24 08:08 Height 5 ft Weight 247 lb 8 oz BMI 48.3 BP 132/76 Blood Pressure Location Lt brachial Position Sitting Pulse 81 Pulse Source Pulse Oximeter Pulse Oximetry (%) 97 Oxygen Delivery Method Room Air [place] [facility] [place] bp Intake Note: Patient is here to follow-up after [place] [facility] Fibre Composite Technician Required: No Individual Pension Adviser: Not Required per policy Accompanied by: Self / Same As Patient Allergies insulin lispro Allergy (Severe, Verified 09/22/24 08:08) tongue swelling meloxicam Allergy (Severe, Verified 09/22/24 08:08) Anaphylaxis simvastatin Allergy (Severe, Verified 09/22/24 08:08) Difficulty Swallowing amlodipine Allergy (Intermediate, Verified 09/22/24 08:08) lip swelling butalbital Allergy (Intermediate, Verified 09/22/24 08:08) lip, tongue, mouth swelling clindamycin Allergy (Intermediate, Verified 09/22/24 08:08) Angioedema losartan Allergy (Intermediate, Verified 09/22/24 08:08) Angioedema oxycodone [From Percocet] Allergy (Mild, Verified 09/22/24 08:08) Hives ibuprofen [From Motrin] Allergy (Verified 09/22/24 08:08) Hives lisinopril Allergy (Verified 09/22/24 08:08) Swelling Penicillins Allergy (Verified 09/22/24 08:08) Hives raspberry Allergy (Verified 09/22/24 08:08) Hives Tobacco use date assessed: 09/22/24 Dental Screening Dental Screen Date: 07/08/24 HPI HPI Comments History of Present Illness Details 54 y/o female patient who presents to the clinic today for EDF. She [place] [facility] [place] due to elevated BP readings at home. She was treated at ED and discharged home the same day on stable condition. Prior to ED visit she was not on any HTN medications. Reports that her BP goes up when she goes to the hospital or when BP is being taken. Today denies JAMES, CP, SOB, Dizziness or palpitations. She was started on Valsartan 160 mg in the ED. She has a f/u with PCP in the end of September. [facility] Medical History Cluster headache syndrome, intractable Morbid obesity with BMI of 40.0-44.9, adult Allergic rhinitis Migraine GERD (gastroesophageal reflux disease) Fibromyalgia Bipolar disorder PTSD (post-traumatic stress disorder) Arthritis Elevated cholesterol Diabetes Sleep apnea HTN (hypertension) Encounter to establish care History of kidney stones History of alcohol abuse Surgical History History of tonsillectomy History of hysterectomy Family History Father Hypertension Diabetes Mother Asthma Family/Other Substance use disorder Mental health disorder Sister No problems noted. Brother No problems noted. Son No problems noted. 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 How many drinks containing alcohol do you have on a typical day when you are drinking?: 1 or 2 3. How often do you have six or more drinks on one occasion?: Never Total Score: 0 DARIEL-7 AMB Questionnaire DARIEL-7 Date DARIEL - 7 assessed: 07/08/24 Source: Developed by Drs. Jeff Soria, Bindu Nielsen, [place] Farmer and colleagues, with an educational marysol from [employer]. Review of Systems Const All systems reviewed & are unremarkable except as noted in HPI and below Physical exam (Primary Care) Vital Signs: Last Vital Signs Pulse 81 09/22/24 08:08 BP 132/76 09/22/24 08:08 Pulse Ox 97 09/22/24 08:08 Oxygen Delivery Method Room Air 09/22/24 08:08 BMI result Body Mass Index 48.3 Tobacco/Smoking Status: Tobacco use Status Tobacco use date assessed 09/22/24 09/22/24 08:14 Patient Tobacco Use Status Never used Tobacco 09/22/24 08:14 Tobacco use type Cigarette 09/22/24 08:14 e-Cigarette/Vaping Use Never Used 09/22/24 08:14 Thrive Assessment: Date of Thrive Assessment Date Thrive assessed 01/28/24 09/22/24 08:14 Const General: cooperative and no acute distress Nutritional Appearance: obese morbidly obese Orientation/consciousness: patient oriented x3 Resp Effort & Inspection: normal respiratory effort and able to speak in complete sentences Auscultation: clear to auscultation bilaterally, no crackles, no rales, no rhonchi and no wheezes Cardio Heart sounds: S1 normal heart sound present and S2 normal heart sound present Neuro General: patient oriented x3 Coding Level of Care Code Est Pt Level 4 (26231) Diagnoses Primary hypertension I10 Hypertension type: primary hypertension Time Spent (min) 20 Comment Spent reviewing hospital notes and patient education. Assessment & Plan Assessment & Plan (1) Hypertension: Code(s): I10 - Essential (primary) hypertension Category: Medical Qualifiers: Hypertension type: primary hypertension Qualified Code(s): I10 - Essential (primary) hypertension Plan: Continue on Valsartan as prescribed F/U with PCP. Medications: Refilled valsartan (Diovan) 160 mg PO DAILY 90 tabs 1RF I10 - Essential (primary) hypertension
[2024-09-22 08:08] VITALS: BP 132/76; PULSE 81; O2SAT 97; BMI 48.3
== END 2024-09-22 08:54 | disposition home or self-care (01) ==
LOC: HO.HMCH 07:43
PROVIDERS: PCP Internal Medicine; Visit Provider Nurse Practitioner Family
DX: I10 Essential (primary) hypertension (principal)

== ENCOUNTER → 2024-09-22 07:42 | Outpatient (BNVA) | payer OTHER, SELFPAY | PROVIDERS: PCP Internal Medicine; Visit Provider Nurse Practitioner Family | DX: I10 Essential (primary) hypertension (principal) | CPT/HCPCS: 99212 ==

== ENCOUNTER → 2024-12-22 08:52 | Outpatient (BNVA) | payer OTHER, SELFPAY | PROVIDERS: PCP Internal Medicine; Visit Provider Nurse Practitioner Family ==

== ENCOUNTER 2025-01-21 08:42 | Outpatient (AMB) | payer OTHER, SELFPAY ==
[2025-01-21 08:45] VITALS: BP 130/86; PULSE 76; O2SAT 97; BMI 47.6
--- NOTE | 2025-01-21 08:45 | MHC.PC.OV ---
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 Accompanied by: Self / Same As Patient Allergies insulin lispro Allergy (Severe, Verified 01/21/25 09:15) tongue swelling meloxicam Allergy (Severe, Verified 01/21/25 09:15) Anaphylaxis simvastatin Allergy (Severe, Verified 01/21/25 09:15) Difficulty Swallowing amlodipine Allergy (Intermediate, Verified 01/21/25 09:15) lip swelling butalbital Allergy (Intermediate, Verified 01/21/25 09:15) lip, tongue, mouth swelling clindamycin Allergy (Intermediate, Verified 01/21/25 09:15) Angioedema losartan Allergy (Intermediate, Verified 01/21/25 09:15) Angioedema oxycodone [From Percocet] Allergy (Mild, Verified 01/21/25 09:15) Hives ibuprofen [From Motrin] Allergy (Verified 01/21/25 09:15) Hives lisinopril Allergy (Verified 01/21/25 09:15) Swelling Penicillins Allergy (Verified 01/21/25 09:15) Hives raspberry Allergy (Verified 01/21/25 09:15) Hives Medication List - Last Reconciled 01/21/25 by Lorenza Vallejo PA-C [Adult Protective Underwear As directed] ascorbate calcium (vitamin C) 500 mg PO DAILY 30 days baclofen 10 mg PO BEDTIME PRN 90 days carboxymethylcellulose sodium 0.5% 1 drp ophthalmic (eye) BID-QID PRN clotrimazole-betamethasone 1-0.05 % appl topical desvenlafaxine succinate ER 25 mg PO DAILY desvenlafaxine succinate ER (Pristiq) 100 mg PO DAILY docusate sodium (Colace) 100 - 200 mg (1 - 2 x 100 mg) PO DAILY PRN 30 days dulaglutide (Trulicity) mg subcut empagliflozin (Jardiance) 25 mg PO DAILY epinephrine (EpiPen 2-Kosta) 0.3 mg (0.3 mL) IM Q4H PRN flash glucose scanning reader (FreeStyle Griffin 14 Day [place]) As directed flash glucose sensor (FreeStyle Griffin 14 Day Sensor kit) As directed fluticasone propionate 50 mcg/actuation 1 spray intranasal DAILY FreeStyle Lite Strips (blood sugar diagnostic) USE TO CHECK BLOOD SUGAR TWICE A DAY NS gabapentin 100 mg PO TID galcanezumab-gnlm (Emgality Pen) 240 mg (2 mL) subcut ONCE 30 days hydroxyzine HCl 10 mg PO TID PRN 30 days insulin degludec (Tresiba FlexTouch U-100 insulin) 36 units subcut DAILY lancets (FreeStyle Lancets) As directed levomefolate calcium (L-Methylfolate) 15 mg PO DAILY loratadine 10 mg PO DAILY omeprazole 40 mg PO DAILY pen needle, diabetic (Unifine Pentips) USE TO INJECT TWICE A DAY pravastatin 80 mg PO DAILY [single prong cane As directed] tirzepatide (Mounjaro) 5 mg subcut QWEEK ubrogepant (Ubrelvy) 50 - 100 mg (0.5 - 1 x 100 mg) PO ONCE PRN 30 days valsartan (Diovan) 160 mg PO DAILY zolpidem 5 mg PO BEDTIME PRN Tobacco use date assessed: 01/21/25 Dental Screening Dental Screen Date: 01/21/25 Did you have a dental visit in the last 12 months?: Yes Did you have a dental problem in the last 6 months where you did not have access to dental care?: No Was dental information given to patient?: Patient has dentist [facility] Medical History History of mammogram (~08/10/24) Hyperlipidemia LDL goal <70 Type 2 diabetes mellitus with hemoglobin A1c goal of less than 7.0% Carpal tunnel syndrome Cluster headache syndrome, intractable Morbid obesity with BMI of 40.0-44.9, adult Allergic rhinitis Migraine GERD (gastroesophageal reflux disease) Fibromyalgia Bipolar disorder PTSD (post-traumatic stress disorder) Arthritis Elevated cholesterol Sleep apnea HTN (hypertension) Encounter to establish care History of kidney stones History of alcohol abuse Surgical History History of colonoscopy (~08/21/22) History of tonsillectomy History of hysterectomy Family History Father Hypertension Diabetes Mother Asthma Family/Other Substance use disorder Mental health disorder Sister No problems noted. Brother No problems noted. Son No problems noted. 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 1. Little interest or pleasure in doing things: several days 2. Feeling down, depressed, or hopeless: nearly every day 3. Trouble falling or staying asleep, or sleeping too much: nearly every day 4. Feeling tired or having little energy: nearly every day 5. Poor appetite or overeating: nearly every day 6. Feeling bad about yourself - or that you are a failure or have let yourself or your family down: nearly every day 7. Trouble concentrating on things, such as reading the newspaper or watching television: nearly every day 8. Moving or speaking so slowly that other people could have noticed. Or the opposite - being so fidgety or restless that you have been moving around a lot more than usual: several days 9. Thoughts that you would be better off or of hurting yourself in some way: several days (Thoughts of harming self; not others- Pt in treatment) Total score: 21 Depression Screening Interpretation: Positive Depression Screening Follow-up: Existing condition and In treatment Depression Screening Done: Yes 01760 - PHQ-9 Billing: Yes Source: Developed by Drs. Jeff Soria, Bindu Nielsen, [place] Farmer and colleagues, with an educational marysol from [employer]. Thrive Questionnaire Date Thrive assessed: 01/21/25 I am a: Patient What is your living situation today?: I have a steady place to live Within the past 12 months, did the food you bought not last and you didn't have the money to get more?: Never true Within the past 12 months, did you worry whether your food would run out before you got money to buy more?: Never true Do you have trouble paying for medicines?: No Do you have trouble getting transportation to medical appointments?: No Do you have trouble paying your heating and electricity bill?: No Do you have trouble taking care of your child, family member or friend?: No Do you have trouble with day-to-day activities such as bathing, preparing meals, shopping, managing finances, etc.?: No Are you currently unemployed and looking for a job?: No Are you interested in more education?: No Please select the resources that you would like help with: None Currently or been in a relationship where the following occur: No concerns reported THRIVE Score: 0 AUDIT C Alcohol Use Questionnaire (AUDIT-C) 2. How many drinks containing alcohol do you have on a typical day when you are drinking?: 1 or 2 3. How often do you have six or more drinks on one occasion?: Never Total Score: 0 Score Reviewed/Action Taken: Yes DARIEL-7 AMB Questionnaire DARIEL-7 Date DARIEL - 7 assessed: 01/21/25 Feeling nervous, anxious, or on edge: 3 = Nearly every day Not being able to stop or control worryin = Nearly every day Worrying too much about different things: 3 = Nearly every day Trouble relaxin = Nearly every day Being so restless that it is hard to sit still: 3 = Nearly every day Becoming easily annoyed or irritable: 3 = Nearly every day Feeling afraid as if something awful might happen: 2 = More than half the days Total DARIEL-7 score (0-4 normal; 5-9 mild; 10-14 moderate; 15-21 severe): 20 Source: Developed by Drs. Jeff Soria, Bindu Nielsen, Montana Farmer and colleagues, with an educational marysol from [employer]. DARIEL-7 Assessment Billing DARIEL-7 Assessment Tool: DARIEL-7 Assessment 26421 Physical exam (Primary Care) Vital Signs: Last Vital Signs Pulse 76 01/21/25 08:45 BP 130/86 01/21/25 08:45 Pulse Ox 97 01/21/25 08:45 Oxygen Delivery Method Room Air 01/21/25 08:45 BMI result Body Mass Index 47.6 Tobacco/Smoking Status: Tobacco use Status Tobacco use date assessed 01/21/25 01/21/25 08:49 Patient Tobacco Use Status Never used Tobacco 01/21/25 08:49 Tobacco use type Cigarette 01/21/25 08:49 e-Cigarette/Vaping Use Never Used 01/21/25 08:49 PHQ-9: PHQ-9 Score PHQ-9: Total score 21 01/21/25 09:20 Depression Screening Interpretation: Positive Depression Screening Follow-up: Existing condition and In treatment Thrive Assessment: Date of Thrive Assessment Date Thrive assessed 01/21/25 01/21/25 08:49 Currently or been in a relationship where the following occur: No concerns reported Results AMB Hemoglobin A1c AMB Hemoglobin A1c 6.9 % Last Edit by Brittani Myers CMA on 01/21/25 09:12 Results Reviewed Results Reviewed: Laboratory Last Values Hgb A1c (Clinic) 6.9 % (4.0-6.0) H 01/21/25 09:09 Coding Level of Care Code Est Pt Level 4 (92877) Complex EM visit Add On G2211 Diagnoses Spondylosis of lumbar region without myelopathy or radiculopathy M47.816 Sacroiliac joint pain M53.3 Lumbar spondylosis M47.816 Lumbar radiculopathy M54.16 Moderate obstructive sleep apnea G47.33 Allergic rhinitis J30.9 Carpal tunnel syndrome of right wrist G56.01 Type 2 diabetes mellitus with hemoglobin A1c goal of less than 7.0% E11.9 Diabetes mellitus type 2 in obese E11.69; E66.9 Chronic low back pain M54.50; G89.29 Fibromyalgia syndrome M79.7 Bipolar disorder F31.9 Primary hypertension I10 Hypertension type: primary hypertension Hyperlipidemia LDL goal <70 E78.5 BMI 40.0-44.9, adult Z68.41 Major depressive disorder, recurrent, moderate F33.1 Diabetic neuropathy E11.40 Severe recurrent major depression without psychotic features F33.2 Additional Codes DARIEL-7 Assessment Billing - DARIEL-7 Assessment Tool: DARIEL-7 Assessment 95752 ([id number]) PHQ-9 - 39362 - PHQ-9 Billing: Yes ([id number]) Assessment & Plan Assessment & Plan (1) Spondylosis of lumbar region without myelopathy or radiculopathy: Code(s): M47.816 - Spondylosis without myelopathy or radiculopathy, lumbar region Category: Medical Plan: Patient will be referred to pain management. Patient to continue baclofen 10 mg at bedtime, gabapentin 100 mg t.i.d.,. Condition is chronic and stable continue to monitor. (2) Sacroiliac joint pain: Code(s): M53.3 - Sacrococcygeal disorders, not elsewhere classified Category: Medical Plan: Patient will be referred to pain management. Patient to continue baclofen 10 mg at bedtime, gabapentin 100 mg t.i.d.,. Condition is chronic and stable continue to monitor. (3) Lumbar spondylosis: Code(s): M47.816 - Spondylosis without myelopathy or radiculopathy, lumbar region Category: Medical Plan: Patient will be referred to pain management. Patient to continue baclofen 10 mg at bedtime, gabapentin 100 mg t.i.d.,. Condition is chronic and stable continue to monitor. (4) Lumbar radiculopathy: Code(s): M54.16 - Radiculopathy, lumbar region Category: Medical Plan: Patient will be referred to pain management. Patient to continue baclofen 10 mg at bedtime, gabapentin 100 mg t.i.d.,. Condition is chronic and stable continue to monitor. (5) Moderate obstructive sleep apnea: Comment: Not utilizing CPAP due to recurrent epistaxis and intermittent episodes of right ear pain Code(s): G47.33 - Obstructive sleep apnea (adult) (pediatric) Category: Medical Plan: Patient not utilizing CPAP due to recurrent epistaxis and right ear pain. Will refer to ENT. Condition is chronic and stable continue to monitor. (6) Allergic rhinitis: Code(s): J30.9 - Allergic rhinitis, unspecified Category: Medical Plan: Patient to continue loratadine 10 mg daily, high drugs design 10 mg t.i.d., condition is chronic and stable continue to monitor. (7) Carpal tunnel syndrome of right wrist: Code(s): G56.01 - Carpal tunnel syndrome, right upper limb Category: Medical Plan: Patient reports recurrent numbness and tingling to the right hand 1st 3 digits consistent with carpal tunnel syndrome. She is status post history of carpal tunnel release. Will refer back to orthopedic surgery and pain management. Condition is chronic and stable continue to monitor. (8) Type 2 diabetes mellitus with hemoglobin A1c goal of less than 7.0%: Code(s): E11.9 - Type 2 diabetes mellitus without complications Category: Medical Plan: A1c level goal less than 7.0. Today A1c level is 6.9 at goal. Patient being followed by endocrinology at [facility]. Patient is currently on Trulicity, Jardiance, Tresiba and Mounjaro. Condition is chronic and stable continue to monitor. (9) Diabetes mellitus type 2 in obese: Code(s): E11.69 - Type 2 diabetes mellitus with other specified complication; E66.9 - Obesity, unspecified Category: Medical Plan: A1c level goal less than 7.0. Today A1c level is 6.9 at goal. Patient being followed by endocrinology at [facility]. Patient is currently on Trulicity, Jardiance, Tresiba and Mounjaro. Condition is chronic and stable continue to monitor. (10) Chronic low back pain: Code(s): M54.50 - Low back pain, unspecified; G89.29 - Other chronic pain Category: Medical Plan: Patient will be referred to pain management. Patient to continue baclofen 10 mg at bedtime, gabapentin 100 mg t.i.d.,. Condition is chronic and stable continue to monitor. (11) Fibromyalgia syndrome: Code(s): M79.7 - Fibromyalgia Category: Medical Plan: Patient will be referred to pain management. Patient to continue baclofen 10 mg at bedtime, gabapentin 100 mg t.i.d.,. Condition is chronic and stable continue to monitor. (12) Bipolar disorder: Code(s): F31.9 - Bipolar disorder, unspecified Category: Medical Plan: Patient to continue Pristiq 25 mg daily and 100 mg daily, zolpidem 5 mg at bedtime. Condition is chronic and stable continue to monitor. (13) Hypertension: Code(s): I10 - Essential (primary) hypertension Category: Medical Qualifiers: Hypertension type: primary hypertension Qualified Code(s): I10 - Essential (primary) hypertension Plan: Blood pressure goal less than 130/80. Blood pressure today at goal. Condition is chronic and stable will continue to monitor. (14) Hyperlipidemia LDL goal <70: Code(s): E78.5 - Hyperlipidemia, unspecified Category: Medical Plan: Patient currently on pravastatin 80 mg daily. LDL goal less than 70. Patient will have repeat fasting labs before her prior annual visit. Will continue current treatment regimen. Condition is chronic and stable continue to monitor. (15) BMI 40.0-44.9, adult: Code(s): Z68.41 - Body mass index [BMI] 40.0-44.9, adult Category: Medical Plan: Condition is chronic and stable continue to monitor. (16) Bipolar disorder: Code(s): F31.9 - Bipolar disorder, unspecified Category: Medical Plan: Patient being followed by psychiatrist and therapist. Patient to continue Pristiq 25 mg daily and 100 mg daily, zolpidem 5 mg at bedtime. Condition is chronic and stable continue to monitor. (17) Major depressive disorder, recurrent, moderate: Code(s): F33.1 - Major depressive disorder, recurrent, moderate Category: Medical Plan: Patient being followed by psychiatrist and therapist. Patient to continue Pristiq 25 mg daily and 100 mg daily, zolpidem 5 mg at bedtime. Condition is chronic and stable continue to monitor. (18) Diabetic neuropathy: Code(s): E11.40 - Type 2 diabetes mellitus with diabetic neuropathy, unspecified Category: Medical Plan: A1c level goal less than 7.0. Today A1c level is 6.9 at goal. Patient being followed by endocrinology at [facility]. Patient is currently on Trulicity, Jardiance, Tresiba and Mounjaro. Patient currently on gabapentin 100 mg p.o. t.i.d.. Condition is chronic and stable continue to monitor. (19) Severe recurrent major depression without psychotic features: Code(s): F33.2 - Major depressive disorder, recurrent severe without psychotic features Category: Medical Plan: Patient being followed by psychiatrist and therapist. Patient to continue Pristiq 25 mg daily and 100 mg daily, zolpidem 5 mg at bedtime. Condition is chronic and stable continue to monitor. Plan Plan Current management for diabetes includes Trulicity, Jardiance, and Tresiba with plans to optimize regimen and lifestyle modifications. Hypertension and lipid levels are controlled with Valsartan and Pravastatin, although further LDL reduction needs consideration. Referral to orthopedics for right-hand numbness expected to reinvestigate possible carpal tunnel syndrome. Bloodwork to coincide with follow-up appointments, focusing on headaches and sleep apnea. Address recurrent rashes with prescribed antifungal solution. Discuss fasting requirement for upcoming laboratory assessments. Assess ENT for ongoing ear discomfort and review all findings in June at the health maintenance check. Orders: Orders Vitamin D 25-OH Total Today Lorenza Vallejo PA-C Z00.00 - Encounter for general adult medical examination without abnormal findings Magnesium Today Lorenza Vallejo PA-C Z00.00 - Encounter for general adult medical examination without abnormal findings Liver Panel Today Lorenza Vallejo PA-C Z00.00 - Encounter for general adult medical examination without abnormal findings Microalbumin, Random (w Creat) Today Lorenza Vallejo PA-C E11.9 - Type 2 diabetes mellitus without complications C Reactive Protein Today Lorenza Vallejo PA-C Z00.00 - Encounter for general adult medical examination without abnormal findings AMB Hemoglobin A1c Today Lorenza Vallejo PA-C Z13.9 - Encounter for screening, unspecified Hemoglobin A1c Today Lorenza Vallejo PA-C Z00.00 - Encounter for general adult medical examination without abnormal findings Lipid Panel Today Lorenza Vallejo PA-C Z00.00 - Encounter for general adult medical examination without abnormal findings Vitamin B1 Today Lorenza Vallejo PA-C Z00.00 - Encounter for general adult medical examination without abnormal findings NE electromyogram (EMG) Today RANJEET Juarez R20.0 - Anesthesia of skin, R20.2 - Paresthesia of skin NE nerve conduction velocity Today RANJEET Juarez R20.0 - Anesthesia of skin, R20.2 - Paresthesia of skin Referrals Orthopedics Referral Lorenza Vallejo PA-C G56.00 - Carpal tunnel syndrome, unspecified upper limb Pain Management Referral Lorenza Vallejo PA-C M47.816 - Spondylosis without myelopathy or radiculopathy, lumbar region, M53.3 - Sacrococcygeal disorders, not elsewhere classified, M54.16 - Radiculopathy, lumbar region Ear/Nose/Throat Referral Lorenza Vallejo PA-C Z01.10 - Encounter for examination of ears and hearing without abnormal findings Medications: New nystatin 1 appl topical QID 60 grams 3RF Lorenza Vallejo PA-C Patient Instructions: Patient Instructions - Continue diabetes medications as currently prescribed and monitor blood sugar levels. - Maintain dietary guidelines and lifestyle changes for hypertension and hyperlipidemia management. - Follow referral to orthopedics for hand numbness evaluation. - Schedule laboratory tests and fast accordingly before the appointment. - Attend ENT follow-up for ear evaluations. - Use antifungal powder as directed for skin rashes. - Return for next assessment in June; contact for any immediate health concerns. Scribe Plan - Not visible on output: History of Present Illness The patient is a 54-year-old female presenting with a follow-up for chronic medical conditions, specifically Type 2 Diabetes Mellitus, Essential Hypertension, and Hyperlipidemia. Her diabetes has shown improvement with medication adjustments, including Trulicity and Jardiance, and lifestyle modifications such as weight management with Mounjaro, which resulted in weight loss. A1c levels decreased significantly. She manages her hypertension and hyperlipidemia with Valsartan and Pravastatin, respectively. The patient's cluster headaches are treated with injections, and she notes possible recurrence of carpal tunnel syndrome, impacting her right hand, that may require further specialist evaluation. Her history includes complex conditions like GERD, fibromyalgia, sleep apnea, and mood disorders, each affecting her daily life. Social History - Unemployed and on disability - Receives assistance from a [employer] with daily activities, specifically cooking, cleaning, and grocery shopping - Has visiting nurses; no problems reported - Restricted activity level due to chronic health conditions Review of Systems - Neurologic: Reports right hand numbness affecting thumb and fingers - Musculoskeletal: Reports lumbar back pain - Integumentary: Reports recurring rashes in skin folds Physical Exam Appearance: Alert. Oriented X3. No acute distress. Head: Normal external exam. Normocephalic. Atraumatic. Eyes: Pupils are equal, round, and reactive to light. Extraocular movements intact. Conjunctiva and sclera normal. Eyelids normal. Ears: External auditory canal normal. Tympanic membranes normal. Reports frequent earaches, especially on the right side. Throat: Pharynx normal. Uvula midline. Moist mucous membranes. Neck: Normal inspection. Neck supple. Full range of motion. No adenopathy. Thyroid Normal. No meningeal signs. No neck mass noted. Cardiovascular: Normal heart rate and rhythm. Heart sound normal. No murmurs noted. Pulses normal throughout. Respiratory: No respiratory distress. Painless inspiration. Breath sounds normal. No wheezes/rales/rhonchi noted. Chest nontender. No accessory muscle usage noted or decreased air movement noted. Abdomen: Soft and nontender. Bowel sounds normal in all 4 quadrants. No distention noted. No organomegaly noted. No visible injury noted. Back: No costovertebral angle tenderness. Full range of motion noted. Reports back pain, possibly related to sacroiliac joint issues. Skin: Skin warm and dry. Normal skin color. Normal skin turgor. Reports raw skin and rashes between skin folds, not currently infected. Extremities: No lower extremity edema. Extremities exhibit normal range of motion. Extremities nontender. Reports numbness in right hand fingers, possibly related to carpal tunnel syndrome. Neuro: Oriented X 3. No motor deficit. No sensory deficit. Reflexes normal. Reports numbness in right hand fingers. Results - Labs: Hemoglobin A1c decreased from previous 7.8% to current 6.3%; LDL cholesterol at 92 mg/dL. Plan Current management for diabetes includes Trulicity, Jardiance, and Tresiba with plans to optimize regimen and lifestyle modifications. Hypertension and lipid levels are controlled with Valsartan and Pravastatin, although further LDL reduction needs consideration. Referral to orthopedics for right-hand numbness expected to reinvestigate possible carpal tunnel syndrome. Bloodwork to coincide with follow-up appointments, focusing on headaches and sleep apnea. Address recurrent rashes with prescribed antifungal solution. Discuss fasting requirement for upcoming laboratory assessments. Assess ENT for ongoing ear discomfort and review all findings in June at the health maintenance check. Patient was informed and verbally consented to the use of an ambient scribe for clinic note documentation during this visit. Discussion Notes I reviewed with the patient her ongoing management protocols for diabetes, hypertension, and hyperlipidemia, discussing the significance of maintaining glycemic control and lipid management. We explored the possible necessity of revisiting prior surgical interventions for carpal tunnel syndrome. I instructed her on the necessity of fasting before laboratory tests slated for April, and I discussed benefits of consistent CPAP usage for sleep apnea despite prior complications. An ENT specialist referral was confirmed for ear examinations. Follow-up appointments are established for continued monitoring and discussion of any persisting or new symptoms. Patient Instructions - Continue diabetes medications as currently prescribed and monitor blood sugar levels. - Maintain dietary guidelines and lifestyle changes for hypertension and hyperlipidemia management. - Follow referral to orthopedics for hand numbness evaluation. - Schedule laboratory tests and fast accordingly before the appointment. - Attend ENT follow-up for ear evaluations. - Use antifungal powder as directed for skin rashes. - Return for next assessment in June; contact for any immediate health concerns.
== END 2025-01-21 10:33 | disposition home or self-care (01) ==
PROVIDERS: PCP Internal Medicine; Visit Provider Physician Assistant Medical
DX: Z13.9 Encounter for screening, unspecified (principal)

== ENCOUNTER → 2025-01-21 08:42 | Outpatient (BNVA) | payer OTHER, SELFPAY | PROVIDERS: PCP Internal Medicine; Visit Provider Physician Assistant Medical | DX: M47.816 Spondylosis without myelopathy or radiculopathy, lumbar region (principal); M53.3 Sacrococcygeal disorders, not elsewhere classified; G47.33 Obstructive sleep apnea (adult) (pediatric); J30.9 Allergic rhinitis, unspecified; G56.01 Carpal tunnel syndrome, right upper limb; E11.69 Type 2 diabetes mellitus with other specified complication; E66.9 Obesity, unspecified; Z68.41 Body mass index [BMI] 40.0-44.9, adult; M54.50 Low back pain, unspecified; G89.29 Other chronic pain; M79.7 Fibromyalgia; F41.3 Other mixed anxiety disorders; E78.5 Hyperlipidemia, unspecified; I10 Essential (primary) hypertension; F33.1 Major depressive disorder, recurrent, moderate; E11.40 Type 2 diabetes mellitus with diabetic neuropathy, unspecified; Z71.3 Dietary counseling and surveillance | CPT/HCPCS: 83036; 96127; 99212 ==

== ENCOUNTER 2025-02-08 08:39 | Outpatient (AMB) | payer OTHER, SELFPAY ==
--- NOTE | 2025-02-08 08:59 | A.OFFVIS_ITS ---
Vital Signs 02/08/25 09:03 Height 5 ft Weight 245 lb 4 oz BMI 47.9 BP 177/94 H Blood Pressure Location Rt brachial Position Sitting Pulse 75 Pulse Source Pulse Oximeter Pulse Oximetry (%) 98 Oxygen Delivery Method Room Air Intake Visit Reasons: Radiculopathy, lumbar region Intake Note: Pain today 08/27 Director Of Maintenance Required: No Accompanied by: Self / Same As Patient Allergies insulin lispro Allergy (Severe, Verified 02/08/25 09:04) tongue swelling meloxicam Allergy (Severe, Verified 02/08/25 09:04) Anaphylaxis simvastatin Allergy (Severe, Verified 02/08/25 09:04) Difficulty Swallowing amlodipine Allergy (Intermediate, Verified 02/08/25 09:04) lip swelling butalbital Allergy (Intermediate, Verified 02/08/25 09:04) lip, tongue, mouth swelling clindamycin Allergy (Intermediate, Verified 02/08/25 09:04) Angioedema losartan Allergy (Intermediate, Verified 02/08/25 09:04) Angioedema oxycodone [From Percocet] Allergy (Mild, Verified 02/08/25 09:04) Hives ibuprofen [From Motrin] Allergy (Verified 02/08/25 09:04) Hives lisinopril Allergy (Verified 02/08/25 09:04) Swelling Penicillins Allergy (Verified 02/08/25 09:04) Hives raspberry Allergy (Verified 02/08/25 09:04) Hives HPI Comments Details: The patient is a 54-year-old female presenting with chronic low back pain with radiculopathy. Patient has long standing history of chronic low back pain with significant arthritis, treated with radiofrequency ablation in 2022, which provided temporary relief but was followed by a gradual and significant return of symptoms with radiculopathy for the past 4-5 months. Her symptoms have progressively worsened, with the pain radiating from the neck down to both legs, traveling through the buttocks and along the posterior aspect below the knees, reaching the top of both feet, accompanied by numbness and tingling, more prominently on the left side. This radiation pattern is consistent with findings from a previous MRI as noted below. The patient denies any inciting trauma, falls, injury or heavy lifting before symptom exacerbation, but reports significant impairment in daily activities and mobility due to the pain. Currently managed with Tylenol and Baclofen, these interventions have offered limited relief, and her functional status is severely impacted, necessitating the use of a cane and resulting in her being bedridden on bad days. Further complications due to underlying conditions such as knee osteoarthritis and morbid obesity exacerbate her mobility challenges. Despite conservative measures, the functional limitations and pain severity have persisted, underscoring the deterioration of quality of life and the challenges in management with oral medication alone. A1C=6.9 on 01/21/25 and was started on Mounajaro since last visit. Denies any recent cough, cold, infection, fever, weakness, foot drop, bladder or bowel dysfunction, saddle anesthesia or any other significant changes in medical history since last office visit. - Onset and Timing: Gradual onset post-radiofrequency ablation in 2022; worsening over 4-5 months - Quality and Character: Sharp, radiating, shooting, throbbing, numbness, tingling - Primary Location: Lower back - Areas of Radiation: Down both legs, starting from neck, through buttocks, below knee, top of feet - Exacerbating Factors: Bending, lifting, prolonged sitting or standing - Relieving Factors: None significantly noted - Activities Interfered: Mobility, getting out of bed, daily activities - Affect: Pain limits functional ability and affects daily activities significantly - Analgesia: Currently uses Tylenol and Baclofen with limited effectiveness; reported pain severity at 10/10 - Adverse Effects: Allergic reaction to NSAIDs (anaphylactic reaction) - Activities of Daily Living: Severely limited, requiring cane for ambulation, affected ability to engage in functional activities - Aberrant Drug Related Behaviors: None reported PRIOR 02/06/24: Patient presents today for follow and new problem: neck pain, bilateral elbow, wrist and finger joint pain. Denies any recent trauma, injury or falls. She reports chronic history of arthritis, fibromyalgia, and carpal tunnel syndrome. Patient reports she completed EMG reports per Hand Specialist last March 2023, but had no follow up for this. She reports her bilateral hand pain, especially left wrist, has been increasing with any activity. She is right hand dominant and works a lot doing [employer]. Patient reports neck pain with most movements, especially while she is working and looking down. Reports increased headaches with neck pain. Denies previous PT, OT or chiropractic therapy for neck and CTS symptoms. She was recently restarted on gabapentin and is tolerating this well without any adverse effects. Patient reports baclofen has been working partially. Patient tries to participate in regular home exercise program and doing gentle neck stretching exercises with continued symptoms. Denies any fever, shortness of breaths, cough, visual changes,dizziness, bladder or bowel incontinence or saddle anesthesia. Patient reports she continues to receive at least 75% ongoing pain relief for her low back. She ambulates with cane, carrying it in left hand. Oswestry Neck Pain Disability Score- 39 Pain Score-08/27 Past Procedures: 12/09/23: Left knee Durolane injection-Dr. Schmitt-good relief 09/02/23: Left knee steroid injection-Dr. Schmitt, good short term relief, 4-6 weeks 08/07/23: Bilateral L3-L4-L5 Medial Branch RFA -75% ongoing pain relief 05/08/23: Repeat Diagnostic Bilateral L3-L4 DR L5 MBB-98% pain relief for 2 days 03/20/23: Diagnostic Bilateral L3-L4 DR L5 MBB-75% pain relief for 2 says 06/06/23: Left knee steroid injection-Dr. Schmitt, short term relief 03/07/24: Left knee steroid injection-Dr. Schmitt, short term relief 08/15/22: Left saphenous nerve Sprint PNS ? 95% relief for 6 months PRIOR: Patient presents today for follow up low back pain and discuss recent lumbar spine MRI results. Patient reports her back pain has been worsening with radiation to her left leg posteriorly and laterally. She continues to have significant bilateral knee pain and has been trying to loose weight and get better control of her diabetes. Her last A1C was 8.0 in 11/2022. Lumbar spine MRI is noted below and showed grade 1 degenerative anterolisthesis in the setting of advanced bilateral facet arthropathy at L4-L5. A right paracentral disc osteophyte protrusion at L4-L5 compresses the traversing right L5 nerve root within the right subarticular zone. Far left lateral disc osteophyte protrusion at L4-L5 results in mild left-sided foraminal encroachment without contacting the exiting left L4 nerve root. At L5-S1, a far left lateral disc osteophyte protrusion likely mildly contacts the extraforaminal left L5 nerve root. Severe left and moderate right facet arthropathy at this level. Patient is interested to undergo diagnostic lumbar medial branch blocks for potential peripheral nerve stimulation with SPRINT device. She is due to recheck A1C level at her PCP office and will notify our office prior to scheduling therapeutic injections for her left radicular pain. Patient reports she has been under significant stress which exacerbates her fibromyalgia and causes mood changes due to skin rash breakouts all over her body. She has pending dermatology appointment to see if her skin rash is related to allergies. She was seen by rheumatology who suggested CBT therapy for fibromyalgia and has pending EMG studies for her hand pain per Hand Specialist. Patient reports reqular follow up with her mental therapist and psychiatrist for recent and ongoing nightmares at night due to allergy and skin rash issues. PRIOR: This is a 52-year-old morbidly obese female with a past medical history of anxiety, depression, PTSD, severe OA of the knee, degenerative disc disease of the spine who presents for evaluation of diffuse pain. Patient was told she has fibromyalgia for many years. She was on gabapentin before, prescribed for back pain which did not help much, she was also on Lyrica which also did not provide significant relief. Patient is following up with Pain Management and per pat ient they are planning to do a spinal cord stimulator. She was also evaluated by Orthopedics for knee replacement and her patient Dr. Schmitt wants to postpone surgery given patient's young age. Patient also follows up with bariatric surgery and she had lost a significant amount of weight. She has history of sleep apnea but she could not tolerate multiple CPAP machines. She has difficulty falling and staying asleep. She sees a psycho therapist weekly [facility] Medical History History of mammogram (~08/10/24) Hyperlipidemia LDL goal <70 Type 2 diabetes mellitus with hemoglobin A1c goal of less than 7.0% Carpal tunnel syndrome Cluster headache syndrome, intractable Morbid obesity with BMI of 40.0-44.9, adult Allergic rhinitis Migraine GERD (gastroesophageal reflux disease) Fibromyalgia Bipolar disorder PTSD (post-traumatic stress disorder) Arthritis Elevated cholesterol Sleep apnea HTN (hypertension) Encounter to establish care History of kidney stones History of alcohol abuse Surgical History History of colonoscopy (~08/21/22) History of tonsillectomy History of hysterectomy Family History Father Hypertension Diabetes Mother Asthma Family/Other Substance use disorder Mental health disorder Sister No problems noted. Brother No problems noted. Son No problems noted. 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 Alert and oriented. Mood and affect appropriate. Follows and participates in conversation appropriately. Respiratory effort is unlabored. No cough. Able to transition from sit to stand unassisted. Ambulates with bilaterally normal heel strike and toe off, pain increase with left heel/toe standing. Neck Neck: Yes full ROM, Yes no lymphadenopathy, Yes supple, No anterior neck swelling, Yes no JVD and Yes prominent dorsocervical fat pad General: Yes no CVA tenderness Back/Spine/Pelvis Other: Slow, antalgis gait, no limping. Limited lumbar ROM due to pain and body h abitus. Demonstrates 5/5 right and 4/5 left strength of quadriceps bilaterally as well as flexion/dorsiflexion of bilateral feet against resistance. 2+ pedal pulses bilaterally. Straight leg rise with dorsiflexion positive on the left. Diminished patellar and achilles reflexes bilaterally. Facet loading test positive bilaterally. Dominique signs, Momo?s and Stinchfield tests are positive bilaterally. No groin pain with I/E hip rotations. Valsalva maneuver is positive. Back: no CVA tenderness Cervical Spine: cervical ROM normal, cervical muscular tenderness, pain with cervical ROM, No Cervical spine scars present, cervical spasm, No Cervical spine tenderness and No step off deformity Thoracic/Lumbar Spine: thoracic and lumbar spine normal to inspection, Lasegue's sign positive on the left and localized, pain with thoraco-lumbar ROM (mild), paraspinal muscle tenderness, thoraco-lumbar ROM limited, No thoracic spinal tenderness and No lumbar spinal tenderness Pelvis: buttock tenderness bilaterally Sacroiliac joints: bilaterally tender to palpation Extrem General: Yes capillary refill normal, Yes no clubbing, cyanosis or edema and Yes no calf tenderness Results Reviewed Results Reviewed: MR LUMBAR SPINE WITHOUT CONTRAST 02/14/23 FINDINGS: Hypoplastic ribs at the lowermost thoracic type segment. There are 5 nonrib-bearing lumbar-type vertebral bodies. There is grade 1 degenerative anterolisthesis of L4 on L5. Lumbar alignment is otherwise maintained. There is no bone marrow edema. There are no acute fractures. There is moderate to severe disc volume loss at L4-L5. Remaining disc volumes are preserved. There is disc desiccation at L5-S1. Conus terminates at the L1 level. Dependent subcutaneous edema. Simple left renal cysts for which no further imaging follow-up is warranted. L1-L2: Slight annular disc bulge. Mild bilateral facet arthropathy and ligamentum flavum thickening. No central canal stenosis and no foraminal stenosis. L2-L3: Small annular disc bulge and moderate bilateral facet arthropathy and ligamentum flavum thickening. No central canal stenosis and no foraminal stenosis. L3-L4: Diffuse annular disc bulge and moderate bilateral facet arthropathy and ligamentum flavum thickening. Findings in concert result in mild narrowing of the central canal. No foraminal stenosis. L4-L5: Grade 1 degenerative anterolisthesis. A right paracentral disc osteophyte protrusion compresses the traversing right L5 nerve root within the right subarticular zone. Mild central canal stenosis. Far left lateral disc osteophyte protrusion results in mild left-sided foraminal encroachment without contacting the exiting left L4 nerve root. L5-S1: A far left lateral disc osteophyte protrusion likely mildly contacts the extraforaminal left L5 nerve root. There is no central canal stenosis. Severe left and moderate right facet arthropathy. IMPRESSION: * At L4-L5, there is grade 1 degenerative anterolisthesis in the setting of advanced bilateral facet arthropathy. A right paracentral disc osteophyte protrusion at L4-L5 compresses the traversing right L5 nerve root within the right subarticular zone. Far left lateral disc osteophyte protrusion at L4-L5 results in mild left-sided foraminal encroachment without contacting the exiting left L4 nerve root. * At L5-S1, a far left lateral disc osteophyte protrusion likely mildly contacts the extraforaminal left L5 nerve root. Severe left and moderate right facet arthropathy at this level. Assessment & Plan Assessment & Plan (1) Chronic low back pain: Code(s): M54.50 - Low back pain, unspecified; G89.29 - Other chronic pain Category: Medical (2) Sacroiliac joint pain: Code(s): M53.3 - Sacrococcygeal disorders, not elsewhere classified Category: Medical (3) Disc disease, degenerative, lumbar or lumbosacral: Code(s): M51.37 - Other intervertebral disc degeneration, lumbosacral region Category: Medical (4) Lumbar spondylosis: Code(s): M47.816 - Spondylosis without myelopathy or radiculopathy, lumbar region Category: Medical (5) Lumbar radiculopathy: Code(s): M54.16 - Radiculopathy, lumbar region Category: Medical Plan The plan includes scheduling a left L5-S1 transforaminal epidural steroid injection to alleviate symptoms of lumbar radiculopathy associated with the patient's chronic low back pain. This approach targets the notable nerve impingement observed on the MRI and aims to reduce inflammation and pain experie nced by the patient. The patient will be apprised of the potential benefits, including pain relief, and briefed on associated procedure risks prior to consent. Given her morbid obesity and sleep apnea, care will be taken to avoid pharmacologic interventions that could worsen these conditions. The patient opted to proceed without premedication, as she manages injections without significant distress. Follow-up will be arranged to evaluate the response to the injection and modify the treatment plan based on effectivity and symptom resolution. Schedule Left L5-S1 TFESI with local and fluoroscopy. Expectations, risks and benefits were reviewed. Patient is aware she will be contacted to schedule this procedure. All questions were answered and the patient is in agreement of plan. Follow-up after injections and sooner as needed. Patient was informed and verbally consented to the use of an ambient scribe for clinic note documentation during this visit. Patient Instructions: - Expect a call to schedule your epidural steroid injection once insurance approval is obtained - Monitor pain levels and activities, and keep using the cane as needed for ambulation - Avoid any activities that exacerbate your pain, such as heavy lifting or bending - Maintain diabetes management plan and continue monitoring blood sugar levels as advised - Use CPAP machine regularly at night to help manage sleep apnea - Increase daily physical activity as tolerated, continue weight optimization and adequate hydration - Contact the office if you experience increased pain, new symptoms, or any other concerns - Return for follow-up after the injection for reevaluation of pain and response to treatment Coding Level of Care Code Est Pt Level 4 (82963) Complex EM visit Add On G2211 Diagnoses Chronic low back pain M54.50; G89.29 Sacroiliac joint pain M53.3 Disc disease, degenerative, lumbar or lumbosacral M51.37 Lumbar spondylosis M47.816 Lumbar radiculopathy M54.16
[2025-02-08 09:03] VITALS: BP 177/94; PULSE 75; O2SAT 98; BMI 47.9
== END 2025-02-08 09:14 | disposition home or self-care (01) ==
LOC: HO.PMC 08:40
PROVIDERS: PCP Internal Medicine; Referring Provider Physician Assistant Medical; Visit Provider Nurse Practitioner Family
DX: G89.29 Other chronic pain (principal); M53.3 Sacrococcygeal disorders, not elsewhere classified; M51.370 Other intervertebral disc degeneration, lumbosacral region with discogenic back pain only; M47.816 Spondylosis without myelopathy or radiculopathy, lumbar region; M54.16 Radiculopathy, lumbar region
CPT/HCPCS: 99214; G2211

== ENCOUNTER → 2025-02-08 08:39 | Outpatient (BNVA) | payer OTHER, SELFPAY | PROVIDERS: PCP Internal Medicine; Referring Provider Physician Assistant Medical; Visit Provider Nurse Practitioner Family | DX: M47.26 Other spondylosis with radiculopathy, lumbar region (principal); E66.9 Obesity, unspecified; M53.3 Sacrococcygeal disorders, not elsewhere classified; M51.370 Other intervertebral disc degeneration, lumbosacral region with discogenic back pain only; G89.29 Other chronic pain; Z68.42 Body mass index [BMI] 45.0-49.9, adult | CPT/HCPCS: 99212 ==

== ENCOUNTER 2025-03-11 06:13 | Outpatient (REF) | payer OTHER, SELFPAY ==
--- NOTE | ~2025-03-11 | FL_ITS ---
EXAMINATION: FL GUIDANCE ONLY HISTORY: M54.16 - Radiculopathy, lumbar region COMPARISON: None available. TECHNIQUE: Fluoroscopy time: 0.2 minutes. Cumulative Dose: 9.94 mGy. DAP: 0.0431 mGym2 Images: 2. FINDINGS: Images demonstrate a needle and contrast material in the region of a left-sided facet joint. FL/FL guidance in treatment room IMPRESSION: Fluoroscopy during procedure. Please see procedure report for additional information. Electronically signed by: Jeff Gregorio MD 03/12/2025 09:53 AM EDT
--- OUTSIDE RECORDS SUMMARY | 2025-03-11 06:16 | XMS_ITS | Clinical Summary ---
Author Organization [facility] Address [address] [place] [address] Care Team Providers Care Manager Social Responsibility Name Role Phone Mamie Townsend MD Primary Care Provider Social History Tobacco Use Types Packs/Day Years Used Date Smoking Tobacco: Never Assessed Comments Unknown Sex and Gender Information Value Date Recorded Sex Assigned at Not on file Legal Sex Female 3:20 PM EST Gender Identity Not on file Sexual Orientation Not on file Last Filed Vital Signs Vital Sign Reading Time Taken Comments Blood Pressure - - Pulse - - Temperature - - Respiratory Rate - - Oxygen Saturation - - Inhaled Oxygen Concentration - - Weight 106 kg (234 lb) 04/21/2024 8:35 AM EDT Height 157.5 cm (5' 2 ) 04/21/2024 8:35 AM EDT Body Mass Index 42.8 04/21/2024 8:35 AM EDT Plan of Treatment Upcoming Encounters Date Type Department Care Team (Late st Contact Info) Description 04/01/2025 9:00 AM EDT Office Visit Orthopedic Surgery - [place] [address] [phone] Jim Ferreira, DPM [address] [id number] Health Maintenance Due Date Last Done Comments Breast Cancer Screening 1971 DTaP,Tdap,and Td Vaccines (1 - Tdap) 1990 Hepatitis B Vaccines (1 of 3 - 19+ 3-dose series) 1990 Pneumococcal Vaccine: 50+ Ye ars (1 of 2 - PCV) 1990 Pneumococcal Vaccine: Pediat rics (0 to 5 Years) and At-Risk Patients (6 to 64 Years) (1 of 2 - PCV) 1990 Cervical Cancer Screening: P ap Smear 1992 Zoster Vaccines (1 of 2) 2021 Colorectal Cancer Screening: Colonoscopy 10/28/2022 Depression Screening 10/28/2022 HIV Screening 10/28/2022 Hepatitis C Screening 10/28/2022 Social Influencers of Health Screening 10/28/2022 COVID-19 Vaccine (1 - 2023-2 5 season) 2024 Influenza Vaccine (Season Ended) 2025 HIB Vaccines Aged Out No longer eligi ble based on patient's age to complete this topic HPV Vaccines Aged Out No longer eligi ble based on patient's age to complete this topic Hepatitis A Vaccines Aged Out No long er eligible based on patient's age to complete this topic IPV Vaccines Aged Out No longer eligi ble based on patient's age to complete this topic MMR Vaccines Aged Out No longer eligi ble based on patient's age to complete this topic Meningococcal ACWY Vaccine Aged Out N o longer eligible based on patient's age to complete this topic Meningococcal B Vaccine Aged Out No l onger eligible based on patient's age to complete this topic RSV Immunization Patients Un davida 20 months Aged Out No longer eligible b ased on patient's age to complete this topic Varicella Vaccines Aged Out No longer eligible based on patient's age to complete this topic Care Teams Manager Social Responsibility Relationship Specialty Start Date End Date Mamie Townsend MD [address] [place] [phone] PCP - General Internal Medicine 05/20/18
== END 2025-03-11 06:14 | disposition home or self-care (01) ==
LOC: CF 06:13
PROVIDERS: Visit Provider Internal Medicine
DX: M54.16 Radiculopathy, lumbar region (principal); Z13.1 Encounter for screening for diabetes mellitus; Z13.6 Encounter for screening for cardiovascular disorders
CPT/HCPCS: 36415; 64483; 80061; 80076; 82043; 82306; 82570; 83036; 83735; 84425; 86140; J1100; J2003; Q9967

== ENCOUNTER 2025-03-11 08:59 | Outpatient (REF) | payer OTHER, SELFPAY ==
--- OUTSIDE RECORDS SUMMARY | 2025-03-11 09:39 | XMS_ITS | Clinical Summary ---
Author Organization [facility] Address [address] [place] [address] Care Team Providers Care Apartment Manager Name Role Phone Mamie Townsend MD Primary [...] AM EDT Office Visit Orthopedic Surgery - [place] [address] [phone] Jim Ferreira, DPM [address] [address] Health Maintenance Due Date Last Done Comments [...] age to complete this topic Care Teams Apartment Manager Relationship Specialty Start Date End Date Mamie Townsend MD [address] [place] [address] PCP - General Internal Medicine 05/20/18
[2025-03-11 09:48] LABS: Estimated Average Glucose 154 mg/dL
[2025-03-11 10:12] LABS: Creatinine Urine 90.79 mg/dL; Microalbum/Creatinine Ratio Ur 12.1 ug/mg cr (<30)
[2025-03-11 10:24] LABS: Alanine Aminotransferase 19 U/L (0-31); Albumin Level 4.1 g/dL (3.5-5.0); Alkaline Phosphatase 88 U/L (39-117); Aspartate Amino Transferase 21 U/L (5-31); Bilirubin Direct 0.2 mg/dL (0.0-0.5); Bilirubin Total 0.4 mg/dL (0.0-1.0); C Reactive Protein 0.86 mg/dL (< or = 0.50); Cholesterol 163 mg/dL (<200); HDL Cholesterol 48 mg/dL (>40); LDL Cholesterol Calculated 89 mg/dL (<100); Magnesium 2.1 mg/dL (1.6-2.6); Total Protein 7.5 g/dL (6.5-8.0); Triglycerides 130 mg/dL (<150)
[2025-03-11 10:42] LABS: Vitamin D 25-OH Total 23.3 ng/mL (>30)
[2025-03-18 06:19] LABS: Vitamin B1 10 nmol/L (8-30)
== END 2025-03-11 09:00 | disposition home or self-care (01) ==
LOC: HO.LAB 08:59
PROVIDERS: Absent Provider Nurse Practitioner Family; PCP Physician Assistant Medical; Visit Provider Physician Assistant Medical
DX: Z13.89 Encounter for screening for other disorder (principal)
CPT/HCPCS: 36415; 80061; 80076; 82043; 82306; 82570; 83036; 83735; 84425; 86140

== ENCOUNTER 2025-03-11 09:20 | Outpatient (AMB) | payer OTHER, SELFPAY ==
[2025-03-11 09:36] VITALS: BP 160/90; PULSE 79; RESP 16; O2SAT 97
--- NOTE | 2025-03-11 09:36 | A.OFFVIS_ITS ---
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 Allergies insulin lispro Allergy (Severe, Verified 03/11/25 09:36) tongue swelling meloxicam Allergy (Severe, Verified 03/11/25 09:36) Anaphylaxis simvastatin Allergy (Severe, Verified 03/11/25 09:36) Difficulty Swallowing amlodipine Allergy (Intermediate, Verified 03/11/25 09:36) lip swelling butalbital Allergy (Intermediate, Verified 03/11/25 09:36) lip, tongue, mouth swelling clindamycin Allergy (Intermediate, Verified 03/11/25 09:36) Angioedema losartan Allergy (Intermediate, Verified 03/11/25 09:36) Angioedema oxycodone [From Percocet] Allergy (Mild, Verified 03/11/25 09:36) Hives ibuprofen [From Motrin] Allergy (Verified 03/11/25 09:36) Hives lisinopril Allergy (Verified 03/11/25 09:36) Swelling Penicillins Allergy (Verified 03/11/25 09:36) Hives raspberry Allergy (Verified 03/11/25 09:36) Hives Medication List - Last Reconciled 03/11/25 by Hyacinth Slater LPN [Adult Protective Underwear As directed] ascorbate calcium (vitamin C) 500 mg PO DAILY 30 days baclofen 10 mg PO BEDTIME PRN 90 days carboxymethylcellulose sodium 0.5% 1 drp ophthalmic (eye) BID-QID PRN clotrimazole-betamethasone 1-0.05 % appl topical desvenlafaxine succinate ER 25 mg PO DAILY desvenlafaxine succinate ER (Pristiq) 100 mg PO DAILY docusate sodium (Colace) 100 - 200 mg (1 - 2 x 100 mg) PO DAILY PRN 30 days dulaglutide (Trulicity) mg subcut empagliflozin (Jardiance) 25 mg PO DAILY epinephrine (EpiPen 2-Kosta) 0.3 mg (0.3 mL) IM ONCE PRN flash glucose scanning reader ([employer] Griffin 14 Day Iron Station) As directed flash glucose sensor (FreeStyle Griffin 14 Day Sensor kit) As directed fluticasone propionate 50 mcg/actuation 1 spray intranasal DAILY FreeStyle Lite Strips (blood sugar diagnostic) USE TO CHECK BLOOD SUGAR TWICE A DAY NS gabapentin 100 mg PO TID galcanezumab-gnlm (Emgality Pen) 240 mg (2 mL) subcut ONCE 30 days hydroxyzine HCl 10 mg PO TID PRN 30 days insulin degludec (Tresiba FlexTouch U-100 insulin) 36 units subcut DAILY lancets (FreeStyle Lancets) As directed levomefolate calcium (L-Methylfolate) 15 mg PO DAILY loratadine 10 mg PO DAILY nystatin 1 appl topical QID omeprazole 40 mg PO DAILY pen needle, diabetic (Unifine Pentips) USE TO INJECT TWICE A DAY pravastatin 80 mg PO DAILY [single prong cane As directed] tirzepatide (Mounjaro) 5 mg subcut QWEEK ubrogepant (Ubrelvy) 50 - 100 mg (0.5 - 1 x 100 mg) PO ONCE PRN 30 days valsartan (Diovan) 160 mg PO DAILY zolpidem 5 mg PO BEDTIME PRN HPI HPI Left L5-S1 TFESI: Details: Patient presents for scheduled procedure. Denies any recent cough, cold, infection, fever or other significant changes in medical history since last office visit. [facility] Medical History History of mammogram (~08/10/24) Hyperlipidemia LDL goal <70 Type 2 diabetes mellitus with hemoglobin A1c goal of less than 7.0% Carpal tunnel syndrome Cluster headache syndrome, intractable Morbid obesity with BMI of 40.0-44.9, adult Allergic rhinitis Migraine GERD (gastroesophageal reflux disease) Fibromyalgia Bipolar disorder PTSD (post-traumatic stress disorder) Arthritis Elevated cholesterol Sleep apnea HTN (hypertension) Encounter to establish care History of kidney stones History of alcohol abuse Surgical History History of colonoscopy (~08/21/22) History of tonsillectomy History of hysterectomy Family History Father Hypertension Diabetes Mother Asthma Family/Other Substance use disorder Mental health disorder Sister No problems noted. Brother No problems noted. Son No problems noted. 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 The patient was placed in the prone position on the fluoroscopy table. The lumbosacral area was prepped with chloraprep, allowed to dry and draped in sterile fashion. Using fluoroscopy, the skin overlying our target was anesthetized with 0.5% lidocaine. A 22 gauge 3.5 inch spinal needle was advanced to the safe triangle in the upper pole of the left L5 foramen. No paresthesias were elicited with needle placement and aspiration was negative for blood and CSF. Transforaminal epidural access was obscured and limited due to presence of an osteophyte in the needle path. The needle was maneuvered to the extent possible to negotiate the osteophyte. Needle position was confirmed with approximately 1 ml contrast dye (Omnipaque 180 mg/ml) injected under real-time fluoroscopy. No evidence of vascular or intrathecal uptake was seen and there was both epidural and peripheral spread of the contrast agent. 10 mg dexamethasone plus 1 ml containing 0.5% lidocaine was slowly injected. The needle was flushed and removed. The skin was cleansed and a sterile bandages were applied. The patient tolerated the procedure well and no complications were encountered. Following the procedure the patient's vital signs were stable. The patient was discharged home in good condition with post-procedural instructions. Time Out: Immediately prior to the procedure, the following was verbally confirmed that there is a signed consent form and that the correct patient, planned procedure, site and side are consistent with documentation and that necessary equipment and/or blood products are available prior to the start of the case. Complications: none EBL: <5 cc 71444 - Lumbar/Sacral Procedure code (CPT) selection complete Assessment & Plan Assessment & Plan (1) Lumbar radiculopathy: Code(s): M54.16 - Radiculopathy, lumbar region Category: Medical Plan Patient is status post left L5 TFESI with limited epidural access due to presence of an osteophyte in the needle path. Patient tolerated procedure well and was discharged home in stable condition with discharge instructions. All questions were answered. We will follow-up via telephone or in clinic to assess response to therapy. A follow-up appointment was made during today's visit. Orders: Orders FL guidance in treatment room Today M54.16 - Radiculopathy, lumbar region Coding Level of Care Code Procedure Only Diagnoses Lumbar radiculopathy M54.16 CPT Codes Transforaminal Epidural Steroid Inj - TESI 3: 36198 - Lumbar/Sacral ([id number])
--- OUTSIDE RECORDS SUMMARY | 2025-03-11 10:13 | XMS_ITS | Clinical Summary ---
Author Organization [facility] Address [address] [place] [address] Care Team Providers Care Clip On Sunglasses Inspector Name Role Phone Mamie Townsend MD Primary [...] AM EDT Office Visit Orthopedic Surgery - [place] [address] [phone] Jim Ferreira, DPM [address] [address] Health Maintenance Due Date Last Done Comments [...] age to complete this topic Care Teams Clip On Sunglasses Inspector Relationship Specialty Start Date End Date Mamie Townsend MD [address] [place] [address] PCP - General Internal Medicine 05/20/18
[2025-03-11 10:21] VITALS: BP 160/98; PULSE 74; RESP 16; O2SAT 97
== END 2025-03-11 10:22 | disposition home or self-care (01) ==
LOC: HO.PMCPRC 09:20
PROVIDERS: PCP Physician Assistant Medical; Visit Provider Internal Medicine
DX: M54.16 Radiculopathy, lumbar region (principal)
CPT/HCPCS: 64483

== ENCOUNTER 2025-04-08 10:12 | Outpatient (AMB) | payer OTHER, SELFPAY ==
--- NOTE | 2025-04-08 10:21 | A.OFFVIS_ITS ---
Vital Signs 04/08/25 10:25 Height 5 ft Weight 249 lb BMI 48.6 BP 174/98 H Blood Pressure Location Lt radial Position Sitting Pulse 71 Pulse Source Pulse Oximeter Pulse Oximetry (%) 97 Oxygen Delivery Method Room Air Intake Visit Reasons: s/p Left L5-S1 TFESI Intake Note: Pain today 08/27 Night Manager Required: No Accompanied by: Self / Same As Patient Allergies insulin lispro Allergy (Severe, Verified 04/08/25 10:25) tongue swelling meloxicam Allergy (Severe, Verified 04/08/25 10:25) Anaphylaxis simvastatin Allergy (Severe, Verified 04/08/25 10:25) Difficulty Swallowing amlodipine Allergy (Intermediate, Verified 04/08/25 10:25) lip swelling butalbital Allergy (Intermediate, Verified 04/08/25 10:25) lip, tongue, mouth swelling clindamycin Allergy (Intermediate, Verified 04/08/25 10:25) Angioedema losartan Allergy (Intermediate, Verified 04/08/25 10:25) Angioedema oxycodone [From Percocet] Allergy (Mild, Verified 04/08/25 10:25) Hives ibuprofen [From Motrin] Allergy (Verified 04/08/25 10:25) Hives lisinopril Allergy (Verified 04/08/25 10:25) Swelling Penicillins Allergy (Verified 04/08/25 10:25) Hives raspberry Allergy (Verified 04/08/25 10:25) Hives HPI Comments Details: The patient is a 54-year-old female presenting for follow-up after receiving a left L5-S1 transforaminal epidural steroid injection one month ago to manage chronic low back pain with radiculopathy. Per Dr. Rahman's procedures notes, a Left L5 TFESI was performed with limited epidural access due to presence of an osteophyte in the needle path. The injection, targeting the left side where there had been previous identification of a disc protrusion contacting the left L5 nerve root, did not alleviate her symptoms. Her lumbar pain radiates to the left leg and is accompanied by bilateral hip pain, more severe on the left, which started two months ago and has been progressively worsening. The pain is described as stabbing and aching, worsening at night, significantly impacting her sleep and daily activities. Overall, she reports that the pain persists despite past interventions, including radiofrequency ablation and knee injections. She has degenerative disc disease accompanied by osteophytes complicating procedural approaches. Additionally, she manages diabetes with recent improvements in her glycemic control and experiences urinary incontinence that needs further urological assessment. Her attempts to manage pain pharmacologically with gabapentin for anxiety and baclofen have been mostly ineffective. - Onset and Timing: Chronic low back pain with radiculopathy; hip pain began 2 months ago. - Quality and Character: Described as stabbing and aching; persistent, including during the night. - Primary Location: Low back; hip pain more severe on the left side. - Radiation: Pain extends from the back to the left leg; hip pain radiates around the groin. - Exacerbating Factors: Movement such as getting out of bed, car, and internal rotation. - Relieving Factors: None reported effective; currently exploring different bed arrangements. - Interference with Activities: Notably interrupts sleep; difficulty with mobility; requires cane use; constantly present during the day. - Affect: Constant pain impacts daily life and sleep. - Analgesia: Baclofen and gabapentin provide minimal relief; the goal remains improved pain control. - Adverse Effects: Experience of hives from opioids and anaphylaxis from me loxicam. - Activities of Daily Living: Pain hinders sleeping, mobility, routine activities such as getting out of bed. - Aberrant Drug Related Behaviors: None reported; adheres to prescribed medication regime. - Adverse Effects: Allergic reaction to NSAIDs (anaphylactic reaction) Past Procedures: 03/11/25: Left L5 TFESI-0% pain relief 12/09/23: Left knee Durolane injection-Dr. Schmitt-good relief 09/02/23: Left knee steroid injection-Dr. Schmitt, good short term relief, 4-6 weeks 08/07/23: Bilateral L3-L4-L5 Medial Branch RFA -75% ongoing pain relief 05/08/23: Repeat Diagnostic Bilateral L3-L4 L5 MBB-98% pain relief for 2 days 03/20/23: Diagnostic Bilateral L3-L4 L5 MBB-75% pain relief for 2 says 06/06/23: Left knee steroid injection-Dr. Schmitt, short term relief 03/07/24: Left knee steroid injection-Dr. Schmitt, short term relief 08/15/22: Left saphenous nerve Sprint PNS ? 95% relief for 6 months [facility] Medical History History of mammogram (~08/10/24) Hyperlipidemia LDL goal <70 Type 2 diabetes mellitus with hemoglobin A1c goal of less than 7.0% Carpal tunnel syndrome Cluster headache syndrome, intractable Morbid obesity with BMI of 40.0-44.9, adult Allergic rhinitis Migraine GERD (gastroesophageal reflux disease) Fibromyalgia Bipolar disorder PTSD (post-traumatic stress disorder) Arthritis Elevated cholesterol Sleep apnea HTN (hypertension) Encounter to establish care History of kidney stones History of alcohol abuse Surgical History History of colonoscopy (~08/21/22) History of tonsillectomy History of hysterectomy Family History Father Hypertension Diabetes Mother Asthma Family/Other Substance use disorder Mental health disorder Sister No problems noted. Brother No problems noted. Son No problems noted. 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 Constant left leg pain; diminished relief from previous interventions noted. - Neurological: Reports numbness and tingling on the sides and back of the left leg. - Endocrine: Reports diabetes management. A1C=7.0 (03/11/25) - Genitourinary: Reports urinary incontinence with urgency. All systems reviewed & are unremarkable except as noted in HPI and below Physical Exam Vital Signs: Last Vital Signs Pulse 71 04/08/25 10:25 BP 174/98 H 04/08/25 10:25 Pulse Ox 97 04/08/25 10:25 Oxygen Delivery Method Room Air 04/08/25 10:25 BMI result Body Mass Index 48.6 General: Appears afebrile. Alert and oriented. Mood and affect appropriate. Follows and participates in conversation appropriately. Respiratory effort is unlabored. No cough. Able to transition from sit to stand unassisted. Ambulates with bilaterally normal heel strike and toe off, pain increase with left heel/toe standing. Neck Neck: Yes full ROM, Yes no lymphadenopathy, Yes supple, No anterior neck swelling, Yes no JVD and Yes prominent dorsocervical fat pad General: Yes no CVA tenderness Back/Spine/Pelvis Other: Limited lumbar ROM due to pain and body habitus. Demonstrates 5/5 right and 4/5 left strength of quadriceps bilaterally as well as flexion/dorsiflexion of bilateral feet against resistance. 2+ pedal pulses bilaterally. Straight leg rise with dorsiflexion positive on the left. Diminished patellar and achilles reflexes bilaterally. Facet loading test positive bilaterally. Dominique signs, Momo?s and Stinchfield tests are positive bilaterally. Mild right and moderate left groin pain with I/E hip rotations. Internal rotation of the left hip noted as mostly painful.Valsalva maneuver is negative. Back: no CVA tenderness Cervical Spine: cervical ROM normal, cervical muscular tenderness, pain with cervical ROM, No Cervical spine scars present, cervical spasm and No Cervical spine tenderness Thoracic/Lumbar Spine: thoracic and lumbar spine normal to inspection, Lasegue's sign positive on the left and diffuse, pain with thoraco-lumbar ROM (mild), paraspinal muscle tenderness, thoraco-lumbar ROM limited, No thoracic spinal tenderness and lumbar spinal tenderness (L4-S1) Pelvis: buttock tenderness bilaterally Sacroiliac joints: bilaterally tender to palpation Results Reviewed Results Reviewed: MR LUMBAR SPINE WITHOUT CONTRAST 02/14/23 FINDINGS: Hypoplastic ribs at the lowermost thoracic type segment. There are 5 nonrib-bearing lumbar-type vertebral bodies. There is grade 1 degenerative anterolisthesis of L4 on L5. Lumbar alignment is otherwise maintained. There is no bone marrow edema. There are no acute fractures. There is moderate to severe disc volume loss at L4-L5. Remaining disc volumes are preserved. There is disc desiccation at L5-S1. Conus terminates at the L1 level. Dependent subcutaneous edema. Simple left renal cysts for which no further imaging follow-up is warranted. L1-L2: Slight annular disc bulge. Mild bilateral facet arthropathy and ligamentum flavum thickening. No central canal stenosis and no foraminal stenosis. L2-L3: Small annular disc bulge and moderate bilateral facet arthropathy and ligamentum flavum thickening. No central canal stenosis and no foraminal stenosis. L3-L4: Diffuse annular disc bulge and moderate bilateral facet arthropathy and ligamentum flavum thickening. Findings in concert result in mild narrowing of the central canal. No foraminal stenosis. L4-L5: Grade 1 degenerative anterolisthesis. A right paracentral disc osteophyte protrusion compresses the traversing right L5 nerve root within the right subarticular zone. Mild central canal stenosis. Far left lateral disc osteophyte protrusion results in mild left-sided foraminal encroachment without contacting the exiting left L4 nerve root. L5-S1: A far left lateral disc osteophyte protrusion likely mildly contacts the extraforaminal left L5 nerve root. There is no central canal stenosis. Severe left and moderate right facet arthropathy. IMPRESSION: * At L4-L5, there is grade 1 degenerative anterolisthesis in the setting of advanced bilateral facet arthropathy. A right paracentral disc osteophyte protrusion at L4-L5 compresses the traversing right L5 nerve root within the right subarticular zone. Far left lateral disc osteophyte protrusion at L4-L5 results in mild left-sided foraminal encroachment without contacting the exiting left L4 nerve root. * At L5-S1, a far left lateral disc osteophyte protrusion likely mildly contacts the extraforaminal left L5 nerve root. Severe left and moderate right facet arthropathy at this level. 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 Additional imaging of the hips and pelvic region will assist in understanding and managing her hip pain effectively before considering further interventions. Given the lack of relief from the previous interventions, a neurosurgical consultation may be necessary to assess and address osteophytes impacting left L5 nerve root. Patient has pending Urology appointment for addressing urinary incontinence. In terms of her pain management, current medications remain, with a potential reassessment of her analgesic regimen to optimize pain control. All questions and concerns have been answered and patient agreed with the plan. Follow up for MRI/xray results and sooner as needed. Patient was informed and verbally consented to the use of an ambient scribe for clinic note documentation during this visit. Orders: Orders MR lumbar spine wo con Today M25.78 - Osteophyte, vertebrae, M47.816 - Spondylosis without myelopathy or radiculopathy, lumbar region, M51.369 - Other intervertebral disc degeneration, lumbar region without mention of lumbar back pain or lower extremity pain, M54.16 - Radiculopathy, lumbar region XR hip BI w [id number] Today M25.551 - Pain in right hip, M25.552 - Pain in left hip, M53.3 - Sacrococcygeal disorders, not elsewhere classified Coding Level of Care Code Est Pt Level 4 (58803) Complex EM visit Add On G2211 Diagnoses Lumbar spondylosis M47.816 Lumbar radiculopathy M54.16 Degeneration of intervertebral disc of lumbar region with osteophyte of lumbar vertebra M51.369; M25.78 Sacroiliac joint pain M53.3 Bilateral hip pain M25.551; M25.552
[2025-04-08 10:25] VITALS: BP 174/98; PULSE 71; O2SAT 97; BMI 48.6
--- OUTSIDE RECORDS SUMMARY | 2025-04-08 10:38 | XMS_ITS | Clinical Summary ---
Author Organization 175 [facility] Address 175 [place] [address] Phone Care Team Providers Care Aircraft Instrument Tester Name Role Phone Mamie Townsend MD Primary Care Provider Encounters Date Type Department Care Team Description 04/01/2025 9:00 AM EDT Office Visit [facility] [address] [phone] Jim Ferreira DPM Tendinitis of left ankle (Primary Dx); Tendinitis of right ankle; Diabetic mononeuropathy simplex (CMS/HCC V24, CMS/HCC V28) from Last 3 Months Social History Tobacco Use Types Packs/Day Years [...] - - Weight 106 kg (234 lb) 04/01/2025 8:55 AM EDT Height 157.5 cm (5' 2.01 ) 04/01/2025 8:55 AM ED T Body Mass Index 42.79 04/01/2025 8:55 AM EDT Plan of Treatment Upcoming Encounters Date Type Department Care Team ([facility] st Contact Info) Description 05/05/2025 8:15 AM EDT Office Visit [facility] [address] [phone] Jim Ferreira DPM [address] [address] Health Maintenance Due Date Last Done Comments Breast Cancer Screening 1971 Diabetes: Annual GFR (Glomerular Filtration Rate) 1971 Diabetes: Annual Foot Exam 1981 Diabetes: Annual Retina Eye Exam 1981 Hepatitis A Vaccines (1 of 2 - Risk 2-dose series) 1990 Hepatitis B Vaccines (1 of 3 - 19+ 3-dose series) 1990 Cervical Cancer Screening: Pap Smear 1992 Zoster Vaccines (2 of 2) 02/08/2022 12/14/2021 Cholesterol Screening (Lipid Panel) 10/28/2022 Colorectal Cancer Screening: Colonoscopy 10/28/2022 Depression Screening 10/28/2022 HIV Screening 10/28/2022 Hepatitis C Screening 10/28/2022 Medicare Annual Wellness Visit 10/28/2022 Social Influencers of Health Screening 10/28/2022 Diabetes: Annual Urine Albumin-Creatinine Ratio (uACR) 04/01/2025 Diabetes: Blood Sugar Control Test (HGBA1C) 04/01/2025 Hypertension/CHF/CAD Annual BMP Blood Test 04/01/2025 DTaP,Tdap,and Td Vaccines (4 - Td or Tdap) 06/18/2033 06/18/2023, 11/16/2013, 02/22/2009 COVID-19 Vaccine Completed 11/16/2024, , 12/12/2021, Additional history exists Influenza Vaccine Completed 11/16/2024, , 09/08/2022, Additional history exists Pneumococcal Vaccine: 50+ Years Completed 11/16/2024, 12/07/2012, 01/13/2010 Pneumococcal Vaccine: Pediatrics (0 to 5 Years) and At-Risk Patients (6 to 64 Years) Completed 11/16/2024, 12/07/2012, 01/13/2010 HIB Vaccines Aged Out No longer eligi [...] to complete this topic RSV Immunization Patients Under 20 months Aged Out No longer eligible based on patient's age to complete this topic Varicella Vaccines Aged Out No longer eligible based on patient's age to complete this topic Insurance [place] - [place] [employer] MEDICARE Member Subscriber Plan / Payer (Ef fective 2017-Present) Name:SHE CHEEK Relation to Subscriber:Self Name:She Cheek Payer ID:[id number] Group ID:[id number] Type:Not on file Address: [address] [place] [address] Care Teams Aircraft Instrument Tester Relationship Specialty Start Date End Date Mamie Townsend MD [address] [place] [phone] PCP - General Internal Medicine 05/20/18
== END 2025-04-08 10:50 | disposition home or self-care (01) ==
LOC: HO.PMC 10:12
PROVIDERS: PCP Internal Medicine; Visit Provider Nurse Practitioner Family
DX: M47.816 Spondylosis without myelopathy or radiculopathy, lumbar region (principal); M54.16 Radiculopathy, lumbar region; M51.369 Other intervertebral disc degeneration, lumbar region without mention of lumbar back pain or lower extremity pain; M25.78 Osteophyte, vertebrae; M53.3 Sacrococcygeal disorders, not elsewhere classified; M25.551 Pain in right hip; M25.552 Pain in left hip
CPT/HCPCS: 99214; G2211

== ENCOUNTER → 2025-04-08 10:12 | Outpatient (BNVA) | payer OTHER, SELFPAY | PROVIDERS: PCP Internal Medicine; Visit Provider Nurse Practitioner Family | DX: M47.26 Other spondylosis with radiculopathy, lumbar region (principal); M51.369 Other intervertebral disc degeneration, lumbar region without mention of lumbar back pain or lower extremity pain; M25.78 Osteophyte, vertebrae; M53.3 Sacrococcygeal disorders, not elsewhere classified; M25.551 Pain in right hip; M25.552 Pain in left hip; M47.816 Spondylosis without myelopathy or radiculopathy, lumbar region | CPT/HCPCS: 99212 ==

== ENCOUNTER 2025-04-14 07:36 | Outpatient (REF) | payer OTHER, SELFPAY ==
--- NOTE | ~2025-04-14 | XR_ITS ---
EXAMINATION: XR BILATERAL HIPS WITH AP PELVIS CLINICAL INFORMATION: M53.3 - Sacrococcygeal disorders, not elsewhere classified COMPARISON: None available. TECHNIQUE: AP view of the pelvis and 2 views of each hip were obtained. FINDINGS: No fracture, dislocation, or suspicious bone lesion. There is normal alignment of both hip joints. No loss of joint space. Minimal superolateral acetabular spurring is present. There is mild over coverage of the posterior acetabula on both sides, finding which can be associated with pincer-type CEFERINO. Mild arthritis in both SI joints and lower lumbar spine. Sacrum is intact. There is mild calcific enthesopathy of the left hamstrings attachment. There is no soft tissue abnormality. XR/XR hip BI w PEL1V IMPRESSION: 1. No acute bony abnormalities of the pelvis or hips. 2. Mild degenerative arthritis in the hip joints bilaterally. See above. 3. Mild calcific enthesopathy of the left hamstrings attachment. Electronically signed by: Abdulaziz Downs MD 04/14/2025 02:29 PM EDT
== END 2025-04-14 07:37 | disposition home or self-care (01) ==
LOC: HO.LAB 07:36
PROVIDERS: PCP Internal Medicine; Visit Provider Nurse Practitioner Family
DX: M53.3 Sacrococcygeal disorders, not elsewhere classified (principal); M25.551 Pain in right hip; M25.552 Pain in left hip
CPT/HCPCS: 73521

== ENCOUNTER → 2025-04-14 07:40 | Outpatient (BNV) | payer OTHER, SELFPAY | PROVIDERS: PCP Internal Medicine; Visit Provider Radiology Diagnostic Radiology | DX: M53.3 Sacrococcygeal disorders, not elsewhere classified (principal) | CPT/HCPCS: 73521 ==

== ENCOUNTER 2025-04-20 08:00 | Outpatient (AMB) | payer OTHER, SELFPAY ==
--- OUTSIDE RECORDS SUMMARY | 2025-04-20 08:03 | XMS_ITS | Clinical Summary ---
Author Organization 175 [facility] Address 175 [place] [address] Phone Care Team Providers Care Resident Physician Name Role Phone Mamie Townsend MD Primary Care Provider Encounters Date Type Department Care Team Description 04/01/2025 9:00 AM EDT Office Visit Orthopedic [facility] [address] [phone] Jim Ferreira DPM Tendinitis of [...] Upcoming Encounters Date Type Department Care Team ([facility] st Contact Info) Description 05/05/2025 8:15 AM EDT Office Visit Orthopedic [facility] [address] [phone] Jim Ferreira DPM [address] [address] Health Maintenance Due Date Last Done Comments [...] Group ID:[id number] Type:Not on file Address: [address] [place] [address] Care Teams Resident Physician Relationship Specialty Start Date End Date Mamie Townsend MD [address] [place] [phone] PCP - General Internal Medicine 05/20/18
[2025-04-20 08:23] VITALS: BP 130/100; PULSE 77; O2SAT 96; BMI 48.8
--- NOTE | 2025-04-20 08:23 | A.OFFVIS_ITS ---
Vital Signs 3 04/20/25 08:23 Height 5 ft Weight 250 lb BMI 48.8 BP 130/100 H Blood Pressure Location Rt brachial Position Sitting Pulse 77 Pulse Source Pulse Oximeter Pulse Oximetry (%) 96 Oxygen Delivery Method Room Air Intake Visit Reasons: Follow up Melt Room Operator Required: No Accompanied by: Self / Same As Patient Allergies insulin lispro Allergy (Severe, Verified 04/21/25 11:08) tongue swelling meloxicam Allergy (Severe, Verified 04/21/25 11:08) Anaphylaxis simvastatin Allergy (Severe, Verified 04/21/25 11:08) Difficulty Swallowing amlodipine Allergy (Intermediate, Verified 04/21/25 11:08) lip swelling butalbital Allergy (Intermediate, Verified 04/21/25 11:08) lip, tongue, mouth swelling clindamycin Allergy (Intermediate, Verified 04/21/25 11:08) Angioedema losartan Allergy (Intermediate, Verified 04/21/25 11:08) Angioedema oxycodone [From Percocet] Allergy (Mild, Verified 04/21/25 11:08) Hives ibuprofen [From Motrin] Allergy (Verified 04/21/25 11:08) Hives lisinopril Allergy (Verified 04/21/25 11:08) Swelling Penicillins Allergy (Verified 04/21/25 11:08) Hives raspberry Allergy (Verified 04/21/25 11:08) Hives Medication List - Last Reconciled 04/20/25 by [employer]SCAR Cooper [Adult Protective Underwear As directed] albuterol sulfate 90 mcg/actuation inhalation ascorbate calcium (vitamin C) 500 mg PO DAILY 30 days baclofen 10 mg PO BEDTIME PRN 90 days carboxymethylcellulose sodium 0.5% 1 drp ophthalmic (eye) BID-QID PRN cholecalciferol (vitamin D3) 25 mcg PO DAILY clotrimazole-betamethasone 1-0.05 % appl topical desvenlafaxine succinate ER 25 mg PO DAILY desvenlafaxine succinate ER (Pristiq) 100 mg PO DAILY docusate sodium (Colace) 100 - 200 mg (1 - 2 x 100 mg) PO DAILY PRN 30 days dulaglutide (Trulicity) mg subcut empagliflozin (Jardiance) 25 mg PO DAILY epinephrine 0.3 mL IM ONCE flash glucose scanning reader ([employer] Griffin 14 Day [place]) As directed flash glucose sensor (FreeStyle Griffin 14 Day Sensor kit) As directed fluticasone propionate 50 mcg/actuation 1 spray intranasal DAILY FreeStyle Lite Strips (blood sugar diagnostic) USE TO CHECK BLOOD SUGAR TWICE A DAY NS gabapentin 600 mg PO TID galcanezumab-gnlm (Emgality Pen) 120 mg subcut ONCE 30 days hydroxyzine HCl 10 mg PO TID PRN 30 days insulin degludec (Tresiba FlexTouch U-200 insulin) units subcut lancets (FreeStyle Lancets) As directed levomefolate calcium (L-Methylfolate) 15 mg PO DAILY loratadine 10 mg PO DAILY nystatin 1 appl topical QID omeprazole 40 mg PO DAILY pen needle, diabetic (Unifine Pentips) USE TO INJECT TWICE A DAY pravastatin 80 mg PO DAILY prazosin mg PO [single prong cane As directed] tirzepatide (Mounjaro) 12 mg subcut ubrogepant (Ubrelvy) 50 - 100 mg (0.5 - 1 x 100 mg) PO ONCE PRN 30 days valsartan (Diovan) 160 mg PO DAILY zolpidem 10 mg PO BEDTIME PRN HPI Comments Details: 54-yr-old female presents for f/u of migraine and CECILIA. Pt reports she has been having increased back pain, seeing [facility] pain managem[facility]- may need to see neurosurgery. Scheduled for lumbar MRI next week. Working w/ endo on weight diabetes control- on Mounjaro - but has had increased weight gain. Psychiatry increased her gabapentin for anxiety. Pt continues to have a daily to every other day headache, of which 75% are migraine. She started Emgality last year, but now does not seem to be helpful. She states the Ubrelvy w/ Tylenol 3000mg (every other day) helps take the edge off, but not fully. Tries to take it at the first sign of the head pressure. Uses Tylenol for othe rpain as well. Moderate to severe bilateral pressure from back to front, a/w photophobia, phonophobia, nausea, not right in space dizziness when she removes her glasses during a headache, cognitive difficulties, activity intolerance. Usually occurs during the day. States RLS vary- depending on the day. Taking ferorus sulfate w/ vitamin C- tolerating well. Last ferritin was 10, in 2023. 03/15/24, In-lab PSG Sleep study w/ split night PAP titration showed moderate sleep apnea, w/ severe sleep apnea in REM sleep- AHI 21/hr, REM AHI 50/hr, O2 stephany 83%, PLMS 42.8/hr w/ PLMS arousal index 10.4/hr. Sleep apnea and nocturanl hypoxemia responded best to CPAP 13 cmH2O. Started CPAP 13 cmH2O. States she is sleeping better since starting to use CPAP w/ use. [facility] Medical History History of mammogram (~08/10/24) Hyperlipidemia LDL goal <70 Type 2 diabetes mellitus with hemoglobin A1c goal of less than 7.0% Carpal tunnel syndrome Cluster headache syndrome, intractable Morbid obesity with BMI of 40.0-44.9, adult Allergic rhinitis Migraine GERD (gastroesophageal reflux disease) Fibromyalgia Bipolar disorder PTSD (post-traumatic stress disorder) Arthritis Elevated cholesterol Sleep apnea HTN (hypertension) Encounter to establish care History of kidney stones History of alcohol abuse Surgical History History of colonoscopy (~08/21/22) History of tonsillectomy History of hysterectomy Family History Father Hypertension Diabetes Mother Asthma Family/Other Substance use disorder Mental health disorder Sister No problems noted. Brother No problems noted. Son No problems noted. 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 Cognitive needs: Yes (cane ) Hearing needs: No Vision needs: Yes (glasses ) Physical Exam Vital Signs: Last Vital Signs Pulse 77 04/20/25 08:23 BP 130/100 H 04/20/25 08:23 Pulse Ox 96 04/20/25 08:23 Oxygen Delivery Method Room Air 04/20/25 08:23 BMI result Body Mass Index 48.8 Const General: cooperative and no acute distress Orientation/consciousness: patient oriented x3 Resp Effort & Inspection: normal respiratory effort and able to speak in complete sentences Neuro Other: slow to rise, steady antalgic gait w/ cane General: patient oriented x3 and moves all extremities Cranial nerves: Yes CN's II-XII intact bilaterally Cognition (Neuro): normal cognition Psych Appearance: grossly normal Mental Status: mental status grossly normal Speech and movement: Normal speech and movement present Affect: normal affect Attitude: cooperative Assessment & Plan Assessment & Plan (1) Migraine without aura: Code(s): G43.009 - Migraine without aura, not intractable, without status migrainosus Category: Medical Qualifiers: Intractability: not intractable Status migrainosus presence: without status migrainosus Qualified Code(s): G43.009 - Migraine without aura, not intractable, without status migrainosus (2) Hypoferremia: Code(s): E61.1 - Iron deficiency Category: Medical (3) Moderate obstructive sleep apnea: Comment: Not utilizing CPAP due to recurrent epistaxis and intermittent episodes of right ear pain Code(s): G47.33 - Obstructive sleep apnea (adult) (pediatric) Category: Medical (4) Periodic limb movements of sleep: Code(s): G47.61 - Periodic limb movement disorder Category: Medical Plan For CECILIA: Resume CPAP- will try lower pressure and heating tubing in hopes this imrpoves tolerance. Stop CPAP 13 cmH2O nightly > 4 hrs, as pt did not tolerate it- dry nose, bloody nose. Start CPAP 4 cmH2O w/ EPR to need, nightly > 4 hours, w/ heating tubing and humidifier. Also try using an OTC saline moisturizing nasal spray. For RLS/PLMS: Continue ferrous gluconate w/ vitamin C Check f/u labs today ? For acute migraine without aura tx: Continue Ubrelvy 100mg prn. Previous tx trials- Previous tx's: Sumatriptan and Zolmitriptan- ineffective. Acute migraine treatment contraindications: Triptans due to uncontrolled hypertension. [place]arten d/t losartan allergy. Verapamil d/t amlodipine allergy. For prevention of migraine tx: Resume riboflavin 400 mg q.a.m. and magnesium 400 mg q.h.s. Discontinue Emgality- ineffective. Continue desvenlafaxine- ordered for mood. Start Atogepant (Qulipta) 60mg daily at bedtime. Potential side effects include but are not limited to drowsiness, nausea, constipation, weight loss. Previous tx trials- Topiramate x's > 8 weeks- ineffective. Emgality- ineffective. Migraine prevention treatment contraindications: Beta-blockers due to insulin- dependent diabetes. Medications: New 2 magnesium oxide may hold for loose stools 400 mg PO BEDTIME 30 tabs 6RF 30 days atogepant (Qulipta) 60 mg PO BEDTIME 30 tabs 6RF 30 days riboflavin (vitamin B2) 400 mg PO DAILY 30 tabs 6RF 30 days Discontinued 2 galcanezumab-[facility] Maintenance dose of 120 mg subcu q.month. Discontinued Reason: Doctor's Order 120 mg subcut ONCE 30 days 1 mL 6RF Coding Level of Care Code Est Pt Level 4 (21674) Diagnoses Migraine without aura and without status migrainosus, not intractable G43.009 Intractability: not intractable Status migrainosus presence: without status migrainosus Hypoferremia E61.1 Moderate obstructive sleep apnea G47.33 Periodic limb movements of sleep G47.61
== END 2025-04-20 09:26 | disposition home or self-care (01) ==
LOC: HO.HSMS 08:00
PROVIDERS: PCP Internal Medicine; Visit Provider Nurse Practitioner Family
DX: G43.009 Migraine without aura, not intractable, without status migrainosus (principal); E61.1 Iron deficiency; G47.33 Obstructive sleep apnea (adult) (pediatric); G47.61 Periodic limb movement disorder
CPT/HCPCS: 99214

== ENCOUNTER → 2025-04-20 08:00 | Outpatient (BNVA) | payer OTHER, SELFPAY | PROVIDERS: PCP Internal Medicine; Visit Provider Nurse Practitioner Family | DX: G43.009 Migraine without aura, not intractable, without status migrainosus (principal); G47.33 Obstructive sleep apnea (adult) (pediatric); E61.1 Iron deficiency; G47.61 Periodic limb movement disorder | CPT/HCPCS: 99212 ==

== ENCOUNTER 2025-04-21 10:24 | Outpatient (AMB) | payer OTHER, SELFPAY ==
--- OUTSIDE RECORDS SUMMARY | 2025-04-21 11:03 | XMS_ITS | Clinical Summary ---
Author Organization 175 [facility] Address [address] [place] [address] Phone Care Team Providers Care Airframe And Power Plant Mechanic Name Role Phone Mamie Townsend MD Primary Care Provider Encounters Date Type Department Care Team Description 04/01/2025 9:00 AM EDT Office Visit Orthopedic [facility] [address] [phone] Jim Ferreira DPM Tendinitis of [...] Upcoming Encounters Date Type Department Care Team ([facility] st Contact Info) Description 05/05/2025 8:15 AM EDT Office Visit Orthopedic [facility] [address] [phone] Jim Ferreira DPM [address] [address] Health Maintenance Due Date Last Done Comments [...] Group ID:[id number] Type:Not on file Address: [address] [place] [address] Care Teams Airframe And Power Plant Mechanic Relationship Specialty Start Date End Date Mamie Townsend MD [address] [place] [phone] PCP - General Internal Medicine 05/20/18
--- NOTE | 2025-04-21 11:04 | A.OFFVIS_ITS ---
Vital Signs 04/21/25 11:05 Height 5 ft Weight 250 lb BMI 48.8 Intake Visit Reasons: O/V S/P RT CTR 05/11/24 AR Intake Note: Marylin is a 53 year old right hand dominant female who presents today s/p Right Carpal Tunnel Release 05/11/24. States she is having numbness and tingling again. States CTS started up again 4 months s/p CTR. Allergies insulin lispro Allergy (Severe, Verified 04/21/25 11:08) tongue swelling meloxicam Allergy (Severe, Verified 04/21/25 11:08) Anaphylaxis simvastatin Allergy (Severe, Verified 04/21/25 11:08) Difficulty Swallowing amlodipine Allergy (Intermediate, Verified 04/21/25 11:08) lip swelling butalbital Allergy (Intermediate, Verified 04/21/25 11:08) lip, tongue, mouth swelling clindamycin Allergy (Intermediate, Verified 04/21/25 11:08) Angioedema losartan Allergy (Intermediate, Verified 04/21/25 11:08) Angioedema oxycodone [From Percocet] Allergy (Mild, Verified 04/21/25 11:08) Hives ibuprofen [From Motrin] Allergy (Verified 04/21/25 11:08) Hives lisinopril Allergy (Verified 04/21/25 11:08) Swelling Penicillins Allergy (Verified 04/21/25 11:08) Hives raspberry Allergy (Verified 04/21/25 11:08) Hives HPI HPI O/V S/P RT CTR 05/11/24 AR: Details: Marylin is a 53 year old right hand dominant woman who returns with complaints of recurrent right hand numbness. She is S/P right carpal tunnel release, DOS: 05/11/24. She says she had sensation return to normal in her right hand following her right carpal tunnel surgery. She says she developed a sudden onset of numbness primarily in her right thumb & middle finger, ~4 months ago. She also feels like she gets numbness in the skin over the 2nd and 3rd A1 pulleys in the thenar aspect of the thumb. She also complains of a shooting pain radiating from her elbow, down her forearm and into her hand. She uses her cane in her right hand, and says her use has not changed. She says she does a large amount of craft projects, including art and woodworking. She sees Pain Management for lumbar radiculopathy, and Rheumatology for Fib romyalgia. She has CECILIA and Diabetes, with her most recent Hemoglobin A1c being 7.2% on 01/28/24. She is unemployed and is on disability due to mental health concerns. She has PTSD, depression, Bipolar disorder, and anxiety. She says she has a [employer] ENGINE[employer] to help her at home [facility] Medical History History of mammogram (~08/10/24) Hyperlipidemia LDL goal <70 Type 2 diabetes mellitus with hemoglobin A1c goal of less than 7.0% Carpal tunnel syndrome Cluster headache syndrome, intractable Morbid obesity with BMI of 40.0-44.9, adult Allergic rhinitis Migraine GERD (gastroesophageal reflux disease) Fibromyalgia Bipolar disorder PTSD (post-traumatic stress disorder) Arthritis Elevated cholesterol Sleep apnea HTN (hypertension) Encounter to establish care History of kidney stones History of alcohol abuse Surgical History History of colonoscopy (~08/21/22) History of tonsillectomy History of hysterectomy Family History Father Hypertension Diabetes Mother Asthma Family/Other Substance use disorder Mental health disorder Sister No problems noted. Brother No problems noted. Son No problems noted. 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 Normal sensation to the index, ring, and small fingers today in clinic No intrinsic or thenar wasting. Vascular: Cap refill brisk ROM: She can make a fist and extend all her digits Nerve Conduction Study: Impression: Mild-moderate right carpal tunnel syndrome Normal left side Normal EMG of the right C5-T1 innervated muscles Dr. Yanez 04/10/23 Psych Appearance: grossly normal Affect: normal affect Attitude: cooperative Assessment & Plan Assessment & Plan (1) Diabetes mellitus type 2 in obese: Code(s): E11.69 - Type 2 diabetes mellitus with other specified complication; E66.9 - Obesity, unspecified Category: Medical (2) Fibromyalgia syndrome: Code(s): M79.7 - Fibromyalgia Category: Medical (3) Numbness of right hand: Code(s): R20.0 - Anesthesia of skin Category: Medical Plan Assessment & Plan: 1. Right hand numbness, X4 months In the median nerve distribution Dense numbness to the thumb & middle finger S/P carpal tunnel release, DOS: 05/11/24 Pre-operative symptoms intermittent, but daily, worse at night and with activity Post-operatively with normal sensation and good resolution of her nighttime symptoms. Recurrent numbness in the right thumb & middle finger in ~12/2024. I ordered a new NCS to assess for peripheral nerve compression She will follow up sometime late May for review 2. Left hand numbness Normal on NCS from 04/10/23 Symptoms intermittent & occasional, worse with activity & at night No complaints today 3. Bilateral basal joint pain Symptoms worse with activity 4. Vesicular rash on the right middle & small fingers Resolved Scribed for Bonnie Segura MD by paola Reyes, on 04/21/25 at 11:15 AM, EST. Orders: Orders NE electromyogram (EMG) Today R20.0 - Anesthesia of skin, R20.2 - Paresthesia of skin NE nerve conduction velocity Today R20.0 - Anesthesia of skin, R20.2 - Paresthesia of skin Scribe Plan - Not visible on output: Scribed for Bonnie Segura MD by paola Reyes scribe, on [ ] at [ ], EST. Coding Level of Care Code Est Pt Level 4 (49705) Diagnoses Diabetes mellitus type 2 in obese E11.69; E66.9 Fibromyalgia syndrome M79.7 Numbness of right hand R20.0
[2025-04-21 11:05] VITALS: BMI 48.8
== END 2025-04-21 11:29 | disposition home or self-care (01) ==
LOC: HO.HOS 10:25
PROVIDERS: PCP Internal Medicine; Visit Provider Orthopaedic Surgery
DX: E11.69 Type 2 diabetes mellitus with other specified complication (principal); E66.9 Obesity, unspecified; M79.7 Fibromyalgia; R20.0 Anesthesia of skin
CPT/HCPCS: 99214

== ENCOUNTER → 2025-04-21 10:24 | Outpatient (BNVA) | payer OTHER, SELFPAY | PROVIDERS: PCP Internal Medicine; Visit Provider Orthopaedic Surgery | DX: R20.0 Anesthesia of skin (principal); R20.2 Paresthesia of skin; M79.7 Fibromyalgia; E11.69 Type 2 diabetes mellitus with other specified complication; E66.9 Obesity, unspecified; Z68.42 Body mass index [BMI] 45.0-49.9, adult; Z98.890 Other specified postprocedural states | CPT/HCPCS: 99212 ==

== ENCOUNTER → 2025-04-28 17:36 | Outpatient (BNV) | payer OTHER, SELFPAY | PROVIDERS: PCP Internal Medicine; Visit Provider Radiology Diagnostic Radiology | DX: M51.16 Intervertebral disc disorders with radiculopathy, lumbar region (principal); M48.061 Spinal stenosis, lumbar region without neurogenic claudication | CPT/HCPCS: 72148 ==

== ENCOUNTER 2025-04-28 17:41 | Outpatient (REF) | payer OTHER, SELFPAY ==
--- NOTE | ~2025-04-28 | MR_ITS ---
CLINICAL HISTORY: M54.16 - Radiculopathy, lumbar region Pain radiates to both hips, left leg pain an d left foot numb x 1 year MR lumbar spine with and without gadolinium Comparison: None Findings: No plain films are available for comparison. Thus, for numbering purposes, 5 lumbar type vertebral bodies will be presumed. This should be confirmed with plain films prior to any lumbar spinal intervention.5 mm of anterolisthesis of L4 on L5. No acute fracture or pathologic bone lesion. Moderate reactive signal within the endplates adjacent to the L4-L5 intervertebral disc. Mild reactive signal within the endplates adjacent to the L5-S1 intervertebral disc. Cauda equina and conus medullaris within normal limits. Paraspinous musculature intact. Incompletely visualized left renal cyst measuring at least 38 mm within the superior pole. Sagittal sequences only demonstrate disc bulge and ligamentum flavum hypertrophy, at T10-T11, causing azrv-in-wtxupiao canal stenosis. L1-L2: Mild disc height loss and desiccation. Mild diffuse disc bulge. Mild facet and ligamentum flavum hypertrophy. Mild epidural lipomatosis. Mild canal stenosis. No foraminal stenosis. L2-L3:Mild disc desiccation and diffuse disc bulge. Mild facet and ligamentum flavum hypertrophy. Mild epidural lipomatosis. Mild canal stenosis. No foraminal stenosis. L3-L4:Mild disc desiccation and diffuse disc bulge. Moderate facet and ligamentum flavum hypertrophy. Mild epidural lipomatosis. Mild canal stenosis. No foraminal stenosis. L4-L5: Severe disc height loss and desiccation. Mild diffuse disc bulge with superimposed broad-based right paracentral protrusion. Moderate bilateral facet hypertrophy. Mild ligamentum flavum hypertrophy and epidural lipomatosis. Mild canal stenosis. No foraminal stenosis. L5-S1:Moderate disc desiccation. Mild diffuse disc bulge. Moderate bilateral facet hypertrophy. Mild canal stenosis. Mild bilateral foraminal stenosis. IMPRESSION: 1. Multilevel degenerative disc and facet disease, as well as ligamentum flavum hypertrophy. 2. Mild multilevel canal and foraminal stenoses. No neural impingement. This document has been electronically signed by: Elijah Sanchez MD on 04/28/2025 18:48:03
--- OUTSIDE RECORDS SUMMARY | 2025-04-28 18:26 | XMS_ITS | Clinical Summary ---
Author Organization 175 [facility] Address 175 [place] [address] Phone Care Team Providers Care Pneumatic Tool Operator Name Role Phone Mamie Townsend MD Primary Care Provider Encounters Date Type Department Care Team Description 04/01/2025 9:00 AM EDT Office Visit Orthopedic [facility] [address] [phone] Jim Ferreira DPM Tendinitis of [...] Upcoming Encounters Date Type Department Care Team ([facility] st Contact Info) Description 05/05/2025 8:15 AM EDT Office Visit Orthopedic [facility] [address] [phone] Jim Ferreira DPM [address] [address] Health Maintenance Due Date Last Done Comments [...] Group ID:ICO Type:Not on file Address: [address] [place] [address] Care Teams Pneumatic Tool Operator Relationship Specialty Start Date End Date Mamie Townsend MD [address] [place] [phone] PCP - General Internal Medicine 05/20/18
== END 2025-04-28 17:42 | disposition home or self-care (01) ==
LOC: HO.MRI 17:41
PROVIDERS: PCP Internal Medicine; Visit Provider Nurse Practitioner Family
DX: M54.16 Radiculopathy, lumbar region (principal); M47.816 Spondylosis without myelopathy or radiculopathy, lumbar region; M51.369 Other intervertebral disc degeneration, lumbar region without mention of lumbar back pain or lower extremity pain; M25.78 Osteophyte, vertebrae
CPT/HCPCS: 72148

== ENCOUNTER 2025-05-10 08:40 | Outpatient (AMB) | payer OTHER, SELFPAY ==
--- NOTE | 2025-05-10 08:44 | A.OFFVIS_ITS ---
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 Accompanied by: Self / Same As Patient Allergies insulin lispro Allergy (Severe, Verified 05/10/25 08:50) tongue swelling meloxicam Allergy (Severe, Verified 05/10/25 08:50) Anaphylaxis simvastatin Allergy (Severe, Verified 05/10/25 08:50) Difficulty Swallowing amlodipine Allergy (Intermediate, Verified 05/10/25 08:50) lip swelling butalbital Allergy (Intermediate, Verified 05/10/25 08:50) lip, tongue, mouth swelling clindamycin Allergy (Intermediate, Verified 05/10/25 08:50) Angioedema losartan Allergy (Intermediate, Verified 05/10/25 08:50) Angioedema oxycodone (From Percocet) Allergy (Mild, Verified 05/10/25 08:50) Hives ibuprofen (From Motrin) Allergy (Verified 05/10/25 08:50) Hives lisinopril Allergy (Verified 05/10/25 08:50) Swelling Penicillins Allergy (Verified 05/10/25 08:50) Hives raspberry Allergy (Verified 05/10/25 08:50) Hives HPI Comments Details: The patient is a 54-year-old female presenting with chronic back and left leg pain and to discuss recent lumbar spine MRI results. She has a history of multilevel degenerative disc disease and osteophyte formation, contributing to axial low back and discogenic pain and radicular symptoms. The pain primarily affects her lower back and radiates down the left leg posteriorly, wrapping around to the top of her foot with associated shooting, numbness, and tingling sensations. Denies weakness, bowel dysfuntion or saddle anesthesia, except chronic urinary incontinence for which she has been referred to Urology at previous visit. Bending forward exacerbates her pain, and prolonged sitting increases discomfort. She has undergone procedures, including left L5-S1 transforaminal epidural steroid injections, which provided no pain relief with recent JANN injection due to osteophytes impacting left L5 nerve root. MRI findings were discussed with patient today, report is noted below. Additionally, the patient has mild hip arthritis, which may contribute to her leg pain. She is on medications including baclofen, gabapentin, magnesium, and vitamin B2 for migraine and back management. Patient is actively working on weight loss through dietary modifications, trying to increase daily physical activity which is limited by back pain, and Mounjaro injections. PRIOR: The patient is a 54-year-old female presenting for follow-up after receiving a left L5-S1 transforaminal epidural steroid injection one month ago to manage chronic low back pain with radiculopathy. Per Dr. Rahman's procedures notes, a Left L5 TFESI was performed with limited epidural access due to presence of an osteophyte in the needle path. The injection, targeting the left side where there had been previous identification of a disc protrusion contacting the left L5 nerve root, did not alleviate her symptoms. Her lumbar pain radiates to the left leg and is accompanied by bilateral hip pain, more severe on the left, which started two months ago and has been progressively worsening. The pain is described as stabbing and aching, worsening at night, significantly impacting her sleep and daily activities. Overall, she reports that the pain persists despite past interventions, including radiofrequency ablation and knee injections. She has degenerative disc disease accompanied by osteophytes complicating procedural approaches. Additionally, she manages diabetes with recent improvements in her glycemic control and experiences urinary incontinence that needs further urological assessment. Her attempts to manage pain pharmacologically with gabapentin for anxiety and baclofen have been mostly ineffective. - Onset and Timing: Chronic low back pain with radiculopathy; hip pain began 2 months ago. - Quality and Character: Described as stabbing and aching; persistent, including during the night. - Primary Location: Low back; hip pain more severe on the left side. - Radiation: Pain extends from the back to the left leg; hip pain radiates ar ound the groin. - Exacerbating Factors: Movement such as getting out of bed, car, and internal rotation. - Relieving Factors: None reported effective; currently exploring different bed arrangements. - Interference with Activities: Notably interrupts sleep; difficulty with mobility; requires cane use; constantly present during the day. - Affect: Constant pain impacts daily life and sleep. - Analgesia: Baclofen and gabapentin provide minimal relief; the goal remains improved pain control. - Adverse Effects: Experience of hives from opioids and anaphylaxis from meloxicam. - Activities of Daily Living: Pain hinders sleeping, mobility, routine activities such as getting out of bed. - Aberrant Drug Related Behaviors: None reported; adheres to prescribed medication regime. - Adverse Effects: Allergic reaction to NSAIDs (anaphylactic reaction) Past Procedures: 03/11/25: Left L5 TFESI-0% pain relief 12/09/23: Left knee Durolane injection-Dr. Schmitt-good relief 09/02/23: Left knee steroid injection-Dr. Schmitt, good short term relief, 4-6 weeks 08/07/23: Bilateral L3-L4-L5 Medial Branch RFA -75% ongoing pain relief 05/08/23: Repeat Diagnostic Bilateral L3-L4 DR L5 MBB-98% pain relief for 2 days 03/20/23: Diagnostic Bilateral L3-L4 DR L5 MBB-75% pain relief for 2 says 06/06/23: Left knee steroid injection-Dr. Schmitt, short term relief 03/07/24: Left knee steroid injection-Dr. Schmitt, short term relief 08/15/22: Left saphenous nerve Sprint PNS ? 95% relief for 6 months [facility] Medical History History of mammogram (~08/10/24) Hyperlipidemia LDL goal <70 Type 2 diabetes mellitus with hemoglobin A1c goal of less than 7.0% Carpal tunnel syndrome Cluster headache syndrome, intractable Morbid obesity with BMI of 40.0-44.9, adult Allergic rhinitis Migraine GERD (gastroesophageal reflux disease) Fibromyalgia Bipolar disorder PTSD (post-traumatic stress disorder) Arthritis Elevated cholesterol Sleep apnea HTN (hypertension) Encounter to establish care History of kidney stones History of alcohol abuse Surgical History History of colonoscopy (~08/21/22) History of tonsillectomy History of hysterectomy Family History Father Hypertension Diabetes Mother Asthma Family/Other Substance use disorder Mental health disorder Sister No problems noted. Brother No problems noted. Son No problems noted. 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 Alert and oriented. Mood and affect appropriate. Follows and participates in conversation appropriately. Respiratory effort is unlabored. No cough. Able to transition from sit to stand unassisted. Ambulates with bilaterally normal heel strike and toe off, pain increase with left heel/toe standing. Neck Neck: Yes full ROM, Yes no lymphadenopathy, Yes supple, No anterior neck swelling, Yes no JVD and Yes prominent dorsocervical fat pad General: Yes no CVA tenderness Back/Spine/Pelvis Other: Limited lumbar ROM due to pain and body habitus. Demonstrates 5/5 right and 4/5 left strength of quadriceps bilaterally as well as flexion/dorsiflexion of bilateral feet against resistance. 2+ pedal pulses bilaterally. Straight leg rise with dorsiflexion positive on the left. Diminished patellar and achilles reflexes bilaterally. Facet loading test positive bilaterally. Dominique signs, Momo?s and Stinchfield tests are positive bilaterally. Mild right and moderate left groin pain with I/E hip rotations. Mild left groin pain with I/E hip rotations. Valsalva maneuver is negative. Back: no CVA tenderness Cervical Spine: cervical ROM normal, cervical muscular tenderness, pain with cervical ROM, No Cervical spine scars present, cervical spasm and No Cervical spine tenderness Thoracic/Lumbar Spine: thoracic and lumbar spine normal to inspection, Lasegue's sign positive on the left, pain with thoraco-lumbar ROM (mild), paraspinal muscle tenderness, thoraco-lumbar ROM limited, No thoracic spinal tenderness and lumbar spinal tenderness (L4-S1) Pelvis: buttock tenderness bilaterally Sacroiliac joints: bilaterally tender to palpation Extrem General: Yes capillary refill normal, Yes no clubbing, cyanosis or edema and Yes no calf tenderness Results Reviewed Results Reviewed: MR lumbar spine wo con 04/28/25 CLINICAL HISTORY: M54.16 - Radiculopathy, lumbar region Pain radiates to both hips, left leg pain and left foot numb x 1 year MR lumbar spine with and without gadolinium Comparison: None Findings: No plain films are available for comparison. Thus, for numbering purposes, 5 lumbar type vertebral bodies will be presumed. This should be confirmed with plain films prior to any lumbar spinal intervention.5 mm of anterolisthesis of L4 on L5. No acute fracture or pathologic bone lesion. Moderate reactive signal within the endplates adjacent to the L4-L5 intervertebral disc. Mild reactive signal within the endplates adjacent to the L5-S1 intervertebral disc. Cauda equina and conus medullaris within normal limits. Paraspinous musculature intact. Incompletely visualized left renal cyst measuring at least 38 mm within the superior pole. Sagittal sequences only demonstrate disc bulge and ligamentum flavum hypertrophy, at T10-T11, causing uilc-he-qqlfrxbl canal stenosis. L1-L2: Mild disc height loss and desiccation. Mild diffuse disc bulge. Mild facet and ligamentum flavum hypertrophy. Mild epidural lipomatosis. Mild canal stenosis. No foraminal stenosis. L2-L3:Mild disc desiccation and diffuse disc bulge. Mild facet and ligamentum flavum hypertrophy. Mild epidural lipomatosis. Mild canal stenosis. No foraminal stenosis. L3-L4:Mild disc desiccation and diffuse disc bulge. Moderate facet and ligamentum flavum hypertrophy. Mild epidural lipomatosis. Mild canal stenosis. No foraminal stenosis. L4-L5: Severe disc height loss and desiccation. Mild diffuse disc bulge with superimposed broad-based right paracentral protrusion. Moderate bilateral facet hypertrophy. Mild ligamentum flavum hypertrophy and epidural lipomatosis. Mild canal stenosis. No foraminal stenosis. L5-S1:Moderate disc desiccation. Mild diffuse disc bulge. Moderate bilateral facet hypertrophy. Mild canal stenosis. Mild bilateral foraminal stenosis. IMPRESSION: 1. Multilevel degenerative disc and facet disease, as well as ligamentum flavum hypertrophy. 2. Mild multilevel canal and foraminal stenoses. No neural impingement. XR BILATERAL HIPS WITH AP PELVIS 04/14/25 CLINICAL INFORMATION: M53.3 - Sacrococcygeal disorders, not elsewhere classified COMPARISON: None available. TECHNIQUE: AP view of the pelvis and 2 views of each hip were obtained. FINDINGS: No fracture, dislocation, or suspicious bone lesion. There is normal alignment of both hip joints. No loss of joint space. Minimal superolateral acetabular spurring is present. There is mild over coverage of the posterior acetabula on both sides, finding which can be associated with pincer-type CEFERINO. Mild arthritis in both SI joints and lower lumbar spine. Sacrum is intact. There is mild calcific enthesopathy of the left hamstrings attachment. There is no soft tissue abnormality. IMPRESSION: 1. No acute bony abnormalities of the pelvis or hips. 2. Mild degenerative arthritis in the hip joints bilaterally. See above. 3. Mild calcific enthesopathy of the left hamstrings attachment. Assessment & Plan Assessment & Plan (1) Lumbar spondylosis: Code(s): M47.816 - Spondylosis without myelopathy or radiculopathy, lumbar region Category: Medical (2) Lumbar radiculopathy: Code(s): M54.16 - Radiculopathy, lumbar region Category: Medical (3) Degeneration of intervertebral disc of lumbar region with osteophyte of lumbar vertebra: Code(s): M51.369 - Other intervertebral disc degeneration, lumbar region without mention of lumbar back pain or lower extremity pain; M25.78 - Osteophyte, vertebrae Category: Medical (4) Sacroiliac joint pain: Code(s): M53.3 - Sacrococcygeal disorders, not elsewhere classified Category: Medical (5) Bilateral hip pain: Code(s): M25.551 - Pain in right hip; M25.552 - Pain in left hip Category: Medical (6) Chronic low back pain: Code(s): M54.50 - Low back pain, unspecified; G89.29 - Other chronic pain Category: Medical (7) Disc disease, degenerative, lumbar or lumbosacral: Code(s): M51.37 - Other intervertebral disc degeneration, lumbosacral region Category: Medical Plan The patient will be referred to our Neurosurgical team to evaluate the possibility of surgical intervention due to severe disc degeneration with persistent radiculopathy and osteophytes impacting left L5 nerve root. If surgery is not recommended, consideration will be given to a spinal cord stimulator trial to manage chronic pain. The patient will undergo a psychological evaluation as part of the spinal cord stimulator trial process. The patient is advised to maintain her diabetes management, aiming to keep her HbA1c at or below 7.0, especially if surgical intervention is considered. Weight loss efforts should continue, as they may alleviate some of the musculoskeletal symptoms. Current medications, including baclofen and gabapentin, will be continued to manage pain and associated symptoms. All questions and concerns have been answered and patient agreed with the plan. Follow up after Neurosurgery evaluation and sooner as needed. Patient was informed and verbally consented to the use of an ambient scribe for clinic note documentation during this visit. Orders: Referrals Neuro Spine Referral G89.29 - Other chronic pain, M25.78 - Osteophyte, vertebrae, M51.369 - Other intervertebral disc degeneration, lumbar region without mention of lumbar back pain or lower extremity pain, M51.37 - Other intervertebral disc degeneration, lumbosacral region, M54.16 - Radiculopathy, lumbar region, M54.50 - Low back pain, unspecified Patient Instructions: - Follow up with the Neurosurgical team as scheduled. - Continue diabetes management and aim to keep HbA1c at or below 7.0. - Maintain weight loss efforts to help alleviate symptoms. - Continue current medications as prescribed. - Await potential contact for psychological evaluation for spinal cord stimulator trial. Coding Level of Care Code Est Pt Level 4 (60739) Complex EM visit Add On G2211 Diagnoses Lumbar spondylosis M47.816 Lumbar radiculopathy M54.16 Degeneration of intervertebral disc of lumbar region with osteophyte of lumbar vertebra M51.369; M25.78 Sacroiliac joint pain M53.3 Bilateral hip pain M25.551; M25.552 Chronic low back pain M54.50; G89.29 Disc disease, degenerative, lumbar or lumbosacral M51.37
[2025-05-10 08:49] VITALS: BP 157/94; PULSE 74; O2SAT 98; BMI 48.1
== END 2025-05-10 09:13 | disposition home or self-care (01) ==
LOC: HO.PMC 08:41
PROVIDERS: PCP Internal Medicine; Visit Provider Nurse Practitioner Family
DX: M47.816 Spondylosis without myelopathy or radiculopathy, lumbar region (principal); M54.16 Radiculopathy, lumbar region; M51.369 Other intervertebral disc degeneration, lumbar region without mention of lumbar back pain or lower extremity pain; M25.78 Osteophyte, vertebrae; M53.3 Sacrococcygeal disorders, not elsewhere classified; M25.551 Pain in right hip; M25.552 Pain in left hip; M54.50 Low back pain, unspecified; G89.29 Other chronic pain; M51.37 Other intervertebral disc degeneration, lumbosacral region
CPT/HCPCS: 99214; G2211

== ENCOUNTER → 2025-05-10 08:40 | Outpatient (BNVA) | payer OTHER, SELFPAY | PROVIDERS: PCP Internal Medicine; Visit Provider Nurse Practitioner Family | DX: M47.816 Spondylosis without myelopathy or radiculopathy, lumbar region (principal); M54.16 Radiculopathy, lumbar region; M53.3 Sacrococcygeal disorders, not elsewhere classified; M51.369 Other intervertebral disc degeneration, lumbar region without mention of lumbar back pain or lower extremity pain; M25.551 Pain in right hip; M25.552 Pain in left hip; M54.50 Low back pain, unspecified; G89.29 Other chronic pain; M51.379 Other intervertebral disc degeneration, lumbosacral region without mention of lumbar back pain or lower extremity pain | CPT/HCPCS: 99212 ==

== ENCOUNTER 2025-05-17 08:42 | Outpatient (AMB) | payer OTHER, SELFPAY ==
--- OUTSIDE RECORDS SUMMARY | 2025-05-17 08:52 | XMS_ITS | Clinical Summary ---
Author Organization [address] [facility] Address [address] [place] [address] Phone Care Team Providers Care Dope Heater Name Role Phone Mamie Townsend MD Primary Care Provider Medications ketoconazole (NIZORAL) 2 % cream Apply topically 1 (one) time each day. 30 g 2 5 Active lidocaine (LIDODERM) 5 % patchIndications:D iabetic mononeuropathy simplex (CMS/HCC V24, CMS/HCC V28) Apply 1 patch topically 1 (one) time each day. Remove & discard patch within 12 hours or as directed by . 30 each 2 5 08/03/20 25 Active Encounters Date Type Department Care Team Description 05/05/2025 8:15 AM EDT Office Visit Orthopedic Surgery [facility] [address] [phone] Jim Ferreira DPM Pain, foot (Primary Dx); Tendinitis of left ankle; Tendinitis of right ankle; Diabetic mononeuropathy simplex (CMS/HCC V24, CMS/HCC V28); Tinea pedis of both feet 04/01/2025 9:00 AM EDT Office Visit Orthopedic [facility] [address] [phone] Jim Ferreira DPM Tendinitis of left ankle (Primary Dx); Tendinitis of right ankle; Diabetic mononeuropathy simplex (CMS/HCC V24, CMS/HCC V28) from Last 3 Months Social History Tobacco Use Types Packs/Day Years Used Date Smoking Tobacco: Never Assessed Comments Unknown Sex and Gender Information Value Date Recorded Sex Assigned at Female 05/05/2025 11:36 AM EDT Legal Sex Female 3:20 PM EST Gender Identity Female 05/05/2025 11:36 AM EDT Sexual Orientation Straight 05/05/2025 11 :36 AM EDT Last Filed Vital Signs Vital Sign Reading [...] Care Team (Late st Contact Info) Description 07/08/2025 9:00 AM EDT Office Visit Orthopedic Surgery - [place] [address] [phone] Jim Ferreira, DPM [address] [phone] Health Maintenance Due Date Last Done Comments [...] on patient's age to complete this topic Procedures Procedure Name Priority Date/Time Associated Diagnosis Comments XR FOOT 3+ VIEWS BILAT Routine 05/05/2025 8:05 AM EDT Pain, foot from Last 3 Months Results * XR Foot 3+ Views bilat (05/05/2025 8:05 AM EDT) Anatomical Region Laterality Modality Lower Extremities, Foot Bilateral Computed Radiography Narrative 05/05/2025 1:06 PM EDT Right foot 3 views No fracture. No radiopaque foreign joint spaces normal Foot position Pes planus with Talus navicular uncovering decreased calcaneal inclination anterior displaced symes line talus navicular joint to calcaneal cuboid joint Left foot 3 views No fracture. No radiopaque foreign joint spaces normal Foot position Pes planus with Talus navicular uncovering decreased calcaneal inclination anterior displaced symes line talus navicular joint to calcaneal cuboid joint Jim Ferreira DPM IMG XR PROCEDURES Final R esult from Last 3 Months Insurance MEDICAID - [place] [employer] MEDICARE Member Subscriber Plan / Payer ( fective 2017-Present) Name:SHE CHEEK Relation to Subscriber:Self Name:She Cheek Payer ID:[id number] Group ID:[id number] Type:Not on file Address: [facility] [address] [phone] Care Teams Dope Heater Relationship Specialty Start Date End Date Mamie Townsend MD [address] [place] [phone] PCP - General Internal Medicine 05/20/18
--- NOTE | 2025-05-17 08:56 | A.SPINEOV_ITS ---
Intake Visit Reasons: low back pain Intake Note: Ms. Cheek is here today c/o neck pain radiating down to low back. MRI done @ [facility] – [place]. Shook Splicer Required: No Allergies insulin lispro Allergy (Severe, Verified 05/10/25 08:50) tongue swelling meloxicam Allergy (Severe, Verified 05/10/25 08:50) Anaphylaxis simvastatin Allergy (Severe, Verified 05/10/25 08:50) Difficulty Swallowing amlodipine Allergy (Intermediate, Verified 05/10/25 08:50) lip swelling butalbital Allergy (Intermediate, Verified 05/10/25 08:50) lip, tongue, mouth swelling clindamycin Allergy (Intermediate, Verified 05/10/25 08:50) Angioedema losartan Allergy (Intermediate, Verified 05/10/25 08:50) Angioedema oxycodone (From Percocet) Allergy (Mild, Verified 05/10/25 08:50) Hives ibuprofen (From Motrin) Allergy (Verified 05/10/25 08:50) Hives lisinopril Allergy (Verified 05/10/25 08:50) Swelling Penicillins Allergy (Verified 05/10/25 08:50) Hives raspberry Allergy (Verified 05/10/25 08:50) Hives Assessment & Plan Assessment & Plan (1) Lumbar degenerative disc disease: Code(s): M51.369 - Other intervertebral disc degeneration, lumbar region without mention of lumbar back pain or lower extremity pain Category: Medical Plan Dear Urvashi, Thank you for referring Mrs Cheek to our office today. She is a very nice 54-year-old female presents to the office today for evaluation of pain in her low back that she has had for many years. It radiates out to the sides into the paraspinal areas and more recently has been radiating down to her left leg with numbness into the top of her foot. She has been through conservative management in the forms of physical therapy, medication trials including Tylenol, baclofen and gabapentin. She is allergic to anti-inflammatories. She underwent cortisone injections, and had good relief from an injection that was done by you last year. From the records it looks like that was a dorsal rami block L4-5 and radiofrequency of the median branch at L3-4. Her pain has been steadily escalating over the years. 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 The pain is present all throughout the day, even when she is sitting and lying down but worse when she gets up to do activities, very axial in nature. She comes in today for evaluation of severe degenerative disc disease at L4-5. She is being considered for a spinal cord stimulator if we do not think there is anything surgical. PMH: She has a history of bipolar, depression, PTSD, diabetes with an A1c around 7, sleep apnea, osteoarthritis of her left knee, carpal tunnel syndrome, cluster headaches, sleep apnea, overactive bladder, migraines, anemia, fibromyalgia, high cholesterol, obesity, sacroiliac pain, asthma, hysterectomy, carpal tunnel release and tonsillectomy. Denies any history of major systemic cardiac issues, pulmonary disease, liver or kidney disease. Does not report any history of cancer, blood clots, bleeding disorders, infections or major abdominal surgery. Social hx: She does not smoke, drink use any recreational drugs Medications: Does venlafaxine, omeprazole, pravastatin, Colace, loratadine, Flonase, vitamin D3, Ubrelvy,, Jardiance, Ambien, prazosin, insulin, Mounjaro, Qulipta, and magnesium Allergies: Please see the [employer] list Physical exam: Morbidly obese female, having a hard time standing upright without her cane, able to walk down the hallway very slowly. She has no focal motor deficit, but does have pain with activity and movement. Reflexes diminished at the patella and the Achilles. Imaging review: Lumbar MRI done at [place], compared to MRIs done in 2022 and x-rays done in 2021 show stable but progressive severe collapse of the disc space at L4-5. I do not see any evidence of nerve compression. Impression: 54-year-old female with chronic low back pain and paraspinal pain now radiating down her left leg with evidence of severe disc collapse at L4-5, Modic endplate changes that has been getting worse over the last 3 years based on the x-rays done in 2021. I think the rest of her discs look quite good and this would be a nice target for surgery. I think Dr. Fuentes would offer her an oblique lumbar interbody fusion, which would be the easiest approach given her body habitus. I will review the films with him and get back to her with a final plan. We did discuss the procedure in general, risks, benefits etc.. Success rate for the surgery is 60-70%. Once I have a chance to finalize everything with Dr. Fuentes I will get back to the patient. Thank you for allowing us to care for your patient. The total time spent with this visit with this patient was 45 minutes reviewing history, physical exam, lumbar imaging review, and implementation of treatment plan or further diagnostic testing Horace Fuentes MD,PhD [facility] Coding Level of Care Code New Pt Level 4 (22471) Diagnoses Lumbar degenerative disc disease M51.369
== END 2025-05-17 10:17 | disposition home or self-care (01) ==
LOC: HO.HNS 08:43
PROVIDERS: PCP Internal Medicine; Referring Provider Nurse Practitioner Family; Visit Provider Physician Assistant
DX: M51.369 Other intervertebral disc degeneration, lumbar region without mention of lumbar back pain or lower extremity pain (principal)
CPT/HCPCS: 99204

== ENCOUNTER → 2025-05-17 08:42 | Outpatient (BNVA) | payer OTHER, SELFPAY | PROVIDERS: PCP Internal Medicine; Referring Provider Nurse Practitioner Family; Visit Provider Physician Assistant | DX: M54.50 Low back pain, unspecified (principal); M51.369 Other intervertebral disc degeneration, lumbar region without mention of lumbar back pain or lower extremity pain; E66.01 Morbid (severe) obesity due to excess calories | CPT/HCPCS: 99202 ==

== ENCOUNTER 2025-06-23 08:00 | Outpatient (REF) | payer OTHER, SELFPAY ==
--- OUTSIDE RECORDS SUMMARY | 2025-06-23 08:02 | XMS_ITS | Clinical Summary ---
Author Organization 175 [facility] Address [address] [place] [address] Phone Care Team Providers Care Photographic Hand Developer Name Role Phone Mamie Townsend MD Primary [...] Encounters Date Type Department Care Team Description 05/19/2025 Telephone Orthopedic [facility] [address] [phone] Shobha Kirkpatrick 05/05/2025 8:15 AM EDT Office Visit [facility] [address] [phone] Jim Ferreira, DPM Pain, foot (Primary Dx); Tendinitis of left ankle; Tendinitis of right ankle; Diabetic mononeuropathy simplex (CMS/HCC V24, CMS/HCC V28); Tinea pedis of both feet 04/01/2025 9:00 AM EDT Office Visit Orthopedic Surgery [facility] [address] [phone] Jim Ferreira DPM Tendinitis of left ankle [...] 9:00 AM EDT Office Visit Orthopedic Surgery [facility] [address] [phone] Jim Ferreira DPM [address] [phone] Health Maintenance Due Date Last Done Comments [...] Panel) 10/28/2022 Colorectal Cancer Screening: Colonoscopy 10/28/2022 HIV Screening 10/28/2022 Hepatitis C Screening 10/28/2022 Medicare Annual Wellness Visit 10/28/2022 Social Influencers of Health Screening 10/28/2022 Depression Screening 11/18/2024 Diabetes: Annual Urine Albumin-Creatinine Ratio (uACR) 04/01/2025 Diabetes: Blood Sugar Control Test (HGBA1C) 04/01/2025 Hypertension/CHF/CAD Annual BMP Blood Test 04/01/2025 Influenza Vaccine (#1) 2025 , 10/30/2023, 09/08/2022, Additional history exists DTaP,Tdap,and Td Vaccines (4 - Td or Tdap) 06/18/2033 06/18/2023, 11/16/2013, 02/22/2009 COVID-19 Vaccine Completed 11/16/2024, , 12/12/2021, Additional history exists Pneumococcal Vaccine: 50+ Years Completed 11/16/2024, 12/07/2012, 01/13/2010 HIB Vaccines Aged [...] Group ID:ICO Type:Not on file Address: [address] [place] [address] Care Teams Photographic Hand Developer Relationship Specialty Start Date End Date Mamie Townsend MD [address] [place] [address] PCP - General Internal Medicine 05/20/18
--- NOTE | 2025-06-23 08:09 | EMG_ITS ---
Chief complaint: Right hand numbness EMG done by Dr. Yanez 2 years ago reported right moderate and left mild Carpal Tunnel Syndrome. Patient had right CTR 2 years ago. Continues to have numbness on 1st to 4th digits, even worse now. History of poorly-controlled diabetes. Also has some neck pain. Reason for referral: Evaluate for Carpal Tunnel Syndrome Referred by: Dr. Segura Procedure done: Bilateral upper extremities NCS/EMG Precautions and/or limitations: None The limb temperature was monitored continuously and remained between 32-36 degrees C during the performance of the NCS. Nerve Conduction Studies Anti Sensory Summary Table ?Stim Site NR Onset (ms) Norm Onset (ms) Peak (ms) Norm Peak (ms) O-P Amp (?V) Norm O-P Amp Site1 Site2 Delta-0 (ms) Dist (cm) John (m/s) Norm John (m/s) Left Median Anti Sensory (2nd Digit) Wrist ? 2.9 3.7 <3.6 33.1 >10 Wrist 2nd Digit 2.9 14.0 48 Right Median Anti Sensory (2nd Digit) Wrist ? 4.6 6.0 <3.6 6.1 >10 Wrist 2nd Digit 4.6 14.0 30 Right Radial Anti Sensory (Thumb) Forearm ? 1.6 2.0 <3.1 11.6 Forearm Thumb 1.6 0.0 Left Ulnar Anti Sensory (5th Digit) Wrist ? 2.3 3.0 <3.7 42.0 >15.0 Wrist 5th Digit 2.3 14.0 61 Right Ulnar Anti Sensory (5th Digit) Wrist ? 2.4 3.1 <3.7 24.0 >15.0 Wrist 5th Digit 2.4 14.0 58 Motor Summary Table ?Stim Site NR Onset (ms) Norm Onset (ms) O-P Amp (mV) Norm O-P Amp iAmp (mV) Amp (1st) (%) Site1 Site2 Delta-0 (ms) Dist (cm) John (m/s) Norm John (m/s) Left Median Motor (Abd Poll Brev) Wrist ? 4.5 <3.9 8.9 >4.5 10.1 100.0 Elbow Wrist 3.8 19.0 50 >45 Elbow ? 8.3 8.0 9.3 89.9 Right Median Motor (Abd Poll Brev) Wrist NR <3.9 >4.5 Elbow Wrist 0.0 >45 Elbow NR Left Ulnar Motor (Abd Dig Minimi) Wrist ? 2.8 <3.0 7.3 >5 8.7 100.0 B Elbow Wrist 2.8 16.0 57 >45 B Elbow ? 5.6 7.4 8.9 101.4 A Elbow B Elbow 1.4 10.0 71 >45 A Elbow ? 7.0 7.5 8.9 102.7 Right Ulnar Motor (Abd Dig Minimi) Wrist ? 2.8 <3.0 7.5 >5 9.2 100.0 B Elbow Wrist 2.8 15.0 54 >45 B Elbow ? 5.6 7.6 9.3 101.3 A Elbow B Elbow 1.3 10.0 77 >45 A Elbow ? 6.9 7.8 9.6 104.0 EMG ?Side Muscle Nerve Root Ins Act Fibs Psw Amp Dur Poly Recrt Int Pat Comment Right 1stDorInt Ulnar C8-T1 Nml Nml Nml Nml Nml 0 Nml Complete Right FlexCarRad Median C6-7 Nml Nml Nml Nml Nml 0 Nml Complete Right Biceps Musculocut C5-6 Nml Nml Nml Nml Nml 0 Nml Complete Right Triceps Radial C6-7-8 Nml Nml Nml Nml Nml 0 Nml Complete Right Deltoid Axillary C5-6 Nml Nml Nml Nml Nml 0 Nml Complete Left 1stDorInt Ulnar C8-T1 Nml Nml Nml Nml Nml 0 Nml Complete Left FlexCarRad Median C6-7 Nml Nml Nml Nml Nml 0 Nml Complete Left Biceps Musculocut C5-6 Nml Nml Nml Nml Nml 0 Nml Complete Left Triceps Radial C6-7-8 Nml Nml Nml Nml Nml 0 Nml Complete Left Deltoid Axillary C5-6 Nml Nml Nml Nml Nml 0 Nml Complete Left Abd Poll Brev Median C8-T1 Nml Nml Nml Nml Nml 0 Nml Complete Right Abd Poll Brev Median C8-T1 Incr 1+ 1+ Nml Nml 0 Nml Complete Paraspinal EMG ?Side Muscle Nerve Root Ins Act Fibs Psw Comment Right Cervical Upper Rami Nml Nml Nml Right Cervical Mid Rami Nml Nml Nml Right Cervical Lower Rami Nml Nml Nml Left Cervical Upper Rami Nml Nml Nml Left Cervical Mid Rami Nml Nml Nml Left Cervical Lower Rami Nml Nml Nml FINDINGS: Right median motor nerve showed absent response. Left median motor nerve showed prolonged distal latency, normal amplitude and normal conduction velocity. Right median sensory nerve showed prolonged peak latency and small amplitude. All other nerves tested were within normal. Concentric needle EMG was performed in selected muscles of the bilateral upper extremities and cervical paraspinals. Study revealed signs of electric abnormalities as shown in the table above. Right APB showed increased insertional activity, PSWs and fibrillations. No denervation seen on cervical paraspinals. IMPRESSION: 1. This is an abnormal study. 2. There is electrodiagnostic evidence for right severe and left moderate-severe median neuropathy at the wrist, consistent with Carpal Tunnel Syndrome. 3. There is no electrodiagnostic evidence for ulnar neuropathy, brachial plexopathy, or cervical radiculopathy. CLINICAL COMMENT: Right Carpal Tunnel Syndrome appears worse than shown on EMG 2 years ago. Thank you for your kind referral. Tamera Giordano MD, LEELEE Board Certified, [place] Board [employer] Medicine and Rehabilitation (ABPMR) Board Certified, [place] Board of Electrodiagnostic Medicine (ABEM) CODIN [phone] MTDD
== END 2025-06-23 08:01 | disposition home or self-care (01) ==
LOC: HO.NEURO 08:00
PROVIDERS: PCP Internal Medicine; Visit Provider Orthopaedic Surgery
DX: R20.0 Anesthesia of skin (principal); R20.2 Paresthesia of skin; E11.65 Type 2 diabetes mellitus with hyperglycemia; R94.131 Abnormal electromyogram [EMG]
CPT/HCPCS: 95886; 95911

== ENCOUNTER → 2025-06-23 08:09 | Outpatient (BNV) | payer OTHER, SELFPAY | PROVIDERS: PCP Internal Medicine; Visit Provider Physical Medicine & Rehabilitation | DX: G56.03 Carpal tunnel syndrome, bilateral upper limbs (principal) | CPT/HCPCS: 95886; 95911 ==

== ENCOUNTER 2025-06-30 08:08 | Outpatient (AMB) | payer OTHER, SELFPAY ==
--- OUTSIDE RECORDS SUMMARY | 2025-06-30 08:12 | XMS_ITS | Clinical Summary ---
Author Organization 175 [facility] Address [address] [place] [address] Phone Care Team Providers Care Payment Specialist Name Role Phone Mamie Townsend MD Primary [...] Department Care Team Description 05/19/2025 Telephone Orthopedic [facility] [address] [phone] Shobha Kirkpatrick 05/05/2025 8:15 AM EDT Office Visit [facility] [address] [phone] Jim Ferreira, DPM Pain, foot (Primary Dx); Tendinitis of left ankle; Tendinitis of right ankle; Diabetic mononeuropathy simplex (CMS/HCC V24, CMS/HCC V28); Tinea pedis of both feet 04/01/2025 9:00 AM EDT Office Visit Orthopedic Surgery [facility] [address] [phone] Jim Ferreira DPM Tendinitis of left ankle [...] 9:00 AM EDT Office Visit Orthopedic Surgery [facility] [address] [phone] Jim Ferreira DPM [address] [address] Health Maintenance Due Date Last Done Comments [...] Group ID:ICO Type:Not on file Address: [address] [place] [address] Care Teams Payment Specialist Relationship Specialty Start Date End Date Mamie Townsend MD [address] [place] [address] PCP - General Internal Medicine 05/20/18
--- NOTE | 2025-06-30 08:22 | A.OFFVIS_ITS ---
Vital Signs 06/30/25 08:38 Height 5 ft Weight 246 lb BMI 48.0 Intake Visit Reasons: OV-EMG review Rt hand Intake Note: Marylin 54 yr old right hand dominant female who is disable, presents today for review of her EMG for bilateral hands. She is S/P right carpal tunnel release, DOS: 05/11/[address] Segura. Last A1C was done on 01/21/25 *6.9. IMPRESSION: 1. This is an abnormal study. 2. There is electrodiagnostic evidence for right severe and left moderate-severe median neuropathy at the wrist, consistent with Carpal Tunnel Syndrome. 3. There is no electrodiagnostic evidence for ulnar neuropathy, brachial plexopathy, or cervical radiculopathy. Allergies insulin lispro Allergy (Severe, Verified 06/30/25 08:43) tongue swelling meloxicam Allergy (Severe, Verified 06/30/25 08:43) Anaphylaxis simvastatin Allergy (Severe, Verified 06/30/25 08:43) Difficulty Swallowing amlodipine Allergy (Intermediate, Verified 06/30/25 08:43) lip swelling butalbital Allergy (Intermediate, Verified 06/30/25 08:43) lip, tongue, mouth swelling clindamycin Allergy (Intermediate, Verified 06/30/25 08:43) Angioedema losartan Allergy (Intermediate, Verified 06/30/25 08:43) Angioedema oxycodone (From Percocet) Allergy (Mild, Verified 06/30/25 08:43) Hives ibuprofen (From Motrin) Allergy (Verified 06/30/25 08:43) Hives lisinopril Allergy (Verified 06/30/25 08:43) Swelling Penicillins Allergy (Verified 06/30/25 08:43) Hives raspberry Allergy (Verified 06/30/25 08:43) Hives HPI HPI OV-EMG review Rt hand: Details: Marylin is a 53 year old right hand dominant woman who returns for a NCS of her right hand numbness. She is S/P right carpal tunnel release, DOS: 05/11/24. She says she had sensation return to normal in her right hand following her right carpal tunnel surgery. She says she developed a sudden onset of numbness primarily in her right thumb & middle finger, ~6 months ago. She also feels like she gets numbness in the skin over the 2nd and 3rd A1 pulleys in the thenar aspect of the thumb. She also complains of a shooting pain radiating from her elbow, down her forearm and into her hand. She uses her cane in her right hand, and says her use has not changed. She says she does a large amount of craft projects, including art and woodworking. She sees Pain Management for lumbar radiculopathy, and Rheumatology for Fibromyalgia. She has CECILIA and Diabetes, with her most recent Hemoglobin A1c being 6.7% on ~06/24/25. She is unemployed and is on disability due to mental health concerns. She has PTSD, depression, Bipolar disorder, and anxiety. She says she has a BILLING REPRESENTATIVE to help her at home [facility] Medical History History of mammogram (~08/10/24) Hyperlipidemia LDL goal <70 Type 2 diabetes mellitus with hemoglobin A1c goal of less than 7.0% Carpal tunnel syndrome Cluster headache syndrome, intractable Morbid obesity with BMI of 40.0-44.9, adult Allergic rhinitis Migraine GERD (gastroesophageal reflux disease) Fibromyalgia Bipolar disorder PTSD (post-traumatic stress disorder) Arthritis Elevated cholesterol Sleep apnea HTN (hypertension) Encounter to establish care History of kidney stones History of alcohol abuse Surgical History History of colonoscopy (~08/21/22) History of tonsillectomy History of hysterectomy Family History Father Hypertension Diabetes Mother Asthma Family/Other Substance use disorder Mental health disorder Sister No problems noted. Brother No problems noted. Son No problems noted. 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 Normal sensation to the ulnar nerve distirbution No intrinsic or thenar wasting. Weak APB muscle belly firing and good finger cross Vascular: Cap refill brisk ROM: She can make a fist and extend all her digits Nerve Conduction Study: IMPRESSION: 1. This is an abnormal study. 2. There is electrodiagnostic evidence for right severe and left moderate-severe median neuropathy at the wrist, consistent with Carpal Tunnel Syndrome. 3. There is no electrodiagnostic evidence for ulnar neuropathy, brachial plexopathy, or cervical radiculopathy. CLINICAL COMMENT: Right Carpal Tunnel Syndrome appears worse than shown on EMG 2 years ago. Tamera Giordano MD, LEELEE 06/23/25 Impression: Mild-moderate right carpal tunnel syndrome Normal left side Normal EMG of the right C5-T1 innervated muscles Dr. Yanez 04/10/23 Psych Appearance: grossly normal Affect: normal affect Attitude: cooperative Assessment & Plan Assessment & Plan (1) Carpal tunnel syndrome of right wrist: Code(s): G56.01 - Carpal tunnel syndrome, right upper limb Category: Medical (2) Diabetes mellitus type 2 in obese: Code(s): E11.69 - Type 2 diabetes mellitus with other specified complication; E66.9 - Obesity, unspecified Category: Medical (3) Fibromyalgia syndrome: Code(s): M79.7 - Fibromyalgia Category: Medical (4) Diabetic neuropathy: Code(s): E11.40 - Type 2 diabetes mellitus with diabetic neuropathy, unspecified Category: Medical Plan Assessment & Plan: 1. Right recurrent carpal tunnel syndrome, severe Dense numbness to the thumb & middle finger S/P carpal tunnel release, DOS: 05/11/24 Pre-operative symptoms intermittent, but daily, worse at night and with activity Post-operatively with normal sensation and good resolution of her nighttime symptoms. I educated her about this condition I discussed operative and non-operative treatment options The patient would like to proceed with surgery The risks and benefits of operative treatment were discussed with the patient and the patient wishes to proceed with surgery. These risks include, but are not limited to risk of damage to blood vessels, nerves, tendons, infection, recurrence, incomplete relief of preoperative symptoms, persistent pain, possible need for further surgery and the risks associated with regional blocks and anesthesia. The plan is to take the patient to the operating room sometime in the next few weeks for the following procedures: 1. Right REPEAT carpal tunnel release, under local All of the preoperative paperwork including the consent was reviewed today. All the patient's questions were answered. The patient understands that they will be contacted by our surgical scheduler soon to schedule this procedure She denies blood thinners, heart, lung, kidney issues She is a Diabetic, her most recent HgA1c was 6.7% on 06/24/25. She has Fibromyalgia 2. Left carpal tunnel syndrome, moderate-severe Symptoms intermittent & occasional, worse with activity & at night No complaints today We can discuss treatment options when her RUE has recovered from surgery 3. Bilateral basal joint pain Symptoms worse with activity 4. Vesicular rash on the right middle & small fingers Resolved Scribed for Bonnie Segura MD by Saul Corbett, medical assistant secretary, on 06/30/25 at 8:40 AM, EST. Coding Level of Care Code Est Pt Level 4 (77371) Diagnoses Carpal tunnel syndrome of right wrist G56.01 Diabetes mellitus type 2 in obese E11.69; E66.9 Fibromyalgia syndrome M79.7 Diabetic neuropathy E11.40
[2025-06-30 08:38] VITALS: BMI 48.0
== END 2025-06-30 08:55 | disposition home or self-care (01) ==
LOC: HO.HOS 08:09
PROVIDERS: PCP Internal Medicine; Visit Provider Orthopaedic Surgery
DX: G56.01 Carpal tunnel syndrome, right upper limb (principal); E11.69 Type 2 diabetes mellitus with other specified complication; E66.9 Obesity, unspecified; M79.7 Fibromyalgia; E11.40 Type 2 diabetes mellitus with diabetic neuropathy, unspecified
CPT/HCPCS: 99214

== ENCOUNTER → 2025-06-30 08:08 | Outpatient (BNVA) | payer OTHER, SELFPAY | PROVIDERS: PCP Internal Medicine; Visit Provider Orthopaedic Surgery | DX: G56.01 Carpal tunnel syndrome, right upper limb (principal); E11.69 Type 2 diabetes mellitus with other specified complication; E66.9 Obesity, unspecified; M79.7 Fibromyalgia; E11.40 Type 2 diabetes mellitus with diabetic neuropathy, unspecified | CPT/HCPCS: 99212 ==

== ENCOUNTER 2025-07-02 10:10 | Outpatient (REF) | payer OTHER, SELFPAY ==
--- NOTE | ~2025-07-02 | CT_ITS ---
CLINICAL HISTORY: M51.37 - Other intervertebral disc degeneration, lumbosacral region --- Additional Notes or Special Instructions: looking to see if L4-[address] lumbar spine without contrast Comparison: None provided Findings: Vertebral alignment is within normal limits. No acute fractures or dislocations. There is multiple level degenerative disc and facet change.. Visualized abdominal contents unremarkable. IMPRESSION: No acute findings. This document has been electronically signed by: Salbador Ledezma MD on 07/03/2025 09:22:50
--- OUTSIDE RECORDS SUMMARY | 2025-07-02 10:20 | XMS_ITS | Clinical Summary ---
Author Organization 175 [facility] Address [address] [place] [address] Phone Care Team Providers Care Form Raiser Name Role Phone Mamie Townsend MD Primary [...] Department Care Team Description 05/19/2025 Telephone Orthopedic [facility] [address] [phone] Shobha Kirkpatrick 05/05/2025 8:15 AM EDT Office Visit [facility] [address] [phone] Jim Ferreira, DPM Pain, foot (Primary Dx); Tendinitis of left ankle; Tendinitis of right ankle; Diabetic mononeuropathy simplex (CMS/HCC V24, CMS/HCC V28); Tinea pedis of both feet 04/01/2025 9:00 AM EDT Office Visit Orthopedic Surgery [facility] [address] [phone] Jim Ferreira DPM Tendinitis of left ankle [...] 9:00 AM EDT Office Visit Orthopedic Surgery [facility] [address] [phone] Jim Ferreira DPM [address] [address] Health Maintenance Due Date Last Done Comments [...] Group ID:ICO Type:Not on file Address: [address] [place] [address] Care Teams Form Raiser Relationship Specialty Start Date End Date Mamie Townsend MD [address] [place] [address] PCP - General Internal Medicine 05/20/18
== END 2025-07-02 10:11 | disposition home or self-care (01) ==
LOC: HO.CT 10:10
PROVIDERS: PCP Internal Medicine; Visit Provider Physician Assistant
DX: M43.16 Spondylolisthesis, lumbar region (principal)
CPT/HCPCS: 72131

== ENCOUNTER → 2025-07-02 10:12 | Outpatient (BNV) | payer OTHER, SELFPAY | PROVIDERS: PCP Internal Medicine; Visit Provider Specialist | DX: M51.379 Other intervertebral disc degeneration, lumbosacral region without mention of lumbar back pain or lower extremity pain (principal) | CPT/HCPCS: 72131 ==

== ENCOUNTER 2025-07-07 07:04 | Outpatient (REF) | payer OTHER, SELFPAY ==
[2025-07-07 07:49] LABS: Hematocrit 44.7 % (37.0-47.0); Hemoglobin 15.2 g/dl (12.0-16.0); Mean Corpuscular HGB Conc 34.0 g/dl (31.0-35.0); Mean Corpuscular Hemoglobin 29.5 pg (27.0-33.0); Mean Corpuscular Volume 86.8 fL (80.0-98.0); NRBC Abs Auto 0.000 X10*3/uL (0.0-0.012); NRBC Pct Auto 0.0 /100WBC (0.0-0.2); Platelet Count 305 X10*3/uL (160-400); Red Blood Count 5.15 X10*6/uL (4.20-5.50); White Blood Count 10.9 X10*3/uL (4.8-10.8)
[2025-07-07 08:15] LABS: Appearance Urine Clear; Glucose Urine UA >=1000 mg/dL (Negative); PH 5.0 (5.0-9.0); Specific Gravity - Urine >= 1.030 (1.005-1.025); UMIC TRIGGER UA YES
[2025-07-07 08:22] LABS: Alanine Aminotransferase 20 U/L (0-31); Albumin Level 4.7 g/dL (3.5-5.0); Alkaline Phosphatase 92 U/L (39-117); Anion Gap 13 (12-20); Aspartate Amino Transferase 18 U/L (5-31); Blood Urea Nitrogen 12 mg/dL (9-16); Calcium 9.3 mg/dL (8.4-10.2); Carbon Dioxide 21 mmol/L (22-29); Chloride 109 mmol/L (96-108); Cholesterol 134 mg/dL (<200); Estimated Glomerular Filt Rate > 60; HDL Cholesterol 40 mg/dL (>40); Potassium 4.0 mmol/L (3.3-5.1); Sodium 139 mmol/L (135-145); Total Protein 7.9 g/dL (6.5-8.0); Triglycerides 137 mg/dL (<150)
[2025-07-07 08:28] LABS: Hemoglobin A1C 192.9788 umol/L; Total Hemoglobin (HGBA1C) 3995.2460 umol/L
[2025-07-07 08:58] LABS: Thyroid Stimulating Hormone 2.30 uIU/mL (0.32-4.0)
== END 2025-07-07 07:05 | disposition home or self-care (01) ==
LOC: HO.LAB 07:04
PROVIDERS: PCP Internal Medicine; Visit Provider Internal Medicine
DX: I10 Essential (primary) hypertension (principal)
CPT/HCPCS: 36415; 80048; 80061; 80076; 81001; 81003; 83036; 84443; 85027

== ENCOUNTER 2025-07-14 08:24 | Outpatient (AMB) | payer OTHER, SELFPAY ==
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
[2025-07-14 08:38] VITALS: BP 130/74; PULSE 83; TEMP 36.2; O2SAT 97; BMI 46.9
--- OUTSIDE RECORDS SUMMARY | 2025-07-14 08:46 | XMS_ITS | Clinical Summary ---
Author Organization 175 [facility] Address [address] [place] [address] Phone Care Team Providers Care Injection Molding Engineer Name Role Phone Mamie Townsend MD Primary [...] 9:00 AM EDT Office Visit Orthopedic Surgery [place] [address] [phone] Jim Ferreira, DPM Tinea pedis of both feet (Primary Dx); Follow-up exam; Tendinitis of left ankle; Tendinitis of right ankle; Neuritis 05/19/2025 Telephone Orthopedic [place] [phone] [phone] Shobha Kirkpatrick 05/05/2025 8:15 AM EDT Office Visit Orthopedic Surgery [place] [address] [phone] Jim Ferreira, DPM Pain, foot (Primary Dx); [...] AM EDT Office Visit Orthopedic Surgery - [place] [address] [place] [phone] Jim Ferreira, DPM [address] [place] [address] Health Maintenance Due Date Last Done Comments [...] mg/mL Informed Consent: Site: Foot ligament tendon us Jim Ferreira DPM IN CLINIC/BEDSIDE ORDERAB LES [...] navicular joint to calcaneal cuboid joint Jim PAULINOM IMG XR PROCEDURES Final R esult from Last 3 Months Insurance MEDICAID - [place] [facility] MEDICARE Member Subscriber Plan / Payer (Ef fective 2017-Present) Name:SHE CHEEK Relation to Subscriber:Self Name:Emjose angel She Payer ID:[id number] Group ID:[id number] Type:Not on file Address: [address] [address] Care Teams Injection Molding Engineer Relationship Specialty Start Date End Date Mamie Townsend MD [address] [place] [address] PCP - General Internal Medicine 05/20/18
== END 2025-07-14 09:06 | disposition home or self-care (01) ==
LOC: HO.HMCH 08:25
PROVIDERS: PCP Internal Medicine; Visit Provider Internal Medicine
DX: E11.69 Type 2 diabetes mellitus with other specified complication (principal); E66.9 Obesity, unspecified; Z68.42 Body mass index [BMI] 45.0-49.9, adult; M54.50 Low back pain, unspecified; G89.29 Other chronic pain

== ENCOUNTER → 2025-07-14 08:24 | Outpatient (BNVA) | payer OTHER, SELFPAY | PROVIDERS: PCP Internal Medicine; Visit Provider Internal Medicine | DX: Z00.00 Encounter for general adult medical examination without abnormal findings (principal); E11.69 Type 2 diabetes mellitus with other specified complication; M54.50 Low back pain, unspecified; R11.0 Nausea; E66.9 Obesity, unspecified; G89.29 Other chronic pain | CPT/HCPCS: 96127; 99212 ==

== ENCOUNTER 2025-07-30 14:13 | Outpatient (AMB) | payer OTHER, SELFPAY ==
--- NOTE | 2025-07-30 14:24 | HO.SPINEOV ---
Intake Visit Reasons: discuss surgery Intake Note: Ms. Cheek is here today to Discuss surgery. Audiologist Required: No Allergies insulin lispro Allergy (Severe, Verified 07/30/25 14:35) tongue swelling meloxicam Allergy (Severe, Verified 07/30/25 14:35) Anaphylaxis simvastatin Allergy (Severe, Verified 07/30/25 14:35) Difficulty Swallowing amlodipine Allergy (Intermediate, Verified 07/30/25 14:35) lip swelling butalbital Allergy (Intermediate, Verified 07/30/25 14:35) lip, tongue, mouth swelling clindamycin Allergy (Intermediate, Verified 07/30/25 14:35) Angioedema losartan Allergy (Intermediate, Verified 07/30/25 14:35) Angioedema oxycodone (From Percocet) Allergy (Mild, Verified 07/30/25 14:35) Hives ibuprofen (From Motrin) Allergy (Verified 07/30/25 14:35) Hives lisinopril Allergy (Verified 07/30/25 14:35) Swelling Penicillins Allergy (Verified 07/30/25 14:35) Hives raspberry Allergy (Verified 07/30/25 14:35[facility] & Plan Assessment & Plan (1) Chronic low back pain: Code(s): M54.50 - Low back pain, unspecified; G89.29 - Other chronic pain Category: Medical Plan Mrs Cheek is here in follow-up. Please refer to my last note for the specifics of the problem that she presented to us for. She had her MRI and her CT done here at [place] reviewed with Dr. Fuentes. She has severe disc collapse with [id number] endplate contact and Modic endplate changes at L4-5. CT scan did not show any evidence of auto fusion. Therefore Dr. Fuentes is willing to offer her an L4-5 oblique lumbar interbody fusion. She came in today to review that procedure at length. We quoted success rate at 60-70%. We have tentatively booked her for September 21. The patient was given risk and benefits of oblique lumbar interbody fusion surgery including but not limited to infection, hematoma, nerve injury, durotomy, weakness, bowel/bladder injury, persistent pain, and pseudoarthosis or instrumentation failure. We also discussed the option to continue with conservative treatment and patient wishes to proceed with surgery. They are aware they should stop NSAIDs 7 days prior to surgery. She will also stop her Mounjaro 1 week prior to surgery. All questions were answered to the best of our ability. If there is anything about this patients medical history that we have overlooked or concerns you have about us proceeding with surgery we would appreciate any input you can offer Total amount of time spent in this visit was 20 minutes in discussion of symptoms, lumbar imaging results and subsequent plan of care Horace Fuentes MD,PhD [facility] Coding Level of Care Code Est Pt Level 3 (23216) Diagnoses Chronic low back pain M54.50; G89.29
--- OUTSIDE RECORDS SUMMARY | 2025-07-30 17:10 | XMS_ITS | Clinical Summary ---
Author Organization 175 [facility] Address [address] [place] [address] Phone Care Team Providers Care Auditing Control Clerk Name Role Phone Mamie Townsend MD Primary [...] 9:00 AM EDT Office Visit Orthopedic Surgery [place] [address] [phone] Jim Ferreira, DPM Tinea pedis of both feet (Primary Dx); Follow-up exam; Tendinitis of left ankle; Tendinitis of right ankle; Neuritis 05/19/2025 Telephone Orthopedic [place] [address] [phone] Shobha Kirkpatrick 05/05/2025 8:15 AM EDT Office Visit Orthopedic Surgery [place] [address] [phone] Jim Ferreira, DPM Pain, foot (Primary Dx); [...] AM EDT Office Visit Orthopedic Surgery - [place] [address] [phone] Jim Ferreira, DPM [address] [phone] Health Maintenance Due Date Last Done Comments [...] Group ID:[id number] Type:Not on file Address: [address] [address] [address] Care Teams Auditing Control Clerk Relationship Specialty Start Date End Date Mamie Townsend MD [address] [address] PCP - General Internal Medicine 05/20/18
== END 2025-07-30 15:15 | disposition home or self-care (01) ==
LOC: HO.HNS 14:14
PROVIDERS: PCP Internal Medicine; Visit Provider Physician Assistant
DX: M54.50 Low back pain, unspecified (principal); G89.29 Other chronic pain
CPT/HCPCS: 99213

== ENCOUNTER → 2025-07-30 14:13 | Outpatient (BNVA) | payer OTHER, SELFPAY | PROVIDERS: PCP Internal Medicine; Visit Provider Physician Assistant | DX: M54.50 Low back pain, unspecified (principal); G89.29 Other chronic pain | CPT/HCPCS: 99212 ==

== ENCOUNTER 2025-08-16 08:13 | Outpatient (REF) | payer OTHER, SELFPAY ==
--- NOTE | ~2025-08-16 | MM_ITS ---
EXAMINATION: MM SCREENING DIGITAL BREAST TOMOSYNTHESIS, BILATERAL CLINICAL INFORMATION: Screening. Asymptomatic. COMPARISON: Mammography: Comparison is made with available priors TECHNIQUE: Digital breast mammography with tomosynthesis is performed in both the craniocaudal and mediolateral oblique views along with computer-aided detection (CAD). FINDINGS: There are scattered areas of fibroglandular density. There are no significant masses, abnormal calcifications, or other abnormalities. MM/MM tomosynthesis screening BI IMPRESSION: No mammographic evidence of malignancy. ASSESSMENT: BI-RADS Category 1: Negative RECOMMENDATION: Routine annual mammography screening. 1 year F/U This examination should not preclude the clinical evaluation of a suspicious palpable abnormality. This patient's information was entered into a reminder system with a target due date for their next mammogram. Electronically signed by: Janay Marques DO 08/17/2025 12:38 PM EDT
== END 2025-08-16 08:14 | disposition home or self-care (01) ==
LOC: HO.MAMMO 08:13
PROVIDERS: PCP Internal Medicine; Visit Provider Internal Medicine
DX: Z12.31 Encounter for screening mammogram for malignant neoplasm of breast (principal)
CPT/HCPCS: 77063; 77067

== ENCOUNTER → 2025-08-16 08:15 | Outpatient (BNV) | payer OTHER, SELFPAY | PROVIDERS: PCP Internal Medicine; Visit Provider Internal Medicine | DX: Z12.31 Encounter for screening mammogram for malignant neoplasm of breast (principal) | CPT/HCPCS: 77063; 77067 ==

== ENCOUNTER 2025-08-23 06:19 | Day surgery (SDC) | payer OTHER, SELFPAY ==
--- OUTSIDE RECORDS SUMMARY | 2025-07-09 07:48 | XMS_ITS | Clinical Summary ---
Author Organization 175 [facility] Address [address] [place] [address] Phone Care Team Providers Care Research And Development Technician Name Role Phone Mamie Townsend MD Primary [...] 30 each 2 5 08/03/20 25 Active clotrimazole-betam ethasone (LOTRISONE) 1-0.05 % cream Apply topically 2 (two) times a day for 28 days. 30 g 3 5 08/05/20 25 Active Hospital, Clinic, or Other Facility Administered Medication Ordered Dose Route Frequency Start Date End Date Status lidocaine (PF) (XYLOCAINE-MPF) 1 % injection 0.5 mLIndications:Neurit is .5 mL inj Once PRN Procedure 07/08/2025 07/08/2025 Ended lidocaine (PF) (XYLOCAINE-MPF) 1 % injection 0.5 mLIndications:Neurit is .5 mL inj Once PRN Procedure 07/08/2025 07/08/2025 Ended triamcinolone acetonide (KENALOG-40) 40 mg/mL injection 20 mgIndications:Neurit is 20 mg IAtc Once PRN Procedure 07/08/2025 07/08/2025 Ended triamcinolone acetonide (KENALOG-40) 40 mg/mL injection 20 mgIndications:Neurit is 20 mg IAtc Once PRN Procedure 07/08/2025 07/08/2025 Ended Encounters Date Type Department Care Team Description 07/08/2025 9:00 AM EDT Office Visit Orthopedic Surgery [place] [address] [phone] Jim Ferreira, DPM Tinea pedis of both feet (Primary Dx); Follow-up exam; Tendinitis of left ankle; Tendinitis of right ankle; Neuritis 05/19/2025 Telephone Orthopedic [place] [address] [phone] Shobha Kirkpatrick 05/05/2025 8:15 AM EDT Office Visit Orthopedic Surgery [place] [address] [phone] Jim Ferreira, DPM Pain, foot (Primary Dx); Tendinitis of left ankle; Tendinitis of right ankle; Diabetic mononeuropathy simplex (CMS/HCC V24, CMS/HCC V28); Tinea pedis of both feet from Last 3 Months Social History Tobacco [...] Oxygen Concentration - - Weight 106 kg (233 lb 11 oz) 07/08/2025 8:37 AM EDT Height 157.5 cm (5' 2.01 ) 07/08/2025 8:37 AM ED T Body Mass Index 42.73 07/08/2025 8:37 AM EDT Plan of Treatment Upcoming Encounters Date Type Department Care Team (Late st Contact Info) Description 08/24/2025 9:00 AM EDT Office Visit Orthopedic Surgery - [place] [address] [phone] Jim Ferreira, DPM [address] [address] Health Maintenance Due Date Last Done Comments [...] Procedure Name Priority Date/Time Associated Diagnosis Comments INJECTION TENDON OR LIGAMENT Routine 07/08/2025 9:00 AM EDT Neuritis INJECTION TENDON OR LIGAMENT Routine 07/08/2025 9:00 AM EDT Neuritis XR FOOT 3+ VIEWS BILAT Routine 07/08/2025 8:48 AM EDT Follow-up exam XR FOOT 3+ VIEWS BILAT Routine 05/05/2025 8:05 AM EDT Pain, foot from Last 3 Months Results * Injection tendon or ligament (07/08/2025 9:00 AM EDT) Jim Garcia DPM - 07/08/2025 9:00 AM EDT Jim Ferreira DPM 07/08/2025 12:53 PM Injection tendon or ligament Indications: pain Details: 25 G needle Medications: 0.5 mL lidocaine (PF) 1 %; 20 mg triamcinolone acetonide 40 mg/mL Informed Consent: Site: Foot ligament tendon Jim Ferreira DPM IN CLINIC/BEDSIDE ORDERAB LES Final Result * Injection tendon or ligament (07/08/2025 9:00 AM EDT) Jim Garcia DPM - 07/08/2025 9:00 AM EDT Jim Ferreira DPM 07/08/2025 12:53 PM Injection tendon or ligament Indications: pain Details: 25 G needle Medications: 0.5 mL lidocaine (PF) 1 %; 20 mg triamcinolone acetonide 40 mg/mL Informed Consent: Site: Foot ligament tendon Jim Ferreira DPM IN CLINIC/BEDSIDE ORDERAB LES Final Result * XR Foot 3+ Views bilat (07/08/2025 8:48 AM EDT) Only the most recent of2 resultswithin the time period is included. Anatomical Region Laterality Modality Lower Extremities, Foot Bilateral Computed Radiography Narrative 07/08/2025 12:54 PM EDT Right foot 3 views No fracture. No radiopaque foreign joint spaces normal Foot position rectus Normal talus navicular position normal calcaneal inclination normal symes line talus navicular joint to calcaneal cuboid joint Left foot 3 views No fracture. No radiopaque foreign joint spaces normal Foot position rectus Normal talus navicular position normal calcaneal inclination normal symes line talus navicular joint to calcaneal cuboid joint Jim Ferreira DPM IMG XR PROCEDURES Final R esult from Last 3 Months Insurance MEDICAID - [place] [facility] MEDICARE Member Subscriber Plan / Payer (Ef fective 2017-Present) Name:SHE CHEEK Relation to Subscriber:Self Name:She Cheek Payer ID:[id number] Group ID:[id number] Type:Not on file Address: [facility] [address] [address] Care Teams Research And Development Technician Relationship Specialty Start Date End Date Mamie Townsend MD [address] [phone] PCP - General Internal Medicine 05/20/18
[2025-08-23 06:50] VITALS: BMI 44.1
[2025-08-23 06:52] VITALS: BP 121/84; PULSE 92; RESP 18; TEMP 36.6; O2SAT 96
--- NOTE | 2025-08-23 07:59 | MHC.SHP ---
Pre-Procedural Eval Section A - 24 Hr Update-Section A only Date of Service: 08/23/25 The patient is an INPATIENT: No Changes since office visit: No Cold of Flu in the past 2 weeks, No New Medical Problems, No Changes in Medication and No Patient answered all questions The patient has been examined within 24 hours of the surgical procedure. The History & Physical has been completed within 30 days and I have reviewed it.: Yes Section B - Complete if H&P > 30 days Chief Complaint: Carpal tunnel syndrome, right upper limb Allergies: Allergies Allergy/AdvReac Type Severity Reaction Status Date / Time insulin lispro Allergy Severe tongue Verified 08/23/25 06:54 swelling meloxicam Allergy Severe Anaphylaxis Verified 08/23/25 06:54 simvastatin Allergy Severe Difficulty Verified 08/23/25 06:54 Swallowing amlodipine Allergy Intermediate lip Verified 08/23/25 06:54 swelling butalbital Allergy Intermediate lip, Verified 08/23/25 06:54 tongue, mouth swelling clindamycin Allergy Intermediate Angioedema Verified 08/23/25 06:54 losartan Allergy Intermediate Angioedema Verified 08/23/25 06:54 oxycodone (From Percocet) Allergy Mild Hives Verified 08/23/25 06:54 ibuprofen (From Motrin) Allergy Hives Verified 08/23/25 06:54 lisinopril Allergy Swelling Verified 08/23/25 06:54 Penicillins Allergy Hives Verified 08/23/25 06:54 raspberry Allergy Hives Verified 08/23/25 06:54 Plan Diagnosis/Plan: Unchanged I have reviewed the history and physical and performed a pertinent physical examination on my patient. No changes have occurred unless specified. Time Spent With Patient Time: Total time managing care of this patient today ____ minutes.
--- NOTE | 2025-08-23 08:00 | W.PM.OPN ---
Operative Note Operative Note Date of Service: 08/23/25 Narrative: Preop diagnosis: 1. Right recurrent Carpal tunnel syndrome Postop diagnosis: same Procedure: 1. Right repeat Carpal tunnel release Surgeon: Bonnie Segura MD [employer] Crew Boss: None Anesthesia: local block using 1% lidocaine with epinephrine Findings: Thickened transverse carpal ligament. EBL: Less than 5 mL Specimens: None Complications: None Disposition: Brought to recovery room in stable condition Plan: Follow-up for 10-14 days for wound check and suture removal Indications: The patient is 55 years old, with recurrent right carpal tunnel syndrome that has been unresponsive to nonoperative management. The risks and benefits of operative treatment including but not limited to risk of damage to blood vessels, nerves, tendons, infection, persistent pain, persistent symptoms, or possible need for additional surgery were discussed with the patient and the patient wishes to proceed with surgery. Procedure: Once consent was obtained a local block was performed using a combination of 1% lidocaine with epinephrine. The patient was then brought back to the operating suite and placed on the operative table in supine position. The right upper extremity was prepped and draped in a standard surgical fashion. Once assured that we had a good block, a 2.0 cm longitudinal incision was made centered over the carpal tunnel and extended proximally in a zigzag fashion about 1 cm from the distal wrist crease.. The incision was made through the skin to the subcutaneous tissues using a #15 blade. I then began my dissection proximally down to the level of the volar forearm fascia. The volar forearm fascia was incised longitudinally revealing to me the median nerve. At this point the median nerve was identified and protected as I incised through the scar tissue over the carpal tunnel using a 15. Blade and tenotomy scissors under direct visualization. Once satisfied with our repeat carpal tunnel release the wound was copiously irrigated with normal saline and hemostasis was obtained with a brief period of local pressure. The skin edges were reapproximated with some 5.0 nylon suture material and a sterile dressing was applied. The patient appears to have tolerated the procedure well and with no complications. All digits were well vascularized at the conclusion of the case.
[2025-08-23 09:17] VITALS: BP 133/84; PULSE 87; RESP 16; O2SAT 96
== END 2025-08-23 09:57 | disposition home or self-care (01) ==
PROVIDERS: PCP Internal Medicine; Visit Provider Orthopaedic Surgery
PROC: (CPT 64721; principal; 2025-08-23 08:10)
DX: G56.01 Carpal tunnel syndrome, right upper limb (principal); E11.69 Type 2 diabetes mellitus with other specified complication; E66.9 Obesity, unspecified; E11.40 Type 2 diabetes mellitus with diabetic neuropathy, unspecified; I10 Essential (primary) hypertension; G47.33 Obstructive sleep apnea (adult) (pediatric); Z88.0 Allergy status to penicillin; Z88.5 Allergy status to narcotic agent; Z88.8 Allergy status to other drugs, medicaments and biological substances
CPT/HCPCS: 64721; J0165; J2003

== ENCOUNTER → 2025-08-23 06:19 | Outpatient (BNV) | payer OTHER, SELFPAY | PROVIDERS: PCP Internal Medicine; Visit Provider Orthopaedic Surgery | DX: G56.01 Carpal tunnel syndrome, right upper limb (principal) | CPT/HCPCS: 64721 ==

== ENCOUNTER → 2025-09-07 10:58 | Outpatient (BNV) | payer OTHER, SELFPAY | PROVIDERS: Admitting Provider Neurological Surgery; PCP Internal Medicine; Visit Provider Internal Medicine Cardiovascular Disease | DX: G47.33 Obstructive sleep apnea (adult) (pediatric) (principal); E11.9 Type 2 diabetes mellitus without complications | CPT/HCPCS: 93010 ==

== ENCOUNTER 2025-09-08 09:39 | Outpatient (AMB) | payer OTHER, SELFPAY ==
[2025-09-08 09:43] VITALS: BMI 44.1
--- NOTE | 2025-09-08 09:43 | A.OFFVIS_ITS ---
Vital Signs 09/08/25 09:43 Height 5 ft 2 in Weight 241 lb BMI 44.1 Intake Visit Reasons: PO-Rt Repeat CTR 08/23/25 Intake Note: Marylin is a 54 year old right hand dominant female with a history of Type 2 Diabetes Mellitus who presents today for a Post-operative visit status post Repeat Right Carpal Tunnel Release, DOS: 08/23/[address] Segura. Patient reports some tingling without numbness or finger locking. She has discontinued pain medications. Sutures removed in office and steri strips applied. Patient is interested on signing up for Left Carpal Tunnel Release. IMPRESSION 06/23/25: 1. This is an abnormal study. 2. There is electrodiagnostic evidence for right severe and left moderate-severe median neuropathy at the wrist, consistent with Carpal Tunnel Syndrome. 3. There is no electrodiagnostic evidence for ulnar neuropathy, brachial plexopathy, or cervical radiculopathy. A1C 07/07/25: 6.6.% Allergies insulin lispro Allergy (Severe, Verified 09/08/25 09:43) tongue swelling meloxicam Allergy (Severe, Verified 09/08/25 09:43) Anaphylaxis simvastatin Allergy (Severe, Verified 09/08/25 09:43) Difficulty Swallowing amlodipine Allergy (Intermediate, Verified 09/08/25 09:43) lip swelling butalbital Allergy (Intermediate, Verified 09/08/25 09:43) lip, tongue, mouth swelling clindamycin Allergy (Intermediate, Verified 09/08/25 09:43) Angioedema ibuprofen (From Motrin) Allergy (Intermediate, Verified 09/08/25 09:43) Hives lisinopril Allergy (Intermediate, Verified 09/08/25 09:43) Swelling losartan Allergy (Intermediate, Verified 09/08/25 09:43) Angioedema Penicillins Allergy (Intermediate, Verified 09/08/25 09:43) Hives raspberry Allergy (Intermediate, Verified 09/08/25 09:43) Hives oxycodone (From Percocet) Allergy (Mild, Verified 09/08/25 09:43) Hives HPI HPI PO-Rt Repeat CTR 08/23/25: Details: Marylin is a 54 year old right hand dominant female with a history of Type 2 Diabetes Mellitus who presents today for a Post-operative visit status post Repeat Right Carpal Tunnel Release, DOS: 08/23/[address] Segura. Patient reports some tingling without numbness or finger locking. She has discontinued pain medications. Sutures removed in office and steri strips applied. Patient is interested on signing up for Left Carpal Tunnel Release. Of note, the patient does state that she does have significant pain on the radial aspect of the left wrist, and this is her biggest concern in the left wrist at this time. IMPRESSION 06/23/25: 1. This is an abnormal study. 2. There is electrodiagnostic evidence for right severe and left moderate-severe median neuropathy at the wrist, consistent with Carpal Tunnel Syndrome. 3. There is no electrodiagnostic evidence for ulnar neuropathy, brachial plexopathy, or cervical radiculopathy. A1C 07/07/25: 6.6.% [facility] Medical History (Updated 09/08/25 @ 11:40 by RANJEET Juarez) Alcohol dependence in remission Anxiety Anemia Asthma Back pain Hyperlipidemia LDL goal <70 Type 2 diabetes mellitus with hemoglobin A1c goal of less than 7.0% Carpal tunnel syndrome Cluster headache syndrome, intractable Morbid obesity with BMI of 40.0-44.9, adult Allergic rhinitis Migraine GERD (gastroesophageal reflux disease) Fibromyalgia Bipolar disorder PTSD (post-traumatic stress disorder) Arthritis Elevated cholesterol Sleep apnea HTN (hypertension) History of kidney stones History of alcohol abuse Surgical History (Updated 09/07/25 @ 09:56 by Hannah Jamison RN) Hx of carpal tunnel repair History of colonoscopy (~06/14/22) History of tonsillectomy History of hysterectomy Family History Father Hypertension Diabetes Mother Asthma Family/Other Substance use disorder Mental health disorder Sister No problems noted. Brother No problems noted. Son No problems noted. 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 Neuro: Diminished sensation to the thumb and middle finger of the right hand Normal sensation of the tips of all other digits of the right hand Normal sensation of the tips of all digits of the left hand Vascular: Cap refill brisk Pain: No tenderness to palpation about the incision site on volar right wrist Significant tenderness to palpation of 1st dorsal compartment of left wrist Positive Mauricio in the left ROM: Patient is able to make a closed fist and extend all digits of bilateral hands fully and without difficulty Skin: No lacerations or abrasions. General: No ecchymosis, erythema, or evidence of infection. Psych: Appears grossly normal Affect normal Attitude cooperative Office Procedures AMB Tendon Injection Tendon Injection 09038-Kliose Tendon Sheath Injection All charges added?: Procedure code (CPT) selection complete Assessment & Plan Assessment & Plan (1) Carpal tunnel syndrome on both sides: Code(s): G56.03 - Carpal tunnel syndrome, bilateral upper limbs Category: Medical (2) De Quervain's tenosynovitis, left: Code(s): M65.4 - Radial styloid tenosynovitis [de Quervain] Category: Medical Plan 1. Status post right carpal tunnel release DOS 08/23/2025 Dense numbness prior to surgery, continues to experience dense numbness postoperatively Patient appears to be recovering well postoperatively Patient is educated about the typical recovery course Sutures removed, Steri-Strips applied without issue No under water times one-week 2 lb weight limit x2 weeks Patient is educated that because she was densely numb prior to surgery, there is a chance that she does not get normal sensation back after surgery Patient is educated that it can take up to 9 months postoperatively to regain sensation Patient understands this and is amenable to this plan Follow-up as needed 2. Left de Quervain tenosynovitis Injection #1: The risks and benefits of a steroid injection including but not limited to risk of damage to blood vessels, nerves, tendons, infection, skin bleaching, failure to improve symptoms, increased pain, and possible need for further injections or other intervention were discussed with the patient and the patient wishes to proceed with the steroid injection. Once consent was obtained, I sterilely prepped the area over the 1st dorsal compartment of the left thumb. I then injected the 1st dorsal compartment with a combination of 1 mL of dexamethasone (4mg/ml), and 1% lidocaine. The patient tolerated the procedure well with no complications and good resolution of their symptoms prior to leaving clinic. If the patient continues to have pain 6-8 weeks following this injection, they may call to schedule appointment to discuss alternative treatment options Follow-up in 6 weeks to discuss left carpal tunnel release, sooner with any acute concerns Coding Level of Care Code Est Pt Level 3 (73514) Diagnoses Carpal tunnel syndrome on both sides G56.03 De Quervain's tenosynovitis, left M65.4 CPT Codes Tendon Injection - Tendon Injection 1: 73794-Mewphl Tendon Sheath Injection ([id number])
--- OUTSIDE RECORDS SUMMARY | 2025-09-08 11:12 | XMS_ITS | Clinical Summary ---
Author Organization 175 [facility] Address [address] [place] [address] Phone Care Team Providers Care Cash Management Specialist Name Role Phone Mamie Townsend MD Primary Care Provider Medications ketoconazole (NIZORAL) 2 % cream Apply topically 1 (one) time each day. 30 g 2 5 Active doxycycline (Vibramycin) 100 mg capsule Take 1 capsule (100 mg total) by mouth 2 (two) times a day for 10 days. Take with at least 8 ounces (large glass) of water, do not lie down for 30 minutes after. Administer 2 hours before or after multivitamins, antacids, or other products containing polyvalent cations (i.e., calcium, iron, magnesium, selenium, zinc). 20 capsule 5 09/03/20 25 Encounters Date Type Department Care Team Description 08/24/2025 9:00 AM EDT Office Visit Orthopedic Surgery [facility] [address] [phone] Jim Ferreira DPM Cellulitis of third toe of right foot (Primary Dx) 07/08/2025 9:00 AM EDT Office Visit Orthopedic [facility] [address] [phone] Jim Ferreira DPM Tinea pedis of both feet (Primary Dx); Follow-up exam; Tendinitis of left ankle; Tendinitis of right ankle; Neuritis from Last 3 Months Social History Tobacco [...] Care Team (Late st Contact Info) Description 09/15/2025 9:00 AM EDT Office Visit Orthopedic Surgery - [place] [id number] [phone] Jim Ferreira, DPM [address] [phone] Health Maintenance Due Date Last Done Comments Breast Cancer Screening 1971 Colorectal Cancer Screening: Colonoscopy 1971 Diabetes: Annual GFR (Glomerular Filtration Rate) 1971 Diabetes: Annual Foot Exam 1981 Diabetes: Annual Retina Eye Exam 1981 Hepatitis A Vaccines (1 of 2 - Risk 2-dose series) 1990 Hepatitis B Vaccines (1 of 3 - 19+ 3-dose series) 1990 Cervical Cancer Screening: Pap Smear 1992 RSV Immunization Adult Patients (1 - Risk 50-74 years 1-dose series) 2021 Zoster Vaccines (2 of 2) 02/08/2022 12/14/2021 Cholesterol Screening (Lipid Panel) 10/28/2022 HIV Screening 10/28/2022 Hepatitis C Screening [...] Routine 07/08/2025 8:48 AM EDT Follow-up exam from Last 3 Months Results * Injection tendon or ligament (07/08/2025 9:00 AM EDT) Jim Gacria DPM - 07/08/2025 9:00 AM EDT Jim [...] 3+ Views bilat (07/08/2025 8:48 AM EDT) Anatomical Region Laterality Modality Lower [...] Group ID:[id number] Type:Not on file Address: [address] [place] [address] Care Teams Cash Management Specialist Relationship Specialty Start Date End Date Mamie Townsend MD [address] [place] [address] PCP - General Internal Medicine 05/20/18
== END 2025-09-08 10:14 | disposition home or self-care (01) ==
LOC: HO.HOS 09:40
PROVIDERS: PCP Internal Medicine
DX: G56.03 Carpal tunnel syndrome, bilateral upper limbs (principal); M65.4 Radial styloid tenosynovitis [de Quervain]
CPT/HCPCS: 20550; 99024

== ENCOUNTER → 2025-09-08 09:39 | Outpatient (BNVA) | payer OTHER, SELFPAY | PROVIDERS: PCP Internal Medicine | DX: G56.03 Carpal tunnel syndrome, bilateral upper limbs (principal); M65.4 Radial styloid tenosynovitis [de Quervain] | CPT/HCPCS: 20550; 99212; J1100; J2003 ==

== ENCOUNTER 2025-09-22 06:01 | Inpatient (IN) | payer OTHER, SELFPAY ==
--- NOTE | 2025-09-07 | ECG_ITS ---
Test Reason : danya, dm Blood Pressure : */* mmHG Vent. Rate : 97 BPM Atrial Rate : 97 BPM P-R Int : 134 ms QRS Dur : 58 ms QT Int : 350 ms P-R-T Axes : 22 12 17 degrees QTcB Int : 444 ms Normal sinus rhythm Normal ECG When compared with ECG of 03-Sep-2024 14:33, ST elevation now present in Lateral leads Referred By: Marlena Arora Electronically Signed By: VAN MIKE MD
[2025-09-07 10:06] VITALS: BP 112/69; PULSE 89; RESP 20; O2SAT 97; BMI 46.5
[2025-09-22] VITALS (23 sets, daily range): BP systolic 123–170; BP diastolic 75–116; PULSE 71–105; RESP 11–18; TEMP 35.9–36.5; O2SAT 92–100; BMI 46.3; BMI 50.7
--- NOTE | ~2025-09-22 | FL_ITS ---
EXAMINATION: FL GUIDANCE ONLY HISTORY: L4-5 OLIF COMPARISON: Correlation is made with a CT of the lumbar spine 07/02/2025. TECHNIQUE: Fluoroscopy time: 2 minutes, 30 seconds. Cumulative Dose: 156.95 mGy. DAP: 50.34665 Gycm2 Images: 5. FINDINGS: Fluoroscopic spot films of the lumbar spine demonstrate posterior fusion of L4 and L5 with pedicle screws, spinal stabilization rods, and an intervertebral spacer. FL/FL guidance in OR IMPRESSION: Fluoroscopy during procedure. Please see procedure report for additional information. Electronically signed by: Jeff Gregorio MD 09/22/2025 11:44 AM [facility]
--- OUTSIDE RECORDS SUMMARY | 2025-09-22 06:09 | XMS_ITS | Clinical Summary ---
Author Organization 175 [facility] Address [address] [place] [address] Phone Care Team Providers Care Utility Operator Yarn Name Role Phone Mamie Townsend MD Primary [...] 9:00 AM EDT Office Visit Orthopedic Surgery [facility] [address] [phone] Jim Ferreira DPM Cellulitis of third toe of right foot (Primary Dx) 07/08/2025 9:00 AM EDT Office Visit Orthopedic [facility] [address] [phone] Jim Ferreira DPM Tinea pedis of both [...] 07/08/2025 8:37 AM EDT Plan of Treatment Health Maintenance Due Date Last Done Comments [...] tendon or ligament (07/08/2025 9:00 AM EDT) Narrative Jim Ferreira DPM - 07/08/2025 9:00 AM EDT Jim [...] ID:[id number] Group ID:[id number] Type:Not on file Address: [place] [address] [place] [address] Care Teams Utility Operator Yarn Relationship Specialty Start Date End Date Mamie Townsend MD [address] [place] [phone] PCP - General Internal Medicine 05/20/18
[2025-09-22] MEDS: Lactated Ringers 1,000 ML 100 ML IVCONT (06:32)
[2025-09-22 06:48] LABS: Glucose, Whole Blood 129 mg/dL (60-115)
--- NOTE | 2025-09-22 06:59 | PHA.MEDREC ---
Pharmacy Consult ? Medication Reconciliation Pharmacy has completed the medication reconciliation. Reviewed med rec done by nursing.
--- NOTE | 2025-09-22 07:00 | MHC.SHP ---
Pre-Procedural Eval Section A - 24 Hr Update-Section A only Date of Service: 09/22/25 Section B - Complete if H&P > 30 days Chief Complaint: s/p L4-5 OLIF Allergies: Allergies Allergy/AdvReac Type Severity Reaction Status Date / Time insulin lispro Allergy Severe tongue Verified 09/22/25 06:23 swelling meloxicam Allergy Severe Anaphylaxis Verified 09/22/25 06:23 simvastatin Allergy Severe Difficulty Verified 09/22/25 06:23 Swallowing amlodipine Allergy Intermediate lip Verified 09/22/25 06:23 swelling butalbital Allergy Intermediate lip, Verified 09/22/25 06:23 tongue, mouth swelling clindamycin Allergy Intermediate Angioedema Verified 09/22/25 06:23 ibuprofen (From Motrin) Allergy Intermediate Hives Verified 09/22/25 06:23 lisinopril Allergy Intermediate Swelling Verified 09/22/25 06:23 losartan Allergy Intermediate Angioedema Verified 09/22/25 06:23 Penicillins Allergy Intermediate Hives Verified 09/22/25 06:23 raspberry Allergy Intermediate Hives Verified 09/08/25 09:43 oxycodone (From Percocet) Allergy Mild Hives Verified 09/08/25 09:43 Review of Systems Sugical H&P ROS: Negative: Constitution, Cardiovascular, Respiratory, Neurological, Psychiatric, Hem-Onc, Allergic/Immunologic, Gastrointestinal, Genitourinary, Musculoskeletal, Integumentary, Endocrine and Eyes/Ears/Nose/Throat Exam Surgical H&P Exam: Not Evaluated: HEENT, Not Evaluated: Heart, Not Evaluated: Lungs, Not Evaluated: Extremities, Not Evaluated: Abdomen, Not Evaluated: Skin and Not Evaluated: Neurological Exam Comment: The patient is awake, alert, in no acute distress. Proposed surgical incision site is clean, dry, with no signs of recent trauma. Plan Diagnosis/Plan: Unchanged I have reviewed the history and physical and performed a pertinent physical examination on my patient. No changes have occurred unless specified. Plan remains the same, L4-5 OLIF. Time Spent With Patient Time: Total time managing care of this patient today _7___ minutes.
--- NOTE | 2025-09-22 07:20 | HO.ANESPROP2 ---
Documented by User: Marlena Arora NP 09/13/25 14:14 HPI - Anesthesia Eval Consult details Narrative: 55yo F for L4-5 Oblique Lumbar Interbody Fusion, 09/21/25 No recent illness No CP/SOB with very minimal activity d/t pain Asthma: Stable - flare up in spring with rescue inhaler, none needed in months DM: Has CGM, FBS wide range 40-150 GERD: ppi controls Hx ETOH: none x 4 years CECILIA: cannot tolerate cpap BMI 46 Anesthesia Pre-Procedure Meds Is the patient on any of the following meds?: GLP1/DPP4 and SGLT2 Inhib PMFSH Active Problems Active Problems: All Active Problems Spondylolisthesis, lumbar region (Acute) Numbness of right hand (Acute) Bilateral hip pain (Acute) Degeneration of intervertebral disc of lumbar region with osteophyte of lumbar vertebra (Acute) Lumbar degenerative disc disease (Acute) Periodic limb movements of sleep (Acute) Moderate obstructive sleep apnea (Acute) Hypoferremia (Acute) Bilateral hand pain (Acute) Carpal tunnel syndrome of right wrist (Acute) BMI 40.0-44.9, adult (Acute) Snoring (Acute) Excessive daytime sleepiness (Acute) Migraine without aura (Acute) Fatigue (Acute) Muscle spasms of neck (Acute) Cervical spondylosis (Acute) OAB (overactive bladder) (Acute) Urinary frequency (Acute) NIGEL positive (Acute) Cough (Acute) Screening for breast cancer (Acute) Adult general medical exam (Acute) Urge incontinence (Acute) Anaphylaxis (Acute) Bilateral hand numbness (Acute) Macromastia (Acute) Lumbar radiculopathy (Acute) Lumbar spondylosis (Acute) Chronic pain of both wrists (Acute) Carpal tunnel syndrome on both sides (Acute) Pruritic rash (Acute) Skin lesion (Acute) Obesity (BMI 30-39.9) (Acute) Post traumatic stress disorder (Acute) Major depressive disorder, recurrent, moderate (Acute) Disc disease, degenerative, lumbar or lumbosacral (Acute) Rhinitis (Acute) Rash (Acute) Diabetic neuropathy (Acute) Sacroiliac joint pain (Acute) Chronic pain of left knee (Acute) Spondylosis of lumbar region without myelopathy or radiculopathy (Acute) Osteoarthritis of right knee (Acute) Low vitamin B12 level (Acute) Low vitamin D level (Acute) Screening for hypothyroidism (Acute) Hyperlipidemia (Acute) Severe recurrent major depression without psychotic features (Acute) Osteoarthritis of left knee (Acute) Osteoarthritis of both knees (Acute) CECILIA (obstructive sleep apnea) (Acute) skilled nursing (current) use of insulin (Acute) Hypertension (Acute) Bipolar disorder (Acute) Fibromyalgia syndrome (Acute) Diffuse myofascial pain syndrome (Acute) Chronic low back pain (Acute) Anxiety (Acute) Anemia (Acute) Asthma (Acute) Headache (Acute) Diabetes mellitus type 2 in obese (Acute) Glaucoma (Acute) Hyperlipidemia LDL goal <70 (Acute) Type 2 diabetes mellitus with hemoglobin A1c goal of less than 7.0% (Acute) Carpal tunnel syndrome (Acute) Cluster headache syndrome, intractable (Acute) Allergic rhinitis (Acute) Sleep apnea (Acute) Bipolar disorder (Acute) Morbid obesity with BMI of 40.0-44.9, adult (Acute) Past Medical History Medical History Alcohol dependence in remission Anxiety Anemia Asthma Back pain Hyperlipidemia LDL goal <70 Type 2 diabetes mellitus with hemoglobin A1c goal of less than 7.0% Carpal tunnel syndrome Cluster headache syndrome, intractable Morbid obesity with BMI of 40.0-44.9, adult Allergic rhinitis Migraine GERD (gastroesophageal reflux disease) Fibromyalgia Bipolar disorder PTSD (post-traumatic stress disorder) Arthritis Elevated cholesterol Sleep apnea HTN (hypertension) History of kidney stones History of alcohol abuse Family History Family History Father Hypertension Diabetes Mother Asthma Family/Other Substance use disorder Mental health disorder Sister No problems noted. Brother No problems noted. Son No problems noted. 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 Cognitive needs: Yes (cane ) Hearing needs: No Vision needs: Yes (glasses ) Meds Allergies Allergy/AdvReac Type Severity Reaction Status Date / Time insulin lispro Allergy Severe tongue Verified 09/22/25 06:23 swelling meloxicam Allergy Severe Anaphylaxis Verified 09/22/25 06:23 simvastatin Allergy Severe Difficulty Verified 09/22/25 06:23 Swallowing amlodipine Allergy Intermediate lip Verified 09/22/25 06:23 swelling butalbital Allergy Intermediate lip, Verified 09/22/25 06:23 tongue, mouth swelling clindamycin Allergy Intermediate Angioedema Verified 09/22/25 06:23 ibuprofen (From Motrin) Allergy Intermediate Hives Verified 09/22/25 06:23 lisinopril Allergy Intermediate Swelling Verified 09/22/25 06:23 losartan Allergy Intermediate Angioedema Verified 09/22/25 06:23 Penicillins Allergy Intermediate Hives Verified 09/22/25 06:23 raspberry Allergy Intermediate Hives Verified 09/08/25 09:43 oxycodone (From Percocet) Allergy Mild Hives Verified 09/08/25 09:43 Home Medications ?Medication ?Instructions ?Recorded ?Confirmed ?Last Taken ?Type carboxymethylcellulose sodium 0.5 1 drp ophthalmic (eye) BID-QID PRN 06/06/22 09/22/25 08/15/22 History % eye drops Dry Eyes desvenlafaxine succinate 100 mg 100 mg PO DAILY 10/15/22 09/22/25 Unknown History tablet,extended release 24 hr (Pristiq) lancets 28 gauge (FreeStyle #100 ea 01/24/23 09/22/25 Unknown History Lancets) clotrimazole-betamethasone 1 1 appl topical DAILY 02/19/23 09/22/25 Unknown History %-0.05 % topical cream empagliflozin 25 mg tablet 25 mg PO DAILY 03/22/23 09/22/25 09/17/25 History (Jardiance) albuterol sulfate 90 mcg/actuation 2 puff inhalation Q4H PRN 04/08/25 09/22/25 Unknown History aerosol inhaler Shortness Of Breath Or Wheezing prazosin 5 mg capsule 5 mg PO BEDTIME 04/08/25 09/22/25 Unknown History zolpidem 10 mg tablet 10 mg PO BEDTIME Insomnia 04/08/25 09/22/25 Unknown History gabapentin 600 mg tablet 600 mg PO TID anxiety- managed by 04/20/25 09/22/25 Unknown History psychiatry insulin degludec 200 unit/mL (3 32 unit subcut QAM 07/14/25 09/22/25 Unknown History mL) subcutaneous pen (Tresiba FlexTouch U-200 insulin) tirzepatide 15 mg/0.5 mL 15 mg subcut QWEEK 07/14/25 09/22/25 09/03/25 History subcutaneous pen injector (Marium) levomefolate calcium 15 mg tablet 15 mg PO DAILY 09/07/25 09/22/25 Unknown History omeprazole 40 mg capsule,delayed 40 mg PO QAM 09/07/25 09/22/25 Unknown History release pravastatin 80 mg tablet 80 mg PO BEDTIME 09/07/25 09/22/25 Unknown History valsartan 160 mg tablet (Diovan) 160 mg PO QAM 09/07/25 09/22/25 Unknown History Exam Height,Weight and Vital Signs: Height 5 ft Weight 108 kg Last Vital Signs Pulse 89 09/07/25 10:06 Resp 20 09/07/25 10:06 BP 112/69 09/07/25 10:06 Pulse Ox 97 09/07/25 10:06 O2 Del Method Room Air 09/07/25 10:06 Pertinent Lab Results Pertinent Lab Results: Laboratory Tests 07/07/25 07:17 WBC 10.9 H Hgb 15.2 Hct 44.7 Plt Count 305 D Sodium 139 Potassium 4.0 Chloride 109 H Carbon Dioxide 21 L BUN 12 Creatinine 0.76 Lab Results 09/07/25 Range/Units 10:55 Blood Type O Negative Antibody Screen NEGATIVE Narrative Narrative: EKG 08/2025 Vent. Rate : 97 BPM Atrial Rate : 97 BPM P-R Int : 134 ms QRS Dur : 58 ms QT Int : 350 ms P-R-T Axes : 22 12 17 degrees QTcB Int : 444 ms Normal sinus rhythm Normal ECG When compared with ECG of 03-Sep-2024 14:33, ST elevation now present in Lateral leads Airway Mallampati Class: I (small mouth) TM Dist: >3cm Neck ROM: Limited (severe pain) Loose/Missing/Broken Teeth: No Heart: rrr Lungs: ctab Assessment and Plan Assessment Anesthesia Assessment: Anesthesia Plan Discussed and PAT Visit Final Anesthetic Review Family History of Problems with Anesthesia: No History of Problems with Anesthesia: No Documented by User: Deisy Olvera DO 09/22/25 08:28 HPI - Anesthesia Eval Anesthesia Pre-Procedure Meds Is the patient on any of the following meds?: GLP1/DPP4 and SGLT2 Inhib PMFSH Past Medical History Medical History Alcohol dependence in remission Anxiety Anemia Asthma Back pain Hyperlipidemia LDL goal <70 Type 2 diabetes mellitus with hemoglobin A1c goal of less than 7.0% Carpal tunnel syndrome Cluster headache syndrome, intractable Morbid obesity with BMI of 40.0-44.9, adult Allergic rhinitis Migraine GERD (gastroesophageal reflux disease) Fibromyalgia Bipolar disorder PTSD (post-traumatic stress disorder) Arthritis Elevated cholesterol Sleep apnea HTN (hypertension) History of kidney stones History of alcohol abuse Family History Family History Father Hypertension Diabetes Mother Asthma Family/Other Substance use disorder Mental health disorder Sister No problems noted. Brother No problems noted. Son No problems noted. 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 Cognitive needs: Yes (cane ) Hearing needs: No Vision needs: Yes (glasses ) Meds Allergies Allergy/AdvReac Type Severity Reaction Status Date / Time insulin lispro Allergy Severe tongue Verified 09/22/25 06:23 swelling meloxicam Allergy Severe Anaphylaxis Verified 09/22/25 06:23 simvastatin Allergy Severe Difficulty Verified 09/22/25 06:23 Swallowing amlodipine Allergy Intermediate lip Verified 09/22/25 06:23 swelling butalbital Allergy Intermediate lip, Verified 09/22/25 06:23 tongue, mouth swelling clindamycin Allergy Intermediate Angioedema Verified 09/22/25 06:23 ibuprofen (From Motrin) Allergy Intermediate Hives Verified 09/22/25 06:23 lisinopril Allergy Intermediate Swelling Verified 09/22/25 06:23 losartan Allergy Intermediate Angioedema Verified 09/22/25 06:23 Penicillins Allergy Intermediate Hives Verified 09/22/25 06:23 raspberry Allergy Intermediate Hives Verified 09/08/25 09:43 oxycodone (From Percocet) Allergy Mild Hives Verified 09/08/25 09:43 Home Medications ?Medication ?Instructions ?Recorded ?Confirmed ?Last Taken ?Type carboxymethylcellulose sodium 0.5 1 drp ophthalmic (eye) BID-QID PRN 06/06/22 09/22/25 08/15/22 History % eye drops Dry Eyes desvenlafaxine succinate 100 mg 100 mg PO DAILY 10/15/22 09/22/25 Unknown History tablet,extended release 24 hr (Pristiq) lancets 28 gauge (FreeStyle #100 ea 01/24/23 09/22/25 Unknown History Lancets) clotrimazole-betamethasone 1 1 appl topical DAILY 02/19/23 09/22/25 Unknown History %-0.05 % topical cream empagliflozin 25 mg tablet 25 mg PO DAILY 03/22/23 09/22/25 09/17/25 History (Jardiance) albuterol sulfate 90 mcg/actuation 2 puff inhalation Q4H PRN 04/08/25 09/22/25 Unknown History aerosol inhaler Shortness Of Breath Or Wheezing prazosin 5 mg capsule 5 mg PO BEDTIME 04/08/25 09/22/25 Unknown History zolpidem 10 mg tablet 10 mg PO BEDTIME Insomnia 04/08/25 09/22/25 Unknown History gabapentin 600 mg tablet 600 mg PO TID anxiety- managed by 04/20/25 09/22/25 Unknown History psychiatry insulin degludec 200 unit/mL (3 32 unit subcut QAM 07/14/25 09/22/25 Unknown History mL) subcutaneous pen (Tresiba FlexTouch U-200 insulin) tirzepatide 15 mg/0.5 mL 15 mg subcut QWEEK 07/14/25 09/22/25 09/03/25 History subcutaneous pen injector (Marium) levomefolate calcium 15 mg tablet 15 mg PO DAILY 09/07/25 09/22/25 Unknown History omeprazole 40 mg capsule,delayed 40 mg PO QAM 09/07/25 09/22/25 Unknown History release pravastatin 80 mg tablet 80 mg PO BEDTIME 09/07/25 09/22/25 Unknown History valsartan 160 mg tablet (Diovan) 160 mg PO QAM 09/07/25 09/22/25 Unknown History Exam Exam Date and Time: 09/22/25 0720 Airway Mallampati Class: I TM Dist: <=3cm Neck ROM: Limited Loose/Missing/Broken Teeth: No (patient denies any loose or broken teeth) Heart: S1S2 Lungs: CTAB Assessment and Plan Assessment Anesthesia Assessment: Anesthesia Plan Discussed and Chart Reviewed Final Anesthetic Review Family History of Problems with Anesthesia: No History of Problems with Anesthesia: No NPO: Yes ASA Class: III Final Preanesthetic Review: No Changes in Pt Med Stat, Meds/Allgs Chart Reviewed, Consent Obtained/Reviewed and Anes Risks/Benef Reviewed Patient Risk: Intermediate Procedure Risk: Intermediate Anesthetic Plan Anesthetic Plan: GA and Agree w/ Assess. and Plan Disposition: Standard PACU
--- NOTE | 2025-09-22 09:41 | W.PM.OPN ---
Operative Note Operative Note Date of Service: 09/22/25 Narrative: Preop Diagnosis: 1.) L4-5 lumbar spondylolisthesis; lumbar degenerative disc disease 2.) Low back pain and left leg pain Procedure: 1) L4-5 discectomy, arthrodesis and implantation cage through an anterolateral, retroperitoneal approach 2) L4-5 posterior instrumented fusion 3) allograft 4) Injection of 10 cc of Exparel at the transverse process for a muscular erector spinae block and additional Exparel in paravertebral tissue for postop management Consent Informed Consent was obtained for this operation. I have explained the nature, purpose and benefits of the operation. I have discussed the risks and benefit of the operation including possible complications or adverse events with patient/family. Alternative(s) were discussed with the patient with their relative benefits and risks as well as the consequences of not accepting the operation were included in obtaining consent. Surgeon: GERI ONOFRE MD, PHD Procedure Assisted By: donovan Espinoza Description of Procedure This 55-year-old female suffering from intractable low back pain. MRI shows near-complete collapse of the L4-5 disc space and a spondylolisthesis. The patient was offered an oblique lumbar interbody fusion L4-5. The procedure and complications were explained. The patient was consented. The patient was brought to the operating room and endotracheally intubated. The patient was turned in a lateral position with the left side up. Prep and drape was done followed by timeout. A small incision was made in the left lower abdominal quadrant. The muscle fascia was opened after which the 3 muscle layer was split to enter the retroperitoneal space. Dilators were docked in the anterior one third of the L4-5 disc space followed by a retractor. The retractor was opened. The L4-5 disc space was exposed. An annulotomy was done after which an elevator Amato was used to release the disc material from its endplates and to perforate the contralateral side. A partial discectomy was done. An 8 mm height trial implant was inserted. The discectomy was completed. The endplates were prepared. An 8 x 45 mm with 0 degree lordosis 4 web cage filled with allograft was inserted into the disc space under fluoroscopic guidance. This resulted in alevism of disc height and reduction of spondylolisthesis. The retractor was removed. Hemostasis was done. The incision was closed in 2 layers. Steri-Strips used to approximate incision. An OpSite with Tegaderm was used to cover the incision. This marked first part of the procedure. The patient was turned prone on the Tyree spine table. 2C arms were installed for fluoroscopy. Prep and drape was done followed by a second timeout. Injection of 10 cc of Exparel at the bilateral L4 transverse processi for a muscular erector spinae block. Two paramedian incisions were made lateral from the L4 and L5 pedicles. The muscle fascia was opened after which the muscle layer was split bluntly to expose the posterolateral gutter. The following steps were taken. A pediguard tap was used to create a transpedicular trajectory into the vertebral body. A K wire was placed. A specially designed instrument was advanced over the K wire to decorticate the posterolateral gutter in preparation for the posterolateral fusion. A pedicle screw was advanced over the K wire and the K wire was removed. The steps were done for the bilateral L4-L5 pedicles. A total of 4 screws were placed with a diameter of 6.5 x 40 mm. Pedicle screws were connected with 40 mm michelle bilaterally and locked down with locking caps. The extension towers were removed. The posterolateral gutter was filled with allograft to complete the posterolateral L4-5 fusion Hemostasis was done and the incision was closed in 2 layers. Steri-Strips were used to approximate the incision. An OpSite with tegaderm was used to cover the incision. All sponge and needle counts were correct. Patient was extubated and transferred in stable is to recovery room. This procedure was done with the aid of physician customer support assistant, who participated in placement of the pedicle screws, interpretation of x-rays, placement of allograft and closure of the incisions. Anesthesia: General Estimated Blood Loss (ml): 40 Duration of Surgery: 2 hours Complications: None Postoperative Plan: Admit to inpatient for clinical observation
[2025-09-22] MEDS: HYDROcodone Bit/Acetam 5/325 TABLET 2 TAB PO (13:29)
[2025-09-22 13:38] LABS: Glucose, Whole Blood 184 mg/dL (60-115)
[2025-09-22] MEDS: Insulin Glargine,Hum.rec.anlog 100 UNIT/ML 10 ML VIAL 22 UNIT SUBCUT (14:24)
[2025-09-23] MEDS: HYDROcodone Bit/Acetam 5/325 TABLET 2 TAB PO ×3 (00:53→13:07)
--- NOTE | 2025-09-23 03:41 | PC.NURSE ---
0330: pt tolerating PO intake. Fluids discontinued per doctor's order once pt tolerating PO
[2025-09-23 04:00] VITALS: BP 122/69; PULSE 78; RESP 18; TEMP 36.4; O2SAT 97
[2025-09-23 07:28] VITALS: BP 121/56; PULSE 83; RESP 18; TEMP 36.2; O2SAT 95
--- NOTE | 2025-09-23 08:04 | HO.POSTANES ---
Post Anesthesia Evaluation Post Anesthesia Evaluation Date of Service: 09/23/25 Vital Signs: Vital Signs Temp Pulse Resp BP Pulse Ox O2 Del Method 09/23/25 07:28 97.2 F 83 18 121/56 L 95 Room Air 09/23/25 04:00 97.5 F 78 18 122/69 97 CPAP 09/22/25 22:51 16 Anesthesia: General Mental Status: Awake Pain Control: Satisfactory Nausea/Vomiting: None Hydration: Adequate Anesthesia-Related Issues: No Anes. Related Issues
[2025-09-23] MEDS: Insulin Glargine,Hum.rec.anlog 100 UNIT/ML 10 ML VIAL 22 UNIT SUBCUT (08:20)
[2025-09-23] MEDS: Venlafaxine HCl ER 37.5 MG CAP.ER.24H PO (08:20)
[2025-09-23] MEDS: Venlafaxine HCl ER 75 MG CAP.ER.24H PO (08:20)
[2025-09-23 08:32] LABS: Glucose, Whole Blood 225 mg/dL (60-115)
--- NOTE | 2025-09-23 09:40 | HO.NEURO.PN ---
Neurosurgery Operative Note Date of Service: 09/23/25 Narrative: POD: 1 Procedure: L4-5 OLIF Marylin is a pleasant 55-year-old female who underwent L4-[address] Fuentes yesterday. She was seen sitting upright in bedside chair this morning. She reports that she had a fairly difficult time with pain control overnight, and is requesting a different medication. To recap we placed her on Vicodin postoperatively as she is allergic to oxycodone. She reports that she was able to get up OOB / chair and work with physical therapy this morning, but felt generally limited as she is still experiencing quite a bit of pain. Aside from that she continues to report some left-sided hypoesthesia to her leg. She states this feels slightly increased compared to the baseline numbness / pain she had preoperatively. She is voiding well and tolerating current diabetic diet. Afebrile, vital signs stable. Hypoesthesia reported to light tough primarily near left iliopsoas but also extending slightly down toward lateral knee. Back dressings have some staining without signs of hematoma. No active sanguineous drainage. Area is dry. Plan: The patient will be switched to po Hydromorphone to try and help get her pain better under control. Ideally she will work with PT again later today. We will appreciate disposition recommendations for her based on functional status. We would like to try and get her home later today if she is able to progress with PT and achieve decent pain control. This was discussed with the attending neurosurgeon Dr. Fuentes. Vern Fuentes MD,PhD [facility]
--- NOTE | 2025-09-23 11:47 | PC.NURSE ---
Triamcinolone and Clotrimazole ordered for patient, called pharmacy and requested medication, patient refused morning dose stating she prefers to use it at night, pharmacy notified to change order to evening administration. Medications placed back in the patient specific bin.
--- NOTE | 2025-09-23 13:46 | MHC.CM.PN ---
IMM DELIVERED PT LIVES WITH FAMILY. PT USES CANE AND HAS A ROLLATOR SHE USES PRN. PT USES C-PAP FOR SLEEP. PT IS ACTIVE WITH [facility] FOR NURSING/MEDICATION MANAGEMENT/LOCK BOX. NURSE ROWENA [phone]. PCP DR. RIOS DP: P.T. RECOMMENDS STR, PT HAS DECLINED AND WOULD LIKE TO RETURN HOME WITH RESUMPTION OF SERVICES. PROVIDER UPDATED ON WISHES. PT'S FAMILY WILL TRANSPORT HOME. CM WILL CONTINUE TO FOLLOW FOR ANY CHANGE TO DC PLAN/NEEDS.
--- NOTE | 2025-09-23 14:00 | PC.NURSE ---
Patient c/o uncontrolled pain, PRN meds utilized, provider notified. Patient ambulating from recliner to the commode with walker, c/o weakness but able to stand up and take few steps, reports more pain with ambulation.
--- NOTE | 2025-09-23 15:01 | PM.DS ---
DS: Providers Provider Date of Service: 09/23/25 Date of admission: 09/22/25 06:01 Date of discharge: 09/23/25 Primary care physician: Clive Solorio MD DS: Summary Time Attestation Discharge Coordination Time (in mins): 12 Quality: Safe Use of Opioids Does Pt have an Active Cancer Diagnosis on the Problem List?: No Quality: Stroke Does the patient have a stroke diagnosis?: No Physical Exam Vital Signs: Vital Signs: Last Vital Signs Temp 97.2 F 09/23/25 07:28 Pulse 83 09/23/25 07:28 Resp 18 09/23/25 07:28 BP 121/56 L 09/23/25 07:28 Pulse Ox 95 09/23/25 07:28 O2 Del Method Room Air 09/23/25 07:28 O2 Flow Rate 2 09/22/25 19:27 BMI result Body Mass Index 50.7 DS: Data Data Completed and Pending Labs on day of discharge: Laboratory Results - last 24 hr 09/23/25 08:18 POC Glucose 225 H Discharge Plan Discharge Anticipated Discharge Date/Time: 09/23/25 15:06 Patient Disposition: Home Health Service Discharge Diagnosis: s/p L4-5 OLIF Referrals: Clive Solorio MD [Primary Care Provider, Internal Medicine] - 1 Week Discharge Medications: New hydromorphone 2 mg tablet See Rx Instructions .ROUTE .COMPLEX PRN (Reason: pain) Qty: 30 0RF Rx Instructions: Take 1-2 tablets by mouth every 4-6 hours; Partial Fill upon patient request. Continued desvenlafaxine succinate 25 mg tablet extended release 24 hr 25 mg PO DAILY Qty: 1 0RF (DME) FreeStyle Griffin 14 Day Franklin Misc See Rx Instructions .Route Qty: 1 0RF Rx Instructions: As directed (DME) FreeStyle Griffin 14 Day Sensor Kit See Rx Instructions .Route Qty: 1 5RF Rx Instructions: As directed (DME) Adult Protective Underwear XXL 0 .Route .MEDSUPPLY Qty: 2 0RF Rx Instructions: As directed (DME) FreeStyle Lite Strips Strip See Rx Instructions .ROUTE .COMPLEX Qty: 100 10RF Dose Instruction: USE TO CHECK BLOOD SUGAR TWICE A DAY Rx Instructions: USE TO CHECK BLOOD SUGAR TWICE A DAY loratadine 10 mg tablet 10 mg PO DAILY Qty: 90 8RF (DME) single prong cane See Rx Instructions .Route .MEDSUPPLY Qty: 1 0RF Rx Instructions: As directed fluticasone propionate 50 mcg/actuation spray,suspension 1 spray intranasal DAILY Qty: 48 1RF cholecalciferol (vitamin D3) 25 mcg (1,000 unit) capsule 25 mcg PO DAILY Qty: 90 1RF (DME) Rollator See Rx Instructions .Route .MEDSUPPLY Qty: 1 0RF Rx Instructions: As directed docusate sodium [Colace] 100 mg capsule 100 - 200 mg PO DAILY PRN (Reason: constipation) 30 Days Qty: 60 4RF ascorbate calcium (vitamin C) 500 mg tablet 500 mg PO DAILY 30 Days Qty: 30 4RF Rx Instructions: take w/ ferrous gluconate baclofen 10 mg tablet 10 mg PO BEDTIME PRN (Reason: for muscle spasm) 90 Days Qty: 90 6RF (DME) pen needle, diabetic [Unifine Pentips] 31 gauge x 5/16 needle See Rx Instructions .ROUTE .COMPLEX Qty: 100 2RF Dose Instruction: USE TO INJECT TWICE A DAY Rx Instructions: USE TO INJECT TWICE A DAY (DME) Bed rail See Rx Instructions .Route .MEDSUPPLY Qty: 1 0RF Rx Instructions: As directed (DME) Rollator walker See Rx Instructions .Route .MEDSUPPLY Qty: 1 0RF Rx Instructions: As directed epinephrine 0.3 mg/0.3 mL auto-injector 0.3 ml IM ONCE PRN (Reason: Anaphylaxis) Qty: 2 0RF ondansetron HCl 4 mg tablet 4 mg PO Q8H Qty: 30 0RF hydroxyzine HCl 10 mg tablet 10 mg PO TID PRN (Reason: itching) 30 Days Qty: 90 3RF omeprazole 40 mg capsule,delayed release(DR/EC) 40 mg PO QAM pravastatin 80 mg tablet 80 mg PO BEDTIME valsartan [Diovan] 160 mg tablet 160 mg PO QAM levomefolate calcium 15 mg Tablet 15 mg PO DAILY carboxymethylcellulose sodium 0.5 % drops 1 drp ophthalmic (eye) BID-QID PRN (Reason: Dry Eyes) desvenlafaxine succinate [Pristiq] 100 mg tablet extended release 24 hr 100 mg PO DAILY (DME) lancets [FreeStyle Lancets] 28 gauge misc See Rx Instructions .ROUTE BID Qty: 100 Rx Instructions: As directed Jardiance 25 mg tablet 25 mg PO DAILY clotrimazole-betamethasone 1-0.05 % cream 1 appl topical DAILY nystatin 100,000 unit/gram powder 1 appl topical QID Qty: 60 3RF zolpidem 10 mg tablet 10 mg PO BEDTIME prazosin 5 mg capsule 5 mg PO BEDTIME albuterol sulfate 90 mcg/actuation HFA aerosol inhaler 2 puff inhalation Q4H PRN (Reason: Shortness Of Breath Or Wheezing) insulin degludec [Tresiba FlexTouch U-200] 200 unit/mL (3 mL) insulin pen 32 unit subcut QAM Mounjaro 15 mg/0.5 mL pen injector 15 mg subcut QWEEK Rx Instructions: takes on Fridays gabapentin 600 mg tablet 600 mg PO TID riboflavin (vitamin B2) 400 mg tablet 400 mg PO DAILY 30 Days Qty: 30 6RF Held Ubrelvy 100 mg tablet 50 - 100 mg PO ONCE PRN (Reason: migraine headache) 30 Days Qty: 16 6RF Hold Instructions: Resume on 09/27/25. Discuss restarting this medication with your prescriber Rx Instructions: take at onset of migraine, may repeat in 2hrs (may take w/ Tylenol). PA APPROVED 12/25-03/25/2026 Discharge Orders: Discharge Order (Routine); Ordered 09/23/25 Ordered By: Vern Medrano Diet: Advance to usual diet Activity on Discharge: As tolerated Stand Alone Forms: Patient Portal Discharge page Print Language: Sami Activity Restrictions/Additional Instructions: After your spinal surgery we ask you to observe the following restrictions/guidelines: Activity: It is normal to feel some discomfort as you increase your activity, but that will improve with time. We ask you avoid heavy lifting or acitivities that cause pain. As a general rule, 8lbs is a safe limit for lifting right after surgery. Walk as much as you feel comfortable but not to exhaustion. You will feel extra tired the first few days after surgery. Stay well hydrated. It is OK to walk up and down stairs You may return to driving when you are off narcotics (such as vicodin, oxycodone, dilaudid, etc), and you are back to normal functional capacity. If you have any concerns please check with office before driving. Return to work is specific to each patient and each surgery, so please speak with your doctor/PA at first follow up. Please bring paperwork such as FMLA at that time if you need it filled out. Medications: We recommend you take 500mg Tylenol every 4 hours for the first week after surgery, if you do not have any liver issues and can tolerate this medication. Do not exceed 4,000mg daily. We also recommend you take Ibuprofen 600mg every 8 hours for the first week after surgery starting on post op day 1, ?if you do not have any kidney or sugar control issues and can tolerate this medication. Do not exceed 2,000mg daily. We will give you a short supply of narcotics after surgery (usually one weeks worth). If you need more please call the office but do not use more than prescribed. You will need to give our office 48 hours notice if you need narcotics refilled and we do not fill narcotics on weekends or evenings. If you are on a narcotic, it is a good idea to take a stool softener such as colace or senna to avoid constipation If you take blood thinner such as aspirin, Plavix, Coumadin, Effient, Eliquis etc for conditions such as Afib, DVT, Pulmonary embolus, coronary disease, stents etc please speak with your surgeon about specific details as to when you can resume these medications. You can resume NSAIDs on post op day 1 (eg: Motrin, Naproxen, etc). Follow up: Please call the office, , after surgery to arrange a 3 week follow up for wound check. Wound Care: You may remove your dressing on the first day after surgery. ?You may ?leave open to air. Please do not remove the steri strips underneath. they will fall off on their own in one week. IT IS NORMAL FOR THE WOUND TO OOZE OR BE BLOODY FOR A FEW DAYS AFTER SURGERY. ?IF THIS HAPPENS JUST PLACE NEW DRESSING OVER IT TO AVOID STAINING CLOTHES. You may shower on post op day # 1 We ask that you do not let the water soak the wound. If it does get wet, just towel dry lightly. Please do not scrub your incision or place any type of chemical/ointment on the wound. No tub baths, pools or jacuzzis for one month. If you have any leaking or redness from your wound, or fevers, please call the office. Care Plan Goals: Return to normal activity as tolerated Health Concerns: None Plan of Treatment: Follow-up in clinic in 2-3 weeks Assessment: Addenda: The patient was switched to hydromorphone PO as well as IV, and recommended for rehab placement. She refused rehab and states that she has at home nursing services already established in prefer to discharge home. Therefore I will send in a prescription for hydromorphone to the pharmacy here at [facility]. Dr. Fuentes has ordered her to be discharged today. POD: 1 Procedure: L4-5 OLIF Marylin is a pleasant 55-year-old female who underwent L4-[address] Fuentes yesterday. She was seen sitting upright in bedside chair this morning. She reports that she had a fairly difficult time with pain control overnight, and is requesting a different medication. To recap we placed her on Vicodin postoperatively as she is allergic to oxycodone. She reports that she was able to get up OOB / chair and work with physical therapy this morning, but felt generally limited as she is still experiencing quite a bit of pain. Aside from that she continues to report some left-sided hypoesthesia to her leg. She states this feels slightly increased compared to the baseline numbness / pain she had preoperatively. She is voiding well and tolerating current diabetic diet. Afebrile, vital signs stable. Hypoesthesia reported to light tough primarily near left iliopsoas but also extending slightly down toward lateral knee. Back dressings have some staining without signs of hematoma. No active sanguineous drainage. Area is dry. Plan: The patient will be switched to po Hydromorphone to try and help get her pain better under control. Ideally she will work with PT again later today. We will appreciate disposition recommendations for her based on functional status. We would like to try and get her home later today if she is able to progress with PT and achieve decent pain control. This was discussed with the attending neurosurgeon Dr. Fuentes. Vern Fuentes MD,PhD [facility]
--- NOTE | 2025-09-23 15:06 | W.MHC.F2F ---
Service Date Service Date: 09/23/25 Encounter Date of encounter: 09/23/25 Reasons for Services Signs and symptoms assessed: S/P l4-5 olif Reason for half-way: neurological assessment, wound care, diabetic teaching, medication management and medication treatment Reason for physical therapy: home safety and mobility, therapeutic exercises and gait/transfer training Homebound: Leaving the home is medically contraindicated at this time without the asist of a device and/or another person due th the listed conditions above and below. Reason homebound: unsteady gait / fall risk, leg weakness, pain with ambulation and weakness related to hospital stay Certification: Based on the above findings, I certify that this patient is confined to the home and needs intermittent half-way care, physical therapy and/or speech therapy, or continues to need occupational therapy. The patient is under my care, and I have initiated the establishment of the plan of care. The patient will be followed by a physician who will periodically review the plan of care. Time Spent With Patient Time: Total time managing care of this patient today __17__ minutes.
[2025-09-23 15:49] VITALS: BP 124/58; PULSE 83; RESP 18; TEMP 36.2; O2SAT 95
== END 2025-09-23 18:34 | disposition home health service (06) | DRG 451 ==
LOC: HO.SSSA 06:06 → HO.S3 12:12
PROVIDERS: Neurological Surgery; Admitting Provider Physician Assistant; PCP Internal Medicine; Visit Provider Physician Assistant
PROC: 0SG00A0 Fusion of Lumbar Vertebral Joint with Interbody Fusion Device, Anterior Approach, Anterior Column, Open Approach (ICD-10-PCS; principal; 2025-09-22 07:30)
DX: M51.362 Other intervertebral disc degeneration, lumbar region with discogenic back pain and lower extremity pain (principal); M48.061 Spinal stenosis, lumbar region without neurogenic claudication; F10.21 Alcohol dependence, in remission; Z79.899 Other long term (current) drug therapy
CPT/HCPCS: 82947; 86850; 86900; 86901; 93005; 94660; 97162; 97530; C1713; C1889; J0131; J0665; J0666; J1100; J1171; J1596; J2003; J2250; J2371; J2405; J2704; J3010; J3374; L8699

== ENCOUNTER → 2025-09-22 06:01 | Outpatient (BNV) | payer OTHER, SELFPAY | PROVIDERS: Admitting Provider Physician Assistant; PCP Internal Medicine; Visit Provider Neurological Surgery | DX: Z48.89 Encounter for other specified surgical aftercare (principal) | CPT/HCPCS: 20930; 22558; 22612; 22853; 99024; 99499; G0180 ==

== ENCOUNTER 2025-09-23 22:38 | Emergency (ER) | payer OTHER, SELFPAY ==
--- NOTE | ~2025-09-23 | XR_ITS ---
EXAMINATION: XR KNEE, LEFT CLINICAL INFORMATION: trauma, pain COMPARISON: May 03, 2022. TECHNIQUE: Portable AP and lateral views of the left knee. FINDINGS: Tricompartmental osteoarthrosis without acute cortical disruption or gross malalignment. No suprapatellar bursa joint effusion. No lytic or blastic lesions. No soft tissue calcifications. No metallic or radiopaque foreign body. No subcutaneous emphysema. Patient's large body habitus. XR/XR knee LT 2V IMPRESSION: Tricompartmental osteoarthrosis/osteoarthritis without acute fracture or dislocation. Electronically signed by: Dk Kim MD 09/24/2025 06:55 AM EST
--- NOTE | ~2025-09-23 | XR_ITS ---
CLINICAL HISTORY: low oxygen recent operation 1 view chest x-ray Comparison: CR/SR - XR CHEST 2 VIEWS - 03/04/23 16:48 EDT Findings: Hypoventilatory exam. No consolidation or effusion. Heart size is normal. No acute fracture. IMPRESSION: 1. No acute findings. This document has been electronically signed by: Maria Elena Fermin MD on 09/24/2025 01:39:33
--- NOTE | ~2025-09-23 | XR_ITS ---
CLINICAL HISTORY: post op fall, L4-5 fusion, pain 3 views lumbar spine Comparison: None provided Findings: Normal vertebral body alignment. Iatrogenic findings with well-positioned surgical hardware noted at L4-L5. No acute fractures or dislocation. No significant degenerative change. IMPRESSION: No acute findings. This document has been electronically signed by: Salbador Ledezma MD on 09/24/2025 05:18:42
--- NOTE | ~2025-09-23 | CT_ITS ---
EXAMINATION: CT HIP WITHOUT CONTRAST, LEFT CLINICAL INFORMATION: Injury. Persistent left hip pain. Concerning occult fracture. COMPARISON: None available. TECHNIQUE: Multidetector volumetric imaging was obtained through the left hip without contrast material. Multiplanar reformatted images were submitted in coronal and sagittal planes. This CT examination was performed using dose optimization techniques as appropriate, variously including the following: *Automated exposure control *Adjustment of mA and/or kV according to patient size (this includes techniques or standardized protocols for targeted exams where dose is matched to indication/reason for exam; i.e. extremities or head) *Use of iterative reconstruction technique DLP: 395 mGy-cm FINDINGS: The left acetabulum is intact. The left femoral head neck intertrochanteric region and proximal diaphysis of the left femur are intact. Degenerative changes in the greater trochanter. The left femoral head is well-seated in the left acetabulum without gross joint effusion. The left superior and inferior pubic rami are intact. Mild degenerative changes in the symphysis pubis. Degenerative changes in the left ischium. Subcutaneous emphysema in the deep fat planes of the left lateral gluteal region and above the iliac crest. There is extraluminal gas in the left lower pelvic peritoneal cavity. There is fluid density abnormality in the left lateral lower pelvic peritoneal cavity measuring less than 5 cm. There is a collapsed appearance of the sigmoid colon. There is a fat-containing umbilical hernia. Abundant stool in the included large intestine. Fluid-filled prominent bladder. CT/CT hip LT wo IV con IMPRESSION: No acute fracture or dislocation, left hip. Extraluminal gas and fluid density abnormality left lower pelvic cavity with the subcutaneous emphysema, left lateral lower pelvis/hip region. Electronically signed by: Dk Kim MD 09/24/2025 08:47 AM EST
--- NOTE | ~2025-09-23 | XR_ITS ---
CLINICAL HISTORY: L hip pain, tender 1 view pelvis Comparison: CR/IA/SR - XR HIP BI W PEL1V - 04/14/25 07:57 EDT Findings: No acute fracture or dislocation. Mild degenerative changes of the bilateral hips. Lower lumbar fusion changes partially visualized. Soft tissues are unremarkable. IMPRESSION: 1. No acute fracture. This document has been electronically signed by: Maria Elena Fermin MD on 09/24/2025 01:40:31
[2025-09-23 22:48] VITALS: BP 133/88; BP 148/94; PULSE 122; PULSE 123; RESP 18; TEMP 36.7; O2SAT 94; O2SAT 96; BMI 46.9
[2025-09-23 23:00] VITALS: PULSE 105; RESP 18; O2SAT 97
--- NOTE | 2025-09-23 23:00 | PC.NURSE ---
Assumed care of pt, presents to the ED for left hip pain s/p fall at home s/p spinal fusion of L4-L5 surgery today, pt stated she lost her balance and fell on her left hip, no head strike, no blood thinners, [id number]
[2025-09-23 23:59] VITALS: BP 107/77; PULSE 119; TEMP 36.6; O2SAT 91
[2025-09-24] VITALS (9 sets, daily range): BP systolic 101–128; BP diastolic 61–79; PULSE 97–114; RESP 14–20; TEMP 36.5–36.8; O2SAT 93–97
--- NOTE | 2025-09-24 00:07 | ED.FALL ---
HPI - Fall General Chief Complaint: Fall Stated Complaint: Fall L knee, post surgery on L4&L5, L sided weak Time Seen by Provider: 09/24/25 00:05 History of Present Illness ED Provider: Khalif Bartholomew MD HPI Narrative: Marylin is 55, POD [address] [facility] here @ [facility] [place]. Fell from standing , She tells me she was walking in her home when she was going to the bathroom and she lost her balance. She fell basically directly onto the left hip but also felt impact on the left low back which she tried to avoid because this was the surgical site. The nice head strike has not been on anticoagulation. She was unable to get up and walk with severe pain. She was tearful in pain also pointing to the left inter lateral hip and left low back. She denies fever, chills, swelling left lower leg or any skin breaks. She doesn't have a headache, neck pain doesn't feel upper trunk or torso discomfort. Pain is primarily left lateral hip, left low back. Related Data Home Medications ?Medication ?Instructions ?Recorded ?Confirmed carboxymethylcellulose sodium 0.5 1 drp ophthalmic (eye) BID-QID PRN 06/06/22 09/24/25 % eye drops Dry Eyes desvenlafaxine succinate 100 mg 100 mg PO DAILY 10/15/22 09/24/25 tablet,extended release 24 hr (Pristiq) lancets 28 gauge (FreeStyle #100 ea 01/24/23 09/22/25 Lancets) clotrimazole-betamethasone 1 1 appl topical BID 02/19/23 09/24/25 %-0.05 % topical cream empagliflozin 25 mg tablet 25 mg PO DAILY 03/22/23 09/24/25 (Jardiance) albuterol sulfate 90 mcg/actuation 2 puff inhalation Q4H PRN 04/08/25 09/24/25 aerosol inhaler Shortness Of Breath Or Wheezing prazosin 5 mg capsule 10 mg PO BEDTIME 04/08/25 09/24/25 zolpidem 10 mg tablet 10 mg PO BEDTIME Insomnia 04/08/25 09/24/25 gabapentin 600 mg tablet 600 mg PO TID anxiety- managed by 04/20/25 09/24/25 psychiatry insulin degludec 200 unit/mL (3 32 unit subcut QAM 07/14/25 09/24/25 mL) subcutaneous pen (Tresiba FlexTouch U-200 insulin) tirzepatide 15 mg/0.5 mL 15 mg subcut FR 07/14/25 09/24/25 subcutaneous pen injector (Mounjaro) levomefolate calcium 15 mg tablet 15 mg PO DAILY 09/07/25 09/24/25 omeprazole 40 mg capsule,delayed 40 mg PO QAM 09/07/25 09/24/25 release pravastatin 80 mg tablet 80 mg PO BEDTIME 09/07/25 09/24/25 valsartan 160 mg tablet (Diovan) 160 mg PO QAM 09/07/25 09/24/25 hydromorphone 2 mg tablet 2 - 4 mg PO Q4-6H 09/24/25 09/24/25 Previous Rx's ?Medication ?Instructions ?Recorded desvenlafaxine succinate 25 mg 25 mg PO DAILY #1 tab 03/01/23 tablet,extended release 24 hr flash glucose scanning reader #1 ea 04/11/23 (FreeStyle Griffin 14 Day Crowell) flash glucose sensor (FreeStyle #1 ea 04/11/23 Griffin 14 Day Sensor kit) Adult Protective Underwear #2 multiple units 03/27/24 FreeStyle Lite Strips (blood sugar #100 strips 08/13/24 diagnostic) loratadine 10 mg tablet 10 mg PO DAILY #90 tabs 11/09/24 single prong cane #1 ea 12/30/24 nystatin 100,000 unit/gram topical 1 appl topical QID #60 grams 01/21/25 powder fluticasone propionate 50 1 spray intranasal DAILY #48 mL 02/25/25 mcg/actuation nasal spray,suspension cholecalciferol (vitamin D3) 25 25 mcg PO DAILY #90 caps 03/22/25 mcg (1,000 unit) capsule ubrogepant 100 mg tablet (Ubrelvy) 50 - 100 mg (0.5 - 1 x 100 mg) PO 03/26/25 Held on 09/23/25. ONCE PRN migraine headache 30 days Instructions: Resume on #16 tabs 09/27/25. Discuss restarting this medication with your prescriber riboflavin (vitamin B2) 400 mg 400 mg PO DAILY 30 days #30 tabs 04/20/25 tablet Rollator #1 ea 05/17/25 ascorbate calcium (vitamin C) 500 500 mg PO DAILY 30 days #30 tabs 06/09/25 mg tablet docusate sodium 100 mg capsule 100 - 200 mg (1 - 2 x 100 mg) PO 06/09/25 (Colace) DAILY PRN constipation 30 days #60 caps baclofen 10 mg tablet 10 mg PO BEDTIME PRN for muscle 06/18/25 spasm 90 days #90 tabs pen needle, diabetic 31 gauge x #100 ea 06/21/25/ (Unifine Pentips) Bed rail #1 ea 09/01/25 Rollator walker #1 ea 09/01/25 epinephrine 0.3 mg/0.3 mL 0.3 ml IM ONCE PRN Anaphylaxis #2 09/10/25 injection, auto-injector ea hydroxyzine HCl 10 mg tablet 10 mg PO TID PRN itching 30 days 09/10/25 #90 tabs ondansetron HCl 4 mg tablet 4 mg PO Q8H #30 tabs 09/10/25 Allergies Allergy/AdvReac Type Severity Reaction Status Date / Time insulin lispro Allergy Severe tongue Verified 09/23/25 22:53 swelling meloxicam Allergy Severe Anaphylaxis Verified 09/23/25 22:53 simvastatin Allergy Severe Difficulty Verified 09/23/25 22:53 Swallowing amlodipine Allergy Intermediate lip Verified 09/23/25 22:53 swelling butalbital Allergy Intermediate lip, Verified 09/23/25 22:53 tongue, mouth swelling clindamycin Allergy Intermediate Angioedema Verified 09/23/25 22:53 ibuprofen (From Motrin) Allergy Intermediate Hives Verified 09/23/25 22:53 lisinopril Allergy Intermediate Swelling Verified 09/23/25 22:53 losartan Allergy Intermediate Angioedema Verified 09/23/25 22:53 Penicillins Allergy Intermediate Hives Verified 09/23/25 22:53 raspberry Allergy Intermediate Hives Verified 09/23/25 22:53 oxycodone (From Percocet) Allergy Mild Hives Verified 09/23/25 22:53 [facility] Past Medical History Medical History Alcohol dependence in remission Anxiety Anemia Asthma Back pain Hyperlipidemia LDL goal <70 Type 2 diabetes mellitus with hemoglobin A1c goal of less than 7.0% Carpal tunnel syndrome Cluster headache syndrome, intractable Morbid obesity with BMI of 40.0-44.9, adult Allergic rhinitis Migraine GERD (gastroesophageal reflux disease) Fibromyalgia Bipolar disorder PTSD (post-traumatic stress disorder) Arthritis Elevated cholesterol Sleep apnea HTN (hypertension) History of kidney stones History of alcohol abuse Surgical History (Updated 09/26/25 @ 00:00 by Ventura Medina) Hx of carpal tunnel repair History of colonoscopy (~06/14/22) History of tonsillectomy History of hysterectomy Family History Family History Father Hypertension Diabetes Mother Asthma Family/Other Substance use disorder Mental health disorder Sister No problems noted. Brother No problems noted. Son No problems noted. 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 Cognitive needs: Yes (cane ) Hearing needs: No Vision needs: Yes (glasses ) Physical Exam Vital Signs: Vital Signs: Last Vital Signs Temp 97.6 F 09/25/25 09:56 Pulse 89 09/25/25 09:56 Resp 16 09/25/25 09:56 BP 105/86 09/25/25 09:56 Pulse Ox 95 09/25/25 09:56 O2 Del Method Room Air 09/25/25 09:56 BMI result Body Mass Index 46.9 Const: General: cooperative and in distress Nutritional Appearance: obese Orientation/consciousness: oriented to person Eyes: General: appearance normal, both eyes and all related structures Neck: Neck: Yes full ROM and Yes trachea midline Chest: Chest palpation & inspection: normal inspection of the chest Resp: Effort & Inspection: normal respiratory effort Auscultation: clear to auscultation bilaterally Cardio: Rate: tachycardic Heart sounds: S1 normal heart sound present and S2 normal heart sound present GI: Inspection: Yes normal to inspection, No abdominal wall ecchymosis and No distended Palpation (GI): Soft to palpation and nontender Back/Spine/Pelvis: Other: tender L lower Lumbar Neuro: General: oriented to person Cranial nerves: Yes CN's II-XII intact bilaterally Cognition (Neuro): normal cognition Motor exam (neuro): Normal motor muscle tone present throughout and Other motor observations present (4/5 freddy LE felt to be pain/effort limited. sensation intact. uppper extrem ) Extrem: Other: tender L lateral hip, no ext rotation or shortening. Course Reevaluation(s) Reevaluation #1: Td: The patient was signed out to me at change of shift by the previous emergency physician. The patient is a 55-year-old woman who had lumbar spine surgery at this hospital 2 days ago. She was discharged from the hospital yesterday evening at around 18:30. Not long after she got home she has a fall at her home. She says that she lost her balance and fell. She certainly seems to describe a mechanical fall. She wanted to make sure that she did not land on her surgical site. She says that she 1st landed on her knees (primarily on her left knee) and then she fell to her left side, landing on her shoulder. Prior to my evaluation the patient had had a pelvis x-ray that showed no signs of a hip fracture. When I saw the patient I felt she could move her left shoulder well and I did not have any concern for a possible left shoulder fracture. Similarly she could move her right knee and right hip well without significant discomfort. She seemed to have a lot of pain with moving the left knee and the left hip. I ordered an x-ray of the left knee which is unremarkable. I have also ordered a CT scan of the left hip to look for a possible occult fracture. My suspicion is that the CT of the left hip will probably be unremarkable. If that is the case then the patient will not seem to have any significantly dangerous injuries from her fall aside from bruising. I think this is the likely scenario and I think she will likely need to be seen by case management and physical therapy. I also communicated with the RANJEET Baldwin, of the neurosurgical team. Time: 07:31 Reevaluation #2: I have reviewed the images of the CT of the left hip. I do not think there is a fracture present. In the meantime however I was informed by the patient's nurse that the patient feels that she is unable to urinate. A bladder scan was done that shows a bladder volume of 800 mL. The patient says that she tried sitting up and was not able to be. I then examined her legs. She reports a decreased sensation with the palpation of the skin of the left leg. She also feels that she has some weakness in the left leg. Given this finding of urinary retention and some decreased sensation in the left leg and some decreased strength in the left leg I have asked the spine surgery team to evaluate the patient with regard to these new issues. Time: 08:31 Reevaluation #3: 09/24/25 Provider: Mars Sam MD 08:56 I assumed care of this patient from my colleague, at 08:30 hours. At the end of his shift, Dr. Appiah noted that the patient has decreased strength in her left lower extremity and urinary retention with 800 cc of urine on bladder scan with abdominal pain secondary bladder distention. The patient's nurse adjusted the patient's Purewick and the patient was able to put out 400 cc of urine. Radiology contacted me regarding the CT of the hip. There is no occult fracture of her hip noted. There is subcutaneous air which is consistent with her surgical procedure but the radiologist was concerned that there may also be extra luminal air in the abdomen and recommended a CT abdomen pelvis without IV contrast. 09:25 I did discuss the radiology finding with Dr. Fuentes. He states that he used a retroperitoneal approach and this can sometimes lead to intra-abdominal air which is not caused by a viscus perforation. Since this is an expected finding, he recommended against doing a CT scan of the abdomen pelvis. Therefore, the patient is medically cleared and I ordered physical therapy and case management consult. I also spoke to our technical sales manager regarding this patient. The patient is requesting more pain medications therefore I ordered Dilaudid 1 mg IV and Dilaudid 4 mg q.4 hours prn pain 7-10. Time: 16:04 Date: 09/24/25 Provider: Mars Sam MD Patient in physician observation for case management needs. Patient was evaluated by PT and case management. The patient has been accepted at [facility] tomorrow morning at 09:30. Patient's medications were reconciled and I did order her outpatient regimen. Patient is a full code. Will continue to monitor. Time: 09:45 Date: 09/25/25 Provider: RANJEET Roberts Physician observation ended at 0945. Patient is being discharge to [facility]. Medications Administered Discontinued Medications Generic Name Dose Route Start Last Admin Trade Name Shashiq PRN Reason Stop Dose Admin Acetaminophen 325 mg 09/25/25 00:57 09/25/25 01:05 Acetaminophen 325 Mg Tablet PO 325 mg Q6H PRN Administration Pain, Moderate(Pain Scale 4-6) Ascorbic Acid 500 mg 09/25/25 09:00 09/25/25 09:35 Ascorbic Acid 500 Mg Tablet PO 500 mg DAILY KRISTIE Administration Empagliflozin 25 mg 09/24/25 16:00 09/25/25 09:36 Empagliflozin 25 Mg Tablet PO 25 mg DAILY KRISTIE Administration Fluticasone Propionate 1 spray 09/25/25 09:00 09/25/25 09:41 Fluticasone Propionate Nasal 16 Gm [place] NOSTRIL-B Not Given DAILY KRISTIE Gabapentin 600 mg 09/24/25 16:00 09/25/25 09:36 Gabapentin 600 Mg Tablet PO 600 mg TID KRISTIE Administration Heparin Sodium (Porcine) 5,000 unit 09/24/25 21:00 09/25/25 09:36 Heparin Sodium,Porcine 5,000 Unit/Ml Vial SUBCUT 5,000 unit TID KRISTIE Administration Hydromorphone HCl 0.5 mg 09/24/25 00:06 09/24/25 01:22 Hydromorphone Hcl 0.5 Mg/0.5 Ml Syringe IVPUSH 09/24/25 00:07 0.5 mg ONCE ONE Administration Protocol Hydromorphone HCl 0.5 mg 09/24/25 03:16 09/24/25 03:36 Hydromorphone Hcl 0.5 Mg/0.5 Ml Syringe IVPUSH 09/24/25 03:17 0.5 mg ONCE ONE Administration Protocol Hydromorphone HCl 4 mg 09/24/25 06:08 09/24/25 06:33 Hydromorphone Hcl 2 Mg Tablet PO 09/24/25 06:09 4 mg ONCE ONE Administration Hydromorphone HCl 1 mg 09/24/25 09:34 09/24/25 09:42 Hydromorphone Hcl 1 Mg/Ml Syringe IVPUSH 09/24/25 09:35 1 mg ONCE STA Administration Protocol Hydromorphone HCl 4 mg 09/24/25 09:34 09/25/25 06:52 Hydromorphone Hcl 2 Mg Tablet PO 4 mg Q4H PRN Administration Pain, Severe (Pain Scale 7-10) Lactated Ringer's 1,000 mls @ 999 mls/hr 09/24/25 00:15 09/24/25 03:55 Lr IV 09/24/25 01:15 Infused .Q1H1M KRISTIE Infusion Insulin Glargine 22 unit 09/24/25 18:00 09/25/25 09:36 Insulin Glargine,Hum.Rec.Anlog 100 Unit/Ml 10 Ml Vial SUBCUT 22 unit DAILY KRISTIE Administration Loratadine 10 mg 09/24/25 16:00 09/25/25 09:36 Loratadine 10 Mg Tablet PO 10 mg DAILY KRISTIE Administration Non-Formulary Medication 25 mg 09/24/25 16:00 09/24/25 17:38 Desvenlafaxine Succinate PO Not Given DAILY KRISTIE Non-Formulary Medication 100 mg 09/24/25 16:00 09/24/25 17:38 Desvenlafaxine Succinate [Pristiq] PO Not Given DAILY [facility] Nystatin 1 appl 09/24/25 17:00 09/25/25 09:40 Nystatin Powder 15 Gm Bottle TOPICAL Not Given QID KRISTIE Protocol Nystatin/Triamcinolone Acetonide 1 appl 09/24/25 21:00 09/25/25 09:41 Nystatin/Triamcinolone Cream 15 Gm Tube TOPICAL Not Given BID [facility] Omeprazole 40 mg 09/25/25 06:30 09/25/25 06:51 Omeprazole 40 Mg Capsule. PO 40 mg DAILY@0630 KRISTIE Administration Ondansetron HCl 4 mg 09/24/25 16:00 09/25/25 09:35 Ondansetron Odt 4 Mg Tab.Rapdis TRANSLINGU 4 mg Q8H KRISTIE Administration Pravastatin Sodium 80 mg 09/24/25 21:00 09/24/25 20:27 Pravastatin Sodium 80 Mg Tablet PO 80 mg BEDTIME KRISTIE Administration Prazosin HCl 10 mg 09/24/25 21:00 09/24/25 23:38 Prazosin Hcl 5 Mg Capsule PO 10 mg BEDTIME KRISTIE Administration Protocol Valsartan 160 mg 09/24/25 16:00 09/25/25 09:40 Valsartan 160 Mg Tablet PO 160 mg DAILY KRISTIE Administration Protocol Venlafaxine HCl 150 mg 09/24/25 18:30 09/25/25 09:34 Venlafaxine Hcl Er 150 Mg Cap.Er.24h PO 150 mg DAILY KRISTIE Administration Vitamin D 25 mcg 09/25/25 09:00 09/25/25 09:36 Cholecalciferol (Vitamin D3) 25 Mcg Tablet PO 25 mcg DAILY KRISTIE Administration Zolpidem Tartrate 10 mg 09/24/25 21:00 09/24/25 20:27 Zolpidem Tartrate 5 Mg Tablet PO 10 mg BEDTIME KRISTIE Administration Medical Decision Making Medical Decision Making [facility] Narrative: This is a 55-year-old female, one day post-op with a fall from standing height. No head strike pain and fall impact seems directly into the left hip, low back. This is the post-operative side of approach. She has bilateral lower extremity effort/pain-based weakness. I don't think this is a true motor deficit. We attempted to contact by secure message system the Operating neurosurgeons team but we're unsuccessful for this reason. I made the decision on my own to get a basic film on the lumbar spine to ensure there was no gross abnormalities or displacement of hardware and get a left hip X-ray. She didn't appear to be injured anywhere else. Pain difficult to control, something more phone, Tylenol. Sign out to overnight team to follow up lumbar imaging and discuss with the neurosurgical team in the morning. Patient will likely need case management, PT assessment for eventual rehab placement due to her ambulation and pain control issues.? Consult: attempt x 1 @ [employer] text NS team, no return message XR No fx or hardware displacement: Interpreted independently Labs unremarkable Sign out: 2a to overnight Lab Data 09/24/25 01:25 09/24/25 01:25 Labs: Lab Results 09/24/25 09/24/25 09/24/25 Range/Units 01:25 08:55 20:25 WBC 14.0 H (4.8-10.8) X10*3/uL RBC 4.44 (4.20-5.50) X10*6/uL Hgb 12.9 (12.0-16.0) g/dl Hct 39.0 (37.0-47.0) % MCV 87.8 (80.0-98.0) fL MCH 29.1 (27.0-33.0) pg MCHC 33.1 (31.0-35.0) g/dl RDW 15.6 (11.0-16.0) % Plt Count 295 (160-400) X10*3/uL MPV 9.3 L (9.4-12.3) fL Immature Gran % (Auto) 0.4 (0.0-0.4) % Neut % (Auto) 70.9 (45-73) % Lymph % (Auto) 19.9 L (20-40) % [place] % (Auto) 8.1 (2-11) % Eos % (Auto) 0.5 (0-4) % Baso % (Auto) 0.2 (0-2) % Lymph # (Auto) 2.8 (1.2-4.9) X10*3/uL [place] # (Auto) 1.1 (0.1-1.2) X10*3/uL Eos # (Auto) 0.1 (0.0-0.4) X10*3/uL Baso # (Auto) 0.0 (0.0-0.2) X10*3/uL Abs Immat Gran (auto) 0.06 H (0.00-0.03) X10*3/uL Absolute Neuts (auto) 10.0 H (2.0-8.3) x10*3/uL Absolute Nucleated RBC 0.000 (0.0-0.012) X10*3/uL Nucleated RBC % (auto) 0.0 (0.0-0.2) /100WBC Sodium 138 (135-145) mmol/L Potassium 3.8 (3.3-5.1) mmol/L Chloride 102 (96-108) mmol/L Carbon Dioxide 26 (22-29) mmol/L Anion Gap 14 (12-20) BUN 12 (9-16) mg/dL Creatinine 0.71 (0.5-1.4) mg/dL Estim Creat Clear Calc 101.2 Estimated GFR > 60 POC Glucose 155 H (60-115) mg/dL Random Glucose 163 H (60-115) mg/dL Calcium 9.6 (8.4-10.2) mg/dL Troponin I High Sens < 2.7 (<3.5-17.0) ng/L NT-Pro-B Natriuret Pep 151.8 (<300) pg/mL COVID-19 ([facility]) Negative (Negative) COVID-19 Clin Com See Note 09/25/25 Range/Units 07:07 WBC (4.8-10.8) X10*3/uL RBC (4.20-5.50) X10*6/uL Hgb (12.0-16.0) g/dl Hct (37.0-47.0) % MCV (80.0-98.0) fL MCH (27.0-33.0) pg MCHC (31.0-35.0) g/dl RDW (11.0-16.0) % Plt Count (160-400) X10*3/uL MPV (9.4-12.3) fL Immature Gran % (Auto) (0.0-0.4) % Neut % (Auto) (45-73) % Lymph % (Auto) (20-40) % [place] % (Auto) (2-11) % Eos % (Auto) (0-4) % Baso % (Auto) (0-2) % Lymph # (Auto) (1.2-4.9) X10*3/uL [place] # (Auto) (0.1-1.2) X10*3/uL Eos # (Auto) (0.0-0.4) X10*3/uL Baso # (Auto) (0.0-0.2) X10*3/uL Abs Immat Gran (auto) (0.00-0.03) X10*3/uL Absolute Neuts (auto) (2.0-8.3) x10*3/uL Absolute Nucleated RBC (0.0-0.012) X10*3/uL Nucleated RBC % (auto) (0.0-0.2) /100WBC Sodium (135-145) mmol/L Potassium (3.3-5.1) mmol/L Chloride (96-108) mmol/L Carbon Dioxide (22-29) mmol/L Anion Gap (12-20) BUN (9-16) mg/dL Creatinine (0.5-1.4) mg/dL Estim Creat Clear Calc Estimated GFR POC Glucose 95 (60-115) mg/dL Random Glucose (60-115) mg/dL Calcium (8.4-10.2) mg/dL Troponin I High Sens (<3.5-17.0) ng/L NT-Pro-B Natriuret Pep (<300) pg/mL COVID-19 ([facility]) (Negative) COVID-19 Clin Com Discharge Plan Discharge Clinical Impression: Status post lumbar surgery Patient Disposition: Xfer Inpatient Rehab Fac Transfer Details: [facility] Additional Instructions: You were evaluated after having spinal surgery. Your workup in the ED is reassuring. Case management has arranged for you to go to a rehab facility - [facility]. Return with any new or worsening symptoms. In the case of an emergency call 911 Prescriptions: No Action desvenlafaxine succinate 25 mg tablet extended release 24 hr 25 mg PO DAILY Qty: 1 0RF (DME) FreeStyle Griffin 14 Day Crowell Misc See Rx Instructions .Route Qty: 1 0RF Rx Instructions: As directed (DME) FreeStyle Griffin 14 Day Sensor Kit See Rx Instructions .Route Qty: 1 5RF Rx Instructions: As directed (DME) Adult Protective Underwear XXL 0 .Route .MEDSUPPLY Qty: 2 0RF Rx Instructions: As directed (DME) FreeStyle Lite Strips Strip See Rx Instructions .ROUTE .COMPLEX Qty: 100 10RF Dose Instruction: USE TO CHECK BLOOD SUGAR TWICE A DAY Rx Instructions: USE TO CHECK BLOOD SUGAR TWICE A DAY loratadine 10 mg tablet 10 mg PO DAILY Qty: 90 8RF (DME) single prong cane See Rx Instructions .Route .MEDSUPPLY Qty: 1 0RF Rx Instructions: As directed fluticasone propionate 50 mcg/actuation spray,suspension 1 spray intranasal DAILY Qty: 48 1RF cholecalciferol (vitamin D3) 25 mcg (1,000 unit) capsule 25 mcg PO DAILY Qty: 90 1RF Ubrelvy 100 mg tablet 50 - 100 mg PO ONCE PRN (Reason: migraine headache) 30 Days Qty: 16 6RF Rx Instructions: take at onset of migraine, may repeat in 2hrs (may take w/ Tylenol). [place] APPROVED 12/25-03/25/2026 [place] [place] Rollator See Rx Instructions .Route .MEDSUPPLY Qty: 1 0RF Rx Instructions: As directed docusate sodium [Colace] 100 mg capsule 100 - 200 mg PO DAILY PRN (Reason: constipation) 30 Days Qty: 60 4RF ascorbate calcium (vitamin C) 500 mg tablet 500 mg PO DAILY 30 Days Qty: 30 4RF Rx Instructions: take w/ ferrous gluconate baclofen 10 mg tablet 10 mg PO BEDTIME PRN (Reason: for muscle spasm) 90 Days Qty: 90 6RF (DME) pen needle, diabetic [Unifine Pentips] 31 gauge x 5/16 needle See Rx Instructions .ROUTE .COMPLEX Qty: 100 2RF Dose Instruction: USE TO INJECT TWICE A DAY Rx Instructions: USE TO INJECT TWICE A DAY ([facility] [place] Bed rail See Rx Instructions .Route .MEDSUPPLY Qty: 1 0RF Rx Instructions: As directed ([facility] [place]) Rollator walker See Rx Instructions .Route .MEDSUPPLY Qty: 1 0RF Rx Instructions: As directed epinephrine 0.3 mg/0.3 mL auto-injector 0.3 ml IM ONCE PRN (Reason: Anaphylaxis) Qty: 2 0RF ondansetron HCl 4 mg tablet 4 mg PO Q8H Qty: 30 0RF hydroxyzine HCl 10 mg tablet 10 mg PO TID PRN (Reason: itching) 30 Days Qty: 90 3RF omeprazole 40 mg capsule,delayed release(DR/EC) 40 mg PO QAM pravastatin 80 mg tablet 80 mg PO BEDTIME valsartan [Diovan] 160 mg tablet 160 mg PO QAM levomefolate calcium 15 mg Tablet 15 mg PO DAILY hydromorphone 2 mg tablet 2 - 4 mg PO Q4-6H carboxymethylcellulose sodium 0.5 % drops 1 drp ophthalmic (eye) BID-QID PRN (Reason: Dry Eyes) desvenlafaxine succinate [Pristiq] 100 mg tablet extended release 24 hr 100 mg PO DAILY (DME) lancets [FreeStyle Lancets] 28 gauge misc See Rx Instructions .ROUTE BID Qty: 100 Rx Instructions: As directed Jardiance 25 mg tablet 25 mg PO DAILY clotrimazole-betamethasone 1-0.05 % cream 1 appl topical BID nystatin 100,000 unit/gram powder 1 appl topical QID Qty: 60 3RF zolpidem 10 mg tablet 10 mg PO BEDTIME prazosin 5 mg capsule 10 mg PO BEDTIME albuterol sulfate 90 mcg/actuation HFA aerosol inhaler 2 puff inhalation Q4H PRN (Reason: Shortness Of Breath Or Wheezing) insulin degludec [Tresiba FlexTouch U-200] 200 unit/mL (3 mL) insulin pen 32 unit subcut QAM Mounjaro 15 mg/0.5 mL pen injector 15 mg subcut FR Rx Instructions: takes on Fridays gabapentin 600 mg tablet 600 mg PO TID riboflavin (vitamin B2) 400 mg tablet 400 mg PO DAILY 30 Days Qty: 30 6RF Referrals: [facility] [Outside] Interventions: Acute Care Transfer Worksheet (ED) Last Done: 09/25/25 09:56 Discharge Date/Time: 09/25/25 09:59 Print Language: Amharic
--- OUTSIDE RECORDS SUMMARY | 2025-09-24 00:20 | XMS_ITS | Clinical Summary ---
Author Organization 175 [facility] Address 175 [place] [address] Phone Care Team Providers Care American Sign Language Interpreter Name Role Phone Mamie Townsend MD Primary [...] 9:00 AM EDT Office Visit Orthopedic Surgery [facility] [address] [phone] Jim Ferreira DPM Cellulitis of third toe of right foot (Primary Dx) 07/08/2025 9:00 AM EDT Office Visit Orthopedic [facility] [address] [phone] Jim Ferreira DPM Tinea pedis of both [...] ID:[id number] Group ID:ICO Type:Not on file Address: [place] [address] [address] [phone] Care Teams American Sign Language Interpreter Relationship Specialty Start Date End Date Mamie Townsend MD [address] [place] [phone] PCP - General Internal Medicine 05/20/18
[2025-09-24] MEDS: Lactated Ringers 1,000 ML 999 ML IV (01:23)
[2025-09-24 01:29] LABS: MANUAL DIFF FLAG NO
[2025-09-24 01:30] LABS: Hematocrit 39.0 % (37.0-47.0); Hemoglobin 12.9 g/dl (12.0-16.0); Imm Gran Abs Auto 0.06 X10*3/uL (0.00-0.03); Imm Gran Pct Auto 0.4 % (0.0-0.4); Lymphocytes Absolute Auto 2.8 X10*3/uL (1.2-4.9); Mean Corpuscular HGB Conc 33.1 g/dl (31.0-35.0); Mean Corpuscular Hemoglobin 29.1 pg (27.0-33.0); Mean Corpuscular Volume 87.8 fL (80.0-98.0); NRBC Abs Auto 0.000 X10*3/uL (0.0-0.012); NRBC Pct Auto 0.0 /100WBC (0.0-0.2); Platelet Count 295 X10*3/uL (160-400); Red Blood Count 4.44 X10*6/uL (4.20-5.50); White Blood Count 14.0 X10*3/uL (4.8-10.8)
[2025-09-24 01:44] LABS: Anion Gap 14 (12-20); Blood Urea Nitrogen 12 mg/dL (9-16); Calcium 9.6 mg/dL (8.4-10.2); Carbon Dioxide 26 mmol/L (22-29); Chloride 102 mmol/L (96-108); Creatinine Clr Calc Pharmacy 101.2; Estimated Glomerular Filt Rate > 60; Potassium 3.8 mmol/L (3.3-5.1); Sodium 138 mmol/L (135-145)
[2025-09-24 01:53] LABS: Troponin-I High Sensitivity < 2.7 ng/L (<3.5-17.0)
[2025-09-24 02:32] LABS: NT Pro B Type Natriuretic Pept 151.8 pg/mL (<300)
--- NOTE | 2025-09-24 09:08 | PC.NURSE ---
Pt reported pressure in her bladder, had purewick on which was wokring well prior. Bladder scan showed >800 mL in bladder. Pt reported the purewick was no longer working, bed changed and purewick changed. Pt now able to urinate, will continue to monitor.
[2025-09-24 09:17] LABS: COVID-19 Test Negative (Negative); IDNOW Serial# 55D5AD1C
--- NOTE | 2025-09-24 10:20 | PC.NURSE ---
Med rec done by this RN with patient. Provider notified
--- NOTE | 2025-09-24 10:22 | PC.NURSE ---
Pt unable to empty bladder, feeling pressure. Straight cath performed with 700 mL of urine output. provider aware, plan is to keep purewick on and then re bladder scan and 4 hours, monitor output.
--- NOTE | 2025-09-24 12:27 | MHC.CM.ED ---
Addendum entered by Mariangel Maldonado 09/24/25 13:10: [facility] is able to offer a bed and will obtain ins auth once PT eval is available. [facility] will not be able to provide [facility]. Patient aware and will ask [facility] to obtain it for [facility]. HCP completed, signed and witnessed. Original given to patient. Copy placed in chart. Original Note: Received case management consult from Dr Sam. Patient was inpatient at [facility] d/t back surgery and d/c'd home 09/22. Patient returned due to a fall. Physical therapy eval is ordered and pending. Anticipate STR will be needed. Met with patient in regards to discharge planning. Patient has a CPap and is active with [facility]. Patient requesting referral to [facility]. If [facility] does not have a bed, patient agreeable to referral to all facilities contracted with [facility] in [place]. Continue to monitor for d/c needs.
--- NOTE | 2025-09-24 13:11 | HO.NEUROPN_ITS ---
Neurosurgery Operative Note Date of Service: 09/24/25 Narrative: Postoperative day 2. L4-5 oblique lumbar interbody fusion Patient was discharged home yesterday with services after PT recommending rehab but the patient did not want to go. She went home last night and was getting up to go to the bathroom and fell on her left side. She is brought in by ambulance, and was evaluated. I spoke to her this morning, after she was admitted to the emergency room. She is still having tremendous amounts of back pain. She also reports numbness down the left leg. He has also heaviness in her left leg as well. She has been having some urinary retention and has been straight cath for 700 cc at this point. On exam she is slightly uncomfortable but not in acute distress. She has left iliopsoas weakness which I would rate as 3/5. The rest of her right and distal left lower extremity are full strength. Abdomen is obese nondistended, mildly tender but appropriately so in the left lower quadrant near where the incision is. Back dressing was removed as well and there some tenderness there. There some ecchymosis along her incision lines but no signs of active bleeding. Dr. Fuentes and I reviewed her x-ray and it shows stable positioning of the hardware. Right now, there is no thing acute going on with her postsurgical recovery. Her iliopsoas weakness on the left is related to the surgical approach and not true neurological weakness. The numbness in her leg can be associated with postsurgical correction of degenerative disc disease and in light of her strength being normal is not an indication to order an MRI or further imaging. She probably just needed to go to rehab instead of home, as was recommended. The emergency room is working on getting a disposition for her to rehab. They are going to check postvoid residuals after her straight cath of 700 cc. If she continues to retain past 400 cc after voiding, a catheter should be left in place and can be removed at rehab. Dr. Fuentes updated on the patient's status. Also, just as a note regarding the CT scan of the left hip done to rule out fracture showing signs of postsurgical air near the incision site, this is very common and in fact normal after the oblique lumbar interbody approach. The patient does not need an abdominal CT.
--- NOTE | 2025-09-24 16:10 | MHC.CM.ED ---
Insurance auth has been obtained by [facility]. Patient can leave tomorrow 09/25 at 10am. [facility] booked. Med nec with chart. Patient, Casey WATSON and Dr Sam made aware. Continue to monitor for d/c needs.
--- NOTE | 2025-09-24 17:00 | PC.NURSE ---
Pharmacy contacted for valsartan dose, awaiting arrival.
--- NOTE | 2025-09-24 19:12 | HO.NURTONUR ---
Report given to Armani WATSON, overflow. Awaiting transport to [facility] 06.
[2025-09-24] MEDS: Insulin Glargine,Hum.rec.anlog 100 UNIT/ML 10 ML VIAL 22 UNIT SUBCUT (20:25)
[2025-09-24] MEDS: Venlafaxine HCl ER 150 MG CAP.ER.24H PO (20:27)
[2025-09-24 20:35] LABS: Glucose, Whole Blood 155 mg/dL (60-115)
--- NOTE | 2025-09-24 20:40 | PC.NURSE ---
Assumed care of pt, presents with lower back s/p fall at home after lossing her balance and falling on her left side, pt recently has spinal fusion of the L4-L5, aaox4, Pt pending [facility] in the AM
--- NOTE | 2025-09-24 20:47 | PHA.MEDREC ---
Pharmacy Consult ? Medication Reconciliation Pharmacy has reviewed the medication reconciliation completed by nursing. Spoke with changes and update med rec: Pt applies clotrimazole- betamethasone cream BID (as claims state), not once daily as RN entered. Pt takes 10mg of Prazosin at bedtime (as claims state), not 5mg once daily as RN entered. Pt takes Mounjaro on Fridays Pt is not on Qulipta, only Ubrelvy. Pt confirmed Pristiq 125mg daily, even though there are only for claims 100mg 2 tabs daily from 08/31. Pt confirmed 32 units of Tresiba Pt's medications are all locked up and administered by a home RN, Ericka, . This instructional writer called the home RN multiple times to confirm medications and dosing of Pristiq, but was not able to reach RN to confirm. Confirmed meds utilizing claims and patient conversation.
[2025-09-25 06:03] VITALS: BP 92/58; PULSE 99; RESP 16; TEMP 36.5; O2SAT 94
[2025-09-25 07:11] LABS: Glucose, Whole Blood 95 mg/dL (60-115)
[2025-09-25] MEDS: Venlafaxine HCl ER 150 MG CAP.ER.24H PO (09:34)
[2025-09-25] MEDS: Insulin Glargine,Hum.rec.anlog 100 UNIT/ML 10 ML VIAL 22 UNIT SUBCUT (09:36)
[2025-09-25 09:40] VITALS: BP 105/65
[2025-09-25 09:56] VITALS: BP 105/86; PULSE 89; RESP 16; TEMP 36.4; O2SAT 95
== END 2025-09-25 09:59 ==
PROVIDERS: Emergency Medicine; Emergency Provider Emergency Medicine Emergency Medical Services; PCP Internal Medicine
DX: S89.92XA Unspecified injury of left lower leg, initial encounter (principal); M25.562 Pain in left knee; R26.2 Difficulty in walking, not elsewhere classified; M25.552 Pain in left hip; M54.50 Low back pain, unspecified; R06.02 Shortness of breath; R07.89 Other chest pain; E11.9 Type 2 diabetes mellitus without complications; X50.1XXA Overexertion from prolonged static or awkward postures, initial encounter; X50.9XXA Other and unspecified overexertion or strenuous movements or postures, initial encounter; Y93.01 Activity, walking, marching and hiking; Y92.002 Bathroom of unspecified non-institutional (private) residence as the place of occurrence of the external cause; Y99.8 Other external cause status; Z79.4 Long term (current) use of insulin; Z79.899 Other long term (current) drug therapy
CPT/HCPCS: 36415; 71045; 72100; 72170; 73560; 73700; 80048; 82947; 83880; 84484; 85025; 87635; 96365; 96367; 96372; 96375; 97162; 99285; J1171; J1644; J7120

== ENCOUNTER → 2025-09-24 00:03 | Outpatient (BNV) | payer OTHER, SELFPAY | PROVIDERS: Emergency Provider Emergency Medicine Emergency Medical Services; PCP Internal Medicine; Visit Provider Physician Assistant | DX: Z48.89 Encounter for other specified surgical aftercare (principal) | CPT/HCPCS: 99024 ==

== ENCOUNTER → 2025-09-24 00:12 | Outpatient (BNV) | payer OTHER, SELFPAY | PROVIDERS: Emergency Provider Emergency Medicine; PCP Internal Medicine; Visit Provider Student in an Organized Health Care Education/Training Program | DX: M17.12 Unilateral primary osteoarthritis, left knee (principal); M54.50 Low back pain, unspecified; M43.26 Fusion of spine, lumbar region; Z04.3 Encounter for examination and observation following other accident; R09.02 Hypoxemia; M25.552 Pain in left hip; S79.919A Unspecified injury of unspecified hip, initial encounter; J43.9 Emphysema, unspecified | CPT/HCPCS: 71045; 72100; 72170; 73560; 73700 ==

== ENCOUNTER 2025-09-27 05:31 | Outpatient (REF) | payer OTHER, SELFPAY ==
[2025-09-27 05:34] LABS: MANUAL DIFF FLAG NO
--- OUTSIDE RECORDS SUMMARY | 2025-09-27 05:41 | XMS_ITS | Clinical Summary ---
Author Organization 175 [facility] Address [address] [place] [address] Phone Care Team Providers Care Scheme Technician Name Role Phone Mamie Townsend MD [...] 9:00 AM EDT Office Visit Orthopedic Surgery [facility] [address] [phone] Jim Ferreira DPM Cellulitis of third toe of right foot (Primary Dx) 07/08/2025 9:00 AM EDT Office Visit Orthopedic [facility] [address] [phone] Jim Ferreira DPM Tinea pedis of both [...] ID:[id number] Group ID:ICO Type:Not on file Address: [place] [address] [address] [phone] Care Teams Scheme Technician Relationship Specialty Start Date End Date Mamie Townsend MD [address] [place] [phone] PCP - General Internal Medicine 05/20/18
[2025-09-27 05:58] LABS: Hematocrit 37.8 % (37.0-47.0); Hemoglobin 12.3 g/dl (12.0-16.0); Imm Gran Abs Auto 0.04 X10*3/uL (0.00-0.03); Imm Gran Pct Auto 0.4 % (0.0-0.4); Lymphocytes Absolute Auto 2.9 X10*3/uL (1.2-4.9); Mean Corpuscular HGB Conc 32.5 g/dl (31.0-35.0); Mean Corpuscular Hemoglobin 28.9 pg (27.0-33.0); Mean Corpuscular Volume 88.9 fL (80.0-98.0); NRBC Abs Auto 0.000 X10*3/uL (0.0-0.012); NRBC Pct Auto 0.0 /100WBC (0.0-0.2); Platelet Count 295 X10*3/uL (160-400); Red Blood Count 4.25 X10*6/uL (4.20-5.50); White Blood Count 10.3 X10*3/uL (4.8-10.8)
[2025-09-27 06:03] LABS: Total Hemoglobin (HGBA1C) 2187.6652 umol/L
[2025-09-27 06:09] LABS: Alanine Aminotransferase 10 U/L (0-31); Albumin Level 3.5 g/dL (3.5-5.0); Alkaline Phosphatase 97 U/L (39-117); Anion Gap 17 (12-20); Aspartate Amino Transferase 15 U/L (5-31); Blood Urea Nitrogen 13 mg/dL (9-16); Calcium 9.4 mg/dL (8.4-10.2); Carbon Dioxide 24 mmol/L (22-29); Chloride 100 mmol/L (96-108); Estimated Glomerular Filt Rate > 60; Potassium 4.1 mmol/L (3.3-5.1); Sodium 137 mmol/L (135-145); Total Protein 6.6 g/dL (6.5-8.0)
== END 2025-09-27 05:32 | disposition home or self-care (01) ==
LOC: HO.MMNH1L 05:31
PROVIDERS: Visit Provider Physician Assistant Medical
DX: E11.9 Type 2 diabetes mellitus without complications (principal); E66.01 Morbid (severe) obesity due to excess calories
CPT/HCPCS: 36415; 80053; 83036; 85025

== ENCOUNTER 2025-10-04 06:50 | Outpatient (REF) | payer OTHER, SELFPAY ==
[2025-10-04 05:43] LABS: MANUAL DIFF FLAG NO
[2025-10-04 05:55] LABS: Hematocrit 38.3 % (37.0-47.0); Hemoglobin 12.5 g/dl (12.0-16.0); Imm Gran Abs Auto 0.06 X10*3/uL (0.00-0.03); Imm Gran Pct Auto 0.5 % (0.0-0.4); Lymphocytes Absolute Auto 3.7 X10*3/uL (1.2-4.9); Mean Corpuscular HGB Conc 32.6 g/dl (31.0-35.0); Mean Corpuscular Hemoglobin 29.1 pg (27.0-33.0); Mean Corpuscular Volume 89.3 fL (80.0-98.0); NRBC Abs Auto 0.000 X10*3/uL (0.0-0.012); NRBC Pct Auto 0.0 /100WBC (0.0-0.2); Platelet Count 343 X10*3/uL (160-400); Red Blood Count 4.29 X10*6/uL (4.20-5.50); White Blood Count 12.4 X10*3/uL (4.8-10.8)
[2025-10-04 06:21] LABS: Anion Gap 12 (12-20); Blood Urea Nitrogen 16 mg/dL (9-16); Calcium 9.1 mg/dL (8.4-10.2); Carbon Dioxide 26 mmol/L (22-29); Chloride 102 mmol/L (96-108); Estimated Glomerular Filt Rate > 60; Potassium 3.8 mmol/L (3.3-5.1); Sodium 136 mmol/L (135-145)
--- OUTSIDE RECORDS SUMMARY | 2025-10-04 06:52 | XMS_ITS | Clinical Summary ---
Author Organization 175 [facility] Address [address] [place] [address] Phone Care Team Providers Care Product Engineering Manager Name Role Phone Mamie Townsend MD Primary Care Provider Medications ketoconazole (NIZORAL) 2 % cream Apply topically 1 (one) time each day. 30 g 2 Active Encounters Date Type Department Care Team Description 08/24/2025 9:00 AM EDT Office Visit Orthopedic [facility] [address] [phone] Jim Ferreira DPM Cellulitis of third toe of right foot (Primary Dx) 07/08/2025 9:00 AM EDT Office Visit [facility] [address] [phone] Jim Ferreira DPM Tinea pedis of both [...] 04/01/2025 Hypertension/CHF/CAD Annual BMP Blood Test 04/01/2025 COVID-19 Vaccine ( season) 2025 11/16/2024, 09/08/2022, 12/12/2021, Additional history exists Influenza Vaccine (#1) 2025 , 10/30/2023, 09/08/2022, Additional history exists DTaP,Tdap,and Td Vaccines (4 - Td or Tdap) 06/18/2033 06/18/2023, 11/16/2013, 02/22/2009 Pneumococcal Vaccine: 50+ Years Completed 11/16/2024, 12/07/2012, [...] talus navicular joint to calcaneal cuboid joint us Jim Ferreira DPM IMG XR PROCEDURES Final R esult from Last 3 Months Insurance MEDICAID - [place] [facility] MEDICARE Member Subscriber Plan / Payer (Ef fective 2017-Present) Name:SHE CHEEK Relation to Subscriber:Self Name:Ham She Payer ID:[id number] Group ID:[id number] Type:Not on file Address: [address] [phone] Care Teams Product Engineering Manager Relationship Specialty Start Date End Date Mamie Townsend MD [address] [place] [address] PCP - General Internal Medicine 05/20/18
== END 2025-10-04 06:51 | disposition home or self-care (01) ==
LOC: HO.MMNH1L 06:50
PROVIDERS: Visit Provider Physician Assistant Medical
DX: E11.9 Type 2 diabetes mellitus without complications (principal); E66.01 Morbid (severe) obesity due to excess calories
CPT/HCPCS: 36415; 80048; 85025

== ENCOUNTER 2025-10-04 08:42 | Outpatient (REF) | payer OTHER, SELFPAY | END 2025-10-04 08:43 | disposition home or self-care (01) | LOC: HO.MMNH1L 08:42 | PROVIDERS: Visit Provider Physician Assistant Medical | DX: Z13.89 Encounter for screening for other disorder (principal) ==

== ENCOUNTER 2025-10-11 08:34 | Outpatient (AMB) | payer OTHER, SELFPAY ==
--- OUTSIDE RECORDS SUMMARY | 2025-10-11 08:53 | XMS_ITS | Clinical Summary ---
Author Organization 175 [facility] Address [address] [place] [address] Phone Care Team Providers Care Political Anthropologist Name Role Phone Mamie Townsend MD Primary Care Provider Medications ketoconazole (NIZORAL) 2 % cream Apply topically 1 (one) time each day. 30 g 2 Active Encounters Date Type Department Care Team Description 08/24/2025 9:00 AM EDT Office Visit Orthopedic Surgery [facility] [address] [phone] Jim Ferreira, DPM Cellulitis of third toe of right foot (Primary Dx) from Last 3 Months Social History Tobacco [...] ID:[id number] Group ID:ICO Type:Not on file Address: [facility] [address] [phone] Care Teams Political Anthropologist Relationship Specialty Start Date End Date Mamie Townsend MD [address] [place] [phone] PCP - General Internal Medicine 05/20/18
--- NOTE | 2025-10-11 08:58 | A.SPINEOV_ITS ---
Intake Visit Reasons: 1st post op Intake Note: Ms. Cheek is here today for her 1st post op. [facility] Required: No Allergies insulin lispro Allergy (Severe, Verified 10/11/25 08:59) tongue swelling meloxicam Allergy (Severe, Verified 10/11/25 08:59) Anaphylaxis simvastatin Allergy (Severe, Verified 10/11/25 08:59) Difficulty Swallowing amlodipine Allergy (Intermediate, Verified 10/11/25 08:59) lip swelling butalbital Allergy (Intermediate, Verified 10/11/25 08:59) lip, tongue, mouth swelling clindamycin Allergy (Intermediate, Verified 10/11/25 08:59) Angioedema ibuprofen (From Motrin) Allergy (Intermediate, Verified 10/11/25 08:59) Hives lisinopril Allergy (Intermediate, Verified 10/11/25 08:59) Swelling losartan Allergy (Intermediate, Verified 10/11/25 08:59) Angioedema Penicillins Allergy (Intermediate, Verified 10/11/25 08:59) Hives raspberry Allergy (Intermediate, Verified 10/11/25 08:59) Hives oxycodone (From Percocet) Allergy (Mild, Verified 10/11/25 08:59) Hives Assessment & Plan Assessment & Plan (1) S/P lumbar fusion: Code(s): Z98.1 - Arthrodesis status Category: Surgical Plan Procedure: L4-5 OLIF Marylin is a pleasant 55-year-old female comes in today for 1st postoperative visit after having a L4-[address] Fuentes. She reports that since her surgery her low back pain and left leg pain has significantly improved. She still has some hypoesthesia over the left foot, however states that this too seems to be improving. Overall she is very satisfied with the procedure that she had, and states that she has had little to no pain since returning back home from surgery. She still utilize the occasional over-the-c ounter medication, however is doing very well overall with her pain. She asked several questions regarding the postoperative healing course, all of which I answered to the best of my ability. No new neurological deficits. The patient ambulates well and rises from a seated position without difficulty. Her incision sites are closed and well healing with no signs of erythema or drainage. I would like to follow up with Marylin again in 6 weeks with a set of x-rays. Vern Fuentes MD,PhD [facility] Coding Level of Care Code Global (50802) Diagnoses S/P lumbar fusion Z98.1
== END 2025-10-11 09:32 | disposition home or self-care (01) ==
LOC: HO.HNS 08:35
PROVIDERS: PCP Internal Medicine; Visit Provider Physician Assistant
DX: Z98.1 Arthrodesis status (principal)
CPT/HCPCS: 99024

== ENCOUNTER → 2025-10-11 08:34 | Outpatient (BNVA) | payer OTHER, SELFPAY | PROVIDERS: PCP Internal Medicine; Visit Provider Physician Assistant | DX: Z98.1 Arthrodesis status (principal); R20.1 Hypoesthesia of skin | CPT/HCPCS: 36415; 80048; 85025; 99212 ==

== ENCOUNTER 2025-10-22 08:34 | Outpatient (AMB) | payer OTHER, SELFPAY ==
--- NOTE | 2025-10-22 09:04 | A.OFFVIS_ITS ---
Vital Signs 10/22/25 09:15 Height 5 ft Weight 240 lb BMI 46.9 Intake Visit Reasons: OV: Discuss Left CTR Intake Note: Marylin is a 54 year old right hand dominant female with a history of Type 2 Diabetes Mellitus who presents today for Discussion of her Left Carpal Tunnel Release. She was last seen on 09/08/25 where she was given a Left De Quervain's injection. Last A1C done 09/27/25- 6.8% Allergies insulin lispro Allergy (Severe, Verified 10/22/25 09:13) tongue swelling meloxicam Allergy (Severe, Verified 10/22/25 09:13) Anaphylaxis simvastatin Allergy (Severe, Verified 10/22/25 09:13) Difficulty Swallowing amlodipine Allergy (Intermediate, Verified 10/22/25 09:13) lip swelling butalbital Allergy (Intermediate, Verified 10/22/25 09:13) lip, tongue, mouth swelling clindamycin Allergy (Intermediate, Verified 10/22/25 09:13) Angioedema ibuprofen (From Motrin) Allergy (Intermediate, Verified 10/22/25 09:13) Hives lisinopril Allergy (Intermediate, Verified 10/22/25 09:13) Swelling losartan Allergy (Intermediate, Verified 10/22/25 09:13) Angioedema Penicillins Allergy (Intermediate, Verified 10/22/25 09:13) Hives raspberry Allergy (Intermediate, Verified 10/22/25 09:13) Hives oxycodone (From Percocet) Allergy (Mild, Verified 10/22/25 09:13) Hives HPI HPI OV: Discuss Left CTR: Details: Marylin is a 54 year old right hand dominant female with a history of Type 2 Diabetes Mellitus who presents today for Discussion of her Left Carpal Tunnel Release. She was last seen on 09/08/25 where she was given a Left De Quervain's injection. Patient states that she has begun to experience significant pain once again in the 1st dorsal compartment, and that this bothers her far more than that numbness and tingling in her left hand, And she would like to explore a repeat injection prior to getting booked for any surgery for her left carpal tunnel release. Of note, the patient is traveling for approximately a month to [place] in November, and would like to hold off on any surgical intervention until after her trip. Last A1C done 09/27/25- 6.8%. Blood sugar this morning approximately 150, and patient has not taken her insulin at this time. [facility] Medical History Alcohol dependence in remission Anxiety Anemia Asthma Back pain Hyperlipidemia LDL goal <70 Type 2 diabetes mellitus with hemoglobin A1c goal of less than 7.0% Carpal tunnel syndrome Cluster headache syndrome, intractable Morbid obesity with BMI of 40.0-44.9, adult Allergic rhinitis Migraine GERD (gastroesophageal reflux disease) Fibromyalgia Bipolar disorder PTSD (post-traumatic stress disorder) Arthritis Elevated cholesterol Sleep apnea HTN (hypertension) History of kidney stones History of alcohol abuse Surgical History (Updated 10/18/25 @ 10:18 by RANJEET Espinoza) Hx of carpal tunnel repair History of colonoscopy (~06/14/22) History of tonsillectomy History of hysterectomy Family History Father Hypertension Diabetes Mother Asthma Family/Other Substance use disorder Mental health disorder Sister No problems noted. Brother No problems noted. Son No problems noted. 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 Neuro: Normal sensation of the tips of all digits of the left hand in the office today Vascular: Cap refill brisk Pain: Significant tenderness to palpation of 1st dorsal compartment of left wrist Positive Mauricio in the left ROM: Patient is able to make a closed fist and extend all digits of bilateral hands fully and without difficulty Skin: No lacerations or abrasions. General: No ecchymosis, erythema, or evidence of infection. Psych: Appears grossly normal Affect normal Attitude cooperative Assessment & Plan Assessment & Plan (1) De Quervain's tenosynovitis, left: Code(s): M65.4 - Radial styloid tenosynovitis [de Quervain] Category: Medical (2) Carpal tunnel syndrome on both sides: Code(s): G56.03 - Carpal tunnel syndrome, bilateral upper limbs Category: Medical Plan 1. Left de Quervain tenosynovitis Patient is educated about this condition Patient is educated about the typical treatment course At this time, patient is interested in repeating de Quervain tenosynovitis injection, however as her blood sugar was 150 and has not had her insulin today, I do not feel comfortable proceeding with injection, as this could cause her blood sugar to spike to dangerously high levels Therefore, patient is booked an appointment in 1-2 weeks to have a left de Quervain injection performed Patient understands this and is amenable to this plan Left carpal tunnel syndrome Symptoms intermittent, not always daily, worse at night At this time, patient would like to hold off on any operative intervention until after her trip to [place] in November, as she will be going for 1 month and would like to enjoy her trip without recovering from surgery acutely Patient will follow-up after she gets back from her trip to discuss left carpal tunnel release Patient understands this and is amenable to this plan Coding Level of Care Code Est Pt Level 3 (20880) Diagnoses De Quervain's tenosynovitis, left M65.4 Carpal tunnel syndrome on both sides G56.03
[2025-10-22 09:15] VITALS: BMI 46.9
== END 2025-10-22 09:43 | disposition home or self-care (01) ==
LOC: HO.HOS 08:35
PROVIDERS: PCP Internal Medicine
DX: M65.4 Radial styloid tenosynovitis [de Quervain] (principal); G56.03 Carpal tunnel syndrome, bilateral upper limbs
CPT/HCPCS: 99213

== ENCOUNTER → 2025-10-22 08:34 | Outpatient (BNVA) | payer OTHER, SELFPAY | PROVIDERS: PCP Internal Medicine | DX: M65.4 Radial styloid tenosynovitis [de Quervain] (principal); G56.02 Carpal tunnel syndrome, left upper limb | CPT/HCPCS: 99212 ==

== ENCOUNTER 2025-10-27 07:52 | Outpatient (AMB) | payer OTHER, SELFPAY ==
--- OUTSIDE RECORDS SUMMARY | 2025-10-27 08:12 | XMS_ITS | Clinical Summary ---
Author Organization 175 [facility] Address [address] [place] [address] Phone Care Team Providers Care Embedded Developer Name Role Phone Mamie Townsend MD Primary Care Provider Medications ketoconazole (NIZORAL) 2 % cream Apply topically 1 (one) time each day. 30 g 2 Active Encounters Date Type Department Care Team Description 08/24/2025 9:00 AM EDT Office Visit Orthopedic Surgery [facility] [address] [phone] Jim Ferreira, DPM Cellulitis of [...] ID:[id number] Group ID:ICO Type:Not on file Address: [facility] [address] [phone] Care Teams Embedded Developer Relationship Specialty Start Date End Date Mamie Townsend MD [address] [place] [phone] PCP - General Internal Medicine 05/20/18
--- NOTE | 2025-10-27 08:17 | MHC.PC.OV ---
Vital Signs 10/27/25 08:18 Height 5 ft Weight 241 lb BMI 47.1 BP 130/78 Blood Pressure Location Lt brachial Position Sitting Pulse 83 Pulse Source Pulse Oximeter Temp 97.1 F Temp Source Temporal Artery Scan Pulse Oximetry (%) 95 Oxygen Delivery Method Room Air Intake Visit Reasons: 3 month follow up Intake Note: Patient is here to follow up on DM, HLD, HTN, Asthma. [facility] Psychiatrist Required: No Coating Machine Helper: Not Required per policy Accompanied by: Self / Same As Patient Allergies insulin lispro Allergy (Severe, Verified 10/27/25 08:41) tongue swelling meloxicam Allergy (Severe, Verified 10/27/25 08:41) Anaphylaxis simvastatin Allergy (Severe, Verified 10/27/25 08:41) Difficulty Swallowing amlodipine Allergy (Intermediate, Verified 10/27/25 08:41) lip swelling butalbital Allergy (Intermediate, Verified 10/27/25 08:41) lip, tongue, mouth swelling clindamycin Allergy (Intermediate, Verified 10/27/25 08:41) Angioedema ibuprofen (From Motrin) Allergy (Intermediate, Verified 10/27/25 08:41) Hives lisinopril Allergy (Intermediate, Verified 10/27/25 08:41) Swelling losartan Allergy (Intermediate, Verified 10/27/25 08:41) Angioedema Penicillins Allergy (Intermediate, Verified 10/27/25 08:41) Hives raspberry Allergy (Intermediate, Verified 10/27/25 08:41) Hives oxycodone (From Percocet) Allergy (Mild, Verified 10/27/25 08:41) Hives Medication List - Last Reconciled 10/27/25 by Clive Solorio MD [Adult Protective Underwear As directed] albuterol sulfate 90 mcg/actuation 2 puffs inhalation Q4H PRN ascorbate calcium (vitamin C) 500 mg PO DAILY 30 days baclofen 10 mg PO BEDTIME PRN 90 days [Bed rail As directed] carboxymethylcellulose sodium 0.5% 1 drp ophthalmic (eye) BID-QID PRN cholecalciferol (vitamin D3) 25 mcg PO DAILY clotrimazole-betamethasone 1-0.05 % 1 appl topical BID desvenlafaxine succinate ER 25 mg PO DAILY desvenlafaxine succinate ER (Pristiq) 100 mg PO DAILY docusate sodium (Colace) 100 - 200 mg (1 - 2 x 100 mg) PO DAILY PRN 30 days empagliflozin (Jardiance) 25 mg PO DAILY epinephrine 0.3 mL IM ONCE PRN flash glucose scanning reader (FreeStyle Griffin 14 Day [place]) As directed flash glucose sensor (FreeStyle Griffin 14 Day Sensor kit) As directed fluticasone propionate 50 mcg/actuation 1 spray intranasal DAILY FreeStyle Lite Strips (blood sugar diagnostic) USE TO CHECK BLOOD SUGAR TWICE A DAY NS gabapentin 600 mg PO TID hydromorphone 2 - 4 mg PO Q4-6H hydroxyzine HCl 10 mg PO TID PRN 30 days insulin degludec (Tresiba FlexTouch U-200 insulin) 32 units subcut QAM lancets (FreeStyle Lancets) As directed levomefolate calcium 15 mg PO DAILY loratadine 10 mg PO DAILY nystatin 1 appl topical QID omeprazole 40 mg PO QAM ondansetron HCl 4 mg PO Q8H pen needle, diabetic (Unifine Pentips) USE TO INJECT TWICE A DAY pravastatin 80 mg PO BEDTIME prazosin 10 mg PO BEDTIME riboflavin (vitamin B2) 400 mg PO DAILY 30 days [Rollator As directed] [Rollator walker As directed] [single prong cane As directed] tirzepatide (Mounjaro) 15 mg subcut FR ubrogepant (Ubrelvy) 50 - 100 mg (0.5 - 1 x 100 mg) PO ONCE PRN 30 days Held on 09/23/25. Instructions: Resume on 09/27/25. Discuss restarting this medication with your prescriber valsartan (Diovan) 160 mg PO QAM zolpidem 10 mg PO BEDTIME Tobacco use date assessed: 10/27/25 Dental Screening Dental Screen Date: 01/21/25 [facility] Medical History Alcohol dependence in remission Anxiety Anemia Asthma Back pain Hyperlipidemia LDL goal <70 Type 2 diabetes mellitus with hemoglobin A1c goal of less than 7.0% Carpal tunnel syndrome Cluster headache syndrome, intractable Morbid obesity with BMI of 40.0-44.9, adult Allergic rhinitis Migraine GERD (gastroesophageal reflux disease) Fibromyalgia Bipolar disorder PTSD (post-traumatic stress disorder) Arthritis Elevated cholesterol Sleep apnea HTN (hypertension) History of kidney stones History of alcohol abuse Surgical History (Updated 10/27/25 @ 08:25 by MARGARITO Aviles) History of back surgery Hx of carpal tunnel repair History of colonoscopy (~06/14/22) History of tonsillectomy History of hysterectomy Family History Father Hypertension Diabetes Mother Asthma Family/Other Substance use disorder Mental health disorder Sister No problems noted. Brother No problems noted. Son No problems noted. 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 Cognitive needs: Yes (cane, walker) Hearing needs: No Vision needs: Yes (glasses ) Questionnaire Thrive Questionnaire Date Thrive assessed: 07/07/25 I am a: Patient What is your living situation today?: I have a steady place to live Within the past 12 months, did the food you bought not last and you didn't have the money to get more?: Never true Within the past 12 months, did you worry whether your food would run out before you got money to buy more?: Sometimes True Do you have trouble paying for medicines?: No Do you have trouble getting transportation to medical appointments?: No Do you have trouble paying your heating and electricity bill?: No Do you have trouble taking care of your child, family member or friend?: No Do you have trouble with day-to-day activities such as bathing, preparing meals, shopping, managing finances, etc.?: Yes Are you currently unemployed and looking for a job?: No Are you interested in more education?: No Please select the resources that you would like help with: None THRIVE Score: 1 DARIEL-7 AMB Questionnaire DARIEL-7 Date DARIEL - 7 assessed: 07/14/25 Source: Developed by Drs. Jeff Soria, Bindu Nielsen, [place] Farmer and colleagues, with an educational marysol from [employer]. Physical exam (Primary Care) Vital Signs: Last Vital Signs Temp 97.1 F 10/27/25 08:18 Pulse 83 10/27/25 08:18 BP 130/78 10/27/25 08:18 Pulse Ox 95 10/27/25 08:18 Oxygen Delivery Method Room Air 10/27/25 08:18 BMI result Body Mass Index 47.1 Tobacco/Smoking Status: Tobacco use Status Tobacco use date assessed 10/27/25 10/27/25 08:26 Patient Tobacco Use Status Never used Tobacco 10/27/25 08:26 Tobacco use type Cigarette 10/27/25 08:26 e-Cigarette/Vaping Use Never Used 10/27/25 08:26 Thrive Assessment: Date of Thrive Assessment Date Thrive assessed 07/07/25 10/27/25 08:26 Coding Level of Care Code Est Pt Level 4 (57272) Complex visit Add On G2211 Diagnoses Diabetes mellitus type 2 in obese E11.69; E66.9 Assessment & Plan Assessment & Plan (1) Diabetes mellitus type 2 in obese: Code(s): E11.69 - Type 2 diabetes mellitus with other specified complication; E66.9 - Obesity, unspecified Category: Medical Plan History of Present Illness - The patient is a 55 year old female presenting for a post-surgical follow-up visit after her back surgery on September 22. - She underwent L4-L5 spinal fusion, which she reports is helping. - She also had a history of carpal tunnel surgery. - For pain, she was prescribed hydromorphone, which she is trying not to take but uses it when she has to do more exercise. - The patient's medication list is extensive. - She takes Ambien, valsartan, prazosin for the bladder, pravastatin, omeprazole, nystatin powder, Claritin, calcium, folate, hydroxyzine three times daily, Jardiance, a stool softener, and Pristiq for mental illness. - For migraines, she takes ubrogepant, which helps if taken early, and has previously tried an injection that was not helpful. - For diabetes, she takes Mounjaro and Tresiba 32 units at night. - She reports not taking magnesium. - Her care team includes a neurosurgeon, a sleep/migraine doctor, a therapist, a psychiatrist, and a truck body builder. - The patient has received her flu and COVID-19 vaccinations. Social History - Housing and Support: The patient lives with her father, mother, and brother. - Functional Status: She does not drive. 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 - Substance Use: Denies alcohol use and smoking. - Hobbies: Engages in arts and crafts. Review of Systems - Neurological: Reports headaches, which are managed with ubrogepant. - Musculoskeletal: Reports improvement in her back following L4-L5 fusion surgery. - She uses hydromorphone as needed for pain with increased exercise. - Constitutional: Her immunizations are up to date. Physical Exam General: Cooperative and healthy appearing Nutritional Appearance: Well nourished Orientation/consciousness: Patient oriented x3 Limitations: No limitations Head: Normal to inspection General: Appearance normal, both eyes and all related structures Neck: Normal visual inspection Chest: Normal palpation of entire chest wall Respiratory: Normal respiratory effort Neurology: Patient oriented x3 Results Plan - Medication Reconciliation: Reviewed the patient's extensive medication list, including hydromorphone, Ambien, valsartan, ubrogepant, Mounjaro, prazosin, pravastatin, omeprazole, nystatin, folate, Tresiba, hydroxyzine, Jardiance, a stool softener, and Pristiq. - Travel Guidance: Advised the patient that a doctor's note is not required for carrying her medications during air travel to [place]. - Follow-up: Recommended scheduling a follow-up appointment in three months. Discussion Notes I conducted a post-operative follow-up with the patient regarding her back surgery from September 22. We reviewed her discharge report and extensive medication list. I confirmed she has received her influenza and COVID-19 immunizations. I also addressed her question about traveling with medications, advising that a specific doctor's note is not necessary for her upcoming trip to [place]. I have recommended that she schedule a follow-up appointment in three months. Patient Instructions - Please continue to take your medications as prescribed by your various doctors. - Your flu and COVID shots are up to date. - You do not need a special doctor's note to carry your medications with you when you travel to [place]. - Please schedule a follow-up appointment at the front desk administrator for three months from now. Medications: Refilled fluticasone propionate 50 mcg/actuation 1 spray intranasal DAILY 48 mL 1RF J31.0 - Chronic rhinitis Discontinued magnesium oxide may hold for loose stools Discontinued Reason: Doctor's Order 400 mg PO BEDTIME 30 tabs 11RF 30 days
[2025-10-27 08:18] VITALS: BP 130/78; PULSE 83; TEMP 36.2; O2SAT 95; BMI 47.1
== END 2025-10-27 08:44 | disposition home or self-care (01) ==
LOC: HO.HMCH 07:52
PROVIDERS: PCP Internal Medicine; Visit Provider Internal Medicine
DX: E11.69 Type 2 diabetes mellitus with other specified complication (principal); E66.9 Obesity, unspecified; Z68.42 Body mass index [BMI] 45.0-49.9, adult

== ENCOUNTER → 2025-10-27 07:52 | Outpatient (BNVA) | payer OTHER, SELFPAY | PROVIDERS: PCP Internal Medicine; Visit Provider Internal Medicine | DX: E11.69 Type 2 diabetes mellitus with other specified complication (principal); E66.9 Obesity, unspecified; Z98.890 Other specified postprocedural states | CPT/HCPCS: 99212 ==

== ENCOUNTER 2025-10-28 08:07 | Outpatient (AMB) | payer OTHER, SELFPAY ==
[2025-10-28 08:24] VITALS: BP 120/78; PULSE 73; O2SAT 96; BMI 45.1
--- NOTE | 2025-10-28 08:24 | A.OFFVIS_ITS ---
Vital Signs 10/28/25 08:24 Height 5 ft Weight 231 lb BMI 45.1 BP 120/78 Blood Pressure Location Rt brachial Position Sitting Pulse 73 Pulse Source Pulse Oximeter Pulse Oximetry (%) 96 Oxygen Delivery Method Room Air Intake Visit Reasons: 6m Follow up Tariff Counsel Required: No Accompanied by: Self / Same As Patient Allergies insulin lispro Allergy (Severe, Verified 10/28/25 08:24) tongue swelling meloxicam Allergy (Severe, Verified 10/28/25 08:24) Anaphylaxis simvastatin Allergy (Severe, Verified 10/28/25 08:24) Difficulty Swallowing amlodipine Allergy (Intermediate, Verified 10/28/25 08:24) lip swelling butalbital Allergy (Intermediate, Verified 10/28/25 08:24) lip, tongue, mouth swelling clindamycin Allergy (Intermediate, Verified 10/28/25 08:24) Angioedema ibuprofen (From Motrin) Allergy (Intermediate, Verified 10/28/25 08:24) Hives lisinopril Allergy (Intermediate, Verified 10/28/25 08:24) Swelling losartan Allergy (Intermediate, Verified 10/28/25 08:24) Angioedema Penicillins Allergy (Intermediate, Verified 10/28/25 08:24) Hives raspberry Allergy (Intermediate, Verified 10/28/25 08:24) Hives oxycodone (From Percocet) Allergy (Mild, Verified 10/28/25 08:24) Hives Medication List - Last Reconciled 10/28/25 by OSCAR Cooper [Adult Protective Underwear As directed] albuterol sulfate 90 mcg/actuation 2 puffs inhalation Q4H PRN ascorbate calcium (vitamin C) 500 mg PO DAILY 30 days baclofen 10 mg PO BEDTIME PRN 90 days [Bed rail As directed] carboxymethylcellulose sodium 0.5% 1 drp ophthalmic (eye) BID-QID PRN cholecalciferol (vitamin D3) 25 mcg PO DAILY clotrimazole-betamethasone 1-0.05 % 1 appl topical BID desvenlafaxine succinate ER 25 mg PO DAILY desvenlafaxine succinate ER (Pristiq) 100 mg PO DAILY docusate sodium (Colace) 100 - 200 mg (1 - 2 x 100 mg) PO DAILY PRN 30 days empagliflozin (Jardiance) 25 mg PO DAILY epinephrine 0.3 mL IM ONCE PRN flash glucose scanning reader (FreeStyle Griffin 14 Day [place]) As directed flash glucose sensor (FreeStyle Griffin 14 Day Sensor kit) As directed fluticasone propionate 50 mcg/actuation 1 spray intranasal DAILY FreeStyle Lite Strips (blood sugar diagnostic) USE TO CHECK BLOOD SUGAR TWICE A DAY NS gabapentin 600 mg PO TID hydromorphone 2 - 4 mg PO Q4-6H hydroxyzine HCl 10 mg PO TID PRN 30 days insulin degludec (Tresiba FlexTouch U-200 insulin) 32 units subcut QAM lancets (FreeStyle Lancets) As directed levomefolate calcium 15 mg PO DAILY loratadine 10 mg PO DAILY nystatin 1 appl topical QID omeprazole 40 mg PO QAM ondansetron HCl 4 mg PO Q8H pen needle, diabetic (Unifine Pentips) USE TO INJECT TWICE A DAY pravastatin 80 mg PO BEDTIME prazosin 10 mg PO BEDTIME riboflavin (vitamin B2) 400 mg PO DAILY 30 days [Rollator As directed] [Rollator walker As directed] [single prong cane As directed] tirzepatide (Mounjaro) 15 mg subcut FR ubrogepant (Ubrelvy) 50 - 100 mg (0.5 - 1 x 100 mg) PO ONCE PRN 30 days Held on 09/23/25. Instructions: Resume on 09/27/25. Discuss restarting this medication with your prescriber valsartan (Diovan) 160 mg PO QAM zolpidem 10 mg PO BEDTIME HPI Comments Details: 54-yr-old female presents for f/u of migraine and CECILIA. Patient the following interval medical hsitory changes: In Sep 2025, she underwent uncomplicated L4-L5 fusion, through [facility]. She did have a fall after returning home, and then went to rehab for a short period. She is still doing PT twice a week. Patient reports that since the back surgery, she has not had the neck pain that she was having before. She switched to qulipta after the last visit, and likes it better. She has not had a headache in a few months, except for mild frontal headache in the last 2 days d/t early sinusitis s/s. She is still taking as-needed analgesics for her back. She states the Ubrelvy w/ Tylenol is effective when needed for headache. Baseline headache: Moderate to severe bilateral pressure from back to front, a/w photophobia, phonophobia, nausea, not right in space dizziness when she removes her glasses during a headache, cognitive difficulties, activity intolerance. Usually occurs during the day. States RLS vary- depending on the day- now about the same. However, when in the hospital s/p the lumbar surgery- she had some increased restlessness. She notes that even applying a sheet or a pillow can be helpful. Taking ferrous sulfate w/ vitamin C- tolerating well. Last ferritin was 10, in 2023. She restarted CPAP w/ heated tubing after the last visit, and was tolerating this better. However, stopped using CPAP after the recent hospital stay, as she could not use it while at rehab and then just did not resume upon returning home. 03/15/24, In-lab PSG Sleep study w/ split night PAP titration showed moderate sleep apnea, w/ severe sleep apnea in REM sleep- AHI 21/hr, REM AHI 50/hr, O2 stephany 83%, PLMS 42.8/hr w/ PLMS arousal index 10.4/hr. Sleep apnea and nocturnal hypoxemia responded best to CPAP 13 cmH2O. [facility] Medical History (Updated 10/28/25 @ 09:18 by OSCAR Cooper) Alcohol dependence in remission Anxiety Anemia Asthma Back pain Hyperlipidemia LDL goal <70 Type 2 diabetes mellitus with hemoglobin A1c goal of less than 7.0% Carpal tunnel syndrome Cluster headache syndrome, intractable Morbid obesity with BMI of 40.0-44.9, adult Allergic rhinitis Migraine GERD (gastroesophageal reflux disease) Fibromyalgia Bipolar disorder PTSD (post-traumatic stress disorder) Arthritis Elevated cholesterol Sleep apnea HTN (hypertension) History of kidney stones History of alcohol abuse Surgical History History of back surgery Hx of carpal tunnel repair History of colonoscopy (~06/14/22) History of tonsillectomy History of hysterectomy Family History Father Hypertension Diabetes Mother Asthma Family/Other Substance use disorder Mental health disorder Sister No problems noted. Brother No problems noted. Son No problems noted. 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 Cognitive needs: Yes (cane, walker) Hearing needs: No Vision needs: Yes (glasses ) Physical Exam Vital Signs: Last Vital Signs Pulse 73 10/28/25 08:24 BP 120/78 10/28/25 08:24 Pulse Ox 96 10/28/25 08:24 Oxygen Delivery Method Room Air 10/28/25 08:24 BMI result Body Mass Index 45.1 Const General: cooperative and no acute distress Orientation/consciousness: patient oriented x3 Resp Effort & Inspection: normal respiratory effort and able to speak in complete sentences Neuro Other: slow to rise, steady gait w/ walker General: patient oriented x3 and moves all extremities Cranial nerves: Yes CN's II-XII intact bilaterally Cognition (Neuro): normal cognition Psych Appearance: grossly normal Mental Status: mental status grossly normal Speech and movement: Normal speech and movement present Affect: normal affect Attitude: cooperative Assessment & Plan Assessment & Plan (1) Migraine without aura: Code(s): G43.009 - Migraine without aura, not intractable, without status migrainosus Category: Medical Qualifiers: Status migrainosus presence: without status migrainosus Intractability: not intractable Qualified Code(s): G43.009 - Migraine without aura, not intractable, without status migrainosus (2) Hypoferremia: Code(s): E61.1 - Iron deficiency Category: Medical (3) Moderate obstructive sleep apnea: Code(s): G47.33 - Obstructive sleep apnea (adult) (pediatric) Category: Medical (4) Periodic limb movements of sleep: Code(s): G47.61 - Periodic limb movement disorder Category: Medical Plan For CECILIA: Resume CPAP 4 cmH2O w/ EPR to need, nightly > 4 hours, w/ heating tubing and humidifier. May try using an OTC saline moisturizing nasal spray. For RLS/PLMS: Continue ferrous gluconate w/ vitamin C Check f/u labs before f/u visit ? For acute migraine without aura tx: Continue Ubrogepant (Ubrelvy) 100mg tab, 1/2 - 1 tab (50-100mg) at onset of headache, may repeat in 2 hours. Max of 2 tabs (200mg) per 24 hours. * May adjunct with OTC Tylenol 650-1000mg every 4-6 hours as needed. Previous tx's: Sumatriptan and Zolmitriptan- ineffective. Acute migraine treatment contraindications: Triptans due to uncontrolled hypertension. [place] d/t losartan allergy. Verapamil d/t amlodipine allergy. For prevention of migraine tx: Continue riboflavin 400 mg q.a.m. and magnesium 400 mg q.h.s. Continue desvenlafaxine- ordered for mood. Continue Atogepant (Qulipta) 60mg daily at bedtime. Previous tx trials- Topiramate x's > 8 weeks- ineffective. Emgality- ineffective. Migraine prevention treatment contraindications: Beta-blockers due to insulin- dependent diabetes. Orders: Orders Comprehensive Met. Panel Today D64.9 - Anemia, unspecified, E11.9 - Type 2 diabetes mellitus without complications, E61.1 - Iron deficiency Complete Blood Count Auto Diff Today D64.9 - Anemia, unspecified, E11.9 - Type 2 diabetes mellitus without complications, E61.1 - Iron deficiency IRON PROFILE Today D64.9 - Anemia, unspecified, E11.9 - Type 2 diabetes mellitus without complications, E61.1 - Iron deficiency Ferritin Today D64.9 - Anemia, unspecified, E11.9 - Type 2 diabetes mellitus without complications, E61.1 - Iron deficiency Medications: Changed From atogepant PA APPROVED 02/04/25-08/03/25 60 mg PO BEDTIME 30 days 30 tabs 6RF To atogepant (Qulipta) PA approved through 07/2026 60 mg PO BEDTIME 30 tabs 9RF 30 days Resumed ubrogepant (Ubrelvy) take at onset of migraine, may repeat in 2hrs (may take w/ Tylenol). PA APPROVED 12/25-03/25/2026 50 - 100 mg (0.5 - 1 x 100 mg) PO ONCE PRN 16 tabs 6RF migraine headache 30 days ubrogepant (Ubrelvy) 50 - 100 mg (0.5 - 1 x 100 mg) PO ONCE 30 days PRN 16 tabs 6RF migraine headache Coding Level of Care Code Est Pt Level 4 (09837) Diagnoses Migraine without aura and without status migrainosus, not intractable G43.009 Status migrainosus presence: without status migrainosus Intractability: not intractable Hypoferremia E61.1 Moderate obstructive sleep apnea G47.33 Periodic limb movements of sleep G47.61
== END 2025-10-28 09:19 | disposition home or self-care (01) ==
LOC: HO.HSMS 08:07
PROVIDERS: PCP Internal Medicine; Visit Provider Nurse Practitioner Family
DX: G43.009 Migraine without aura, not intractable, without status migrainosus (principal); E61.1 Iron deficiency; G47.33 Obstructive sleep apnea (adult) (pediatric); G47.61 Periodic limb movement disorder
CPT/HCPCS: 99214

== ENCOUNTER → 2025-10-28 08:07 | Outpatient (BNVA) | payer OTHER, SELFPAY | PROVIDERS: PCP Internal Medicine; Visit Provider Nurse Practitioner Family | DX: G47.33 Obstructive sleep apnea (adult) (pediatric) (principal); G43.009 Migraine without aura, not intractable, without status migrainosus; E61.1 Iron deficiency; G47.61 Periodic limb movement disorder; Z79.899 Other long term (current) drug therapy | CPT/HCPCS: 99212 ==

== ENCOUNTER 2025-11-05 11:40 | Outpatient (AMB) | payer OTHER, SELFPAY ==
--- NOTE | 2025-11-05 12:06 | A.OFFVIS_ITS ---
Intake Visit Reasons: Inj - Left DeQuervains Injection - ?Blood Sugar Intake Note: Marylin is a 55 year old right hand dominant female who presents today for a Left De Quervains Injection. When she was last seen on 10/22/25 her blood sugar was too high to proceed with an injection. Today patient states her blood sugar number is 130. Allergies insulin lispro Allergy (Severe, Verified 11/05/25 12:07) tongue swelling meloxicam Allergy (Severe, Verified 11/05/25 12:07) Anaphylaxis simvastatin Allergy (Severe, Verified 11/05/25 12:07) Difficulty Swallowing amlodipine Allergy (Intermediate, Verified 11/05/25 12:07) lip swelling butalbital Allergy (Intermediate, Verified 11/05/25 12:07) lip, tongue, mouth swelling clindamycin Allergy (Intermediate, Verified 11/05/25 12:07) Angioedema ibuprofen (From Motrin) Allergy (Intermediate, Verified 11/05/25 12:07) Hives lisinopril Allergy (Intermediate, Verified 11/05/25 12:07) Swelling losartan Allergy (Intermediate, Verified 11/05/25 12:07) Angioedema Penicillins Allergy (Intermediate, Verified 11/05/25 12:07) Hives raspberry Allergy (Intermediate, Verified 11/05/25 12:07) Hives oxycodone (From Percocet) Allergy (Mild, Verified 11/05/25 12:07) Hives HPI HPI Inj - Left DeQuervains Injection - ?Blood Sugar: Details: Marylin is a 55 year old right hand dominant female who presents today for a Left De Quervains Injection. When she was last seen on 10/22/25 her blood sugar was too high to proceed with an injection. Today patient states her blood sugar number is 130. [facility] Medical History (Updated 10/28/25 @ 09:18 by OSCAR Cooper) Alcohol dependence in remission Anxiety Anemia Asthma Back pain Hyperlipidemia LDL goal <70 Type 2 diabetes mellitus with hemoglobin A1c goal of less than 7.0% Carpal tunnel syndrome Cluster headache syndrome, intractable Morbid obesity with BMI of 40.0-44.9, adult Allergic rhinitis Migraine GERD (gastroesophageal reflux disease) Fibromyalgia Bipolar disorder PTSD (post-traumatic stress disorder) Arthritis Elevated cholesterol Sleep apnea HTN (hypertension) History of kidney stones History of alcohol abuse Surgical History History of back surgery Hx of carpal tunnel repair History of colonoscopy (~06/14/22) History of tonsillectomy History of hysterectomy Family History Father Hypertension Diabetes Mother Asthma Family/Other Substance use disorder Mental health disorder Sister No problems noted. Brother No problems noted. Son No problems noted. 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 De Quervain tenosynovitis, left Injection #1: The risks and benefits of a steroid injection including but not limited to risk of damage to blood vessels, nerves, tendons, infection, skin bleaching, failure to improve symptoms, increased pain, and possible need for further injections or other intervention were discussed with the patient and the patient wishes to proceed with the steroid injection. Once consent was obtained, I sterilely prepped the area over the 1st dorsal compartment of the left thumb. I then injected the 1st dorsal compartment with a combination of 1 mL of dexamethasone (4mg/ml), and 1% lidocaine. The patient tolerated the procedure well with no complications and good resolution of their symptoms prior to leaving clinic. If the patient continues to have pain 6-8 weeks following this injection, they may call to schedule appointment to discuss alternative treatment options Coding Level of Care Code Procedure Only Diagnoses De Quervain's tenosynovitis, left M65.4 CPT Codes Tendon Injection - Tendon Injection 1: [id number] Tendon Sheath Injection ([id number])
--- OUTSIDE RECORDS SUMMARY | 2025-11-05 13:47 | XMS_ITS | Clinical Summary ---
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 30 g 2 Active Encounters Date Type Department Care Team Description 08/24/2025 9:00 AM EDT Office Visit Orthopedic Surgery [facility] [address] [address] Jim Ferreira, DPM Cellulitis of [...] ID:[id number] Group ID:[id number] Type:Not on file Address: [facility] [address] [address] Care Teams Tower Excavator Operator Relationship Specialty Start Date End Date Mamie Townsend MD [address] [place] [id number] PCP - General Internal Medicine 05/20/18
== END 2025-11-05 12:22 | disposition home or self-care (01) ==
LOC: HO.HOS 11:41
PROVIDERS: PCP Internal Medicine
DX: M65.4 Radial styloid tenosynovitis [de Quervain] (principal)
CPT/HCPCS: 20550

== ENCOUNTER → 2025-11-05 11:40 | Outpatient (BNVA) | payer OTHER, SELFPAY | PROVIDERS: PCP Internal Medicine | DX: M65.4 Radial styloid tenosynovitis [de Quervain] (principal) | CPT/HCPCS: 20550; J1100; J2003 ==